=== PATIENT | male | born 1950 | race Caucasian/White ===

== ENCOUNTER 2016-12-16 15:09 | Emergency (ER) | payer OTHER ==
[2016-12-16 16:08] VITALS: BP 140/82; PULSE 94; TEMP 97.6; BMI 48.4
--- NOTE | 2016-12-16 16:40 | PDOC ---
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 Pt. reports falling 7 days ago. He was ambulating with crutches and attempting to sit down when his right knee "buckled" and he fell landing on his right knee with his knee flexed. Reports inability to bear weight on right leg following fall. He denies neck or back trauma during fall, but endorses right knee and right ankle pain. Denies penetrating trauma to knee or ankle. Reports swelling of right knee following injury. Endorses baseline numbness and tingling, and increased weakness of right leg compared to left. Pt. has been in bed immobile since fall because of knee pain. Lives alone with two home health aides to assist in care. Knee and ankle are aggrevated with pressure. He denies fevers/chills, SOB, confusion, GABRIEL, N/V, abdominal, or urinary complaints. Has attempted, OTC NSAIDS, heat, and ice therapy with little to no relief. Past History - Past Medical History Allergies/Adverse Reactions: Allergies Allergy/AdvReac Type Severity Reaction Status Date / Time No Known Allergies Allergy Verified 12/16/16 15:46 Home Medications: Ambulatory Orders Aspirin [ASA -] 81 mg PO DAILY 01/02/12 Alfuzosin HCl [Uroxatral] 10 mg PO DAILY 07/07/13 Ascorbic Acid [Vitamin C -] 500 mg PO BID 07/07/13 Carvedilol 3.125 mg PO BID 07/07/13 Cyclobenzaprine HCl [Amrix] 30 mg PO DAILY 07/07/13 Furosemide [Lasix -] 40 mg PO BID 07/07/13 Ibuprofen [Motrin -] 600 mg PO TID 07/07/13 Liraglutide [Victoza -] 0.6 mg SQ DAILY@0700 07/07/13 Niacin*ER* [Niaspan (Non-Formulary) -] 1,000 mg PO DAILY 07/07/13 Paroxetine HCl [Paxil -] 40 mg PO DAILY 07/07/13 Pramipexole Di-HCl [Mirapex] 1.5 mg PO BID 07/07/13 Rosuvastatin Calcium [Crestor] 10 mg PO DAILY 07/07/13 Zolpidem Tartrate [Ambien] 10 mg PO HS 07/07/13 Clonazepam [KlonoPIN] 0.5 mg PO DAILY 04/05/14 Cyclobenzaprine HCl [Amrix] 30 mg PO DAILY 04/05/14 Nitrofurantoin Monohyd/M-Cryst [Macrobid -] 100 mg PO BID 04/05/14 Oxycodone HCl/Acetaminophen [Percocet 5-325 mg Tablet -] 1 combo PO Q6H PRN #7 tablet 04/05/14 Pramipexole Di-HCl [Mirapex] 1.5 mg PO DAILY 04/05/14 Sennosides [Senna] 8.6 mg PO DAILY 04/05/14 Oxycodone HCl/Acetaminophen [Percocet 5-325 mg Tablet] 1 tab PO Q6H #20 tablet MDD 20-1300 12/16/16 Anemia: No Asthma: No Cancer: Yes (PROSTATE) Cardiac Disorders: Yes CVA: No COPD: No (HX SLEEP APNEA, ON CPAP) CHF: No Dementia: No Diabetes: Yes GI Disorders: No Disorders: No HTN: No Hypercholesterolemia: Yes Liver Disease: No Seizures: No Thyroid Disease: No - Surgical History Abdominal Surgery: No Appendectomy: No Cardiac Surgery: Yes (HX BLOCKAGE BUT NO SX) Cholecystectomy: No Lung Surgery: No Neurologic Surgery: Yes (MULTIPLE BACK AND NECK SX) Orthopedic Surgery: Yes (RIGHT TKR, RIGHT THR) - Psycho/Social/Smoking Cessation Hx Anxiety: No Suicidal Ideation: No Smoking Status: Yes Smoking History: Unknown if ever smoked Have you smoked in the past 12 months: No Number of Cigarettes Smoked Daily: 0 Information on smoking cessation initiated: No Hx Alcohol Use: No Drug/Substance Use Hx: No Substance Use Type: None Hx Substance Use Treatment: No Review of Systems - Review of Systems Comments:: 12/16/16 16:41 GENERAL/CONSTITUTIONAL: No fever or chills. No weakness. HEAD, EYES, EARS, NOSE AND THROAT: No change in vision. No ear pain or discharge. No sore throat. CARDIOVASCULAR: No chest pain or shortness of breath RESPIRATORY: No cough, wheezing, or hemoptysis. GASTROINTESTINAL: No nausea, vomiting, diarrhea or constipation. GENITOURINARY: No dysuria, frequency, or change in urination. MUSCULOSKELETAL: + Knee pain and swelling. No neck or back pain. SKIN: No rash NEUROLOGIC: + Quadraperesis. No headache, vertigo, loss of consciousness, or change in strength/sensation. ENDOCRINE: No increased thirst. No abnormal weight change HEMATOLOGIC/LYMPHATIC: No anemia, easy bleeding, or history of blood clots. ALLERGIC/IMMUNOLOGIC: No hives or skin allergy. *Physical Exam - Vital Signs Last Vital Signs Temp Pulse Resp BP Pulse Ox 97.6 F 94 H 18 140/82 98 12/16/16 15:10 12/16/16 15:10 12/16/16 15:10 12/16/16 15:10 12/16/16 16:09 - Physical Exam Comments: 12/16/16 16:57 GENERAL: Awake, alert, and fully oriented, in no acute distress HEAD: No signs of trauma, normocephalic, atraumatic EYES: PERRLA, EOMI, sclera anicteric, conjunctiva clear ENT: Auricles normal inspection, hearing grossly normal, nares patent, oropharynx clear without exudates. Moist mucosa NECK: Normal ROM, supple, no lymphadenopathy, JVD, or masses LUNGS: No distress, speaks full sentences, clear to auscultation bilaterally HEART: Regular rate and rhythm, normal S1 and S2, no murmurs, rubs or gallops, peripheral pulses normal and equal bilaterally. ABDOMEN: Soft, nontender, normoactive bowel sounds. No guarding, no rebound. No masses EXTREMITIES: . No clubbing or cyanosis. KNEE: Knee exam limited d/t immobility and pain. Right knee with diffuse patellar echymosis. Right medial and lateral joint line/ tibial plateau tenderness to palpation. Diffuse swelling/effusion and abrasion of right knee. Absent warmth, erythema of right knee. ANKLE: Right ankle tender to palpation at malleolar zone and slight navicular bone tenderness to palpation. Absent warmth/erythema/swelling, abrasions/ ecchymosis, or bony deformity. No pain with passive dorsiflexion/plantarflexion of right foot. Decreased active ROM in right foot. NEUROLOGICAL: Cranial nerves II through XII grossly intact. Normal speech, SKIN: Warm, Dry, normal turgor, no rashes or lesions noted. Heart Score/ECG Review - Electrocardiogram EKG: Normal - ECG Intrepretation Rhythm: Regular Rhythm - [place]: Left [place] Deviation - P and AR Prominent R with upright T in V1 (true posterior TN): No Delta Wave(s) Present: No WPW: No - QRS Poor R Wave Progression: No Q Wave Present: No - ST and T Early Repolarization: No Non Specific ST-T Wave changes: No Flattened T Waves: No Prolonged Q-T Interval: No - ECG Impressions Normal ECG: Yes Non-specific ST Elevation: No Ischemic Changes: No Bradycardia: No Torsades francis Pointes: No WPW: No ED Treatment Course - RADIOLOGY Radiology Studies Ordered: Category Date Time Status ANKLE & FOOT-RIGHT* [RAD] Stat Radiology 12/16/16 16:02 Ordered KNEE 3 POS-RIGHT [RAD] Stat Radiology 12/16/16 16:02 Ordered Radiograph Interpretation: 12/16/16 17:48 [id number] EXAM#: TYPE/EXAM: RESULT: [id number] RAD/ ANKLE FOOT-RIGHT* [id number] RAD/KNEE 3 POS-RIGHT Status post fall. X-ray of the right foot and ankle, 5 views Compared to prior x-rays of the right foot dated . There is significant osteopenia. The ankle mortise is intact. Mild bimalleolar soft tissue swelling is present. There is flexion deformity of the toes consistent with hemorrhage toes no gross acute fracture, dislocation or bone destruction are identified. Impression: There is significant osteoporosis limiting this exam. No gross acute fracture or dislocation are identified. The ankle mortise is intact. Mild bimalleolar soft tissue swelling. X-ray of the right knee, 3 views Patient is status post right knee replacement. Partially included metallic hardware transfixing the distal femoral shaft. There is an oblique cortical displacement/fracture in the distal femoral shaft that may represent a recent fracture. Correlate clinically. The metallic plate is approximately 5 mm lateral to the cortex of the distal femoral shaft. Moderate to large joint effusion. There is significant soft tissue swelling around the right knee Impression: Examination is technically limited. See discussion above. Oblique cortical interruption of the distal femoral shaft consistent with a fracture, possibly old. However, there is 5 mm lateral displacement of the metallic plate relative to the cortex of the distal femoral shaft. Further evaluation is needed to rule out an acute/recent fracture due to the presence of significant joint effusion and surrounding soft tissue swelling. Orthopedics consult is suggested. 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 Pt. reports falling 7 days ago while ambulating with crutches. No head, neck, or back trauma. Currently stable. Physical exam reveals medial and lateral right side tibial plateau tenderness. Mild TTP at right side lateral malleolous and right foot malleolar tenderness. Reports inability to bear weight on right leg following fall. DDx: Right knee/ankle sprain/strain, right knee/ ankle frx, right knee/ankle ligamentous/tendinous injury ED Course: RAD ANKLE AND FOOT RIGHT RAD KNEE 3 POST RIGHT [id number] EXAM#: TYPE/EXAM: RESULT: [id number] RAD/ ANKLE FOOT-RIGHT* [id number] RAD/KNEE 3 POS-RIGHT Status post fall. X-ray of the right foot and ankle, 5 views Compared to prior x-rays of the right foot dated . There is significant osteopenia. The ankle mortise is intact. Mild bimalleolar soft tissue swelling is present. There is flexion deformity of the toes consistent with hemorrhage toes no gross acute fracture, dislocation or bone destruction are identified. Impression: There is significant osteoporosis limiting this exam. No gross acute fracture or dislocation are identified. The ankle mortise is intact. Mild bimalleolar soft tissue swelling. X-ray of the right knee, 3 views Patient is status post right knee replacement. Partially included metallic hardware transfixing the distal femoral shaft. There is an oblique cortical displacement/fracture in the distal femoral shaft that may represent a recent fracture. Correlate clinically. The metallic plate is approximately 5 mm lateral to the cortex of the distal femoral shaft. Moderate to large joint effusion. There is significant soft tissue swelling around the right knee Impression: Examination is technically limited. See discussion above. Oblique cortical interruption of the distal femoral shaft consistent with a fracture, possibly old. However, there is 5 mm lateral displacement of the metallic plate relative to the cortex of the distal femoral shaft. Further evaluation is needed to rule out an acute/recent fracture due to the presence of significant joint effusion and surrounding soft tissue swelling. Orthopedics consult is suggested. Reported By: Hair Patel MD 1725 Enrike Benitez Technologist: Nati Jackson Transcribed Date/Time: 1725 Rn Flight: Hair Patel Knee Imobilizer placement EKG Unremarkable F/u outpatient with ortho. *DC/Admit/Observation/Transfer Diagnosis at time of Disposition: Knee fracture, right Fall Qualifiers: Encounter type: initial encounter Qualified Code(s): W19.XXXA - Unspecified fall, initial encounter - Discharge Dispostion Disposition: HOME Condition at time of disposition: Good Admit: No - Prescriptions Prescriptions: Oxycodone HCl/Acetaminophen [Percocet 5-325 mg Tablet] 1 tab PO Q6H #20 tablet MDD 20-1300 - Patient Instructions Printed Discharge Instructions: How to Use a Knee Immobilizer Additional Instructions: Continue to use morphine as needed for pain. Please take Percocet as prescribed for pain. Avoid right side weight bearing or walking with crutches. Please follow up with orthopedic physician for management of right knee fracture. Thank you for being patient Mr. Marshall. I ask that you try to be careful in the future when walking with crutches. Your story has been inspiring after 19 years of improvement after your injury. I wish you the best. Print Language: SETSWANA - Attestations Physician Attestion: 12/16/16 18:53 I, Dr. Enrike Benitez, attest that this document has been prepared under my direction and personally reviewed by me in its entirety. I further attest, that it accurately reflects all work, treatment, procedures and medical decision -making performed by me.
--- NOTE | 2016-12-16 18:51 | PDOC ---
Attending Attestation - Resident Resident Name: Enrike Benitez - ED Attending Attestation I have performed the following: I have examined & evaluated the patient, The case was reviewed & discussed with the resident, I agree w/resident's findings & plan, Exceptions are as noted - HPI HPI: 12/16/16 18:47 66 yo male twisted/fell hurt his right knee about five days ago. Still having pain, and it is not getting any better at all. C/O swelling and pain to that knee - Physicial Exam PE: 12/16/16 18:49 Limited ROM/Limited Exam. Limb NV intact. - Medical Decision Making 12/16/16 18:49 Follow up with your doctor at [facility] (ortho) take disc with you. No wt bearing. Wear immobilizer 12/16/16 18:51 Pt has knee fx on x-ray- stable
--- NOTE | 2016-12-19 08:17 | EKG ---
Test Reason : Blood Pressure : / mmHG Vent. Rate : 093 BPM Atrial Rate : 093 BPM P-R Int : 140 ms QRS Dur : 088 ms QT Int : 360 ms P-R-T Axes : 021 -42 028 degrees QTc Int : 447 ms NORMAL SINUS RHYTHM LEFT AXIS DEVIATION ABNORMAL ECG WHEN COMPARED WITH ECG OF 02-JAN-2012 17:46, PREMATURE VENTRICULAR COMPLEXES ARE NO LONGER PRESENT NONSPECIFIC T WAVE ABNORMALITY NOW EVIDENT IN ANTERIOR LEADS Confirmed by KASANDRA HARVEY, YONATAN ([id number]) on 12/19/2016 8:16:38 AM Referred By: Confirmed By:YONATAN SLAUGHTER MD
== END 2016-12-16 19:20 | disposition home or self-care (01) ==
LOC: JER 15:09
DX: S72.491A Other fracture of lower end of right femur, initial encounter for closed fracture (principal); W18.39XA Other fall on same level, initial encounter; Y93.89 Activity, other specified; Y92.9 Unspecified place or not applicable; Z96.641 Presence of right artificial hip joint; G82.50 Quadriplegia, unspecified; Z85.46 Personal history of malignant neoplasm of prostate; G47.30 Sleep apnea, unspecified; Z99.89 Dependence on other enabling machines and devices; E78.00 Pure hypercholesterolemia, unspecified; E11.9 Type 2 diabetes mellitus without complications
CPT/HCPCS: 73562-TC-RT; 73610-TC-RT; 73630-TC-RT; 93005; 93010; 99283-25

== ENCOUNTER 2018-08-30 12:08 | Inpatient (IN) | payer OTHER ==
--- NOTE | 2018-08-30 13:50 | PDOC ---
History of Present Illness - General Chief Complaint: Altered Mental Status Stated Complaint: LIGHTHEADED Time Seen by Provider: 08/30/18 13:49 History Source: Patient Exam Limitations: No Limitations - History of Present Illness Initial Comments: 08/30/18 14:20 68 year old male with PMH quadraparesis 2/2 cervical injury, wheelchair bound, prostate cancer, kidney cancer, COPD, HTN, hypothyroidism, diabetes, BPH, HLD sent to ED by Dr. Bernstein yesterday for "backing up of urine in kidneys". Pt stated he had annual blood work performed, was then called yesterday and told to go to the hospital for previously stated. He stated he was unable to come yesterday because he could not secure a van to transport him secondary to insurance issues. Pt reported generalized weakness. Pt denied chest pain, shortness of breath, abdominal pain, nausea, vomiting, diarrhea. Pt stated x2 weeks ago he had a one day episode of visual hallucinations. He stated he was told he did not have a urinary tract infection at that time. Allergies: NKDA Past History - Past Medical History Allergies/Adverse Reactions: Allergies Allergy/AdvReac Type Severity Reaction Status Date / Time No Known Allergies Allergy Verified 08/30/18 12:18 Home Medications: Ambulatory Orders Aspirin [ASA -] 81 mg PO DAILY 01/02/12 Alfuzosin HCl [Uroxatral] 10 mg PO DAILY 07/07/13 Carvedilol 3.125 mg PO BID 07/07/13 Niacin*ER* [Niaspan (Non-Formulary) -] 1,000 mg PO DAILY 07/07/13 Paroxetine HCl [Paxil -] 40 mg PO DAILY 07/07/13 Pramipexole Di-HCl [Mirapex] 1.5 mg PO TID 07/07/13 Sennosides [Senna] 8.6 mg PO DAILY 04/05/14 Albuterol Sulfate Inhaler - [Ventolin Hfa Inhaler -] 2 inh PO Q4H PRN 01/26/18 Ascorbic Acid [Vitamin C -] 500 mg PO DAILY 01/26/18 Cyclobenzaprine HCl [Amrix] 30 mg PO DAILY 01/26/18 Diclofenac Sodium [Voltaren] 2 gm TP TID PRN 01/26/18 Fluticasone/Salmeterol [Advair 250-50 Diskus] 1 each IH DAILY 01/26/18 Furosemide [Lasix -] 20 mg PO DAILY 01/26/18 Gabapentin [Neurontin -] 300 mg PO Q8H 01/26/18 Levothyroxine [Synthroid -] 50 mcg PO DAILY 01/26/18 Meclizine HCl 25 mg PO TID 01/26/18 Metformin HCl [Glucophage] 1,000 mg PO BID 01/26/18 Metoclopramide HCl 10 mg PO TID 01/26/18 Multivitamin/Iron/Folic Acid [Centrum Adults Tablet] 1 each PO DAILY 01/26/18 Naproxen [Naprosyn -] 500 mg PO BID 01/26/18 Ranolazine [Ranexa -] 1,000 mg PO BID 01/26/18 Sitagliptin Phosphate [Januvia -] 100 mg PO DAILY@0700 01/26/18 Tamsulosin HCl [Flomax] 0.4 mg PO DAILY 01/26/18 Tizanidine HCl 4 mg PO TID 01/26/18 Anemia: No Asthma: No Cancer: Yes (PROSTATE, kidney cancer) Cardiac Disorders: Yes CVA: No COPD: Yes (on inhalers) CHF: No Dementia: No Diabetes: Yes GI Disorders: No Disorders: No HTN: Yes (on meds) Hypercholesterolemia: Yes Liver Disease: No Seizures: No Thyroid Disease: Yes (on meds) - Surgical History Abdominal Surgery: No Appendectomy: No Cardiac Surgery: Yes (HX BLOCKAGE BUT NO SX) Cholecystectomy: No Lung Surgery: No Neurologic Surgery: Yes (implanted pain pump, implanted nerve stimulator) Orthopedic Surgery: Yes (RIGHT TKR, RIGHT THR; right elbow surgery ) - Immunization History Immunization Up to Date: Yes - Suicide/Smoking/Psychosocial Hx Smoking Status: Yes Smoking History: Former smoker Have you smoked in the past 12 months: No Number of Cigarettes Smoked Daily: 0 Information on smoking cessation initiated: No Hx Alcohol Use: No Drug/Substance Use Hx: No Substance Use Type: None Hx Substance Use Treatment: No Review of Systems - Review of Systems Able to Perform ROS?: Yes Comments:: 08/30/18 14:24 General: admitted to generalized weakness. denied fever, chills. HEENT: denied sore throat, rhinorrhea, ear pain. Heart: denied chest pain, palpitations, syncope, diaphoresis. Respiratory: denied shortness of breath, cough, sputum production, hemoptysis. Abdomen: denied abdominal pain, nausea, vomiting, diarrhea, constipation, blood in stool. : denied dysuria, increased urinary frequency, hematuria, urinary incontinence , flank pain. Back: denied back pain. Musculoskeletal: denied joint pain, muscle pain, joint swelling. Neurological: admitted to hallucinations. denied headache, dizziness, numbness, tingling, weakness. Skin: denied rash, laceration, abrasion. *Physical Exam - Vital Signs Last Vital Signs Temp Pulse Resp BP Pulse Ox 98.0 F 82 18 111/55 L 96 08/30/18 12:18 08/30/18 12:18 08/30/18 12:18 08/30/18 12:18 08/30/18 12:18 - Physical Exam Comments: 08/30/18 14:26 Constitutional: morbidly obese, sitting in wheelchair. HEENT: head is normocephalic, atraumatic. EOMI. PERRLA. dry mucous membranes. Neck: supple. Full ROM. Heart: regular rhythm. no murmurs, rubs or gallops. Lungs: clear to auscultation bilaterally. no crackles, rhonchi or wheezing. no stridor. Abdomen: soft, nontender. normal bowel sounds. no rebound, guarding, masses. Extremities: peripheral pulses intact. 4+ pitting edema bilaterally. Neurological: CN 2-12 grossly intact. moves all four extremities. Psych: awake, alert, oriented x3. follows commands. answers questions appropriately. ED Treatment Course - LABORATORY CBC & Chemistry Diagram: 08/31/18 07:00 08/31/18 07:00 Medical Decision Making - Medical Decision Making 08/30/18 14:27 68 year old male with above PMH presented to ED for evaluation of "urine backing up to my kidneys". Dr. Bernstein was called, he is currently on vacation. Initial Vital Signs Temp Pulse Resp BP Pulse Ox 98.0 F 82 18 111/55 L 96 08/30/18 12:18 08/30/18 12:18 08/30/18 12:18 08/30/18 12:18 08/30/18 12:18 Afebrile. No tachycardia. No tachypnea. Mild hypotension. No hypoxia on room air. Labs ordered: CBC, CMP, Mag, UA/UC, salicyclate, tylenol level Imaging ordered: CXR, kidney US Medications ordered: none 08/30/18 16:39 CBC WBC 5.2 K/mm3 (4.0-10.0) 08/30/18 14:43 RBC 2.58 M/mm3 (4.00-5.60) L 08/30/18 14:43 Hgb 8.6 GM/dL (11.7-16.9) L 08/30/18 14:43 Hct 24.8 % (35.4-49) L D 08/30/18 14:43 MCV 96.3 fl (80-96) H 08/30/18 14:43 MCH 33.6 pg (25.7-33.7) 08/30/18 14:43 MCHC 34.8 g/dl (32.0-35.9) 08/30/18 14:43 RDW 14.6 % (11.9-15.9) 08/30/18 14:43 Plt Count 124 K/MM3 (134-434) L 08/30/18 14:43 MPV 6.7 fl (7.5-11.1) L D 08/30/18 14:43 Absolute Neuts (auto) 3.4 K/mm3 (1.5-8.0) 08/30/18 14:43 Neutrophils % 65.8 % (42.8-82.8) 08/30/18 14:43 Lymphocytes % 19.4 % (8-40) 08/30/18 14:43 Monocytes % 8.6 % (3.8-10.2) 08/30/18 14:43 Eosinophils % 5.8 % (0-4.5) H 08/30/18 14:43 Basophils % 0.4 % (0-2.0) 08/30/18 14:43 Nucleated RBC % 0 % (0-0) 08/30/18 14:43 No leukocytosis. Mildly macrocytic anemia. Mild thrombocytopenia. CMP Sodium 135 mmol/L (136-145) L 08/30/18 14:43 Potassium 4.6 mmol/L (3.5-5.1) 08/30/18 14:43 Chloride 105 mmol/L (98-107) 08/30/18 14:43 Carbon Dioxide 21 mmol/L (21-32) 08/30/18 14:43 Anion Gap 10 MMOL/L (8-16) 08/30/18 14:43 BUN 25 mg/dL (7-18) H 08/30/18 14:43 Creatinine 2.5 mg/dL (0.55-1.3) H 08/30/18 14:43 Creat Clearance w eGFR 25.74 (>60) 08/30/18 14:43 Random Glucose 88 mg/dL (74-106) 08/30/18 14:43 Calcium 9.0 mg/dL (8.5-10.1) 08/30/18 14:43 Magnesium 1.7 mg/dL (1.8-2.4) L 08/30/18 14:43 Total Bilirubin 0.5 mg/dL (0.2-1) 08/30/18 14:43 AST 9 U/L (15-37) L 08/30/18 14:43 ALT 13 U/L (13-61) 08/30/18 14:43 Alkaline Phosphatase 44 U/L (45-117) L 08/30/18 14:43 B-Natriuretic Peptide 1013.6 pg/ml (5-125) H 08/30/18 14:43 Total Protein 6.2 g/dl (6.4-8.2) L 08/30/18 14:43 Albumin 3.5 g/dl (3.4-5.0) 08/30/18 14:43 Mild low magnesium. JUANITA -Baseline Cr 1.0 No transaminitis. Mildly elevated BNP. Medications ordered: normal saline 500 cc bolus, magnesium Pt to be observed for JUANITA. Pending UA. Urine drug screen negative. 08/30/18 17:45 Urine Test Results Urine Color Dk yellow 08/30/18 15:26 Urine Appearance Clear 08/30/18 15:26 Urine pH 5.0 (5.0-8.0) 08/30/18 15:26 Ur Specific [place] 1.017 (1.010-1.035) 08/30/18 15:26 Urine Protein Negative (NEGATIVE) 08/30/18 15:26 Urine Glucose (UA) Negative (NEGATIVE) 08/30/18 15:26 Urine Ketones Trace (NEGATIVE) H 08/30/18 15:26 Urine Blood Negative (NEGATIVE) 08/30/18 15:26 Urine Nitrite Negative (NEGATIVE) 08/30/18 15:26 Urine Bilirubin Negative (NEGATIVE) 08/30/18 15:26 Ur Leukocyte Esterase 2+ (NEGATIVE) H 08/30/18 15:26 WBC 8 Positive epithelial cells. Will give one time dose Ceftriaxone. Pt to be admitted for UTI with JUANITA. Hospitalists paged. Pending admission for obs. 08/30/18 17:[address] Warren about the patient, she requested bladder scan and straight cath. Above ordered. 08/30/18 18:23 CXR report: no acute chest pathology. Bladder US report: urinary bladder volume at time of exam 24 mL. no gross calculus or mass lesion. prostate gland not visualized. *DC/Admit/Observation/Transfer Diagnosis at time of Disposition: UTI (urinary tract infection), JUANITA (acute kidney injury) - Discharge Dispostion Condition at time of disposition: Stable Decision to Admit order: Yes - Referrals - Patient Instructions - Post Discharge Activity
[2018-08-30 15:01] LABS: BASO % 0.4 % (0-2.0); EOS % 5.8 % (0-4.5); HEMATOCRIT 24.8 % (35.4-49); HEMOGLOBIN 8.6 GM/dL (11.7-16.9); LYMPH % 19.4 % (8-40); MCH 33.6 pg (25.7-33.7); MCHC 34.8 g/dl (32.0-35.9); MEAN CELL VOLUME 96.3 fl (80-96); MEAN PLT VOLUME 6.7 fl (7.5-11.1); MONO % 8.6 % (3.8-10.2); NEUT % 65.8 % (42.8-82.8); PLATELET COUNT 124 K/MM3 (134-434); RBC 2.58 M/mm3 (4.00-5.60); RDW 14.6 % (11.9-15.9); WHITE BLOOD COUNT 5.2 K/mm3 (4.0-10.0)
[2018-08-30 15:30] LABS: INR 1.03 (0.83-1.09); PROTHROMBIN TIME (PATIENT) 12.2 SEC (9.7-13.0)
[2018-08-30 15:33] LABS: ACTIVATED PTT 33.6 SECONDS (25.2-36.5)
[2018-08-30 15:36] LABS: EPI CELLS 1.6 /HPF (0-5/HPF); URINE APPEARANCE CLEAR; URINE BACTERIA 2.7 /hpf (NEGATIVE); URINE BILIRUBIN NEGATIVE (NEGATIVE); URINE CASTS 12 /lpf (0-8); URINE COLOR DK YELLOW; URINE GLUCOSE (UA) NEGATIVE (NEGATIVE); URINE KETONE TRACE (NEGATIVE); URINE LEUK ESTERASE 2+ (NEGATIVE); URINE NITRITE NEGATIVE (NEGATIVE); URINE PROTEIN NEGATIVE (NEGATIVE); URINE RBC 2 /hpf (0-4); URINE UROBILINOGEN 0.2 mg/dL (0.2-1.0); URINE WBC 8 /hpf (0-5)
[2018-08-30 15:38] LABS: ALBUMIN 3.5 g/dl (3.4-5.0); ALK PHOS 44 U/L (45-117); ANION GAP 10 MMOL/L (8-16); BILIRUBIN,TOTAL 0.5 mg/dL (0.2-1); BLOOD UREA NITROGEN 25 mg/dL (7-18); CHLORIDE 105 mmol/L (98-107); CO2 21 mmol/L (21-32); CREATININE 2.5 mg/dL (0.55-1.3); GLUCOSE,RANDOM 88 mg/dL (74-106); MAGNESIUM 1.7 mg/dL (1.8-2.4); N-TERMINAL BNP 1013.6 pg/ml (5-125); POTASSIUM 4.6 mmol/L (3.5-5.1); SGOT/AST 9 U/L (15-37); SGPT/ALT 13 U/L (13-61); SODIUM 135 mmol/L (136-145); TOT PROT 6.2 g/dl (6.4-8.2)
--- NOTE | 2018-08-30 16:05 | PDOC ---
Documentation entered by Lynette Ballard SCRIBE, acting as scribe for Alvaro Pinto MD. Attending Attestation - Resident Resident Name: Penelope Woods - ED Attending Attestation I have performed the following: I have examined & evaluated the patient, The case was reviewed & discussed with the resident, I agree w/resident's findings & plan, Exceptions are as noted - HPI HPI: 08/30/18 15:57 The patient is a 68 year old male with a significant past medical history of depression, diabetes, prostate ca, kidney ca, BPH, COPD, quadriparesis, and obesity who presents to the emergency department from PCP office for evaluation of kidneys. The patient reports that he was reported to not have a UTI in his prior follow up. The patient endorses some generalized weakness and an episode of hallucination 2 weeks ago. He denies any fever, chills, nausea, vomiting, diarrhea, constipation or urinary symptoms. He denies any other symptoms or complaints. - Physicial Exam PE: 08/30/18 16:42 Reviewed Residents PE - Medical Decision Making 08/30/18 15:57 The patient is a 68 year old male with a significant past medical history of depression, diabetes, prostate ca, kidney ca, BPH, COPD, quadriparesis, and obesity who presents to the emergency department from PCP office for evaluation of kidneys. The patient will get labs drawn and an ultrsound of his kidneys for further evaluation. 08/30/18 16:42 Patient sent to the emergency department for abnormal blood results Laboratory analysis notable for acute kidney injury Ultrasound of his kidneys demonstrates no acute hydronephrosis We'll observe overnight and hospital for a KI hydration and further management. Alvaro Pinto MD: This documentation has been prepared by the scribe, Lynette Ballard SCRIBE, under my direction and personally reviewed by me in its entirety. I confirm that the documentation accurately reflects all work, treatment, procedures, and medical decision making performed by me.
[2018-08-30 16:36] LABS: COCAINE, UR NEGATIVE ng/ml (CUTOFF=300); METHADONE, UR NEGATIVE ng/ml (CUTOFF=300); OPIATES, URI NEGATIVE ng/ml (CUTOFF=300); PHENCYCLIDINE,URINE NEGATIVE ng/ml (CUTOFF=25); URINE AMPHETAMINES NEGATIVE ng/ml (CUTOFF=500); URINE BARBITURATES NEGATIVE ng/ml (CUTOFF=200); URINE BENZODIAZEPINES NEGATIVE ng/ml (CUTOFF=200)
[2018-08-30] MEDS ORDERED: SODIUM CHLORIDE 500 ML IV STA (16:39)
[2018-08-30] MEDS ORDERED: MAGNESIUM OXIDE 400 MG TABLET (FP) PO ONE (16:42)
[2018-08-30] MEDS ORDERED: MAGNESIUM OXIDE 400 MG TABLET (FP) ONE (16:52)
[2018-08-30] MEDS ORDERED: CEFTRIAXONE 1 GM in DEXTROSE 5%-WATER - 100 ML IVPB ONE (17:42)
--- NOTE | 2018-08-30 18:04 | HP ---
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 Bernstein due to elevated creat on routine labs. Patient complains of generalized weakness and loss of appetite for several weeks. Pt denies cp, orthopnea, palpitations, weight gain, sob, cough, melena, hematochezia, hematuria, dysuria. reports having a normal TTE 1 yr ago. ER course was notable for: (1) labs, cxr, renal US (2)mag pérez Recent Travel: denies PAST MEDICAL HISTORY: as above PAST SURGICAL HISTORY: as above Social History: Smoking:denies Alcohol:denies Drugs: denies Family History: noncontributory Allergies No Known Allergies Allergy (Verified 08/30/18 12:18) HOME MEDICATIONS: Home Medications Medication Instructions Recorded Aspirin [ASA -] 81 mg PO DAILY 01/02/12 Alfuzosin HCl [Uroxatral] 10 mg PO DAILY 07/07/13 Carvedilol 3.125 mg PO BID 07/07/13 Furosemide [Lasix -] 40 mg PO BID 07/07/13 Niacin*ER* [Niaspan 1,000 mg PO DAILY 07/07/13 (Non-Formulary) -] Paroxetine HCl [Paxil -] 40 mg PO DAILY 07/07/13 Pramipexole Di-HCl [Mirapex] 1.5 mg PO TID 07/07/13 Nitrofurantoin Monohyd/M-Cryst 100 mg PO BID 04/05/14 [Macrobid -] Sennosides [Senna] 8.6 mg PO DAILY 04/05/14 Albuterol Sulfate Inhaler - 2 inh PO Q4H PRN 01/26/18 [Ventolin Hfa Inhaler -] Ascorbic Acid [Vitamin C -] 500 mg PO DAILY 01/26/18 Cyclobenzaprine HCl [Amrix] 30 mg PO DAILY 01/26/18 Diclofenac Sodium [Voltaren] 2 gm TP TID PRN 01/26/18 Fluticasone/Salmeterol [Advair 1 each IH DAILY 01/26/18 250-50 Diskus] Furosemide [Lasix -] 20 mg PO DAILY 01/26/18 Gabapentin [Neurontin -] 300 mg PO Q8H 01/26/18 Ketoconazole 2% Cream [Nizoral 2% 1 applic TP DAILY 01/26/18 Cream -] Levothyroxine [Synthroid -] 50 mcg PO DAILY 01/26/18 Meclizine HCl 25 mg PO DAILY 01/26/18 Metformin HCl [Glucophage] 1,000 mg PO BID 01/26/18 Metoclopramide HCl 10 mg PO TID 01/26/18 Multivitamin/Iron/Folic Acid 1 each PO DAILY 01/26/18 [Centrum Adults Tablet] Naproxen [Naprosyn -] 500 mg PO BID 01/26/18 Ranolazine [Ranexa -] 1,000 mg PO BID 01/26/18 Sitagliptin Phosphate [Januvia -] 100 mg PO DAILY@0700 01/26/18 Tamsulosin HCl [Flomax] 0.4 mg PO DAILY 01/26/18 Tizanidine HCl 4 mg PO BID 01/26/18 REVIEW OF SYSTEMS CONSTITUTIONAL: Absent: fever, chills HEENT: Absent: rhinorrhea, nasal congestion, throat pain CARDIOVASCULAR: Absent: chest pain, syncope, palpitations, irregular heart rate, lightheadedness RESPIRATORY: Absent: cough, shortness of breath, orthopnea GASTROINTESTINAL: Absent: abdominal pain, abdominal distension, nausea, vomiting, diarrhea, constipation, melena, hematochezia GENITOURINARY: Absent: dysuria MUSCULOSKELETAL: Absent: back pain, neck pain SKIN: Absent: rash, itching, pallor HEMATOLOGIC/IMMUNOLOGIC: Absent: easy bleeding, easy bruising ENDOCRINE: Absent: unexplained weight gain, unexplained weight loss NEUROLOGIC: Absent: headache, focal weakness or paresthesias PSYCHIATRIC: Absent: anxiety, depression PHYSICAL EXAMINATION Vital Signs - 24 hr 08/30/18 12:18 Temperature 98.0 F Pulse Rate 82 Respiratory 18 Rate Blood Pressure 111/55 L O2 Sat by Pulse 96 Oximetry (%) GENERAL: Awake, alert, and fully oriented, in no acute distress. HEAD: Normal with no signs of trauma. EYES: extraocular movements intact, sclera anicteric, conjunctiva clear. EARS, NOSE, THROAT: Moist mucous membranes. NECK: supple, JVD hard to appreciate due to body habitus LUNGS: Breath sounds equal, clear to auscultation bilaterally. HEART: Regular rate and rhythm, normal S1 and S2 ABDOMEN: obese, rlq pain pump subQ, Soft, nontender, not distended, normoactive bowel sounds, no guarding, no rebound, no masses. MUSCULOSKELETAL: No CVA tenderness. UPPER EXTREMITIES: 2+ pulses, warm, well-perfused. No cyanosis. No clubbing. No peripheral edema. LOWER EXTREMITIES: 2+ pulses, warm, well-perfused. No calf tenderness. 3+ peripheral edema. NEUROLOGICAL: Cranial nerves II-XII grossly intact. Normal speech. PSYCHIATRIC: Cooperative. Good eye contact. Appropriate mood and affect. SKIN: Warm, dry Laboratory Results - last 24 hr 08/30/18 08/30/18 08/30/18 14:43 14:43 14:43 WBC 5.2 RBC 2.58 L Hgb 8.6 L Hct 24.8 L D MCV 96.3 H MCH 33.6 MCHC 34.8 RDW 14.6 Plt Count 124 L MPV 6.7 L D Absolute Neuts (auto) 3.4 Neutrophils % 65.8 Lymphocytes % 19.4 Monocytes % 8.6 Eosinophils % 5.8 H Basophils % 0.4 Nucleated RBC % 0 PT with INR 12.20 INR 1.03 PTT (Actin FS) 33.6 Sodium 135 L Potassium 4.6 Chloride 105 Carbon Dioxide 21 Anion Gap 10 BUN 25 H Creatinine 2.5 H Creat Clearance w eGFR 25.74 Random Glucose 88 Calcium 9.0 Magnesium 1.7 L Total Bilirubin 0.5 AST 9 L ALT 13 Alkaline Phosphatase 44 L B-Natriuretic Peptide 1013.6 H Total Protein 6.2 L Albumin 3.5 Urine Color Urine Appearance Urine pH Ur Specific [place] Urine Protein Urine Glucose (UA) Urine Ketones Urine Blood Urine Nitrite Urine Bilirubin Urine Urobilinogen Ur Leukocyte Esterase Urine WBC (Auto) Urine RBC (Auto) Urine Casts (Auto) U Pathogenic Cast Auto U Epithel Cells (Auto) Urine Bacteria (Auto) Salicylates < 1.7 L Opiates Screen Methadone Screen Acetaminophen < 2.0 L Barbiturate Screen Phencyclidine Screen Ur Amphetamines Screen MDMA (Ecstasy) Screen Benzodiazepines Screen Cocaine Screen U Marijuana (THC) Screen 08/30/18 08/30/18 15:26 15:26 WBC RBC Hgb Hct MCV MCH MCHC RDW Plt Count MPV Absolute Neuts (auto) Neutrophils % Lymphocytes % Monocytes % Eosinophils % Basophils % Nucleated RBC % PT with INR INR PTT (Actin FS) Sodium Potassium Chloride Carbon Dioxide Anion Gap BUN Creatinine Creat Clearance w eGFR Random Glucose Calcium Magnesium Total Bilirubin AST ALT Alkaline Phosphatase B-Natriuretic Peptide Total Protein Albumin Urine Color Dk yellow Urine Appearance Clear Urine pH 5.0 Ur Specific [place] 1.017 Urine Protein Negative Urine Glucose (UA) Negative Urine Ketones Trace H Urine Blood Negative Urine Nitrite Negative Urine Bilirubin Negative Urine Urobilinogen 0.2 Ur Leukocyte Esterase 2+ H Urine WBC (Auto) 8 Urine RBC (Auto) 2 Urine Casts (Auto) 12 U Pathogenic Cast Auto none U Epithel Cells (Auto) 1.6 Urine Bacteria (Auto) 2.7 Salicylates Opiates Screen Negative Methadone Screen Negative Acetaminophen Barbiturate Screen Negative Phencyclidine Screen Negative Ur Amphetamines Screen Negative MDMA (Ecstasy) Screen Negative Benzodiazepines Screen Negative Cocaine Screen Negative U Marijuana (THC) Screen Negative ASSESSMENT/PLAN: This is a 68 yo M with PMH of 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 Bernstein due to elevated creat on routine labs. JUANITA vs ckd, likely prerenal due to volume overload, suspect acute new CHF; r/o intrarenal pathology normocytic anemia likley due to ckd; r/o bleeding HTN HLD DM COPD Sleep Apnea, likely has pulm HTN hypothyroid BPH quadraparesis -clinical picture most consistent with CHF, possibly R sided due to pulm HTN; patient has multiple risk factors for CAD as well -appears to be on both lasix and coreg at home -ekg L axis, cxr may have some cephalization. -TTE, renal lytes and creat to calculate urine osm -lasix 80 iv -strict I and O, daily weights -TFTs, mag, phos, lipid panel, a1c -renal US and bladder us normal kidneys, no retention -renal consult. will consult cardio when tte done -retic count, stool occult blood PLEASE RECONCILE HOME MEDS IN THE MORNING YADIRA Problem List - Problem (1) CHF (congestive heart failure) Code(s): I50.9 - HEART FAILURE, UNSPECIFIED (2) Normocytic anemia Code(s): D64.9 - ANEMIA, UNSPECIFIED (3) JUANITA (acute kidney injury) Code(s): N17.9 - ACUTE KIDNEY FAILURE, UNSPECIFIED (4) COPD (chronic obstructive pulmonary disease) Code(s): J44.9 - CHRONIC OBSTRUCTIVE PULMONARY DISEASE, UNSPECIFIED (5) Diabetes mellitus treated with oral medication Code(s): E11.9 - TYPE 2 DIABETES MELLITUS WITHOUT COMPLICATIONS; Z79.84 - 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 (CURRENT) USE OF ORAL HYPOGLYCEMIC DRUGS (6) Hypothyroid Code(s): E03.9 - HYPOTHYROIDISM, UNSPECIFIED (7) Obesity, Class III, BMI 40-49.9 (morbid obesity) Code(s): E66.01 - MORBID (SEVERE) OBESITY DUE TO EXCESS CALORIES (8) Prostate cancer Code(s): C61 - MALIGNANT NEOPLASM OF PROSTATE (9) Quadriparesis Code(s): G82.50 - QUADRIPLEGIA, UNSPECIFIED (10) Sleep apnea with use of continuous positive airway pressure (CPAP) Code(s): G47.30 - SLEEP APNEA, UNSPECIFIED Visit type - Emergency Visit Emergency Visit: Yes ED Registration Date: 08/30/18 Care time: The patient presented to the Emergency Department on the above date and was hospitalized for further evaluation of their emergent condition. - New Patient This patient is new to me today: Yes Date on this admission: 08/30/18 - Critical Care Critical Care patient: No
[2018-08-30] MEDS ORDERED: CEFTRIAXONE 1 GM/50 ML BAG ONE (18:31)
[2018-08-30] MEDS ORDERED: FUROSEMIDE 40 MG/4 ML INJECTABLE VIAL IVPUSH ONE ×2 (19:45→20:00)
[2018-08-30] MEDS ORDERED: ALBUTEROL SO4 8 GM HFA INHALER IH PRN (19:46)
[2018-08-30] MEDS ORDERED: FUROSEMIDE 40 MG/4 ML INJECTABLE VIAL ONE (21:12)
[2018-08-30] MEDS ORDERED: RANOLAZINE E.R. 500 MG TABLET (FP) ONE (22:36)
[2018-08-30] MEDS: CARVEDILOL 3.125 MG TABLET (FP) PO SCH (22:44)
[2018-08-30] MEDS: GABAPENTIN 300 MG CAPSULE (FP) PO SCH (22:44)
[2018-08-30] MEDS: METOCLOPRAMIDE HCL 10 MG TABLET (FP) PO SCH (22:45)
[2018-08-30] MEDS: RANOLAZINE E.R. 1,000 MG TABLET (FP) PO SCH (22:45)
[2018-08-30] MEDS: INSULIN SLIDING SCALE (NOVOLOG) 1 VIAL SQ SCH (22:48)
[2018-08-30] MEDS: TIZANIDINE HCL 4 MG TABLET PO SCH (22:49)
[2018-08-30] MEDS: PRAMIPEXOLE DIHYDROCHLORIDE 1.5 MG TABLET PO SCH (22:51)
--- NOTE | 2018-08-30 23:47 | PN ---
Teaching Attending Note Name of Resident: Patricia Zhong ATTENDING PHYSICIAN STATEMENT I saw and evaluated the patient. I reviewed the resident's note and discussed the case with the resident. I agree with the resident's findings and plan as documented. 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 He states that he originally went to PMD for feeling tired and episode of being intermittently confused and weak. He states that other than these complaints he has had no more /GI cardiopulmonary complaints, no change in PO intake, been adherent to his medication. At baseline he has Andreas edema but can not tell me if it has worsened, also is obese and can not tell me if it has changed and is wheelchair bound so can not tell me if her had STILL or worsening ET. Denies any change in urine out put, no new change in his medication regimen. In the ED he was found to be anemic, have volume overload and BUN/ CR which is higher than the last once 1 year ago. At the time of my exam he is in no distress, only complains of pain due to sitting in the hard bed. OBJECTIVE: in no distress, afbrile, in no respiratory distress morbidly Obese M CVS:s1S2 CTAB ANT ASPECT andreas: has 4+ pitting edema up to the high thigh Vital Signs - 24 hr 08/30/18 08/30/18 08/30/18 12:18 14:20 21:04 Temperature 98.0 F 98.1 F Pulse Rate 82 Pulse Rate [ 86 Apical] Respiratory 18 20 Rate Blood Pressure 111/55 L Blood Pressure 112/62 [Right Arm] O2 Sat by Pulse 96 96 96 Oximetry (%) 08/30/18 23:44 Temperature Pulse Rate Pulse Rate [ Apical] Respiratory Rate Blood Pressure Blood Pressure [Right Arm] O2 Sat by Pulse 98 Oximetry (%) CBCD WBC 5.2 K/mm3 (4.0-10.0) 08/30/18 14:43 RBC 2.58 M/mm3 (4.00-5.60) L 08/30/18 14:43 Hgb 8.6 GM/dL (11.7-16.9) L 08/30/18 14:43 Hct 24.8 % (35.4-49) L D 08/30/18 14:43 MCV 96.3 fl (80-96) H 08/30/18 14:43 MCHC 34.8 g/dl (32.0-35.9) 08/30/18 14:43 RDW 14.6 % (11.9-15.9) 08/30/18 14:43 Plt Count 124 K/MM3 (134-434) L 08/30/18 14:43 MPV 6.7 fl (7.5-11.1) L D 08/30/18 14:43 CMP Sodium 135 mmol/L (136-145) L 08/30/18 14:43 Potassium 4.6 mmol/L (3.5-5.1) 08/30/18 14:43 Chloride 105 mmol/L (98-107) 08/30/18 14:43 Carbon Dioxide 21 mmol/L (21-32) 08/30/18 14:43 Anion Gap 10 MMOL/L (8-16) 08/30/18 14:43 BUN 25 mg/dL (7-18) H 08/30/18 14:43 Creatinine 2.5 mg/dL (0.55-1.3) H 08/30/18 14:43 Creat Clearance w eGFR 25.74 (>60) 08/30/18 14:43 Random Glucose 88 mg/dL (74-106) 08/30/18 14:43 Calcium 9.0 mg/dL (8.5-10.1) 08/30/18 14:43 Total Bilirubin 0.5 mg/dL (0.2-1) 08/30/18 14:43 AST 9 U/L (15-37) L 08/30/18 14:43 ALT 13 U/L (13-61) 08/30/18 14:43 Alkaline Phosphatase 44 U/L (45-117) L 08/30/18 14:43 Total Protein 6.2 g/dl (6.4-8.2) L 08/30/18 14:43 Albumin 3.5 g/dl (3.4-5.0) 08/30/18 14:43 ASSESSMENT AND PLAN: Morbidly obese LASHAUN, HTN. DM P/W with normocytic normochromic anemia, worsening renal failure and volume overload admitted for worsening renal failure, with no urinary obstructive findings on imaging. Worsening renal function: unclear of the rate of worsening of renal function, urine is not significantly abnormal at this time with no proteinuria at this time which makes intrinsic etiology less likely, post renal obstruction( has BPH and prostate CA R/O with imaging),prerenal causes such as cardio renal should be considered at this time. pending Urine lytes, Fe urea(is on diuretics) Will prevent nephrotoxins, nephro recs Volume overload: renal function is not that bad the would be the cause of the volume overload and the patient has been on diuretics and carvedilol from before which is most likely in the setting of HF. is not currently in respiratory distress, Will give high dose diuretics, BMP and K and mG monitored and repleted BID. I.O strict, states that can not use the urinal and condom cath dose not stay on the penis so will put folye in at this time daily weight Will C/W BB home dose unclear if the patient liver tests no sing of cirrhosis Anemia: normocytic, normochromic, With Nl RDW,will send retic count and iron studies. Bili is not high, so unlikely to be hemolytic, FC rest of the management per HS note.
[2018-08-31] MEDS ORDERED: FUROSEMIDE 40 MG/4 ML INJECTABLE VIAL ONE (05:57)
[2018-08-31] MEDS ORDERED: FUROSEMIDE 40 MG/4 ML INJECTABLE VIAL IVPB SCH (06:00)
[2018-08-31] MEDS ORDERED: FUROSEMIDE 100 MG/10 ML INJECTABLE VIAL IVPB SCH (06:00)
[2018-08-31] MEDS: PRAMIPEXOLE DIHYDROCHLORIDE 1.5 MG TABLET PO SCH ×3 (06:03→23:19)
[2018-08-31] MEDS: LEVOTHYROXINE NA 50 MCG TABLET (FP) PO SCH (06:03)
[2018-08-31] MEDS: GABAPENTIN 300 MG CAPSULE (FP) PO SCH ×3 (06:03→22:46)
[2018-08-31] MEDS: METOCLOPRAMIDE HCL 10 MG TABLET (FP) PO SCH ×3 (06:03→22:46)
[2018-08-31] MEDS: INSULIN SLIDING SCALE (NOVOLOG) 1 VIAL SQ SCH ×4 (06:05→22:44)
[2018-08-31] MEDS ORDERED: INSULIN (NOVOLOG) ASPART 100 UNITS/ML 10ML VIAL ONE (06:50)
[2018-08-31 07:42] LABS: HEMATOCRIT 22.9 % (35.4-49); MCH 33.2 pg (25.7-33.7); MCHC 35.2 g/dl (32.0-35.9); MEAN CELL VOLUME 94.2 fl (80-96); MEAN PLT VOLUME 6.5 fl (7.5-11.1); PLATELET COUNT 125 K/MM3 (134-434); RBC 2.43 M/mm3 (4.00-5.60); RDW 14.2 % (11.9-15.9); WHITE BLOOD COUNT 4.4 K/mm3 (4.0-10.0)
[2018-08-31 08:11] LABS: ANION GAP 8 MMOL/L (8-16); BLOOD UREA NITROGEN 29 mg/dL (7-18); CALCIUM 8.8 mg/dL (8.5-10.1); CHLORIDE 108 mmol/L (98-107); CO2 23 mmol/L (21-32); CREATININE 2.8 mg/dL (0.55-1.3); GLUCOSE,RANDOM 137 mg/dL (74-106); MAGNESIUM 1.6 mg/dL (1.8-2.4); PHOSPHOROUS 3.4 mg/dL (2.5-4.9); POTASSIUM 4.2 mmol/L (3.5-5.1); SODIUM 139 mmol/L (136-145)
--- NOTE | 2018-08-31 08:56 | PN ---
Teaching Attending Note Name of Resident: Lila Woodward ATTENDING PHYSICIAN STATEMENT I saw and evaluated the patient. I reviewed the resident's note and discussed the case with the resident. I agree with the resident's findings and plan as documented. SUBJECTIVE: OBJECTIVE: Vital Signs Temperature 98.7 F 08/31/18 06:00 Pulse Rate 91 H 08/31/18 06:00 Respiratory Rate 20 08/31/18 06:00 Blood Pressure 112/59 L 08/31/18 06:00 O2 Sat by Pulse Oximetry (%) 98 08/30/18 23:44 LABS: CBC, BMP 08/31/18 07:00 08/31/18 07:00 Active Medications Albuterol Sulfate (Ventolin Hfa Inhaler -) 2 puff IH Q4H PRN PRN Reason: WHEEZING Aspirin (Asa -) 81 mg PO DAILY [facility] Carvedilol (Coreg -) 3.125 mg PO BID [facility] Last Admin: 08/30/18 22:44 Dose: 3.125 mg Enoxaparin Sodium (Lovenox -) 40 mg SQ DAILY [facility] Furosemide (Lasix Injection -) 100 mg IVPB BID@0600,1400 [facility] Gabapentin (Neurontin -) 300 mg PO TID [facility] Last Admin: 08/31/18 06:03 Dose: 300 mg Insulin Aspart (Novolog Vial Sliding Scale -) 1 vial SQ ACHS [facility]; Protocol Last Admin: 08/31/18 06:05 Dose: Not Given Ketoconazole (Nizoral 2% Cream -) 1 applic TP DAILY [facility] Levothyroxine Sodium (Synthroid -) 50 mcg PO AM [facility] Last Admin: 08/31/18 06:03 Dose: 50 mcg Meclizine HCl (Antivert -) 25 mg PO DAILY [facility] Metoclopramide HCl (Reglan -) 10 mg PO TID [facility] Last Admin: 08/31/18 06:03 Dose: 10 mg Pramipexole Dihydrochloride (Mirapex -) 1.5 mg PO TID [facility] Last Admin: 08/31/18 06:03 Dose: 1.5 mg Ranolazine (Ranexa -) 1,000 mg PO BID [facility] Last Admin: 08/30/18 22:45 Dose: 1,000 mg Tamsulosin HCl (Flomax -) 0.4 mg PO DAILY@0830 [facility] Tizanidine HCl (Tizanidine Hcl) 4 mg PO BID [facility] Last Admin: 08/30/18 22:49 Dose: 4 mg ASSESSMENT AND PLAN:68 yo M with PMH of 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 Bernstein due to elevated creat on routine labs. Patient complains of generalized weakness and loss of appetite for several weeks Problem List - Problems (1) JUANITA (acute kidney injury) Assessment/Plan: No obvious cause will hold Diuretics, NSAID F/u FeUrea, IP/Op chart , PVR, in am PVR was -ve consider renal ultrasoiund F/U BMP daily. Code(s): N17.9 - ACUTE KIDNEY FAILURE, UNSPECIFIED (2) COPD (chronic obstructive pulmonary disease) Assessment/Plan: Stable no acute symptoms cont all home meds Code(s): J44.9 - CHRONIC OBSTRUCTIVE PULMONARY DISEASE, UNSPECIFIED (3) Depression Assessment/Plan: Resume home meds Code(s): F32.9 - MAJOR DEPRESSIVE DISORDER, SINGLE EPISODE, UNSPECIFIED (4) Hypothyroid Assessment/Plan: Cont Levothyroxine F/U TSH Code(s): E03.9 - HYPOTHYROIDISM, UNSPECIFIED (5) Sleep apnea with use of continuous positive airway pressure (CPAP) Assessment/Plan: Cont CPAP Code(s): G47.30 - SLEEP APNEA, UNSPECIFIED (6) Obesity, Class III, BMI 40-49.9 (morbid obesity) Assessment/Plan: nutrition consult as out patient Code(s): E66.01 - MORBID (SEVERE) OBESITY DUE TO EXCESS CALORIES (7) Chronic back pain Assessment/Plan: No nsaid due to JUANITA optimize pain meds Code(s): M54.9 - DORSALGIA, UNSPECIFIED; G89.29 - OTHER CHRONIC PAIN (8) T2DM (type 2 diabetes mellitus) Assessment/Plan: Diabetic diet, accuchecks and correction dose insulin. Code(s): E11.9 - TYPE 2 DIABETES MELLITUS WITHOUT COMPLICATIONS
[2018-08-31] MEDS: TAMSULOSIN HCL 0.4 MG CAP PO SCH (09:02)
[2018-08-31 10:14] LABS: RETICULOCYTES 1.93 % (0.5-1.5)
[2018-08-31] MEDS ORDERED: RANOLAZINE E.R. 500 MG TABLET (FP) ONE ×2 (11:20→22:26)
[2018-08-31] MEDS ORDERED: PT OWN MED DRAWER 7, Y5N ONE ×2 (11:21→14:48)
[2018-08-31] MEDS: CARVEDILOL 3.125 MG TABLET (FP) PO SCH ×2 (11:26→22:46)
[2018-08-31] MEDS: MECLIZINE HCL 25 MG TABLET (FP) PO SCH (11:27)
[2018-08-31] MEDS: ENOXAPARIN NA (PORCINE) 40 MG/0.4 ML DISP.SYRIN SQ SCH (11:27)
[2018-08-31] MEDS: TIZANIDINE HCL 4 MG TABLET PO SCH ×2 (11:27→23:18)
[2018-08-31] MEDS: ASPIRIN 81 MG CHEWABLE TABLETS PO SCH (11:27)
[2018-08-31] MEDS: RANOLAZINE E.R. 1,000 MG TABLET (FP) PO SCH ×2 (11:31→22:50)
--- NOTE | 2018-08-31 11:57 | EKG ---
Test Reason : Blood Pressure : / mmHG Vent. Rate : 093 BPM Atrial Rate : 093 BPM P-R Int : 156 ms QRS Dur : 098 ms QT Int : 362 ms P-R-T Axes : 023 -71 041 degrees QTc Int : 450 ms NORMAL SINUS RHYTHM LEFT AXIS DEVIATION PULMONARY DISEASE PATTERN INFERIOR INFARCT , AGE UNDETERMINED ABNORMAL ECG WHEN COMPARED WITH ECG OF 16-DEC-2016 15:48, NO SIGNIFICANT CHANGE WAS FOUND Confirmed by KASANDRA HARVEY, YONATAN ([id number]) on 08/31/2018 11:57:03 AM Referred By: Confirmed By:YONATAN SLAUGHTER MD
--- NOTE | 2018-08-31 13:00 | ECHO ---
Name: GUSTAVO CAMARILLO Exam:Adult Echocardiogram Study Date: 08/31/2018 07:56 AM Age: 68 yrs Reason For Study: CHF Height: 72 in Weight: 350 lb BSA: 2.7 m2 Doppler Measurements & Calculations MV E max kiera: 106.0 cm/sec Ao V2 max: 134.4 cm/sec MV A max kiera: 90.2 cm/sec Ao max P.2 mmHg MV E/A: 1.2 MV dec time: 0.21 sec LV V1 max P.0 mmHg LV V1 max: 99.9 cm/sec Procedure A two-dimensional transthoracic echocardiogram with color flow and Doppler was performed. The study w as technically difficult with many images being suboptimal in quality. The study was non-diagnostic in q uality. No definitive statements could be made about this echo due to extremely poor acoustic windows. Left Ventricle The left ventricle is not well visualized. The left ventricle is grossly normal size. Due to the poor quality of the echocardiogram, an assessment of left ventricular ejection fraction cannot be made. Probably g rossly normal EF. Left Ventricular Filling pattern is normal for age. Regional wall motion abnormalities can not be excluded due to limited visualization. Right Ventricle The right ventricle is not well visualized. Atria The left atrium is not well visualized. Right atrium not well visualized. Mitral Valve The mitral valve is not well visualized. Tricuspid Valve The tricuspid valve is not well visualized. Aortic Valve The aortic valve is not well visualized. Pulmonic Valve The pulmonic valve is not well visualized. Great Vessels The aortic root is not well visualized. Interpretation Summary The study was technically difficult with many images being suboptimal in quality. The left ventricle is not well visualized. Due to the poor quality of the echocardiogram, an assessment of left ventricular ejection fraction ca nnot be made. Regional wall motion abnormalities cannot be excluded due to limited visualization. The study was non-diagnostic in quality. No definitive statements could be made about this echo due t o extremely poor acoustic windows. Left Ventricular Filling pattern is normal for age. The left ventricle is grossly normal size. Probably grossly normal EF The mitral valve is not well visualized. The tricuspid valve is not well visualized. The aortic valve is not well visualized. The pulmonic valve is not well visualized. The aortic root is not well visualized. MD Lewis Dna 08/31/2018 01:00 PM
--- NOTE | 2018-08-31 14:14 | CONSULT ---
Consult - text type - Consultation Consultation Note: Renal consult for JUANITA This is a 68 year old gentleman with LE weakness/paresis (wheel chair dependent) , obesity, prostate Ca, COPD, Sleep Apnea, Hypertension, hypothyrodism and hyperlipidemia who presented with generalized weakness and found to have JUANITA. Prior Cr was 1 on 01/2018. Pt reports that he has been making urine, denies any flank pain, dysuria or urinary retention. Does report sporadic NSAID use. No recent antibiotic use. No recent IV contrast exposure. No N/V/D. No GABRIEL, confusion, lethargy, abd pain. Oral intake has been normal as per patient. PMhx: as above Allergies: NKDA Family Hx: NC Social Hx: No T/A/D ROS: as per HPI, all other pertinent ros negative Home Medications Medication Instructions Recorded Aspirin [ASA -] 81 mg PO DAILY 01/02/12 Alfuzosin HCl [Uroxatral] 10 mg PO DAILY 07/07/13 Carvedilol 3.125 mg PO BID 07/07/13 Furosemide [Lasix -] 40 mg PO BID 07/07/13 Niacin*ER* [Niaspan 1,000 mg PO DAILY 07/07/13 (Non-Formulary) -] Paroxetine HCl [Paxil -] 40 mg PO DAILY 07/07/13 Pramipexole Di-HCl [Mirapex] 1.5 mg PO TID 07/07/13 Nitrofurantoin Monohyd/M-Cryst 100 mg PO BID 04/05/14 [Macrobid -] Sennosides [Senna] 8.6 mg PO DAILY 04/05/14 Albuterol Sulfate Inhaler - 2 inh PO Q4H PRN 01/26/18 [Ventolin Hfa Inhaler -] Ascorbic Acid [Vitamin C -] 500 mg PO DAILY 01/26/18 Cyclobenzaprine HCl [Amrix] 30 mg PO DAILY 01/26/18 Diclofenac Sodium [Voltaren] 2 gm TP TID PRN 01/26/18 Fluticasone/Salmeterol [Advair 1 each IH DAILY 01/26/18 250-50 Diskus] Furosemide [Lasix -] 20 mg PO DAILY 01/26/18 Gabapentin [Neurontin -] 300 mg PO Q8H 01/26/18 Ketoconazole 2% Cream [Nizoral 2% 1 applic TP DAILY 01/26/18 Cream -] Levothyroxine [Synthroid -] 50 mcg PO DAILY 01/26/18 Meclizine HCl 25 mg PO DAILY 01/26/18 Metformin HCl [Glucophage] 1,000 mg PO BID 01/26/18 Metoclopramide HCl 10 mg PO TID 01/26/18 Multivitamin/Iron/Folic Acid 1 each PO DAILY 01/26/18 [Centrum Adults Tablet] Naproxen [Naprosyn -] 500 mg PO BID 01/26/18 Ranolazine [Ranexa -] 1,000 mg PO BID 01/26/18 Sitagliptin Phosphate [Januvia -] 100 mg PO DAILY@0700 01/26/18 Tamsulosin HCl [Flomax] 0.4 mg PO DAILY 01/26/18 Tizanidine HCl 4 mg PO BID 01/26/18 Intake & Output 08/28/18 08/29/18 08/30/18 08/31/18 23:59 23:59 23:59 23:59 Intake Total 750 360 Output Total 200 325 Balance 550 35 Weight 137.711 kg 147.418 kg Intake & Output 08/28/18 08/29/18 08/30/18 08/31/18 23:59 23:59 23:59 23:59 Intake Total 750 360 Output Total 200 325 Balance 550 35 Weight 137.711 kg 147.418 kg NAD awake and alert neck supple, no JVD RRR, no M/R CTA, decreased BS but no rales Obese, NT/ND no bladder distension no LE clubbing or cyanosis. 1+ edema in LE. CBC, BMP 08/31/18 07:00 08/31/18 07:00 Laboratory Tests 08/31/18 07:00 Calcium 8.8 Phosphorus 3.4 Magnesium 1.6 L Current Medications Albuterol Sulfate (Ventolin Hfa Inhaler -) 2 puff IH Q4H PRN PRN Reason: WHEEZING Aspirin (Asa -) 81 mg PO DAILY [facility] Last Admin: 08/31/18 11:27 Dose: 81 mg Carvedilol (Coreg -) 3.125 mg PO BID [facility] Last Admin: 08/31/18 11:26 Dose: 3.125 mg Enoxaparin Sodium (Lovenox -) 40 mg SQ DAILY [facility] Last Admin: 08/31/18 11:27 Dose: 40 mg Furosemide (Lasix Injection -) 100 mg IVPB BID@0600,1400 [facility] Gabapentin (Neurontin -) 300 mg PO TID [facility] Last Admin: 08/31/18 06:03 Dose: 300 mg Insulin Aspart (Novolog Vial Sliding Scale -) 1 vial SQ ACHS [facility]; Protocol Last Admin: 08/31/18 11:53 Dose: Not Given Ketoconazole (Nizoral 2% Cream -) 1 applic TP DAILY [facility] Levothyroxine Sodium (Synthroid -) 50 mcg PO AM [facility] Last Admin: 08/31/18 06:03 Dose: 50 mcg Meclizine HCl (Antivert -) 25 mg PO DAILY [facility] Last Admin: 08/31/18 11:27 Dose: 25 mg Metoclopramide HCl (Reglan -) 10 mg PO TID [facility] Last Admin: 08/31/18 06:03 Dose: 10 mg Pramipexole Dihydrochloride (Mirapex -) 1.5 mg PO TID [facility] Last Admin: 08/31/18 06:03 Dose: 1.5 mg Ranolazine (Ranexa -) 1,000 mg PO BID [facility] Last Admin: 08/31/18 11:31 Dose: 1,000 mg Tamsulosin HCl (Flomax -) 0.4 mg PO DAILY@0830 [facility] Last Admin: 08/31/18 09:02 Dose: 0.4 mg Tizanidine HCl (Tizanidine Hcl) 4 mg PO BID [facility] Last Admin: 08/31/18 11:27 Dose: 4 mg 68 year old gentleman with LE weakness/paresis (wheel chair dependent), obesity , prostate Ca, COPD, Sleep Apnea, Hypertension, hypothyrodism and hyperlipidemia who presented with generalized weakness and found to have JUANITA. #JUANITA likely due to normotensive ATN vs AIN (no obstruction noted on imaging studies) #Anemia #Generalized weakness #Hypertension unclear if pt is in overt volume overload as pt does not have pulmonary congestion on CXR and is comfortably breathing Check BNP levels Cardiology consult, TTE pending Cr arden from 2.5 to 2.8 s/p Lasix yesterday, if it continues to uptrend would discontinue diuretics. LE edema may just be dependent edema as pt is not ambulatory. FeNa was ~5 but given pt was on diuretics may not be a accurate study Check FeUrea today No significant proteinuira seen so less likely any acute GN check iron studies withhold any JUAN JOSE/ARB, NSAIDs avid IV contrast Dose ll meds for CrCl < 20 Thank you Will follow Isma Hirsch DO
[2018-08-31] MEDS: KETOCONAZOLE 2% CREAM - 60GM TUBE TP SCH (14:58)
[2018-08-31] MEDS: FUROSEMIDE 100 MG/10 ML INJECTABLE VIAL IVPB SCH (14:58)
--- NOTE | 2018-08-31 15:45 | PN ---
Teaching Attending Note Name of Resident: Lila Woodward ATTENDING PHYSICIAN STATEMENT I saw and evaluated the patient. I reviewed the resident's note and discussed the case with the resident. I agree with the resident's findings and plan as documented. SUBJECTIVE: Feels weak not in acute distress OBJECTIVE: Vital Signs Temperature 97.6 F 08/31/18 14:42 Pulse Rate 67 08/31/18 14:42 Respiratory Rate 22 H 08/31/18 14:42 Blood Pressure 110/59 L 08/31/18 09:27 O2 Sat by Pulse Oximetry (%) 98 08/30/18 23:44 Elderly man morbidly obese not in distress HEENT: mm moist, + anemia, PERRLA EOMI NECK: No JVD No bruit CHEST: minimal basal crepts CVS: S1S2 R ABD: No distention, non tender Bs + EXT: Rt Elbow deformity, B/L LE swelling RADIOLOGIC TECHNOLOGIST: AX3 non focal ASSESSMENT AND PLAN:68 year old man deconditioned wheel chair bound hardly any ambulation since Oct 2017 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 Pbase line Cr 1 on 01/2018. Pt reports that he has been making urine, denies any flank pain, dysuria or urinary retention. Patient is on Naproxene 50 mg BID for pain, Problem List - Problems (1) JUANITA (acute kidney injury) Assessment/Plan: No obvious cause will hold Diuretics, NSAID F/u FeUrea, IP/Op chart , PVR, in am PVR was -ve consider renal ultrasoiund F/U BMP daily. Code(s): N17.9 - ACUTE KIDNEY FAILURE, UNSPECIFIED (2) COPD (chronic obstructive pulmonary disease) Assessment/Plan: Stable no acute symptoms cont all home meds Code(s): J44.9 - CHRONIC OBSTRUCTIVE PULMONARY DISEASE, UNSPECIFIED (3) Depression Assessment/Plan: Resume home meds Code(s): F32.9 - MAJOR DEPRESSIVE DISORDER, SINGLE EPISODE, UNSPECIFIED (4) Hypothyroid Assessment/Plan: Cont Levothyroxine F/U TSH Code(s): E03.9 - HYPOTHYROIDISM, UNSPECIFIED (5) Obesity, Class III, BMI 40-49.9 (morbid obesity) Assessment/Plan: nutrition consult as out patient Code(s): E66.01 - MORBID (SEVERE) OBESITY DUE TO EXCESS CALORIES (6) Sleep apnea with use of continuous positive airway pressure (CPAP) Assessment/Plan: Cont CPAP Code(s): G47.30 - SLEEP APNEA, UNSPECIFIED (7) Prostate cancer Assessment/Plan: F/U PSA Code(s): C61 - MALIGNANT NEOPLASM OF PROSTATE (8) Neuropathy Assessment/Plan: Resume home meds Code(s): G62.9 - POLYNEUROPATHY, UNSPECIFIED
--- NOTE | 2018-08-31 18:03 | PN ---
Physical Exam: SUBJECTIVE: Patient seen and examined, feelin tired today. OBJECTIVE: Vital Signs Period Temp Pulse Resp BP Sys/Mejia Pulse Ox Last 24 Hr 97.6 F-98.9 F 67-102 20-22 110-135/59-77 96-98 GENERAL: The patient is awake, alert, and fully oriented, in no acute distress. HEAD: Normal with no signs of trauma. EYES: Extraocular movements intact, sclera anicteric. ENT: Oropharynx clear without exudates, moist mucous membranes. NECK: Trachea midline, full range of motion, supple. LUNGS: Breath sounds equal, diminished auscultation bilaterally, no wheezes, no crackles, no accessory muscle use. HEART: Regular rate and rhythm, S1, S2 without murmur, rub or gallop. ABDOMEN: Obese, soft, nontender, nondistended, normoactive bowel sounds, no guarding. EXTREMITIES: 2+ pulses, warm, right elbow swollen. NEUROLOGICAL: Normal speech, gait not observed. PSYCH: Normal mood, normal affect. SKIN: Warm, dry, normal turgor, no rashes or lesions noted. Laboratory Results - last 24 hr 08/30/18 08/31/18 08/31/18 22:47 06:02 07:00 WBC 4.4 RBC 2.43 L Hgb 8.0 L Hct 22.9 L MCV 94.2 MCH 33.2 MCHC 35.2 RDW 14.2 Plt Count 125 L MPV 6.5 L Retic Count 1.93 H Sodium Potassium Chloride Carbon Dioxide Anion Gap BUN Creatinine Creat Clearance w eGFR POC Glucometer 134 138 Random Glucose Hemoglobin A1c % Calcium Phosphorus Magnesium TSH Free T4 Ur Random Creatinine U Random Total Protein Ur Random Sodium Ur Random Potassium Ur Random Chloride 08/31/18 08/31/18 08/31/18 07:00 07:00 07:00 WBC RBC Hgb Hct MCV MCH MCHC RDW Plt Count MPV Retic Count Sodium 139 Potassium 4.2 Chloride 108 H Carbon Dioxide 23 Anion Gap 8 BUN 29 H Creatinine 2.8 H Creat Clearance w eGFR 22.58 POC Glucometer Random Glucose 137 H Hemoglobin A1c % < 4.2 L Calcium 8.8 Phosphorus 3.4 Magnesium 1.6 L TSH 2.11 Free T4 1.27 H Ur Random Creatinine U Random Total Protein Ur Random Sodium Ur Random Potassium Ur Random Chloride 04/08/31/18 08/31/18 07:00 10:45 10:45 WBC RBC Hgb Hct MCV MCH MCHC RDW Plt Count MPV Retic Count Cancelled Sodium Potassium Chloride Carbon Dioxide Anion Gap BUN Creatinine Creat Clearance w eGFR POC Glucometer Random Glucose Hemoglobin A1c % Calcium Phosphorus Magnesium TSH Free T4 Ur Random Creatinine 34 U Random Total Protein Ur Random Sodium 98 Ur Random Potassium 11.9 L Ur Random Chloride 115 08/31/18 08/31/18 08/31/18 11:53 12:54 17:16 WBC RBC Hgb Hct MCV MCH MCHC RDW Plt Count MPV Retic Count Sodium Potassium Chloride Carbon Dioxide Anion Gap BUN Creatinine Creat Clearance w eGFR POC Glucometer 131 142 Random Glucose Hemoglobin A1c % Calcium Phosphorus Magnesium TSH Free T4 Ur Random Creatinine U Random Total Protein 11.1 Ur Random Sodium Ur Random Potassium Ur Random Chloride Active Medications Generic Name Dose Route Start Last Admin Trade Name Freq PRN Reason Stop Dose Admin Albuterol Sulfate 2 puff 08/30/18 19:46 Ventolin Hfa Inhaler - IH Q4H PRN WHEEZING Aspirin 81 mg 08/31/18 10:00 08/31/18 11:27 Asa - PO 81 mg DAILY [facility] Administration Carvedilol 3.125 mg 08/30/18 22:00 08/31/18 11:26 Coreg - PO 3.125 mg BID [facility]E Administration Enoxaparin Sodium 40 mg 08/31/18 10:00 08/31/18 11:27 Lovenox - SQ 40 mg DAILY [facility] Administration Furosemide 100 mg 08/31/18 14:00 08/31/18 14:58 Lasix Injection - IVPB 100 mg BID@0600,1400 [facility] Administration Gabapentin 300 mg 08/30/18 22:00 08/31/18 14:57 Neurontin - PO 300 mg TID [facility] Administration Insulin Aspart 1 vial 08/30/18 22:00 08/31/18 17:19 Novolog Vial Sliding Scale - SQ Not Given ACHS [facility] Protocol Ketoconazole 1 applic 08/31/18 10:00 08/31/18 14:58 Nizoral 2% Cream - TP 1 applic DAILY [facility] Administration Levothyroxine Sodium 50 mcg 08/31/18 07:00 08/31/18 06:03 Synthroid - PO 50 mcg AM [facility] Administration Meclizine HCl 25 mg 08/31/18 10:00 08/31/18 11:27 Antivert - PO 25 mg DAILY [facility] Administration Metoclopramide HCl 10 mg 08/30/18 22:00 08/31/18 14:57 Reglan - PO 10 mg TID [facility] Administration Pramipexole Dihydrochloride 1.5 mg 08/30/18 22:00 08/31/18 14:59 Mirapex - PO 1.5 mg TID [facility] Administration Ranolazine 1,000 mg 08/30/18 22:00 08/31/18 11:31 Ranexa - PO 1,000 mg BID [facility] Administration Tamsulosin HCl 0.4 mg 08/31/18 08:30 08/31/18 09:02 Flomax - PO 0.4 mg DAILY@0830 [facility] Administration Tizanidine HCl 4 mg 08/30/18 22:00 08/31/18 11:27 Tizanidine Hcl PO 4 mg BID [facility] Administration ASSESSMENT/PLAN: 68 year with a significant PMH of renal Ca, CKD, HTN, HLD, COPD, LASHAUN, on BIPAP, hypothyroidism, BPH that presented from his PCP office for worsened kidney function, fatigue, admitted for JUANITA on CKD and fluid overload. JUANITA on CKD, -unknown cause for now -hold diuretics, NSAID F/u FeUrea, -renal US -f/u BMP daily -cardio consulted Anemia -likely due to CKD -will monitor HTN -cont home meds HLD -cont home statin DM ISS ACHS BGM ACHS no metformin COPD cont home meds no oxygen needed Sleep Apnea BIPAP at night hypothyroid cont levothyroxine BPH cont Flomax F/E/N: no/no changes/renal diet Dispo; med surg Problem List - Problems (1) JUANITA (acute kidney injury) Code(s): N17.9 - ACUTE KIDNEY FAILURE, UNSPECIFIED (2) CHF (congestive heart failure) Code(s): I50.9 - HEART FAILURE, UNSPECIFIED (3) Normocytic anemia Code(s): D64.9 - ANEMIA, UNSPECIFIED (4) T2DM (type 2 diabetes mellitus) Code(s): E11.9 - TYPE 2 DIABETES MELLITUS WITHOUT COMPLICATIONS (5) UTI (urinary tract infection) Code(s): N39.0 - URINARY TRACT INFECTION, SITE NOT SPECIFIED (6) COPD (chronic obstructive pulmonary disease) Code(s): J44.9 - CHRONIC OBSTRUCTIVE PULMONARY DISEASE, UNSPECIFIED (7) Depression Code(s): F32.9 - MAJOR DEPRESSIVE DISORDER, SINGLE EPISODE, UNSPECIFIED (8) Diabetes mellitus treated with oral medication Code(s): E11.9 - TYPE 2 DIABETES MELLITUS WITHOUT COMPLICATIONS; Z79.84 - ER RN (CURRENT) USE OF ORAL HYPOGLYCEMIC DRUGS (9) Hypothyroid Code(s): E03.9 - HYPOTHYROIDISM, UNSPECIFIED (10) Kidney malignancy Code(s): C64.9 - MALIGNANT NEOPLASM OF UNSP KIDNEY, EXCEPT RENAL PELVIS (11) Neuropathy Code(s): G62.9 - POLYNEUROPATHY, UNSPECIFIED (12) Obesity, Class III, BMI 40-49.9 (morbid obesity) Code(s): E66.01 - MORBID (SEVERE) OBESITY DUE TO EXCESS CALORIES (13) Pedal edema Code(s): R60.0 - LOCALIZED EDEMA (14) Prostate cancer Code(s): C61 - MALIGNANT NEOPLASM OF PROSTATE (15) Quadriparesis Code(s): G82.50 - QUADRIPLEGIA, UNSPECIFIED (16) Sleep apnea with use of continuous positive airway pressure (CPAP) Code(s): G47.30 - SLEEP APNEA, UNSPECIFIED (17) Chronic back pain Code(s): M54.9 - DORSALGIA, UNSPECIFIED; G89.29 - OTHER CHRONIC PAIN Visit type - Emergency Visit Emergency Visit: Yes ED Registration Date: 08/30/18 Care time: The patient presented to the Emergency Department on the above date and was hospitalized for further evaluation of their emergent condition. - New Patient This patient is new to me today: No - Critical Care Critical Care patient: No - Discharge Referral Referred to [facility] Med P.C.: No
[2018-08-31 18:28] LABS: N-TERMINAL BNP 996.1 pg/ml (5-125)
[2018-08-31] MEDS: BUDESONIDE/FORMETEROL FUMARATE 80/4.5 mcg INHALER IH SCH (23:19)
[2018-09-01] MEDS: METOCLOPRAMIDE HCL 10 MG TABLET (FP) PO SCH ×3 (06:44→21:01)
[2018-09-01] MEDS: GABAPENTIN 300 MG CAPSULE (FP) PO SCH ×3 (06:44→21:01)
[2018-09-01] MEDS: LEVOTHYROXINE NA 50 MCG TABLET (FP) PO SCH (06:44)
[2018-09-01] MEDS: FUROSEMIDE 100 MG/10 ML INJECTABLE VIAL IVPB SCH ×2 (06:45→15:10)
[2018-09-01] MEDS: INSULIN SLIDING SCALE (NOVOLOG) 1 VIAL SQ SCH ×4 (06:45→21:01)
[2018-09-01] MEDS: PRAMIPEXOLE DIHYDROCHLORIDE 1.5 MG TABLET PO SCH ×3 (06:47→21:01)
[2018-09-01 07:41] LABS: ALBUMIN 3.5 g/dl (3.4-5.0); ALK PHOS 45 U/L (45-117); ANION GAP 6 MMOL/L (8-16); BILIRUBIN,TOTAL 0.3 mg/dL (0.2-1); BLOOD UREA NITROGEN 31 mg/dL (7-18); CALCIUM 8.9 mg/dL (8.5-10.1); CHLORIDE 106 mmol/L (98-107); CO2 27 mmol/L (21-32); CREATININE 2.5 mg/dL (0.55-1.3); GLUCOSE,RANDOM 119 mg/dL (74-106); MAGNESIUM 1.8 mg/dL (1.8-2.4); PHOSPHOROUS 3.5 mg/dL (2.5-4.9); SGOT/AST 8 U/L (15-37); SGPT/ALT 15 U/L (13-61); SODIUM 140 mmol/L (136-145)
[2018-09-01 07:42] LABS: EOS % 8.7 % (0-4.5); HEMATOCRIT 25.1 % (35.4-49); HEMOGLOBIN 8.9 GM/dL (11.7-16.9); LYMPH % 29.6 % (8-40); MCH 33.2 pg (25.7-33.7); MCHC 35.3 g/dl (32.0-35.9); MEAN PLT VOLUME 6.9 fl (7.5-11.1); MONO % 11.2 % (3.8-10.2); NEUT % 49.5 % (42.8-82.8); PLATELET COUNT 134 K/MM3 (134-434); RBC 2.67 M/mm3 (4.00-5.60); RDW 14.5 % (11.9-15.9); WHITE BLOOD COUNT 4.9 K/mm3 (4.0-10.0)
[2018-09-01] MEDS ORDERED: PT OWN MED DRAWER 7, Y5N ONE ×3 (09:27→20:52)
[2018-09-01] MEDS ORDERED: RANOLAZINE E.R. 500 MG TABLET (FP) ONE ×2 (09:27→20:51)
[2018-09-01] MEDS: MECLIZINE HCL 25 MG TABLET (FP) PO SCH (09:29)
[2018-09-01] MEDS: CARVEDILOL 3.125 MG TABLET (FP) PO SCH ×2 (09:29→21:01)
[2018-09-01] MEDS: PARoxetine HCL 20 MG TABLET (FP) PO SCH (09:29)
[2018-09-01] MEDS: ASPIRIN 81 MG CHEWABLE TABLETS PO SCH (09:29)
[2018-09-01] MEDS: TAMSULOSIN HCL 0.4 MG CAP PO SCH (09:29)
[2018-09-01] MEDS: RANOLAZINE E.R. 1,000 MG TABLET (FP) PO SCH ×2 (09:30→21:01)
[2018-09-01] MEDS: ENOXAPARIN NA (PORCINE) 40 MG/0.4 ML DISP.SYRIN SQ SCH (09:30)
[2018-09-01] MEDS: TIZANIDINE HCL 4 MG TABLET PO SCH ×2 (09:31→21:02)
[2018-09-01] MEDS: BUDESONIDE/FORMETEROL FUMARATE 80/4.5 mcg INHALER IH SCH ×2 (09:32→21:01)
[2018-09-01] MEDS: KETOCONAZOLE 2% CREAM - 60GM TUBE TP SCH (09:40)
--- NOTE | 2018-09-01 10:01 | PN ---
Progress Note, Physician - Current Medication List Current Medications: Active Medications Albuterol Sulfate (Ventolin Hfa Inhaler -) 2 puff IH Q4H PRN PRN Reason: WHEEZING Aspirin (Asa -) 81 mg PO DAILY [facility] Last Admin: 09/01/18 09:29 Dose: 81 mg Budesonide/Formoterol Fumarate (Symbicort 80/4.5mcg -) 2 puff IH BID [facility] Last Admin: 09/01/18 09:32 Dose: 2 puff Carvedilol (Coreg -) 3.125 mg PO BID [facility] Last Admin: 09/01/18 09:29 Dose: 3.125 mg Enoxaparin Sodium (Lovenox -) 40 mg SQ DAILY [facility] Last Admin: 09/01/18 09:30 Dose: 40 mg Furosemide (Lasix Injection -) 100 mg IVPB BID@0600,1400 [facility] Last Admin: 09/01/18 06:45 Dose: 100 mg Gabapentin (Neurontin -) 300 mg PO TID [facility] Last Admin: 09/01/18 06:44 Dose: 300 mg Insulin Aspart (Novolog Vial Sliding Scale -) 1 vial SQ [facility]; Protocol Last Admin: 09/01/18 06:45 Dose: Not Given Ketoconazole (Nizoral 2% Cream -) 1 applic TP DAILY [facility] Last Admin: 09/01/18 09:40 Dose: Not Given Levothyroxine Sodium (Synthroid -) 50 mcg PO AM [facility] Last Admin: 09/01/18 06:44 Dose: 50 mcg Meclizine HCl (Antivert -) 25 mg PO DAILY [facility] Last Admin: 09/01/18 09:29 Dose: 25 mg Metoclopramide HCl (Reglan -) 10 mg PO TID [facility] Last Admin: 09/01/18 06:44 Dose: 10 mg Paroxetine HCl (Paxil -) 40 mg PO DAILY [facility] Last Admin: 09/01/18 09:29 Dose: 40 mg Pramipexole Dihydrochloride (Mirapex -) 1.5 mg PO TID [facility] Last Admin: 09/01/18 06:47 Dose: 1.5 mg Ranolazine (Ranexa -) 1,000 mg PO BID [facility] Last Admin: 09/01/18 09:30 Dose: 1,000 mg Tamsulosin HCl (Flomax -) 0.4 mg PO DAILY@0830 [facility] Last Admin: 09/01/18 09:29 Dose: 0.4 mg Tizanidine HCl (Tizanidine Hcl) 4 mg PO BID [facility] Last Admin: 09/01/18 09:31 Dose: 4 mg - Objective Vital Signs: Vital Signs Temperature 97.5 F L 09/01/18 06:10 Pulse Rate 80 09/01/18 06:10 Respiratory Rate 20 09/01/18 06:10 Blood Pressure 130/72 09/01/18 06:10 O2 Sat by Pulse Oximetry (%) 96 08/31/18 21:00 Elderly man morbidly obese not in distress HEENT: mm moist, + anemia, PERRLA EOMI NECK: No JVD No bruit CHEST: minimal basal crepts CVS: S1S2 R ABD: No distention, non tender Bs + EXT: Rt Elbow deformity, B/L LE swelling MEASURER: AX3 non focal Labs: CBC, BMP 09/01/18 06:25 09/01/18 06:25 INR, PTT INR 1.03 (0.83-1.09) 08/30/18 14:43 Problem List - Problems (1) JUANITA (acute kidney injury) Assessment/Plan: No obvious cause will hold Diuretics, NSAID F/u Fe Urea, IP/Op chart , nurse recorded urinary retention Foleys inserted voided 1600 CC cont Foleys F/U U culture. Code(s): N17.9 - ACUTE KIDNEY FAILURE, UNSPECIFIED (2) COPD (chronic obstructive pulmonary disease) Assessment/Plan: Stable no acute symptoms cont all home meds Code(s): J44.9 - CHRONIC OBSTRUCTIVE PULMONARY DISEASE, UNSPECIFIED (3) Depression Assessment/Plan: Resume home meds Code(s): F32.9 - MAJOR DEPRESSIVE DISORDER, SINGLE EPISODE, UNSPECIFIED (4) Hypothyroid Assessment/Plan: Cont Levothyroxine F/U TSH Code(s): E03.9 - HYPOTHYROIDISM, UNSPECIFIED (5) Sleep apnea with use of continuous positive airway pressure (CPAP) Assessment/Plan: Cont CPAP Code(s): G47.30 - SLEEP APNEA, UNSPECIFIED (6) Obesity, Class III, BMI 40-49.9 (morbid obesity) Assessment/Plan: nutrition consult as out patient Code(s): E66.01 - MORBID (SEVERE) OBESITY DUE TO EXCESS CALORIES (7) Chronic back pain Assessment/Plan: No nsaid due to JUANITA optimize pain meds Code(s): M54.9 - DORSALGIA, UNSPECIFIED; G89.29 - OTHER CHRONIC PAIN (8) T2DM (type 2 diabetes mellitus) Assessment/Plan: Diabetic diet, accuchecks and correction dose insulin. Code(s): E11.9 - TYPE 2 DIABETES MELLITUS WITHOUT COMPLICATIONS (9) CHF (congestive heart failure) Assessment/Plan: ECHO shows diastolic HF cont Lasix IP/Op chart evaluted by cardiology consult. Code(s): I50.9 - HEART FAILURE, UNSPECIFIED
--- NOTE | 2018-09-01 12:05 | CON.CARD ---
Cardiology Consult (text) - Consultation Consultation Note: cc: generalized weakness hpi: 68 m hx htn, copd, prostate ca, hypothyroid, here with generalized weakness. No cp sob palps dizzy loc pnd orthopnea. Chronic le edema. Found to have fredy. Sees dr perez for cardio. pmh: per hpi psh: knee surgery social: no tob fam: no premature cad, scd ros: per hpi; all others normal meds: Home Medications Medication Instructions Recorded Aspirin [ASA -] 81 mg PO DAILY 01/02/12 Alfuzosin HCl [Uroxatral] 10 mg PO DAILY 07/07/13 Carvedilol 3.125 mg PO BID 07/07/13 Niacin*ER* [Niaspan 1,000 mg PO DAILY 07/07/13 (Non-Formulary) -] Paroxetine HCl [Paxil -] 40 mg PO DAILY 07/07/13 Pramipexole Di-HCl [Mirapex] 1.5 mg PO TID 07/07/13 Sennosides [Senna] 8.6 mg PO DAILY 04/05/14 Albuterol Sulfate Inhaler - 2 inh PO Q4H PRN 01/26/18 [Ventolin Hfa Inhaler -] Ascorbic Acid [Vitamin C -] 500 mg PO DAILY 01/26/18 Cyclobenzaprine HCl [Amrix] 30 mg PO DAILY 01/26/18 Diclofenac Sodium [Voltaren] 2 gm TP TID PRN 01/26/18 Fluticasone/Salmeterol [Advair 1 each IH DAILY 01/26/18 250-50 Diskus] Furosemide [Lasix -] 20 mg PO DAILY 01/26/18 Gabapentin [Neurontin -] 300 mg PO Q8H 01/26/18 Levothyroxine [Synthroid -] 50 mcg PO DAILY 01/26/18 Meclizine HCl 25 mg PO TID 01/26/18 Metformin HCl [Glucophage] 1,000 mg PO BID 01/26/18 Metoclopramide HCl 10 mg PO TID 01/26/18 Multivitamin/Iron/Folic Acid 1 each PO DAILY 01/26/18 [Centrum Adults Tablet] Naproxen [Naprosyn -] 500 mg PO BID 01/26/18 Ranolazine [Ranexa -] 1,000 mg PO BID 01/26/18 Sitagliptin Phosphate [Januvia -] 100 mg PO DAILY@0700 01/26/18 Tamsulosin HCl [Flomax] 0.4 mg PO DAILY 01/26/18 Tizanidine HCl 4 mg PO TID 01/26/18 Vital Signs Period Temp Pulse Resp BP Sys/Mejia Pulse Ox Last 24 Hr 97.5 F-98.1 F 67-84 20-22 92-130/59-72 96 nad no jvd rrr s1s2 no mrg cta bl nl eff aao3 1-2+ le edema bl, no c/c abd nd nt pos bs no jaundice diaphoresis pos dp pt no carotid bruits Laboratory Last Values WBC 4.9 K/mm3 (4.0-10.0) 09/01/18 06:25 RBC 2.67 M/mm3 (4.00-5.60) L 09/01/18 06:25 Hgb 8.9 GM/dL (11.7-16.9) L 09/01/18 06:25 Hct 25.1 % (35.4-49) L 09/01/18 06:25 MCV 94.0 fl (80-96) 09/01/18 06:25 MCH 33.2 pg (25.7-33.7) 09/01/18 06:25 MCHC 35.3 g/dl (32.0-35.9) 09/01/18 06:25 RDW 14.5 % (11.9-15.9) 09/01/18 06:25 Plt Count 134 K/MM3 (134-434) 09/01/18 06:25 MPV 6.9 fl (7.5-11.1) L 09/01/18 06:25 Absolute Neuts (auto) 2.4 K/mm3 (1.5-8.0) 09/01/18 06:25 Neutrophils % 49.5 % (42.8-82.8) D 09/01/18 06:25 Lymphocytes % 29.6 % (8-40) D 09/01/18 06:25 Monocytes % 11.2 % (3.8-10.2) H 09/01/18 06:25 Eosinophils % 8.7 % (0-4.5) H 09/01/18 06:25 Basophils % 1.0 % (0-2.0) 09/01/18 06:25 Nucleated RBC % 0 % (0-0) 09/01/18 06:25 Retic Count 1.93 % (0.5-1.5) H 08/31/18 07:00 PT with INR 12.20 SEC (9.7-13.0) 08/30/18 14:43 INR 1.03 (0.83-1.09) 08/30/18 14:43 PTT (Actin FS) 33.6 SECONDS (25.2-36.5) 08/30/18 14:43 Sodium 140 mmol/L (136-145) 09/01/18 06:25 Potassium 4.0 mmol/L (3.5-5.1) 09/01/18 06:25 Chloride 106 mmol/L (98-107) 09/01/18 06:25 Carbon Dioxide 27 mmol/L (21-32) 09/01/18 06:25 Anion Gap 6 MMOL/L (8-16) L 09/01/18 06:25 BUN 31 mg/dL (7-18) H 09/01/18 06:25 Creatinine 2.5 mg/dL (0.55-1.3) H 09/01/18 06:25 Creat Clearance w eGFR 25.74 (>60) 09/01/18 06:25 POC Glucometer 151 UNITS (80-120) 09/01/18 11:57 Random Glucose 119 mg/dL (74-106) H 09/01/18 06:25 Hemoglobin A1c % < 4.2 % (4.2-6.3) L 08/31/18 07:00 Calcium 8.9 mg/dL (8.5-10.1) 09/01/18 06:25 Phosphorus 3.5 mg/dL (2.5-4.9) 09/01/18 06:25 Magnesium 1.8 mg/dL (1.8-2.4) 09/01/18 06:25 Ferritin 203.7 ng/ml (8-388) 09/01/18 06:25 Total Bilirubin 0.3 mg/dL (0.2-1) 09/01/18 06:25 AST 8 U/L (15-37) L 09/01/18 06:25 ALT 15 U/L (13-61) 09/01/18 06:25 Alkaline Phosphatase 45 U/L (45-117) 09/01/18 06:25 B-Natriuretic Peptide 996.1 pg/ml (5-125) H 08/31/18 07:00 Total Protein 6.0 g/dl (6.4-8.2) L 09/01/18 06:25 Albumin 3.5 g/dl (3.4-5.0) 09/01/18 06:25 TSH 2.11 uIU/ml (0.358-3.74) 08/31/18 07:00 Free T4 1.27 ng/dl (0.76-1.16) H 08/31/18 07:00 Urine Color Dk yellow 08/30/18 15:26 Urine Appearance Clear 08/30/18 15:26 Urine pH 5.0 (5.0-8.0) 08/30/18 15:26 Ur Specific [place] 1.017 (1.010-1.035) 08/30/18 15:26 Urine Protein Negative (NEGATIVE) 08/30/18 15:26 Urine Glucose (UA) Negative (NEGATIVE) 08/30/18 15:26 Urine Ketones Trace (NEGATIVE) H 08/30/18 15:26 Urine Blood Negative (NEGATIVE) 08/30/18 15:26 Urine Nitrite Negative (NEGATIVE) 08/30/18 15:26 Urine Bilirubin Negative (NEGATIVE) 08/30/18 15:26 Urine Urobilinogen 0.2 mg/dL (0.2-1.0) 08/30/18 15:26 Ur Leukocyte Esterase 2+ (NEGATIVE) H 08/30/18 15:26 Urine WBC (Auto) 8 /hpf (0-5) 08/30/18 15:26 Urine RBC (Auto) 2 /hpf (0-4) 08/30/18 15:26 Urine Casts (Auto) 12 /lpf (0-8) 08/30/18 15:26 U Pathogenic Cast Auto none /lpf (NEGATIVE) 08/30/18 15:26 U Epithel Cells (Auto) 1.6 /HPF (0-5/HPF) 08/30/18 15:26 Urine Bacteria (Auto) 2.7 /hpf (NEGATIVE) 08/30/18 15:26 Ur Random Creatinine 34 mg/dL 08/31/18 10:45 U Random Total Protein 11.1 mg/dl (0-11.9) 08/31/18 12:54 Ur Random Sodium 98 MMOL/L (40-220) 08/31/18 10:45 Ur Random Potassium 11.9 MMOL/L (25-125) L 08/31/18 10:45 Ur Random Chloride 115 MMOL/L (110-250) 08/31/18 10:45 Salicylates < 1.7 mg/dL (2.8-20) L 08/30/18 14:43 Opiates Screen Negative ng/ml (TTPYIV=499) 08/30/18 15:26 Methadone Screen Negative ng/ml (OFVFGR=889) 08/30/18 15:26 Acetaminophen < 2.0 ug/mL (10-30) L 08/30/18 14:43 Barbiturate Screen Negative ng/ml (IVDWJR=113) 08/30/18 15:26 Phencyclidine Screen Negative ng/ml (CUTOFF=25) 08/30/18 15:26 Ur Amphetamines Screen Negative ng/ml (MHWVCG=076) 08/30/18 15:26 MDMA (Ecstasy) Screen Negative ng/ml (VLDDEC=385) 08/30/18 15:26 Benzodiazepines Screen Negative ng/ml (ESMVGD=142) 08/30/18 15:26 Cocaine Screen Negative ng/ml (WIOSWA=040) 08/30/18 15:26 U Marijuana (THC) Screen Negative ng/ml (CUTOFF=50) 08/30/18 15:26 cxr: clear lungs ecg: sr, nl intervals, no ischemic changes echo 08/2018: nondiagnostic study per report. On my review LVEF is normal and RV appears grossly normal. a/p: 68 m hx htn, copd, prostate ca, hypothyroid, here with generalized weakness. chronic diastolic chf, le edema: -LE edema may be due to venous insuff and not chf. Can continue iv lasix and if legs and cr improve then perhaps he has chf with cardiorenal syndrome. If cr rising would hold off on diuretic. -ECHO TDS but on my review LVEF is normal. htn: -cont bb fredy: -plan as above -renal following
--- NOTE | 2018-09-01 14:45 | PN ---
Progress Note (short form) - Note Progress Note: Renal follow up for JUANITA Pt seen and examined at the bedside no acute complaints denies any sob, cp, abd pain, N/V/D soriano in place Vital Signs Temperature 98.1 F 09/01/18 10:00 Pulse Rate 84 09/01/18 10:00 Respiratory Rate 20 09/01/18 10:00 Blood Pressure 113/68 09/01/18 10:00 O2 Sat by Pulse Oximetry (%) 96 08/31/18 21:00 Intake & Output 08/29/18 08/30/18 08/31/18 09/01/18 23:59 23:59 23:59 23:59 Intake Total 750 1255 290 Output Total 200 325 Balance 550 930 290 Weight 137.711 kg 147.418 kg 143.789 kg NAD RRR, no M/R CTA, decreased BS but no rales Obese, NT/ND no bladder distension no LE clubbing or cyanosis. 1+ edema in LE. CBC, BMP 09/01/18 06:25 09/01/18 06:25 Current Medications Albuterol Sulfate (Ventolin Hfa Inhaler -) 2 puff IH Q4H PRN PRN Reason: WHEEZING Aspirin (Asa -) 81 mg PO DAILY [facility] Last Admin: 09/01/18 09:29 Dose: 81 mg Budesonide/Formoterol Fumarate (Symbicort 80/4.5mcg -) 2 puff IH BID [facility] Last Admin: 09/01/18 09:32 Dose: 2 puff Carvedilol (Coreg -) 3.125 mg PO BID [facility] Last Admin: 09/01/18 09:29 Dose: 3.125 mg Enoxaparin Sodium (Lovenox -) 40 mg SQ DAILY [facility] Last Admin: 09/01/18 09:30 Dose: 40 mg Furosemide (Lasix Injection -) 100 mg IVPB BID@0600,1400 [facility] Last Admin: 09/01/18 06:45 Dose: 100 mg Gabapentin (Neurontin -) 300 mg PO TID [facility] Last Admin: 09/01/18 06:44 Dose: 300 mg Insulin Aspart (Novolog Vial Sliding Scale -) 1 vial SQ ACHS [facility]; Protocol Last Admin: 09/01/18 12:09 Dose: 2 units Ketoconazole (Nizoral 2% Cream -) 1 applic TP DAILY [facility] Last Admin: 09/01/18 09:40 Dose: Not Given Levothyroxine Sodium (Synthroid -) 50 mcg PO AM [facility] Last Admin: 09/01/18 06:44 Dose: 50 mcg Meclizine HCl (Antivert -) 25 mg PO DAILY [facility] Last Admin: 09/01/18 09:29 Dose: 25 mg Metoclopramide HCl (Reglan -) 10 mg PO TID [facility] Last Admin: 09/01/18 06:44 Dose: 10 mg Paroxetine HCl (Paxil -) 40 mg PO DAILY [facility] Last Admin: 09/01/18 09:29 Dose: 40 mg Pramipexole Dihydrochloride (Mirapex -) 1.5 mg PO TID [facility] Last Admin: 09/01/18 06:47 Dose: 1.5 mg Ranolazine (Ranexa -) 1,000 mg PO BID [facility] Last Admin: 09/01/18 09:30 Dose: 1,000 mg Tamsulosin HCl (Flomax -) 0.4 mg PO DAILY@0830 [facility] Last Admin: 09/01/18 09:29 Dose: 0.4 mg Tizanidine HCl (Tizanidine Hcl) 4 mg PO BID [facility] Last Admin: 09/01/18 09:31 Dose: 4 mg 68 year old gentleman with LE weakness/paresis (wheel chair dependent), obesity , prostate Ca, COPD, Sleep Apnea, Hypertension, hypothyrodism and hyperlipidemia who presented with generalized weakness and found to have JUANITA. #JUANITA likely due to normotensive ATN vs AIN (no obstruction noted on imaging studies) #Anemia #Generalized weakness #Hypertension Renal function stable/slight improvement over the past 24 hours continue IV Lasix BID for now and trend renal function if Cr uptrends would discontinue diuretics. LE edema may just be dependent edema as pt is not ambulatory. FeNa was ~5 but given pt was on diuretics may not be a accurate study Check FeUrea today No significant proteinuira seen so less likely any acute GN check iron studies withhold any JUAN JOSE/ARB, NSAIDs avid IV contrast Dose ll meds for CrCl < 20 Isma Hirsch DO
[2018-09-01] MEDS ORDERED: INSULIN (NOVOLOG) ASPART 100 UNITS/ML 10ML VIAL ONE (20:52)
[2018-09-02 04:11] LABS: SERUM IRON SATURATION 28 % (15-55); TOTAL IRON BINDING CAPACITY 223 ug/dL (250-450); UIBC 161 ug/dL (111-343)
[2018-09-02] MEDS ORDERED: PT OWN MED DRAWER 7, Y5N ONE ×4 (05:59→21:32)
[2018-09-02] MEDS: INSULIN SLIDING SCALE (NOVOLOG) 1 VIAL SQ SCH ×4 (06:05→22:37)
[2018-09-02] MEDS: LEVOTHYROXINE NA 50 MCG TABLET (FP) PO SCH (06:05)
[2018-09-02] MEDS: METOCLOPRAMIDE HCL 10 MG TABLET (FP) PO SCH ×3 (06:05→22:32)
[2018-09-02] MEDS: GABAPENTIN 300 MG CAPSULE (FP) PO SCH ×3 (06:05→22:32)
[2018-09-02] MEDS: FUROSEMIDE 100 MG/10 ML INJECTABLE VIAL IVPB SCH ×2 (06:05→14:09)
[2018-09-02] MEDS: PRAMIPEXOLE DIHYDROCHLORIDE 1.5 MG TABLET PO SCH ×3 (06:05→22:33)
[2018-09-02 07:32] LABS: BASO % 0.8 % (0-2.0); EOS % 7.7 % (0-4.5); HEMATOCRIT 26.1 % (35.4-49); HEMOGLOBIN 9.1 GM/dL (11.7-16.9); LYMPH % 22.5 % (8-40); MCHC 34.9 g/dl (32.0-35.9); MEAN CELL VOLUME 94.6 fl (80-96); MEAN PLT VOLUME 6.5 fl (7.5-11.1); MONO % 10.2 % (3.8-10.2); NEUT % 58.8 % (42.8-82.8); PLATELET COUNT 152 K/MM3 (134-434); RBC 2.76 M/mm3 (4.00-5.60); RDW 14.7 % (11.9-15.9); WHITE BLOOD COUNT 5.4 K/mm3 (4.0-10.0)
[2018-09-02 08:09] LABS: ANION GAP 7 MMOL/L (8-16); BLOOD UREA NITROGEN 30 mg/dL (7-18); CALCIUM 8.6 mg/dL (8.5-10.1); CHLORIDE 105 mmol/L (98-107); CO2 27 mmol/L (21-32); CREATININE 2.2 mg/dL (0.55-1.3); GLUCOSE,RANDOM 127 mg/dL (74-106); POTASSIUM 3.9 mmol/L (3.5-5.1); SODIUM 139 mmol/L (136-145)
[2018-09-02] MEDS ORDERED: RANOLAZINE E.R. 500 MG TABLET (FP) ONE ×2 (09:16→21:31)
[2018-09-02] MEDS: TAMSULOSIN HCL 0.4 MG CAP PO SCH (09:18)
[2018-09-02] MEDS: RANOLAZINE E.R. 1,000 MG TABLET (FP) PO SCH ×2 (09:19→22:32)
[2018-09-02] MEDS: PARoxetine HCL 20 MG TABLET (FP) PO SCH (09:19)
[2018-09-02] MEDS: TIZANIDINE HCL 4 MG TABLET PO SCH ×2 (09:19→22:32)
[2018-09-02] MEDS: ENOXAPARIN NA (PORCINE) 40 MG/0.4 ML DISP.SYRIN SQ SCH (09:19)
[2018-09-02] MEDS: MECLIZINE HCL 25 MG TABLET (FP) PO SCH (09:19)
[2018-09-02] MEDS: ASPIRIN 81 MG CHEWABLE TABLETS PO SCH (09:19)
[2018-09-02] MEDS: KETOCONAZOLE 2% CREAM - 60GM TUBE TP SCH (09:19)
[2018-09-02] MEDS: CARVEDILOL 3.125 MG TABLET (FP) PO SCH ×2 (09:19→22:32)
[2018-09-02] MEDS: BUDESONIDE/FORMETEROL FUMARATE 80/4.5 mcg INHALER IH SCH ×2 (09:20→22:39)
--- NOTE | 2018-09-02 11:02 | PN ---
Progress Note, Physician Chief Complaint: Feels less SOB - Current Medication List Current Medications: Active Medications Albuterol Sulfate (Ventolin Hfa Inhaler -) 2 puff IH Q4H PRN PRN Reason: WHEEZING Aspirin (Asa -) 81 mg PO DAILY [facility] Last Admin: 09/02/18 09:19 Dose: 81 mg Budesonide/Formoterol Fumarate (Symbicort 80/4.5mcg -) 2 puff IH BID [facility] Last Admin: 09/02/18 09:20 Dose: 2 puff Carvedilol (Coreg -) 3.125 mg PO BID [facility] Last Admin: 09/02/18 09:19 Dose: 3.125 mg Enoxaparin Sodium (Lovenox -) 40 mg SQ DAILY [facility] Last Admin: 09/02/18 09:19 Dose: 40 mg Furosemide (Lasix Injection -) 100 mg IVPB BID@0600,1400 [facility] Last Admin: 09/02/18 06:05 Dose: 100 mg Gabapentin (Neurontin -) 300 mg PO TID [facility] Last Admin: 09/02/18 06:05 Dose: 300 mg Insulin Aspart (Novolog Vial Sliding Scale -) 1 vial SQ [facility]; Protocol Last Admin: 09/02/18 06:05 Dose: Not Given Ketoconazole (Nizoral 2% Cream -) 1 applic TP DAILY [facility] Last Admin: 09/02/18 09:19 Dose: Not Given Levothyroxine Sodium (Synthroid -) 50 mcg PO AM [facility] Last Admin: 09/02/18 06:05 Dose: 50 mcg Meclizine HCl (Antivert -) 25 mg PO DAILY [facility] Last Admin: 09/02/18 09:19 Dose: 25 mg Metoclopramide HCl (Reglan -) 10 mg PO TID [facility] Last Admin: 09/02/18 06:05 Dose: 10 mg Paroxetine HCl (Paxil -) 40 mg PO DAILY [facility] Last Admin: 09/02/18 09:19 Dose: 40 mg Pramipexole Dihydrochloride (Mirapex -) 1.5 mg PO TID [facility] Last Admin: 09/02/18 06:05 Dose: 1.5 mg Ranolazine (Ranexa -) 1,000 mg PO BID [facility] Last Admin: 09/02/18 09:19 Dose: 1,000 mg Tamsulosin HCl (Flomax -) 0.4 mg PO DAILY@0830 [facility] Last Admin: 09/02/18 09:18 Dose: 0.4 mg Tizanidine HCl (Tizanidine Hcl) 4 mg PO BID [facility] Last Admin: 09/02/18 09:19 Dose: 4 mg - Objective Vital Signs: Vital Signs Temperature 98.8 F 09/02/18 06:00 Pulse Rate 88 09/02/18 06:00 Respiratory Rate 20 09/02/18 06:00 Blood Pressure 121/67 09/02/18 06:00 O2 Sat by Pulse Oximetry (%) 97 09/02/18 01:04 Elderly man morbidly obese not in distress HEENT: mm moist, + anemia, PERRLA EOMI NECK: No JVD No bruit CHEST: minimal basal crepts CVS: S1S2 R ABD: No distention, non tender Bs + EXT: Rt Elbow deformity, B/L LE swelling [employer] PROCESSING: AX3 non focal Labs: CBC, BMP 09/02/18 06:35 09/02/18 06:35 INR, PTT INR 1.03 (0.83-1.09) 08/30/18 14:43 Problem List - Problems (1) JUANITA (acute kidney injury) Assessment/Plan: Most likely obstructive uropathy improving after Foleys insertion F/U BMP and recommendations. Code(s): N17.9 - ACUTE KIDNEY FAILURE, UNSPECIFIED (2) COPD (chronic obstructive pulmonary disease) Assessment/Plan: Stable no acute symptoms cont all home meds Code(s): J44.9 - CHRONIC OBSTRUCTIVE PULMONARY DISEASE, UNSPECIFIED (3) Depression Assessment/Plan: Resume home meds Code(s): F32.9 - MAJOR DEPRESSIVE DISORDER, SINGLE EPISODE, UNSPECIFIED (4) Hypothyroid Assessment/Plan: Cont Levothyroxine F/U TSH Code(s): E03.9 - HYPOTHYROIDISM, UNSPECIFIED (5) Sleep apnea with use of continuous positive airway pressure (CPAP) Assessment/Plan: Cont CPAP Code(s): G47.30 - SLEEP APNEA, UNSPECIFIED (6) Obesity, Class III, BMI 40-49.9 (morbid obesity) Assessment/Plan: nutrition consult as out patient Code(s): E66.01 - MORBID (SEVERE) OBESITY DUE TO EXCESS CALORIES (7) Chronic back pain Assessment/Plan: No nsaid due to JUANITA optimize pain meds Code(s): M54.9 - DORSALGIA, UNSPECIFIED; G89.29 - OTHER CHRONIC PAIN (8) T2DM (type 2 diabetes mellitus) Assessment/Plan: Diabetic diet, accuchecks and correction dose insulin. Code(s): E11.9 - TYPE 2 DIABETES MELLITUS WITHOUT COMPLICATIONS (9) CHF (congestive heart failure) Assessment/Plan: ECHO shows diastolic HF cont Lasix IP/Op chart evaluted by cardiology consult. Code(s): I50.9 - HEART FAILURE, UNSPECIFIED
--- NOTE | 2018-09-02 14:06 | PN ---
Progress Note (short form) - Note Progress Note: s: no cp sob palps dizzy o: Vital Signs Period Temp Pulse Resp BP Sys/Mejia Pulse Ox Last 24 Hr 98.0 F-98.8 F 76-96 20-22 100-153/58-80 96-97 nad no jvd rrr s1s2 no mrg cta bl nl eff aao3 1-2+ le edema bl, no c/c abd nd nt pos bs no jaundice diaphoresis Current Medications Generic Name Dose Route Start Last Admin Trade Name Freq PRN Reason Stop Dose Admin Albuterol Sulfate 2 puff 08/30/18 19:46 Ventolin Hfa Inhaler - IH Q4H PRN WHEEZING Aspirin 81 mg 08/31/18 10:00 09/02/18 09:19 Asa - PO 81 mg DAILY [facility] Administration Budesonide/Formoterol Fumarate 2 puff 08/31/18 22:00 09/02/18 09:20 Symbicort 80/4.5mcg - IH 2 puff BID [facility] Administration Carvedilol 3.125 mg 08/30/18 22:00 09/02/18 09:19 Coreg - PO 3.125 mg BID [facility] Administration Enoxaparin Sodium 40 mg 08/31/18 10:00 09/02/18 09:19 Lovenox - SQ 40 mg DAILY [facility] Administration Furosemide 100 mg 08/31/18 14:00 09/02/18 06:05 Lasix Injection - IVPB 100 mg BID@0600,1400 [facility] Administration Gabapentin 300 mg 08/30/18 22:00 09/02/18 06:05 Neurontin - PO 300 mg TID [facility] Administration Insulin Aspart 1 vial 08/30/18 22:00 09/02/18 11:49 Novolog Vial Sliding Scale - SQ Not Given ACHS [facility] Protocol Ketoconazole 1 applic 08/31/18 10:00 09/02/18 09:19 Nizoral 2% Cream - TP Not Given DAILY [facility] Levothyroxine Sodium 50 mcg 08/31/18 07:00 09/02/18 06:05 Synthroid - PO 50 mcg AM [facility] Administration Meclizine HCl 25 mg 08/31/18 10:00 09/02/18 09:19 Antivert - PO 25 mg DAILY [facility] Administration Metoclopramide HCl 10 mg 08/30/18 22:00 09/02/18 06:05 Reglan - PO 10 mg TID [facility] Administration Paroxetine HCl 40 mg 09/01/18 10:00 09/02/18 09:19 Paxil - PO 40 mg DAILY [facility] Administration Pramipexole Dihydrochloride 1.5 mg 08/30/18 22:00 09/02/18 06:05 Mirapex - PO 1.5 mg TID [facility] Administration Ranolazine 1,000 mg 08/30/18 22:00 09/02/18 09:19 Ranexa - PO 1,000 mg BID [facility] Administration Tamsulosin HCl 0.4 mg 08/31/18 08:30 09/02/18 09:18 Flomax - PO 0.4 mg DAILY@0830 [facility] Administration Tizanidine HCl 4 mg 08/30/18 22:00 09/02/18 09:19 Tizanidine Hcl PO 4 mg BID [facility] Administration CBC, BMP 09/02/18 06:35 09/02/18 06:35 cxr: clear lungs ecg: sr, nl intervals, no ischemic changes echo 08/2018: nondiagnostic study per report. On my review LVEF is normal and RV appears grossly normal. a/p: 68 m hx htn, copd, prostate ca, hypothyroid, here with generalized weakness. chronic diastolic chf, le edema: -wt down, cr improving, le edema improved. seems he has chf with cardiorenal syndrome. cont iv lasix for now. daily wt, chem7. -ECHO TDS but on my review LVEF is normal. htn: -cont bb fredy: -plan as above -renal following
--- NOTE | 2018-09-02 14:47 | PN ---
Progress Note (short form) - Note Progress Note: Renal follow up for JUANITA Pt seen and examined at the bedside no complaints feels better no sob, cp, abd pain making urine Vital Signs Temperature 98.4 F 09/02/18 14:41 Pulse Rate 75 09/02/18 14:41 Respiratory Rate 20 09/02/18 14:41 Blood Pressure 100/63 09/02/18 14:41 O2 Sat by Pulse Oximetry (%) 97 09/02/18 01:04 Intake & Output 08/30/18 08/31/18 09/01/18 09/02/18 23:59 23:59 23:59 23:59 Intake Total 750 1255 1050 150 Output Total 394 522 5693 500 Balance 550 930 -3700 -350 Weight 137.711 kg 147.418 kg 143.789 kg 143.789 kg NAD RRR, no M/R CTA, decreased BS but no rales Obese, NT/ND no bladder distension no LE clubbing or cyanosis. 1+ edema in LE. CBC, BMP 09/02/18 06:35 09/02/18 06:35 Current Medications Albuterol Sulfate (Ventolin Hfa Inhaler -) 2 puff IH Q4H PRN PRN Reason: WHEEZING Aspirin (Asa -) 81 mg PO DAILY [facility] Last Admin: 09/02/18 09:19 Dose: 81 mg Budesonide/Formoterol Fumarate (Symbicort 80/4.5mcg -) 2 puff IH BID [facility] Last Admin: 09/02/18 09:20 Dose: 2 puff Carvedilol (Coreg -) 3.125 mg PO BID [facility] Last Admin: 09/02/18 09:19 Dose: 3.125 mg Enoxaparin Sodium (Lovenox -) 40 mg SQ DAILY [facility] Last Admin: 09/02/18 09:19 Dose: 40 mg Furosemide (Lasix Injection -) 100 mg IVPB BID@0600,1400 [facility] Last Admin: 09/02/18 14:09 Dose: 100 mg Gabapentin (Neurontin -) 300 mg PO TID [facility] Last Admin: 09/02/18 14:09 Dose: 300 mg Insulin Aspart (Novolog Vial Sliding Scale -) 1 vial SQ ACHS [facility]; Protocol Last Admin: 09/02/18 11:49 Dose: Not Given Ketoconazole (Nizoral 2% Cream -) 1 applic TP DAILY [facility] Last Admin: 09/02/18 09:19 Dose: Not Given Levothyroxine Sodium (Synthroid -) 50 mcg PO AM [facility] Last Admin: 09/02/18 06:05 Dose: 50 mcg Meclizine HCl (Antivert -) 25 mg PO DAILY [facility] Last Admin: 09/02/18 09:19 Dose: 25 mg Metoclopramide HCl (Reglan -) 10 mg PO TID [facility] Last Admin: 09/02/18 14:09 Dose: 10 mg Paroxetine HCl (Paxil -) 40 mg PO DAILY [facility] Last Admin: 09/02/18 09:19 Dose: 40 mg Pramipexole Dihydrochloride (Mirapex -) 1.5 mg PO TID [facility] Last Admin: 09/02/18 14:09 Dose: 1.5 mg Ranolazine (Ranexa -) 1,000 mg PO BID [facility] Last Admin: 09/02/18 09:19 Dose: 1,000 mg Tamsulosin HCl (Flomax -) 0.4 mg PO DAILY@0830 [facility] Last Admin: 09/02/18 09:18 Dose: 0.4 mg Tizanidine HCl (Tizanidine Hcl) 4 mg PO BID [facility] Last Admin: 09/02/18 09:19 Dose: 4 mg 68 year old gentleman with LE weakness/paresis (wheel chair dependent), obesity , prostate Ca, COPD, Sleep Apnea, Hypertension, hypothyrodism and hyperlipidemia who presented with generalized weakness and found to have JUANITA. #JUANITA #Anemia #Generalized weakness #Hypertension Renal function improved with IV Lasix continue IV Lasix BID for now and trend renal function No significant proteinuira seen so less likely any acute GN withhold any JUAN JOSE/ARB, NSAIDs avid IV contrast Dose ll meds for CrCl < 30 cardiology following Trend renal function and electrolytes yury Hirsch DO
[2018-09-02] MEDS ORDERED: DOCUSATE SODIUM 100 MG CAPSULE (FP) PO PRN (17:17)
[2018-09-02] MEDS: SENNOSIDES 8.6MG TABLET (FP) PO SCH (22:32)
[2018-09-03] MEDS: METOCLOPRAMIDE HCL 10 MG TABLET (FP) PO SCH ×3 (05:55→21:47)
[2018-09-03] MEDS: GABAPENTIN 300 MG CAPSULE (FP) PO SCH ×3 (05:55→21:47)
[2018-09-03] MEDS: FUROSEMIDE 100 MG/10 ML INJECTABLE VIAL IVPB SCH ×2 (05:55→16:00)
[2018-09-03] MEDS: INSULIN SLIDING SCALE (NOVOLOG) 1 VIAL SQ SCH ×4 (06:09→21:44)
[2018-09-03] MEDS: LEVOTHYROXINE NA 50 MCG TABLET (FP) PO SCH (06:10)
[2018-09-03] MEDS: PRAMIPEXOLE DIHYDROCHLORIDE 1.5 MG TABLET PO SCH ×3 (06:10→21:47)
--- NOTE | 2018-09-03 06:45 | CON.GU ---
Consult Consult Specialty:: Reason for Consultation:: URINARY RETENTION - History of Present Illness Chief Complaint: juanita History of Present Illness: 68 year old male with a creatinine of 2.5 up from his baseline of 1.0 he has quadroparesis he voids on his own bladder sonogram reveals less than one ounce of urine - Alcohol/Substance Use Hx Alcohol Use: No - Smoking History Smoking history: Former smoker Have you smoked in the past 12 months: No Aproximately how many cigarettes per day: 0 If you are a former smoker, when did you quit?: 20 years ago Home Medications - Allergies Allergies/Adverse Reactions: Allergies Allergy/AdvReac Type Severity Reaction Status Date / Time No Known Allergies Allergy Verified 08/30/18 12:18 - Home Medications Home Medications: Ambulatory Orders Aspirin [ASA -] 81 mg PO DAILY 01/02/12 Alfuzosin HCl [Uroxatral] 10 mg PO DAILY 07/07/13 Carvedilol 3.125 mg PO BID 07/07/13 Niacin*ER* [Niaspan (Non-Formulary) -] 1,000 mg PO DAILY 07/07/13 Paroxetine HCl [Paxil -] 40 mg PO DAILY 07/07/13 Pramipexole Di-HCl [Mirapex] 1.5 mg PO TID 07/07/13 Sennosides [Senna] 8.6 mg PO DAILY 04/05/14 Albuterol Sulfate Inhaler - [Ventolin Hfa Inhaler -] 2 inh PO Q4H PRN 01/26/18 Ascorbic Acid [Vitamin C -] 500 mg PO DAILY 01/26/18 Cyclobenzaprine HCl [Amrix] 30 mg PO DAILY 01/26/18 Diclofenac Sodium [Voltaren] 2 gm TP TID PRN 01/26/18 Fluticasone/Salmeterol [Advair 250-50 Diskus] 1 each IH DAILY 01/26/18 Furosemide [Lasix -] 20 mg PO DAILY 01/26/18 Gabapentin [Neurontin -] 300 mg PO Q8H 01/26/18 Levothyroxine [Synthroid -] 50 mcg PO DAILY 01/26/18 Meclizine HCl 25 mg PO TID 01/26/18 Metformin HCl [Glucophage] 1,000 mg PO BID 01/26/18 Metoclopramide HCl 10 mg PO TID 01/26/18 Multivitamin/Iron/Folic Acid [Centrum Adults Tablet] 1 each PO DAILY 01/26/18 Naproxen [Naprosyn -] 500 mg PO BID 01/26/18 Ranolazine [Ranexa -] 1,000 mg PO BID 01/26/18 Sitagliptin Phosphate [Januvia -] 100 mg PO DAILY@0700 01/26/18 Tamsulosin HCl [Flomax] 0.4 mg PO DAILY 01/26/18 Tizanidine HCl 4 mg PO TID 01/26/18 Physical Exam- Vital Signs: Vital Signs Temperature 98.2 F 09/03/18 06:05 Pulse Rate 84 09/03/18 06:05 Respiratory Rate 18 09/03/18 06:05 Blood Pressure 131/64 09/03/18 06:05 O2 Sat by Pulse Oximetry (%) 97 09/03/18 00:24 Labs: CBC, BMP 09/02/18 06:35 09/02/18 06:35 Imaging - Results Ultrasound: Report Reviewed Problem List - Problems (1) JUANITA (acute kidney injury) Assessment/Plan: despite multiple comorbidities which would be consistent with a neurogenic bladder, he is emptying well. JUANITA not consistent with bladder outlet obstruction. discontinue soriano once creatinine nadirs Code(s): N17.9 - ACUTE KIDNEY FAILURE, UNSPECIFIED
[2018-09-03 07:03] LABS: BASO % 1.2 % (0-2.0); EOS % 6.9 % (0-4.5); HEMOGLOBIN 9.1 GM/dL (11.7-16.9); LYMPH % 25.6 % (8-40); MCH 33.4 pg (25.7-33.7); MCHC 35.1 g/dl (32.0-35.9); MEAN CELL VOLUME 95.2 fl (80-96); MEAN PLT VOLUME 6.4 fl (7.5-11.1); MONO % 10.6 % (3.8-10.2); NEUT % 55.7 % (42.8-82.8); PLATELET COUNT 153 K/MM3 (134-434); RBC 2.73 M/mm3 (4.00-5.60); RDW 14.6 % (11.9-15.9); WHITE BLOOD COUNT 5.2 K/mm3 (4.0-10.0)
[2018-09-03 07:31] LABS: ANION GAP 8 MMOL/L (8-16); BLOOD UREA NITROGEN 28 mg/dL (7-18); CALCIUM 8.6 mg/dL (8.5-10.1); CHLORIDE 103 mmol/L (98-107); CO2 28 mmol/L (21-32); CREATININE 1.9 mg/dL (0.55-1.3); GLUCOSE,RANDOM 135 mg/dL (74-106); MAGNESIUM 1.7 mg/dL (1.8-2.4); PHOSPHOROUS 3.6 mg/dL (2.5-4.9); POTASSIUM 3.6 mmol/L (3.5-5.1); SODIUM 138 mmol/L (136-145)
--- NOTE | 2018-09-03 08:16 | PN ---
Progress Note, Physician Chief Complaint: patient is doing well he has no complaints besides constipation - Current Medication List Current Medications: Active Medications Albuterol Sulfate (Ventolin Hfa Inhaler -) 2 puff IH Q4H PRN PRN Reason: WHEEZING Aspirin (Asa -) 81 mg PO DAILY [facility] Last Admin: 09/02/18 09:19 Dose: 81 mg Budesonide/Formoterol Fumarate (Symbicort 80/4.5mcg -) 2 puff IH BID [facility] Last Admin: 09/02/18 22:39 Dose: 2 puff Carvedilol (Coreg -) 3.125 mg PO BID [facility] Last Admin: 09/02/18 22:32 Dose: 3.125 mg Docusate Sodium (Colace -) 100 mg PO BID PRN PRN Reason: CONSTIPATION Enoxaparin Sodium (Lovenox -) 40 mg SQ DAILY [facility] Last Admin: 09/02/18 09:19 Dose: 40 mg Furosemide (Lasix Injection -) 100 mg IVPB BID@0600,1400 [facility] Last Admin: 09/03/18 05:55 Dose: 100 mg Gabapentin (Neurontin -) 300 mg PO TID [facility] Last Admin: 09/03/18 05:55 Dose: 300 mg Insulin Aspart (Novolog Vial Sliding Scale -) 1 vial SQ ACHS [facility]; Protocol Last Admin: 09/03/18 06:09 Dose: Not Given Ketoconazole (Nizoral 2% Cream -) 1 applic TP DAILY [facility] Last Admin: 09/02/18 09:19 Dose: Not Given Levothyroxine Sodium (Synthroid -) 50 mcg PO AM [facility] Last Admin: 09/03/18 06:10 Dose: 50 mcg Meclizine HCl (Antivert -) 25 mg PO DAILY [facility] Last Admin: 09/02/18 09:19 Dose: 25 mg Metoclopramide HCl (Reglan -) 10 mg PO TID [facility] Last Admin: 09/03/18 05:55 Dose: 10 mg Paroxetine HCl (Paxil -) 40 mg PO DAILY [facility] Last Admin: 09/02/18 09:19 Dose: 40 mg Pramipexole Dihydrochloride (Mirapex -) 1.5 mg PO TID [facility] Last Admin: 09/03/18 06:10 Dose: 1.5 mg Ranolazine (Ranexa -) 1,000 mg PO BID [facility] Last Admin: 09/02/18 22:32 Dose: 1,000 mg Senna (Senna -) 2 tab PO HS [facility] Last Admin: 09/02/18 22:32 Dose: 2 tab Tamsulosin HCl (Flomax -) 0.4 mg PO DAILY@0830 [facility] Last Admin: 09/02/18 09:18 Dose: 0.4 mg Tizanidine HCl (Tizanidine Hcl) 4 mg PO BID [facility] Last Admin: 09/02/18 22:32 Dose: 4 mg - Objective Vital Signs: Vital Signs Temperature 98.2 F 09/03/18 06:05 Pulse Rate 84 09/03/18 06:05 Respiratory Rate 18 09/03/18 06:05 Blood Pressure 131/64 09/03/18 06:05 O2 Sat by Pulse Oximetry (%) 97 09/03/18 00:24 Constitutional: Yes: Well Nourished, No Distress, Calm, Obese Eyes: Yes: Conjunctiva Clear, EOM Intact HENT: Yes: WNL, Atraumatic, Normocephalic Neck: Yes: WNL, Supple, Trachea Midline Cardiovascular: Yes: WNL, Regular Rate and Rhythm Respiratory: Yes: WNL, Regular, CTA Bilaterally Gastrointestinal: Yes: WNL, Normal Bowel Sounds, Soft Musculoskeletal: Yes: WNL Extremities: Yes: WNL Edema: Yes Integumentary: Yes: WNL Neurological: Yes: WNL, Alert, Oriented ...Motor Strength: WNL Psychiatric: Yes: WNL, Alert, Oriented Labs: CBC, BMP 09/03/18 06:00 09/03/18 06:00 INR, PTT INR 1.03 (0.83-1.09) 08/30/18 14:43 Problem List - Problems (1) JUANITA (acute kidney injury) Code(s): N17.9 - ACUTE KIDNEY FAILURE, UNSPECIFIED (2) CHF (congestive heart failure) Code(s): I50.9 - HEART FAILURE, UNSPECIFIED (3) T2DM (type 2 diabetes mellitus) Code(s): E11.9 - TYPE 2 DIABETES MELLITUS WITHOUT COMPLICATIONS (4) COPD (chronic obstructive pulmonary disease) Code(s): J44.9 - CHRONIC OBSTRUCTIVE PULMONARY DISEASE, UNSPECIFIED (5) Depression Code(s): F32.9 - MAJOR DEPRESSIVE DISORDER, SINGLE EPISODE, UNSPECIFIED (6) Hypothyroid Code(s): E03.9 - HYPOTHYROIDISM, UNSPECIFIED (7) Obesity, Class III, BMI 40-49.9 (morbid obesity) Code(s): E66.01 - MORBID (SEVERE) OBESITY DUE TO EXCESS CALORIES Assessment/Plan (1) JUANITA (acute kidney injury) Most likely obstructive uropathy improving after Foleys insertion F/U BMP and recommendations. f/u renal (2) COPD (chronic obstructive pulmonary disease) Stable no acute symptoms cont all home meds (3) Depression Resume home meds (4) Hypothyroid Cont Levothyroxine (5) Sleep apnea with use of continuous positive airway pressure (CPAP) Cont CPAP (6) Obesity, Class III, BMI 40-49.9 (morbid obesity) nutrition consult as out patient low-caloric intake Diabetic diet (7) Chronic back pain No nsaid due to JUANITA optimize pain meds (8) T2DM (type 2 diabetes mellitus) Diabetic diet, ISS (9) CHF (congestive heart failure) ECHO shows diastolic HF cont furosedmie IP f/u with cardiology recommendation.
[2018-09-03] MEDS ORDERED: RANOLAZINE E.R. 500 MG TABLET (FP) ONE ×2 (09:51→21:06)
[2018-09-03] MEDS: RANOLAZINE E.R. 1,000 MG TABLET (FP) PO SCH ×2 (10:36→21:46)
[2018-09-03] MEDS: ENOXAPARIN NA (PORCINE) 40 MG/0.4 ML DISP.SYRIN SQ SCH (10:37)
[2018-09-03] MEDS: CARVEDILOL 3.125 MG TABLET (FP) PO SCH ×2 (10:37→21:48)
[2018-09-03] MEDS: ASPIRIN 81 MG CHEWABLE TABLETS PO SCH (10:37)
[2018-09-03] MEDS: MECLIZINE HCL 25 MG TABLET (FP) PO SCH (10:37)
[2018-09-03] MEDS: PARoxetine HCL 20 MG TABLET (FP) PO SCH (10:37)
[2018-09-03] MEDS: TAMSULOSIN HCL 0.4 MG CAP PO SCH (10:37)
[2018-09-03] MEDS: KETOCONAZOLE 2% CREAM - 60GM TUBE TP SCH (10:40)
[2018-09-03] MEDS: BUDESONIDE/FORMETEROL FUMARATE 80/4.5 mcg INHALER IH SCH ×2 (10:40→21:48)
[2018-09-03] MEDS: TIZANIDINE HCL 4 MG TABLET PO SCH ×2 (10:42→21:48)
--- NOTE | 2018-09-03 11:05 | PN ---
Progress Note (short form) - Note Progress Note: Renal follow up for JUANITA Pt seen and examined at the bedside no complaints, no overnight events feels better no sob, cp, abd pain making urine Vital Signs Temperature 98.0 F 09/03/18 08:46 Pulse Rate 83 09/03/18 08:46 Respiratory Rate 16 09/03/18 08:46 Blood Pressure 109/69 09/03/18 08:46 O2 Sat by Pulse Oximetry (%) 97 09/03/18 00:24 Intake & Output 08/31/18 09/01/18 09/02/18 09/03/18 23:59 23:59 23:59 23:59 Intake Total 1255 1050 1190 290 Output Total 325 4750 3250 300 Balance 930 -3700 -0 -10 Weight 147.418 kg 143.789 kg 143.789 kg 143.879 kg NAD RRR, no M/R CTA, decreased BS but no rales Obese, NT/ND no bladder distension no LE clubbing or cyanosis. 1+ edema in LE. CBC, BMP 09/03/18 06:00 09/03/18 06:00 Current Medications Albuterol Sulfate (Ventolin Hfa Inhaler -) 2 puff IH Q4H PRN PRN Reason: WHEEZING Aspirin (Asa -) 81 mg PO DAILY [facility] Last Admin: 09/03/18 10:37 Dose: 81 mg Budesonide/Formoterol Fumarate (Symbicort 80/4.5mcg -) 2 puff IH BID [facility] Last Admin: 09/03/18 10:40 Dose: 2 puff Carvedilol (Coreg -) 3.125 mg PO BID [facility] Last Admin: 09/03/18 10:37 Dose: 3.125 mg Docusate Sodium (Colace -) 100 mg PO BID PRN PRN Reason: CONSTIPATION Enoxaparin Sodium (Lovenox -) 40 mg SQ DAILY [facility] Last Admin: 09/03/18 10:37 Dose: 40 mg Furosemide (Lasix Injection -) 100 mg IVPB BID@0600,1400 [facility] Last Admin: 09/03/18 05:55 Dose: 100 mg Gabapentin (Neurontin -) 300 mg PO TID [facility] Last Admin: 09/03/18 05:55 Dose: 300 mg Insulin Aspart (Novolog Vial Sliding Scale -) 1 vial SQ ACHS [facility]; Protocol Last Admin: 09/03/18 06:09 Dose: Not Given Ketoconazole (Nizoral 2% Cream -) 1 applic TP DAILY [facility] Last Admin: 09/03/18 10:40 Dose: Not Given Levothyroxine Sodium (Synthroid -) 50 mcg PO AM [facility] Last Admin: 09/03/18 06:10 Dose: 50 mcg Meclizine HCl (Antivert -) 25 mg PO DAILY [facility] Last Admin: 09/03/18 10:37 Dose: 25 mg Metoclopramide HCl (Reglan -) 10 mg PO TID [facility] Last Admin: 09/03/18 05:55 Dose: 10 mg Paroxetine HCl (Paxil -) 40 mg PO DAILY [facility] Last Admin: 09/03/18 10:37 Dose: 40 mg Pramipexole Dihydrochloride (Mirapex -) 1.5 mg PO TID [facility] Last Admin: 09/03/18 06:10 Dose: 1.5 mg Ranolazine (Ranexa -) 1,000 mg PO BID [facility] Last Admin: 09/03/18 10:36 Dose: 1,000 mg Senna (Senna -) 2 tab PO HS [facility] Last Admin: 09/02/18 22:32 Dose: 2 tab Tamsulosin HCl (Flomax -) 0.4 mg PO DAILY@0830 [facility] Last Admin: 09/03/18 10:37 Dose: 0.4 mg Tizanidine HCl (Tizanidine Hcl) 4 mg PO BID [facility] Last Admin: 09/03/18 10:42 Dose: 4 mg 68 year old gentleman with LE weakness/paresis (wheel chair dependent), obesity , prostate Ca, COPD, Sleep Apnea, Hypertension, hypothyrodism and hyperlipidemia who presented with generalized weakness and found to have JUANITA. #JUANITA #Anemia #Generalized weakness #Hypertension Renal function improved with IV Lasix, continue BID Lasix Urology consult noted, will maintain soriano until renal function stabilizes No significant proteinuira seen withhold any JUAN JOSE/ARB, NSAIDs avid IV contrast Dose ll meds for CrCl < 30 cardiology following Trend renal function and electrolytes daily Isma Hirsch DO
--- NOTE | 2018-09-03 14:09 | PN ---
Progress Note (short form) - Note Progress Note: s: no cp sob palps dizzy o: nad no jvd rrr s1s2 no mrg cta bl nl eff aao3 1-2+ le edema bl, no c/c abd nd nt pos bs no jaundice diaphoresis Current Medications Albuterol Sulfate (Ventolin Hfa Inhaler -) 2 puff IH Q4H PRN PRN Reason: WHEEZING Aspirin (Asa -) 81 mg PO DAILY [facility] Last Admin: 09/03/18 10:37 Dose: 81 mg Budesonide/Formoterol Fumarate (Symbicort 80/4.5mcg -) 2 puff IH BID [facility] Last Admin: 09/03/18 10:40 Dose: 2 puff Carvedilol (Coreg -) 3.125 mg PO BID [facility] Last Admin: 09/03/18 10:37 Dose: 3.125 mg Docusate Sodium (Colace -) 100 mg PO BID PRN PRN Reason: CONSTIPATION Enoxaparin Sodium (Lovenox -) 40 mg SQ DAILY [facility] Last Admin: 09/03/18 10:37 Dose: 40 mg Furosemide (Lasix Injection -) 100 mg IVPB BID@0600,1400 [facility] Last Admin: 09/03/18 05:55 Dose: 100 mg Gabapentin (Neurontin -) 300 mg PO TID [facility] Last Admin: 09/03/18 05:55 Dose: 300 mg Insulin Aspart (Novolog Vial Sliding Scale -) 1 vial SQ ACHS [facility]; Protocol Last Admin: 09/03/18 12:24 Dose: 2 units Ketoconazole (Nizoral 2% Cream -) 1 applic TP DAILY [facility] Last Admin: 09/03/18 10:40 Dose: Not Given Levothyroxine Sodium (Synthroid -) 50 mcg PO AM [facility] Last Admin: 09/03/18 06:10 Dose: 50 mcg Meclizine HCl (Antivert -) 25 mg PO DAILY [facility] Last Admin: 09/03/18 10:37 Dose: 25 mg Metoclopramide HCl (Reglan -) 10 mg PO TID [facility] Last Admin: 09/03/18 05:55 Dose: 10 mg Paroxetine HCl (Paxil -) 40 mg PO DAILY [facility] Last Admin: 09/03/18 10:37 Dose: 40 mg Pramipexole Dihydrochloride (Mirapex -) 1.5 mg PO TID [facility] Last Admin: 09/03/18 06:10 Dose: 1.5 mg Ranolazine (Ranexa -) 1,000 mg PO BID [facility] Last Admin: 09/03/18 10:36 Dose: 1,000 mg Senna (Senna -) 2 tab PO HS [facility] Last Admin: 09/02/18 22:32 Dose: 2 tab Tamsulosin HCl (Flomax -) 0.4 mg PO DAILY@0830 [facility] Last Admin: 09/03/18 10:37 Dose: 0.4 mg Tizanidine HCl (Tizanidine Hcl) 4 mg PO BID [facility] Last Admin: 09/03/18 10:42 Dose: 4 mg cxr: clear lungs ecg: sr, nl intervals, no ischemic changes echo 08/2018: nondiagnostic study per report. On my review LVEF is normal and RV appears grossly normal. a/p: 68 m hx htn, copd, prostate ca, hypothyroid, here with generalized weakness. chronic diastolic chf, le edema: -wt down, cr improving, le edema improved. seems he has chf with cardiorenal syndrome. cont iv lasix 100 mg BID. daily wt, chem7. -ECHO TDS but on per Dr. Castro review LVEF is normal. htn: -cont bb fredy: -plan as above -renal following
[2018-09-03] MEDS: SENNOSIDES 8.6MG TABLET (FP) PO SCH (21:47)
[2018-09-04] MEDS: GABAPENTIN 300 MG CAPSULE (FP) PO SCH ×3 (06:24→22:21)
[2018-09-04] MEDS: LEVOTHYROXINE NA 50 MCG TABLET (FP) PO SCH (06:24)
[2018-09-04] MEDS: METOCLOPRAMIDE HCL 10 MG TABLET (FP) PO SCH ×3 (06:24→22:24)
[2018-09-04] MEDS: INSULIN SLIDING SCALE (NOVOLOG) 1 VIAL SQ SCH ×4 (06:25→22:24)
[2018-09-04] MEDS: FUROSEMIDE 100 MG/10 ML INJECTABLE VIAL IVPB SCH ×2 (06:25→15:13)
[2018-09-04] MEDS: PRAMIPEXOLE DIHYDROCHLORIDE 1.5 MG TABLET PO SCH ×3 (06:25→22:22)
[2018-09-04 07:21] LABS: BASO % 0.7 % (0-2.0); HEMATOCRIT 25.6 % (35.4-49); LYMPH % 22.1 % (8-40); MCH 33.6 pg (25.7-33.7); MCHC 35.1 g/dl (32.0-35.9); MEAN CELL VOLUME 95.6 fl (80-96); MEAN PLT VOLUME 6.5 fl (7.5-11.1); MONO % 10.3 % (3.8-10.2); NEUT % 61.9 % (42.8-82.8); PLATELET COUNT 157 K/MM3 (134-434); RBC 2.67 M/mm3 (4.00-5.60); RDW 14.3 % (11.9-15.9); WHITE BLOOD COUNT 5.7 K/mm3 (4.0-10.0)
--- NOTE | 2018-09-04 07:34 | PN ---
Progress Note, Physician Chief Complaint: patient is doing well he has no complaints besides constipation - Current Medication List Current Medications: Active Medications Albuterol Sulfate (Ventolin Hfa Inhaler -) 2 puff IH Q4H PRN PRN Reason: WHEEZING Aspirin (Asa -) 81 mg PO DAILY [facility] Last Admin: 09/03/18 10:37 Dose: 81 mg Budesonide/Formoterol Fumarate (Symbicort 80/4.5mcg -) 2 puff IH BID [facility] Last Admin: 09/03/18 21:48 Dose: 2 puff Carvedilol (Coreg -) 3.125 mg PO BID [facility] Last Admin: 09/03/18 21:48 Dose: 3.125 mg Docusate Sodium (Colace -) 100 mg PO BID PRN PRN Reason: CONSTIPATION Enoxaparin Sodium (Lovenox -) 40 mg SQ DAILY [facility] Last Admin: 09/03/18 10:37 Dose: 40 mg Furosemide (Lasix Injection -) 100 mg IVPB BID@0600,1400 [facility] Last Admin: 09/04/18 06:25 Dose: 100 mg Gabapentin (Neurontin -) 300 mg PO TID [facility] Last Admin: 09/04/18 06:24 Dose: 300 mg Insulin Aspart (Novolog Vial Sliding Scale -) 1 vial SQ ACHS [facility]; Protocol Last Admin: 09/04/18 06:25 Dose: 2 units Ketoconazole (Nizoral 2% Cream -) 1 applic TP DAILY [facility] Last Admin: 09/03/18 10:40 Dose: Not Given Levothyroxine Sodium (Synthroid -) 50 mcg PO AM [facility] Last Admin: 09/04/18 06:24 Dose: 50 mcg Meclizine HCl (Antivert -) 25 mg PO DAILY [facility] Last Admin: 09/03/18 10:37 Dose: 25 mg Metoclopramide HCl (Reglan -) 10 mg PO TID [facility] Last Admin: 09/04/18 06:24 Dose: 10 mg Paroxetine HCl (Paxil -) 40 mg PO DAILY [facility] Last Admin: 09/03/18 10:37 Dose: 40 mg Pramipexole Dihydrochloride (Mirapex -) 1.5 mg PO TID [facility] Last Admin: 09/04/18 06:25 Dose: 1.5 mg Ranolazine (Ranexa -) 1,000 mg PO BID [facility] Last Admin: 09/03/18 21:46 Dose: 1,000 mg Senna (Senna -) 2 tab PO HS [facility] Last Admin: 09/03/18 21:47 Dose: 2 tab Tamsulosin HCl (Flomax -) 0.4 mg PO DAILY@0830 [facility] Last Admin: 09/03/18 10:37 Dose: 0.4 mg Tizanidine HCl (Tizanidine Hcl) 4 mg PO BID [facility] Last Admin: 09/03/18 21:48 Dose: 4 mg - Objective Vital Signs: Vital Signs Temperature 98.1 F 09/04/18 06:08 Pulse Rate 71 09/04/18 06:08 Respiratory Rate 18 09/04/18 06:08 Blood Pressure 125/69 09/04/18 06:08 O2 Sat by Pulse Oximetry (%) 95 09/03/18 21:00 Constitutional: Yes: Well Nourished, No Distress, Calm, Obese Eyes: Yes: WNL, Conjunctiva Clear, EOM Intact HENT: Yes: WNL, Atraumatic, Normocephalic Neck: Yes: WNL, Supple, Trachea Midline Cardiovascular: Yes: WNL, Regular Rate and Rhythm Respiratory: Yes: WNL, Regular, CTA Bilaterally Gastrointestinal: Yes: WNL, Normal Bowel Sounds, Soft ...Rectal Exam: Yes: Deferred Musculoskeletal: Yes: WNL Extremities: Yes: WNL Edema: Yes Edema: LLE: 3+, RLE: 3+ Integumentary: Yes: WNL Neurological: Yes: WNL, Alert, Oriented ...Motor Strength: WNL Psychiatric: Yes: WNL, Alert, Oriented Labs: CBC, BMP 09/04/18 06:00 INR, PTT INR 1.03 (0.83-1.09) 08/30/18 14:43 Problem List - Problems (1) JUANITA (acute kidney injury) Code(s): N17.9 - ACUTE KIDNEY FAILURE, UNSPECIFIED (2) CHF (congestive heart failure) Code(s): I50.9 - HEART FAILURE, UNSPECIFIED (3) T2DM (type 2 diabetes mellitus) Code(s): E11.9 - TYPE 2 DIABETES MELLITUS WITHOUT COMPLICATIONS (4) COPD (chronic obstructive pulmonary disease) Code(s): J44.9 - CHRONIC OBSTRUCTIVE PULMONARY DISEASE, UNSPECIFIED (5) Depression Code(s): F32.9 - MAJOR DEPRESSIVE DISORDER, SINGLE EPISODE, UNSPECIFIED (6) Hypothyroid Code(s): E03.9 - HYPOTHYROIDISM, UNSPECIFIED (7) Obesity, Class III, BMI 40-49.9 (morbid obesity) Code(s): E66.01 - MORBID (SEVERE) OBESITY DUE TO EXCESS CALORIES Assessment/Plan (1) JUANITA (acute kidney injury) Most likely obstructive uropathy improving after Foleys insertion F/U BMP and recommendations. f/u renal resolving (2) COPD (chronic obstructive pulmonary disease) Stable no acute symptoms cont all home meds (3) Depression Resume home meds (4) Hypothyroid Cont Levothyroxine (5) Sleep apnea with use of continuous positive airway pressure (CPAP) Cont CPAP (6) Obesity, Class III, BMI 40-49.9 (morbid obesity) nutrition consult as out patient low-caloric intake Diabetic diet (7) Chronic back pain No nsaid due to JUANITA optimize pain meds (8) T2DM (type 2 diabetes mellitus) Diabetic diet, ISS (9) CHF (congestive heart failure) ECHO shows diastolic HF cont furosedmie IP f/u with cardiology recommendation.
[2018-09-04 07:49] LABS: ALBUMIN 3.5 g/dl (3.4-5.0); ALK PHOS 49 U/L (45-117); ANION GAP 8 MMOL/L (8-16); BILIRUBIN,TOTAL 0.3 mg/dL (0.2-1); BLOOD UREA NITROGEN 30 mg/dL (7-18); CALCIUM 8.6 mg/dL (8.5-10.1); CHLORIDE 103 mmol/L (98-107); CO2 30 mmol/L (21-32); CREATININE 2.1 mg/dL (0.55-1.3); GLUCOSE,RANDOM 151 mg/dL (74-106); MAGNESIUM 1.7 mg/dL (1.8-2.4); PHOSPHOROUS 4.1 mg/dL (2.5-4.9); POTASSIUM 3.6 mmol/L (3.5-5.1); SGOT/AST 11 U/L (15-37); SGPT/ALT 16 U/L (13-61); SODIUM 141 mmol/L (136-145); TOT PROT 6.1 g/dl (6.4-8.2)
[2018-09-04] MEDS ORDERED: RANOLAZINE E.R. 500 MG TABLET (FP) ONE ×2 (08:57→21:13)
[2018-09-04] MEDS: ASPIRIN 81 MG CHEWABLE TABLETS PO SCH (09:05)
[2018-09-04] MEDS: RANOLAZINE E.R. 1,000 MG TABLET (FP) PO SCH ×2 (09:10→22:23)
[2018-09-04] MEDS: TAMSULOSIN HCL 0.4 MG CAP PO SCH (09:11)
[2018-09-04] MEDS: TIZANIDINE HCL 4 MG TABLET PO SCH ×2 (09:11→22:23)
[2018-09-04] MEDS: PARoxetine HCL 20 MG TABLET (FP) PO SCH (09:11)
[2018-09-04] MEDS: ENOXAPARIN NA (PORCINE) 40 MG/0.4 ML DISP.SYRIN SQ SCH (09:11)
[2018-09-04] MEDS: CARVEDILOL 3.125 MG TABLET (FP) PO SCH ×2 (09:11→22:21)
[2018-09-04] MEDS: MECLIZINE HCL 25 MG TABLET (FP) PO SCH (09:11)
[2018-09-04] MEDS: KETOCONAZOLE 2% CREAM - 60GM TUBE TP SCH (09:13)
[2018-09-04] MEDS: BUDESONIDE/FORMETEROL FUMARATE 80/4.5 mcg INHALER IH SCH ×2 (09:14→22:20)
--- NOTE | 2018-09-04 11:20 | PN ---
Progress Note (short form) - Note Progress Note: Renal follow up for JUANITA Pt seen and examined at the bedside feels well, no acute complaints no sob, cp, abd pain making urine via soriano Vital Signs Temperature 98.1 F 09/04/18 06:08 Pulse Rate 71 09/04/18 06:08 Respiratory Rate 18 09/04/18 06:08 Blood Pressure 125/69 09/04/18 06:08 O2 Sat by Pulse Oximetry (%) 95 09/04/18 08:10 Intake & Output 09/01/18 09/02/18 09/03/18 09/04/18 23:59 23:59 23:59 23:59 Intake Total 1050 1190 2280 470 Output Total 4750 3250 2780 400 Balance -3700 -2060 -500 70 Weight 143.789 kg 143.789 kg 143.879 kg 143.426 kg NAD RRR, no M/R CTA, decreased BS but no rales Obese, NT/ND no bladder distension no LE clubbing or cyanosis. 1+ edema in LE. CBC, BMP 09/04/18 06:00 09/04/18 06:00 Current Medications Albuterol Sulfate (Ventolin Hfa Inhaler -) 2 puff IH Q4H PRN PRN Reason: WHEEZING Aspirin (Asa -) 81 mg PO DAILY [facility] Last Admin: 09/04/18 09:05 Dose: 81 mg Budesonide/Formoterol Fumarate (Symbicort 80/4.5mcg -) 2 puff IH BID [facility] Last Admin: 09/04/18 09:14 Dose: 2 puff Carvedilol (Coreg -) 3.125 mg PO BID [facility] Last Admin: 09/04/18 09:11 Dose: 3.125 mg Docusate Sodium (Colace -) 100 mg PO BID PRN PRN Reason: CONSTIPATION Enoxaparin Sodium (Lovenox -) 40 mg SQ DAILY [facility] Last Admin: 09/04/18 09:11 Dose: 40 mg Furosemide (Lasix Injection -) 100 mg IVPB BID@0600,1400 [facility] Last Admin: 09/04/18 06:25 Dose: 100 mg Gabapentin (Neurontin -) 300 mg PO TID [facility] Last Admin: 09/04/18 06:24 Dose: 300 mg Insulin Aspart (Novolog Vial Sliding Scale -) 1 vial SQ ACHS [facility]; Protocol Last Admin: 09/04/18 06:25 Dose: 2 units Ketoconazole (Nizoral 2% Cream -) 1 applic TP DAILY [facility] Last Admin: 09/04/18 09:13 Dose: Not Given Levothyroxine Sodium (Synthroid -) 50 mcg PO AM [facility] Last Admin: 09/04/18 06:24 Dose: 50 mcg Meclizine HCl (Antivert -) 25 mg PO DAILY [facility] Last Admin: 09/04/18 09:11 Dose: 25 mg Metoclopramide HCl (Reglan -) 10 mg PO TID [facility] Last Admin: 09/04/18 06:24 Dose: 10 mg Paroxetine HCl (Paxil -) 40 mg PO DAILY [facility] Last Admin: 09/04/18 09:11 Dose: 40 mg Pramipexole Dihydrochloride (Mirapex -) 1.5 mg PO TID [facility] Last Admin: 09/04/18 06:25 Dose: 1.5 mg Ranolazine (Ranexa -) 1,000 mg PO BID [facility] Last Admin: 09/04/18 09:10 Dose: 1,000 mg Senna (Senna -) 2 tab PO HS [facility] Last Admin: 09/03/18 21:47 Dose: 2 tab Tamsulosin HCl (Flomax -) 0.4 mg PO DAILY@0830 [facility] Last Admin: 09/04/18 09:11 Dose: 0.4 mg Tizanidine HCl (Tizanidine Hcl) 4 mg PO BID [facility] Last Admin: 09/04/18 09:11 Dose: 4 mg 68 year old gentleman with LE weakness/paresis (wheel chair dependent), obesity , prostate Ca, COPD, Sleep Apnea, Hypertension, hypothyrodism and hyperlipidemia who presented with generalized weakness and found to have JUANITA. #JUANITA from cardio-renal syndrome +/- NSAID induced renal dysfunction #Anemia #Generalized weakness #Hypertension Renal function stable over the last 24 hours volume status appears improved continue Lasix at present dose for now, if BUN/Cr up trending will discontinue or titrate down Urology consult noted, will maintain soriano until renal function stabilizes No significant proteinuira seen withhold any JUAN JOSE/ARB, NSAIDs avid IV contrast Dose ll meds for CrCl < 30 cardiology following Trend renal function and electrolytes daily Isma Hirsch DO
--- NOTE | 2018-09-04 11:44 | PN ---
Progress Note (short form) - Note Progress Note: s: no cp sob palps dizzy. sob improving o: Vital Signs Period Temp Pulse Resp BP Sys/Mejia Pulse Ox Last 24 Hr 97.9 F-98.5 F 68-84 16-18 93-133/59-76 93-95 nad no jvd rrr s1s2 no mrg cta bl nl eff aao3 1-2+ le edema bl, no c/c abd nd nt pos bs no jaundice diaphoresis Current Medications Albuterol Sulfate (Ventolin Hfa Inhaler -) 2 puff IH Q4H PRN PRN Reason: WHEEZING Aspirin (Asa -) 81 mg PO DAILY [facility] Last Admin: 09/03/18 10:37 Dose: 81 mg Budesonide/Formoterol Fumarate (Symbicort 80/4.5mcg -) 2 puff IH BID [facility] Last Admin: 09/03/18 10:40 Dose: 2 puff Carvedilol (Coreg -) 3.125 mg PO BID [facility] Last Admin: 09/03/18 10:37 Dose: 3.125 mg Docusate Sodium (Colace -) 100 mg PO BID PRN PRN Reason: CONSTIPATION Enoxaparin Sodium (Lovenox -) 40 mg SQ DAILY [facility] Last Admin: 09/03/18 10:37 Dose: 40 mg Furosemide (Lasix Injection -) 100 mg IVPB BID@0600,1400 [facility] Last Admin: 09/03/18 05:55 Dose: 100 mg Gabapentin (Neurontin -) 300 mg PO TID [facility] Last Admin: 09/03/18 05:55 Dose: 300 mg Insulin Aspart (Novolog Vial Sliding Scale -) 1 vial SQ ACHS [facility]; Protocol Last Admin: 09/03/18 12:24 Dose: 2 units Ketoconazole (Nizoral 2% Cream -) 1 applic TP DAILY [facility] Last Admin: 09/03/18 10:40 Dose: Not Given Levothyroxine Sodium (Synthroid -) 50 mcg PO AM [facility] Last Admin: 09/03/18 06:10 Dose: 50 mcg Meclizine HCl (Antivert -) 25 mg PO DAILY [facility] Last Admin: 09/03/18 10:37 Dose: 25 mg Metoclopramide HCl (Reglan -) 10 mg PO TID [facility] Last Admin: 09/03/18 05:55 Dose: 10 mg Paroxetine HCl (Paxil -) 40 mg PO DAILY [facility] Last Admin: 09/03/18 10:37 Dose: 40 mg Pramipexole Dihydrochloride (Mirapex -) 1.5 mg PO TID [facility] Last Admin: 09/03/18 06:10 Dose: 1.5 mg Ranolazine (Ranexa -) 1,000 mg PO BID [facility] Last Admin: 09/03/18 10:36 Dose: 1,000 mg Senna (Senna -) 2 tab PO HS [facility] Last Admin: 09/02/18 22:32 Dose: 2 tab Tamsulosin HCl (Flomax -) 0.4 mg PO DAILY@0830 [facility] Last Admin: 09/03/18 10:37 Dose: 0.4 mg Tizanidine HCl (Tizanidine Hcl) 4 mg PO BID [facility] Last Admin: 09/03/18 10:42 Dose: 4 mg cxr: clear lungs ecg: sr, nl intervals, no ischemic changes echo 08/2018: nondiagnostic study per report. On my review LVEF is normal and RV appears grossly normal. a/p: 68 m hx htn, copd, prostate ca, hypothyroid, here with generalized weakness. chronic diastolic chf, le edema: -wt down, cr improving, le edema improved. seems he has chf with cardiorenal syndrome. cont iv lasix 100 mg BID. daily wt, chem7. -ECHO TDS but on per Dr. Castro review LVEF is normal. htn: -cont bb fredy: -plan as above -renal following
[2018-09-04] MEDS: SENNOSIDES 8.6MG TABLET (FP) PO SCH (22:21)
[2018-09-05] MEDS: FUROSEMIDE 100 MG/10 ML INJECTABLE VIAL IVPB SCH (05:51)
[2018-09-05] MEDS: INSULIN SLIDING SCALE (NOVOLOG) 1 VIAL SQ SCH ×4 (06:06→21:56)
[2018-09-05] MEDS: METOCLOPRAMIDE HCL 10 MG TABLET (FP) PO SCH ×3 (06:07→21:55)
[2018-09-05] MEDS: GABAPENTIN 300 MG CAPSULE (FP) PO SCH ×3 (06:07→21:55)
[2018-09-05] MEDS: LEVOTHYROXINE NA 50 MCG TABLET (FP) PO SCH (06:07)
[2018-09-05] MEDS: PRAMIPEXOLE DIHYDROCHLORIDE 1.5 MG TABLET PO SCH ×3 (06:07→21:56)
[2018-09-05 07:04] LABS: BASO % 0.8 % (0-2.0); EOS % 5.6 % (0-4.5); HEMOGLOBIN 9.5 GM/dL (11.7-16.9); LYMPH % 20.9 % (8-40); MCH 33.4 pg (25.7-33.7); MCHC 35.3 g/dl (32.0-35.9); MEAN CELL VOLUME 94.8 fl (80-96); MEAN PLT VOLUME 6.3 fl (7.5-11.1); MONO % 9.3 % (3.8-10.2); NEUT % 63.4 % (42.8-82.8); PLATELET COUNT 159 K/MM3 (134-434); RBC 2.85 M/mm3 (4.00-5.60); RDW 14.6 % (11.9-15.9)
[2018-09-05 07:33] LABS: ALBUMIN 3.6 g/dl (3.4-5.0); ALK PHOS 48 U/L (45-117); ANION GAP 7 MMOL/L (8-16); BILIRUBIN,TOTAL 0.4 mg/dL (0.2-1); BLOOD UREA NITROGEN 33 mg/dL (7-18); CALCIUM 8.3 mg/dL (8.5-10.1); CHLORIDE 103 mmol/L (98-107); CO2 32 mmol/L (21-32); CREATININE 1.9 mg/dL (0.55-1.3); GLUCOSE,RANDOM 132 mg/dL (74-106); MAGNESIUM 1.4 mg/dL (1.8-2.4); PHOSPHOROUS 3.8 mg/dL (2.5-4.9); POTASSIUM 3.4 mmol/L (3.5-5.1); SGOT/AST 10 U/L (15-37); SGPT/ALT 15 U/L (13-61); SODIUM 142 mmol/L (136-145); TOT PROT 6.4 g/dl (6.4-8.2)
[2018-09-05] MEDS ORDERED: POTASSIUM CHLORIDE TABS 20 MEQ TABLET.ER (FP) PO ONE (08:06)
--- NOTE | 2018-09-05 08:06 | PN ---
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 Pbase line Cr 1 on 01/2018. Pt reports that he has been making urine, denies any flank pain, dysuria or urinary retention. Patient is on Naproxene 50 mg BID for pain, patient was in urinary obstruction, renal function are improving POst Foleys insertion - Current Medication List Current Medications: Active Medications Albuterol Sulfate (Ventolin Hfa Inhaler -) 2 puff IH Q4H PRN PRN Reason: WHEEZING Aspirin (Asa -) 81 mg PO DAILY [facility] Last Admin: 09/04/18 09:05 Dose: 81 mg Budesonide/Formoterol Fumarate (Symbicort 80/4.5mcg -) 2 puff IH BID [facility] Last Admin: 09/04/18 22:20 Dose: 2 puff Carvedilol (Coreg -) 3.125 mg PO BID [facility] Last Admin: 09/04/18 22:21 Dose: 3.125 mg Docusate Sodium (Colace -) 100 mg PO BID PRN PRN Reason: CONSTIPATION Enoxaparin Sodium (Lovenox -) 40 mg SQ DAILY [facility] Last Admin: 09/04/18 09:11 Dose: 40 mg Furosemide (Lasix Injection -) 100 mg IVPB BID@0600,1400 [facility] Last Admin: 09/05/18 05:51 Dose: 100 mg Gabapentin (Neurontin -) 300 mg PO TID [facility] Last Admin: 09/05/18 06:07 Dose: 300 mg Insulin Aspart (Novolog Vial Sliding Scale -) 1 vial SQ ACHS [facility]; Protocol Last Admin: 09/05/18 06:06 Dose: Not Given Ketoconazole (Nizoral 2% Cream -) 1 applic TP DAILY [facility] Last Admin: 09/04/18 09:13 Dose: Not Given Levothyroxine Sodium (Synthroid -) 50 mcg PO AM [facility] Last Admin: 09/05/18 06:07 Dose: 50 mcg Meclizine HCl (Antivert -) 25 mg PO DAILY [facility] Last Admin: 09/04/18 09:11 Dose: 25 mg Metoclopramide HCl (Reglan -) 10 mg PO TID [facility] Last Admin: 09/05/18 06:07 Dose: 10 mg Paroxetine HCl (Paxil -) 40 mg PO DAILY [facility] Last Admin: 09/04/18 09:11 Dose: 40 mg Pramipexole Dihydrochloride (Mirapex -) 1.5 mg PO TID [facility] Last Admin: 09/05/18 06:07 Dose: 1.5 mg Ranolazine (Ranexa -) 1,000 mg PO BID [facility] Last Admin: 09/04/18 22:23 Dose: 1,000 mg Senna (Senna -) 2 tab PO HS [facility] Last Admin: 09/04/18 22:21 Dose: 2 tab Tamsulosin HCl (Flomax -) 0.4 mg PO DAILY@0830 [facility] Last Admin: 09/04/18 09:11 Dose: 0.4 mg Tizanidine HCl (Tizanidine Hcl) 4 mg PO BID [facility] Last Admin: 09/04/18 22:23 Dose: 4 mg - Objective Vital Signs: Vital Signs Temperature 97.5 F L 09/05/18 06:00 Pulse Rate 95 H 09/05/18 06:00 Respiratory Rate 18 09/05/18 06:00 Blood Pressure 142/92 09/05/18 06:00 O2 Sat by Pulse Oximetry (%) 97 09/04/18 21:00 Elderly man morbidly obese not in distress HEENT: mm moist, + anemia, PERRLA EOMI NECK: No JVD No bruit CHEST: minimal basal crepts CVS: S1S2 R ABD: No distention, non tender Bs + EXT: Rt Elbow deformity, B/L LE swelling DISEASE INTERVENTION SPECIALIST: AX3 non focal Labs: CBC, BMP 09/05/18 06:20 09/05/18 06:20 INR, PTT INR 1.03 (0.83-1.09) 08/30/18 14:43 Problem List - Problems (1) JUANITA (acute kidney injury) Assessment/Plan: Most likely obstructive uropathy improving after Foleys insertion renal functions are improving F/U BMP today Creat 1.9. Discussed with Dr Torrey arreguin DC Foleys catheter and try voiding trial F/U bladder ultrasound and BMP in am. Code(s): N17.9 - ACUTE KIDNEY FAILURE, UNSPECIFIED (2) COPD (chronic obstructive pulmonary disease) Assessment/Plan: Stable no acute symptoms cont all home meds Code(s): J44.9 - CHRONIC OBSTRUCTIVE PULMONARY DISEASE, UNSPECIFIED (3) Depression Assessment/Plan: Resume home meds Code(s): F32.9 - MAJOR DEPRESSIVE DISORDER, SINGLE EPISODE, UNSPECIFIED (4) Hypothyroid Assessment/Plan: Cont Levothyroxine F/U TSH Code(s): E03.9 - HYPOTHYROIDISM, UNSPECIFIED (5) Sleep apnea with use of continuous positive airway pressure (CPAP) Assessment/Plan: Cont CPAP Code(s): G47.30 - SLEEP APNEA, UNSPECIFIED (6) Obesity, Class III, BMI 40-49.9 (morbid obesity) Assessment/Plan: nutrition consult as out patient Code(s): E66.01 - MORBID (SEVERE) OBESITY DUE TO EXCESS CALORIES (7) Chronic back pain Assessment/Plan: No nsaid due to JUANITA optimize pain meds Code(s): M54.9 - DORSALGIA, UNSPECIFIED; G89.29 - OTHER CHRONIC PAIN (8) T2DM (type 2 diabetes mellitus) Assessment/Plan: Diabetic diet, accuchecks and correction dose insulin. Code(s): E11.9 - TYPE 2 DIABETES MELLITUS WITHOUT COMPLICATIONS (9) CHF (congestive heart failure) Assessment/Plan: ECHO shows diastolic HF cont Lasix IP/Op chart evaluted by cardiology consult. Code(s): I50.9 - HEART FAILURE, UNSPECIFIED (10) Hypokalemia Assessment/Plan: Mild add KCl 20 m Eq Code(s): E87.6 - HYPOKALEMIA (11) Constipation Assessment/Plan: add Home dose of [place] 4 tab BID, Docusate 100 mg BId and miralax. Code(s): K59.00 - CONSTIPATION, UNSPECIFIED
[2018-09-05] MEDS ORDERED: RANOLAZINE E.R. 500 MG TABLET (FP) ONE ×2 (09:31→21:13)
[2018-09-05] MEDS ORDERED: PT OWN MED DRAWER 7, Y5N ONE (09:32)
[2018-09-05] MEDS: MECLIZINE HCL 25 MG TABLET (FP) PO SCH (09:45)
[2018-09-05] MEDS: ENOXAPARIN NA (PORCINE) 40 MG/0.4 ML DISP.SYRIN SQ SCH (09:45)
[2018-09-05] MEDS: TAMSULOSIN HCL 0.4 MG CAP PO SCH (09:45)
[2018-09-05] MEDS: PARoxetine HCL 20 MG TABLET (FP) PO SCH (09:45)
[2018-09-05] MEDS: KETOCONAZOLE 2% CREAM - 60GM TUBE TP SCH (09:45)
[2018-09-05] MEDS: ASPIRIN 81 MG CHEWABLE TABLETS PO SCH (09:45)
[2018-09-05] MEDS: CARVEDILOL 3.125 MG TABLET (FP) PO SCH ×2 (09:45→21:55)
[2018-09-05] MEDS: RANOLAZINE E.R. 1,000 MG TABLET (FP) PO SCH ×2 (09:46→21:56)
[2018-09-05] MEDS: TIZANIDINE HCL 4 MG TABLET PO SCH ×2 (09:46→21:57)
[2018-09-05] MEDS: BUDESONIDE/FORMETEROL FUMARATE 80/4.5 mcg INHALER IH SCH ×2 (09:48→21:54)
--- NOTE | 2018-09-05 12:36 | PN ---
Progress Note (short form) - Note Progress Note: Renal follow up for JUANITA Pt seen and examined at the bedside feels well, no acute complaints no sob, cp, abd pain making urine via soriano Vital Signs Temperature 98.2 F 09/05/18 09:00 Pulse Rate 75 09/05/18 09:00 Respiratory Rate 14 09/05/18 09:00 Blood Pressure 121/65 09/05/18 09:00 O2 Sat by Pulse Oximetry (%) 97 09/04/18 21:00 Intake & Output 09/02/18 09/03/18 09/04/18 09/05/18 23:59 23:59 23:59 23:59 Intake Total 1190 2280 2090 530 Output Total 3250 2780 2400 750 Balance -2059 -500 -310 -220 Weight 143.789 kg 143.879 kg 143.426 kg 142.791 kg NAD RRR, no M/R CTA, decreased BS but no rales Obese, NT/ND no bladder distension no LE clubbing or cyanosis. 1+ edema in LE. CBC, BMP 09/05/18 06:20 09/05/18 06:20 Current Medications Albuterol Sulfate (Ventolin Hfa Inhaler -) 2 puff IH Q4H PRN PRN Reason: WHEEZING Aspirin (Asa -) 81 mg PO DAILY [facility] Last Admin: 09/05/18 09:45 Dose: 81 mg Budesonide/Formoterol Fumarate (Symbicort 80/4.5mcg -) 2 puff IH BID [facility] Last Admin: 09/05/18 09:48 Dose: 2 puff Carvedilol (Coreg -) 3.125 mg PO BID [facility] Last Admin: 09/05/18 09:45 Dose: 3.125 mg Docusate Sodium (Colace -) 100 mg PO BID PRN PRN Reason: CONSTIPATION Enoxaparin Sodium (Lovenox -) 40 mg SQ DAILY [facility] Last Admin: 09/05/18 09:45 Dose: 40 mg Furosemide (Lasix -) 80 mg PO BID@0600,1400 [facility] Gabapentin (Neurontin -) 300 mg PO TID [facility] Last Admin: 09/05/18 06:07 Dose: 300 mg Insulin Aspart (Novolog Vial Sliding Scale -) 1 vial SQ [facility]; Protocol Last Admin: 09/05/18 06:06 Dose: Not Given Ketoconazole (Nizoral 2% Cream -) 1 applic TP DAILY [facility] Last Admin: 09/05/18 09:45 Dose: Not Given Levothyroxine Sodium (Synthroid -) 50 mcg PO AM [facility] Last Admin: 09/05/18 06:07 Dose: 50 mcg Meclizine HCl (Antivert -) 25 mg PO DAILY [facility] Last Admin: 09/05/18 09:45 Dose: 25 mg Metoclopramide HCl (Reglan -) 10 mg PO TID [facility] Last Admin: 09/05/18 06:07 Dose: 10 mg Paroxetine HCl (Paxil -) 40 mg PO DAILY [facility] Last Admin: 09/05/18 09:45 Dose: 40 mg Pramipexole Dihydrochloride (Mirapex -) 1.5 mg PO TID [facility] Last Admin: 09/05/18 06:07 Dose: 1.5 mg Ranolazine (Ranexa -) 1,000 mg PO BID [facility] Last Admin: 09/05/18 09:46 Dose: 1,000 mg Senna (Senna -) 2 tab PO HS [facility] Last Admin: 09/04/18 22:21 Dose: 2 tab Tamsulosin HCl (Flomax -) 0.4 mg PO DAILY@0830 [facility] Last Admin: 09/05/18 09:45 Dose: 0.4 mg Tizanidine HCl (Tizanidine Hcl) 4 mg PO BID [facility] Last Admin: 09/05/18 09:46 Dose: 4 mg 68 year old gentleman with LE weakness/paresis (wheel chair dependent), obesity , prostate Ca, COPD, Sleep Apnea, Hypertension, hypothyrodism and hyperlipidemia who presented with generalized weakness and found to have JUANITA. #JUANITA from cardio-renal syndrome +/- NSAID induced renal dysfunction #Anemia #Generalized weakness #Hypertension #Hypokalemia Renal function stable over the last 24 hours volume status appears improved, will change Lasix to PO, 80mg BID Urology consult noted, will remove Soriano today and give trial of void No significant proteinuira seen withhold any JUAN JOSE/ARB, NSAIDs avid IV contrast Dose ll meds for CrCl < 30 cardiology following Trend renal function and electrolytes daily supplament Nadine Hirsch DO
[2018-09-05] MEDS: FUROSEMIDE 40 MG TABLET (FP) PO SCH (15:08)
--- NOTE | 2018-09-05 15:17 | PN ---
Progress Note (short form) - Note Progress Note: s: no cp sob palps dizzy o: Vital Signs Period Temp Pulse Resp BP Sys/Mejia Pulse Ox Last 24 Hr 97.5 F-98.2 F 70-97 14-21 114-148/64-92 95-97 nad no jvd rrr s1s2 no mrg cta bl nl eff aao3 1-2+ le edema bl, no c/c abd nd nt pos bs no jaundice diaphoresis Current Medications Albuterol Sulfate (Ventolin Hfa Inhaler -) 2 puff IH Q4H PRN PRN Reason: WHEEZING Aspirin (Asa -) 81 mg PO DAILY [facility] Last Admin: 09/05/18 09:45 Dose: 81 mg Budesonide/Formoterol Fumarate (Symbicort 80/4.5mcg -) 2 puff IH BID [facility] Last Admin: 09/05/18 09:48 Dose: 2 puff Carvedilol (Coreg -) 3.125 mg PO BID [facility] Last Admin: 09/05/18 09:45 Dose: 3.125 mg Docusate Sodium (Colace -) 100 mg PO BID [facility] Enoxaparin Sodium (Lovenox -) 40 mg SQ DAILY [facility] Last Admin: 09/05/18 09:45 Dose: 40 mg Furosemide (Lasix -) 80 mg PO BID@0600,1400 [facility] Gabapentin (Neurontin -) 300 mg PO TID [facility] Last Admin: 09/05/18 06:07 Dose: 300 mg Insulin Aspart (Novolog Vial Sliding Scale -) 1 vial SQ ACHS [facility]; Protocol Last Admin: 09/05/18 13:24 Dose: Not Given Ketoconazole (Nizoral 2% Cream -) 1 applic TP DAILY [facility] Last Admin: 09/05/18 09:45 Dose: Not Given Levothyroxine Sodium (Synthroid -) 50 mcg PO AM [facility] Last Admin: 09/05/18 06:07 Dose: 50 mcg Meclizine HCl (Antivert -) 25 mg PO DAILY [facility] Last Admin: 09/05/18 09:45 Dose: 25 mg Metoclopramide HCl (Reglan -) 10 mg PO TID [facility] Last Admin: 09/05/18 06:07 Dose: 10 mg Paroxetine HCl (Paxil -) 40 mg PO DAILY [facility] Last Admin: 09/05/18 09:45 Dose: 40 mg Polyethylene Glycol (Miralax (For Bowel Prep) -) 255 gm PO ONCE ONE Stop: 09/05/18 14:25 Pramipexole Dihydrochloride (Mirapex -) 1.5 mg PO TID [facility] Last Admin: 09/05/18 06:07 Dose: 1.5 mg Ranolazine (Ranexa -) 1,000 mg PO BID [facility] Last Admin: 09/05/18 09:46 Dose: 1,000 mg Senna (Senna -) 4 tab PO BID [facility] Tamsulosin HCl (Flomax -) 0.4 mg PO DAILY@0830 [facility] Last Admin: 09/05/18 09:45 Dose: 0.4 mg Tizanidine HCl (Tizanidine Hcl) 4 mg PO BID [facility] Last Admin: 09/05/18 09:46 Dose: 4 mg cxr: clear lungs ecg: sr, nl intervals, no ischemic changes echo 08/2018: nondiagnostic study per report. On my review LVEF is normal and RV appears grossly normal. a/p: 68 m hx htn, copd, prostate ca, hypothyroid, here with generalized weakness. chronic diastolic chf, le edema: -wt down, cr improving, le edema improved. likely chf with cardiorenal syndrome -ECHO TDS but on per Dr. Castro review LVEF is normal - transitioned to lasix 80 mg PO BID today, continue htn: -cont bb fredy: -plan as above -renal following
[2018-09-05] MEDS ORDERED: POLYETHYLENE GLYCOL 3350 255 GM BTL PO ONE (16:00)
[2018-09-05] MEDS: POLYETHYLENE GLYCOL 3350 119 GM BTL PO SCH (18:44)
[2018-09-05] MEDS: DOCUSATE SODIUM 100 MG CAPSULE (FP) PO SCH (21:55)
[2018-09-05] MEDS: SENNOSIDES 8.6MG TABLET (FP) PO SCH (21:55)
[2018-09-06] MEDS: METOCLOPRAMIDE HCL 10 MG TABLET (FP) PO SCH ×3 (05:57→23:32)
[2018-09-06] MEDS: FUROSEMIDE 40 MG TABLET (FP) PO SCH ×2 (05:57→13:45)
[2018-09-06] MEDS: PRAMIPEXOLE DIHYDROCHLORIDE 1.5 MG TABLET PO SCH ×3 (05:57→23:33)
[2018-09-06] MEDS: LEVOTHYROXINE NA 50 MCG TABLET (FP) PO SCH (05:59)
[2018-09-06] MEDS: INSULIN SLIDING SCALE (NOVOLOG) 1 VIAL SQ SCH ×4 (06:02→23:34)
[2018-09-06] MEDS: GABAPENTIN 300 MG CAPSULE (FP) PO SCH ×3 (06:26→23:32)
[2018-09-06 07:41] LABS: BASO % 0.6 % (0-2.0); EOS % 4.4 % (0-4.5); HEMATOCRIT 25.6 % (35.4-49); HEMOGLOBIN 9.1 GM/dL (11.7-16.9); LYMPH % 16.8 % (8-40); MCH 33.6 pg (25.7-33.7); MCHC 35.5 g/dl (32.0-35.9); MEAN CELL VOLUME 94.6 fl (80-96); MEAN PLT VOLUME 6.3 fl (7.5-11.1); MONO % 8.9 % (3.8-10.2); NEUT % 69.3 % (42.8-82.8); PLATELET COUNT 156 K/MM3 (134-434); RDW 14.5 % (11.9-15.9); WHITE BLOOD COUNT 6.8 K/mm3 (4.0-10.0)
[2018-09-06 07:57] LABS: ANION GAP 8 MMOL/L (8-16); BLOOD UREA NITROGEN 37 mg/dL (7-18); CALCIUM 8.8 mg/dL (8.5-10.1); CHLORIDE 101 mmol/L (98-107); CO2 31 mmol/L (21-32); CREATININE 2.1 mg/dL (0.55-1.3); GLUCOSE,RANDOM 133 mg/dL (74-106); MAGNESIUM 1.4 mg/dL (1.8-2.4); POTASSIUM 3.4 mmol/L (3.5-5.1); SODIUM 140 mmol/L (136-145)
--- NOTE | 2018-09-06 07:59 | PN ---
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 Pbase line Cr 1 on 01/2018. Pt reports that he has been making urine, denies any flank pain, dysuria or urinary retention. Patient was on Naproxene 50 mg BID for pain, renal functions and volume status improved after IV Lasix and Foleys insertion, yesterday DC foleys and Lasix is switched to IV - Current Medication List Current Medications: Active Medications Albuterol Sulfate (Ventolin Hfa Inhaler -) 2 puff IH Q4H PRN PRN Reason: WHEEZING Aspirin (Asa -) 81 mg PO DAILY [facility] Last Admin: 09/05/18 09:45 Dose: 81 mg Budesonide/Formoterol Fumarate (Symbicort 80/4.5mcg -) 2 puff IH BID [facility] Last Admin: 09/05/18 21:54 Dose: 2 puff Carvedilol (Coreg -) 3.125 mg PO BID [facility] Last Admin: 09/05/18 21:55 Dose: 3.125 mg Docusate Sodium (Colace -) 100 mg PO BID [facility] Last Admin: 09/05/18 21:55 Dose: 100 mg Enoxaparin Sodium (Lovenox -) 40 mg SQ DAILY [facility] Last Admin: 09/05/18 09:45 Dose: 40 mg Furosemide (Lasix -) 80 mg PO BID@0600,1400 [facility] Last Admin: 09/06/18 05:57 Dose: 80 mg Gabapentin (Neurontin -) 300 mg PO TID [facility] Last Admin: 09/06/18 06:26 Dose: 300 mg Insulin Aspart (Novolog Vial Sliding Scale -) 1 vial SQ ACHS [facility]; Protocol Last Admin: 09/06/18 06:02 Dose: Not Given Ketoconazole (Nizoral 2% Cream -) 1 applic TP DAILY [facility] Last Admin: 09/05/18 09:45 Dose: Not Given Levothyroxine Sodium (Synthroid -) 50 mcg PO AM [facility] Last Admin: 09/06/18 05:59 Dose: 50 mcg Meclizine HCl (Antivert -) 25 mg PO DAILY [facility] Last Admin: 09/05/18 09:45 Dose: 25 mg Metoclopramide HCl (Reglan -) 10 mg PO TID [facility] Last Admin: 09/06/18 05:57 Dose: 10 mg Paroxetine HCl (Paxil -) 40 mg PO DAILY [facility] Last Admin: 09/05/18 09:45 Dose: 40 mg Polyethylene Glycol (Miralax (For Daily Use) -) 17 gm PO DAILY [facility] Last Admin: 09/05/18 18:44 Dose: 17 gm Pramipexole Dihydrochloride (Mirapex -) 1.5 mg PO TID [facility] Last Admin: 09/06/18 05:57 Dose: 1.5 mg Ranolazine (Ranexa -) 1,000 mg PO BID [facility] Last Admin: 09/05/18 21:56 Dose: 1,000 mg Senna (Senna -) 4 tab PO BID [facility] Last Admin: 09/05/18 21:55 Dose: 4 tab Tamsulosin HCl (Flomax -) 0.4 mg PO DAILY@0830 [facility] Last Admin: 09/05/18 09:45 Dose: 0.4 mg Tizanidine HCl (Tizanidine Hcl) 4 mg PO BID [facility] Last Admin: 09/05/18 21:57 Dose: 4 mg - Objective Vital Signs: Vital Signs Temperature 98.2 F 09/06/18 06:00 Pulse Rate 70 09/06/18 06:00 Respiratory Rate 18 09/06/18 06:00 Blood Pressure 130/70 09/06/18 06:00 O2 Sat by Pulse Oximetry (%) 95 09/05/18 21:00 Elderly man morbidly obese not in distress HEENT: mm moist, + anemia, PERRLA EOMI NECK: No JVD No bruit CHEST: minimal basal crepts CVS: S1S2 R ABD: Obese, no distention, non tender Bs + EXT: Rt Elbow deformity, B/L LE swelling CLINICAL REVIEWER: AX3 non focal Labs: CBC, BMP 09/06/18 07:00 INR, PTT INR 1.03 (0.83-1.09) 08/30/18 14:43 Problem List - Problems (1) JUANITA (acute kidney injury) Assessment/Plan: Most likely obstructive uropathy improving after Foleys insertion renal functions are improving F/U BMP today Creat 1.9. Discussed with Dr Torrey EPPS Foleys catheter , able to pass urine bladder scan shows 55 CC PRV.Creat 2.1 Code(s): N17.9 - ACUTE KIDNEY FAILURE, UNSPECIFIED (2) COPD (chronic obstructive pulmonary disease) Assessment/Plan: Stable no acute symptoms cont all home meds Code(s): J44.9 - CHRONIC OBSTRUCTIVE PULMONARY DISEASE, UNSPECIFIED (3) Depression Assessment/Plan: Resume home meds Code(s): F32.9 - MAJOR DEPRESSIVE DISORDER, SINGLE EPISODE, UNSPECIFIED (4) Hypothyroid Assessment/Plan: Cont Levothyroxine F/U TSH Code(s): E03.9 - HYPOTHYROIDISM, UNSPECIFIED (5) Sleep apnea with use of continuous positive airway pressure (CPAP) Assessment/Plan: Cont CPAP Code(s): G47.30 - SLEEP APNEA, UNSPECIFIED (6) Obesity, Class III, BMI 40-49.9 (morbid obesity) Assessment/Plan: nutrition consult as out patient Code(s): E66.01 - MORBID (SEVERE) OBESITY DUE TO EXCESS CALORIES (7) Chronic back pain Assessment/Plan: No nsaid due to JUANITA optimize pain meds Code(s): M54.9 - DORSALGIA, UNSPECIFIED; G89.29 - OTHER CHRONIC PAIN (8) T2DM (type 2 diabetes mellitus) Assessment/Plan: Diabetic diet, accuchecks and correction dose insulin. Code(s): E11.9 - TYPE 2 DIABETES MELLITUS WITHOUT COMPLICATIONS (9) CHF (congestive heart failure) Assessment/Plan: ECHO shows diastolic HF cont Lasix IP/Op chart evaluted by cardiology consult. Code(s): I50.9 - HEART FAILURE, UNSPECIFIED (10) Hypokalemia Assessment/Plan: Mild K 3,4 add KCl 20 m Eq F/U BMP Code(s): E87.6 - HYPOKALEMIA (11) Constipation Assessment/Plan: Had a small BM after adding Home dose of [place] 4 tab BID, Docusate 100 mg BId and miralax. Code(s): K59.00 - CONSTIPATION, UNSPECIFIED (12) Hypomagnesemia Assessment/Plan: Mag 1.4 2 gm Mag Sulfate IVSS F/U BMP Code(s): E83.42 - HYPOMAGNESEMIA
[2018-09-06] MEDS ORDERED: RANOLAZINE E.R. 500 MG TABLET (FP) ONE ×2 (09:18→23:22)
[2018-09-06] MEDS ORDERED: PT OWN MED DRAWER 7, Y5N ONE ×2 (09:19→23:22)
[2018-09-06] MEDS ORDERED: MAGNESIUM SULF 50% (8.12 MEQ/2 ML-1 GM VIAL) IVPB ONE (09:30)
[2018-09-06] MEDS: CARVEDILOL 3.125 MG TABLET (FP) PO SCH ×2 (09:30→23:32)
[2018-09-06] MEDS: DOCUSATE SODIUM 100 MG CAPSULE (FP) PO SCH ×2 (09:30→23:30)
[2018-09-06] MEDS: TAMSULOSIN HCL 0.4 MG CAP PO SCH (09:30)
[2018-09-06] MEDS: MECLIZINE HCL 25 MG TABLET (FP) PO SCH (09:30)
[2018-09-06] MEDS: ASPIRIN 81 MG CHEWABLE TABLETS PO SCH (09:31)
[2018-09-06] MEDS: SENNOSIDES 8.6MG TABLET (FP) PO SCH ×2 (09:31→23:30)
[2018-09-06] MEDS: PARoxetine HCL 20 MG TABLET (FP) PO SCH (09:31)
[2018-09-06] MEDS: ENOXAPARIN NA (PORCINE) 40 MG/0.4 ML DISP.SYRIN SQ SCH (09:32)
[2018-09-06] MEDS: POLYETHYLENE GLYCOL 3350 119 GM BTL PO SCH (09:32)
[2018-09-06] MEDS: KETOCONAZOLE 2% CREAM - 60GM TUBE TP SCH (09:33)
[2018-09-06] MEDS: RANOLAZINE E.R. 1,000 MG TABLET (FP) PO SCH ×2 (09:33→23:31)
[2018-09-06] MEDS: BUDESONIDE/FORMETEROL FUMARATE 80/4.5 mcg INHALER IH SCH ×2 (09:34→23:35)
[2018-09-06] MEDS: TIZANIDINE HCL 4 MG TABLET PO SCH ×2 (09:34→23:34)
[2018-09-06] MEDS ORDERED: POTASSIUM CHLORIDE TABS 20 MEQ TABLET.ER (FP) PO ONE (10:00)
[2018-09-06] MEDS ORDERED: INSULIN (NOVOLOG) ASPART 100 UNITS/ML 10ML VIAL ONE (11:46)
--- NOTE | 2018-09-06 13:14 | PN ---
Progress Note (short form) - Note Progress Note: Renal follow up for JUANITA Pt seen and examined at the bedside feels well, no acute complaints no sob, cp, abd pain soriano removed yesterday, making urine Vital Signs Temperature 98.1 F 09/06/18 09:45 Pulse Rate 80 09/06/18 09:45 Respiratory Rate 18 09/06/18 06:00 Blood Pressure 112/64 09/06/18 09:45 O2 Sat by Pulse Oximetry (%) 95 09/05/18 21:00 Intake & Output 09/03/18 09/04/18 09/05/18 09/06/18 23:59 23:59 23:59 23:59 Intake Total 2280 2090 2535 480 Output Total 2780 2400 2050 400 Balance -500 -310 485 80 Weight 143.879 kg 143.426 kg 142.791 kg 143.517 kg NAD RRR, no M/R CTA, decreased BS but no rales Obese, NT/ND no bladder distension no LE clubbing or cyanosis. 1+ edema in LE. CBC, BMP 09/06/18 07:00 09/06/18 07:00 Current Medications Albuterol Sulfate (Ventolin Hfa Inhaler -) 2 puff IH Q4H PRN PRN Reason: WHEEZING Aspirin (Asa -) 81 mg PO DAILY [facility] Last Admin: 09/06/18 09:31 Dose: 81 mg Budesonide/Formoterol Fumarate (Symbicort 80/4.5mcg -) 2 puff IH BID [facility] Last Admin: 09/06/18 09:34 Dose: 2 puff Carvedilol (Coreg -) 3.125 mg PO BID [facility] Last Admin: 09/06/18 09:30 Dose: 3.125 mg Docusate Sodium (Colace -) 100 mg PO BID [facility] Last Admin: 09/06/18 09:30 Dose: 100 mg Enoxaparin Sodium (Lovenox -) 40 mg SQ DAILY [facility] Last Admin: 09/06/18 09:32 Dose: 40 mg Furosemide (Lasix -) 80 mg PO BID@0600,1400 [facility] Last Admin: 09/06/18 05:57 Dose: 80 mg Gabapentin (Neurontin -) 300 mg PO TID [facility] Last Admin: 09/06/18 06:26 Dose: 300 mg Insulin Aspart (Novolog Vial Sliding Scale -) 1 vial SQ ACHS [facility]; Protocol Last Admin: 09/06/18 11:48 Dose: 2 units Ketoconazole (Nizoral 2% Cream -) 1 applic TP DAILY [facility] Last Admin: 09/06/18 09:33 Dose: 1 applic Levothyroxine Sodium (Synthroid -) 50 mcg PO AM [facility] Last Admin: 09/06/18 05:59 Dose: 50 mcg Meclizine HCl (Antivert -) 25 mg PO DAILY [facility] Last Admin: 09/06/18 09:30 Dose: 25 mg Metoclopramide HCl (Reglan -) 10 mg PO TID [facility] Last Admin: 09/06/18 05:57 Dose: 10 mg Paroxetine HCl (Paxil -) 40 mg PO DAILY [facility] Last Admin: 09/06/18 09:31 Dose: 40 mg Polyethylene Glycol (Miralax (For Daily Use) -) 17 gm PO DAILY [facility] Last Admin: 09/06/18 09:32 Dose: 17 gm Pramipexole Dihydrochloride (Mirapex -) 1.5 mg PO TID [facility] Last Admin: 09/06/18 05:57 Dose: 1.5 mg Ranolazine (Ranexa -) 1,000 mg PO BID [facility] Last Admin: 09/06/18 09:33 Dose: 1,000 mg Senna (Senna -) 4 tab PO BID [facility] Last Admin: 09/06/18 09:31 Dose: 4 tab Tamsulosin HCl (Flomax -) 0.4 mg PO DAILY@0830 [facility] Last Admin: 09/06/18 09:30 Dose: 0.4 mg Tizanidine HCl (Tizanidine Hcl) 4 mg PO BID [facility] Last Admin: 09/06/18 09:34 Dose: 4 mg 68 year old gentleman with LE weakness/paresis (wheel chair dependent), obesity , prostate Ca, COPD, Sleep Apnea, Hypertension, hypothyrodism and hyperlipidemia who presented with generalized weakness and found to have JUANITA. #JUANITA from cardio-renal syndrome +/- NSAID induced renal dysfunction #Anemia #Generalized weakness #Hypertension #Hypokalemia Renal function stable continue Lasix to PO, 80mg BID voiding w/o catheter No significant proteinuira seen withhold any JUAN JOSE/ARB, NSAIDs avid IV contrast Dose ll meds for CrCl < 30 cardiology following Trend renal function and electrolytes daily supplament K Isma Hirsch DO
[2018-09-06 14:35] VITALS: BMI 42.8
--- NOTE | 2018-09-06 15:16 | PN ---
Progress Note (short form) - Note Progress Note: s: no cp sob palps dizzy o: Vital Signs Period Temp Pulse Resp BP Sys/Mejia Pulse Ox Last 24 Hr 97.4 F-98.4 F 65-80 18-20 108-130/64-76 95 nad no jvd rrr s1s2 no mrg cta bl nl eff aao3 trace le edema bl, no c/c abd nd nt pos bs no jaundice diaphoresis Current Medications Generic Name Dose Route Start Last Admin Trade Name Freq PRN Reason Stop Dose Admin Albuterol Sulfate 2 puff 08/30/18 19:46 Ventolin Hfa Inhaler - IH Q4H PRN WHEEZING Aspirin 81 mg 08/31/18 10:00 09/06/18 09:31 Asa - PO 81 mg DAILY VIVIANE Administration Budesonide/Formoterol Fumarate 2 puff 08/31/18 22:00 09/06/18 09:34 Symbicort 80/4.5mcg - IH 2 puff BID VIVIANE Administration Carvedilol 3.125 mg 08/30/18 22:00 09/06/18 09:30 Coreg - PO 3.125 mg BID VIVIANE Administration Docusate Sodium 100 mg 09/05/18 22:00 09/06/18 09:30 Colace - PO 100 mg BID VIVIANE Administration Enoxaparin Sodium 40 mg 08/31/18 10:00 09/06/18 09:32 Lovenox - SQ 40 mg DAILY VIVIANE Administration Furosemide 80 mg 09/05/18 14:00 09/06/18 13:45 Lasix - PO 80 mg BID@0600,1400 VIVIANE Administration Gabapentin 300 mg 08/30/18 22:00 09/06/18 13:45 Neurontin - PO 300 mg TID VIVIANE Administration Insulin Aspart 1 vial 08/30/18 22:00 09/06/18 11:48 Novolog Vial Sliding Scale - SQ 2 units ACHS VIVIANE Administration Protocol Ketoconazole 1 applic 08/31/18 10:00 09/06/18 09:33 Nizoral 2% Cream - TP 1 applic DAILY VIVIANE Administration Levothyroxine Sodium 50 mcg 08/31/18 07:00 09/06/18 05:59 Synthroid - PO 50 mcg AM VIVIANE Administration Meclizine HCl 25 mg 08/31/18 10:00 09/06/18 09:30 Antivert - PO 25 mg DAILY VIVIANE Administration Metoclopramide HCl 10 mg 08/30/18 22:00 09/06/18 13:45 Reglan - PO 10 mg TID VIVIANE Administration Paroxetine HCl 40 mg 09/01/18 10:00 09/06/18 09:31 Paxil - PO 40 mg DAILY VIVIANE Administration Polyethylene Glycol 17 gm 09/05/18 18:15 09/06/18 09:32 Miralax (For Daily Use) - PO 17 gm DAILY VIVIANE Administration Pramipexole Dihydrochloride 1.5 mg 08/30/18 22:00 09/06/18 13:47 Mirapex - PO 1.5 mg TID VIVIANE Administration Ranolazine 1,000 mg 08/30/18 22:00 09/06/18 09:33 Ranexa - PO 1,000 mg BID VIVIANE Administration Senna 4 tab 09/05/18 22:00 09/06/18 09:31 Senna - PO 4 tab BID VIVIANE Administration Tamsulosin HCl 0.4 mg 08/31/18 08:30 09/06/18 09:30 Flomax - PO 0.4 mg DAILY@0830 VIVIANE Administration Tizanidine HCl 4 mg 08/30/18 22:00 09/06/18 09:34 Tizanidine Hcl PO 4 mg BID VIVIANE Administration CBC, BMP 09/06/18 07:00 09/06/18 07:00 cxr: clear lungs ecg: sr, nl intervals, no ischemic changes echo 08/2018: nondiagnostic study per report. On my review LVEF is normal and RV appears grossly normal. a/p: 68 m hx htn, copd, prostate ca, hypothyroid, here with generalized weakness. chronic diastolic chf, le edema: -ECHO TDS but on my review LVEF is normal. -after iv lasix wt down, cr improved, le edema improved. likely chf with cardiorenal syndrome -transitioned to lasix 80 mg PO BID 09/05, continue htn: -cont bb fredy: -plan as above -renal following
[2018-09-06 17:12] LABS: URINE APPEARANCE CLEAR; URINE BILIRUBIN NEGATIVE (NEGATIVE); URINE COLOR YELLOW; URINE GLUCOSE (UA) NEGATIVE (NEGATIVE)
[2018-09-06 17:13] LABS: EPI CELLS 1.4 /HPF (0-5/HPF); URINE BACTERIA 2.2 /hpf (NEGATIVE); URINE CASTS 1 /lpf (0-8); URINE KETONE NEGATIVE (NEGATIVE); URINE LEUK ESTERASE 2+ (NEGATIVE); URINE NITRITE NEGATIVE (NEGATIVE); URINE PROTEIN NEGATIVE (NEGATIVE); URINE RBC 2 /hpf (0-4); URINE UROBILINOGEN 0.2 mg/dL (0.2-1.0); URINE WBC 22 /hpf (0-5)
[2018-09-07] MEDS ORDERED: PT OWN MED DRAWER 7, Y5N ONE ×2 (05:37→06:57)
[2018-09-07] MEDS: GABAPENTIN 300 MG CAPSULE (FP) PO SCH ×2 (06:49→14:19)
[2018-09-07] MEDS: PRAMIPEXOLE DIHYDROCHLORIDE 1.5 MG TABLET PO SCH ×2 (06:50→14:21)
[2018-09-07] MEDS: METOCLOPRAMIDE HCL 10 MG TABLET (FP) PO SCH ×2 (06:50→14:19)
[2018-09-07] MEDS: FUROSEMIDE 40 MG TABLET (FP) PO SCH ×2 (06:50→14:19)
[2018-09-07] MEDS: INSULIN SLIDING SCALE (NOVOLOG) 1 VIAL SQ SCH ×3 (07:50→17:36)
[2018-09-07 07:51] LABS: ANION GAP 7 MMOL/L (8-16); BLOOD UREA NITROGEN 35 mg/dL (7-18); CALCIUM 8.9 mg/dL (8.5-10.1); CHLORIDE 102 mmol/L (98-107); CO2 31 mmol/L (21-32); CREATININE 1.9 mg/dL (0.55-1.3); GLUCOSE,RANDOM 146 mg/dL (74-106); MAGNESIUM 2.1 mg/dL (1.8-2.4); POTASSIUM 3.6 mmol/L (3.5-5.1); SODIUM 140 mmol/L (136-145)
[2018-09-07 07:52] LABS: BASO % 0.9 % (0-2.0); EOS % 4.1 % (0-4.5); HEMATOCRIT 25.1 % (35.4-49); HEMOGLOBIN 8.8 GM/dL (11.7-16.9); LYMPH % 20.9 % (8-40); MCH 33.3 pg (25.7-33.7); MCHC 34.9 g/dl (32.0-35.9); MEAN CELL VOLUME 95.3 fl (80-96); MEAN PLT VOLUME 6.5 fl (7.5-11.1); MONO % 10.1 % (3.8-10.2); PLATELET COUNT 152 K/MM3 (134-434); RBC 2.64 M/mm3 (4.00-5.60); RDW 14.8 % (11.9-15.9); WHITE BLOOD COUNT 6.2 K/mm3 (4.0-10.0)
[2018-09-07] MEDS: TAMSULOSIN HCL 0.4 MG CAP PO SCH (08:10)
[2018-09-07] MEDS: LEVOTHYROXINE NA 50 MCG TABLET (FP) PO SCH (08:10)
[2018-09-07] MEDS ORDERED: RANOLAZINE E.R. 500 MG TABLET (FP) ONE (09:43)
[2018-09-07] MEDS: RANOLAZINE E.R. 1,000 MG TABLET (FP) PO SCH (11:09)
[2018-09-07] MEDS: PARoxetine HCL 20 MG TABLET (FP) PO SCH (11:10)
[2018-09-07] MEDS: SENNOSIDES 8.6MG TABLET (FP) PO SCH (11:10)
[2018-09-07] MEDS: DOCUSATE SODIUM 100 MG CAPSULE (FP) PO SCH (11:11)
[2018-09-07] MEDS: POLYETHYLENE GLYCOL 3350 119 GM BTL PO SCH (11:11)
[2018-09-07] MEDS: ENOXAPARIN NA (PORCINE) 40 MG/0.4 ML DISP.SYRIN SQ SCH (11:11)
[2018-09-07] MEDS: ASPIRIN 81 MG CHEWABLE TABLETS PO SCH (11:11)
[2018-09-07] MEDS: MECLIZINE HCL 25 MG TABLET (FP) PO SCH (11:11)
[2018-09-07] MEDS: CARVEDILOL 3.125 MG TABLET (FP) PO SCH (11:11)
[2018-09-07] MEDS: TIZANIDINE HCL 4 MG TABLET PO SCH (11:12)
[2018-09-07] MEDS: BUDESONIDE/FORMETEROL FUMARATE 80/4.5 mcg INHALER IH SCH (11:13)
[2018-09-07] MEDS: KETOCONAZOLE 2% CREAM - 60GM TUBE TP SCH (11:17)
[2018-09-07 13:28] VITALS: BP 102/62; PULSE 70; TEMP 98.2
--- NOTE | 2018-09-07 14:40 | DS ---
Physical Exam: SUBJECTIVE: Patient seen and examined, no complaints, no urinary or abdominal symptoms. Weakness improved, eager to go home. OBJECTIVE: Vital Signs Period Temp Pulse Resp BP Sys/Mejia Pulse Ox Last 24 Hr 97.7 F-98.2 F 66-96 16-18 102-136/62-76 Intake & Output 09/04/18 09/05/18 09/06/18 09/07/18 23:59 23:59 23:59 23:59 Intake Total 2090 2535 1280 Output Total 2400 0 930 Balance -310 485 350 Weight 316 lb 3.2 oz 314 lb 12.8 oz 316 lb 6.4 oz 314 lb 6 oz PHYSICAL EXAM GENERAL:alert awake in no acute distress neck:soft, supple, no JVD visualized Chest: Decreased breath sounds, but no rales or wheezing Abdomen;Soft, obese, no suprapubic or CVA tenderness Extremities: 1+ pedal pitting edema LABS Laboratory Results - last 24 hr 09/06/18 09/06/18 09/06/18 13:35 18:01 21:11 WBC RBC Hgb Hct MCV MCH MCHC RDW Plt Count MPV Absolute Neuts (auto) Neutrophils % Lymphocytes % Monocytes % Eosinophils % Basophils % Nucleated RBC % Sodium Potassium Chloride Carbon Dioxide Anion Gap BUN Creatinine Creat Clearance w eGFR POC Glucometer 183 138 Random Glucose Calcium Magnesium Urine Color Yellow Urine Appearance Clear Urine pH 5.0 Ur Specific [place] 1.012 Urine Protein Negative Urine Glucose (UA) Negative Urine Ketones Negative Urine Blood Negative Urine Nitrite Negative Urine Bilirubin Negative Urine Urobilinogen 0.2 Ur Leukocyte Esterase 2+ H Urine WBC (Auto) 22 Urine RBC (Auto) 2 Urine Casts (Auto) 1 U Epithel Cells (Auto) 1.4 Urine Bacteria (Auto) 2.2 09/07/18 09/07/18 09/07/18 06:30 06:30 06:48 WBC 6.2 RBC 2.64 L Hgb 8.8 L Hct 25.1 L MCV 95.3 MCH 33.3 MCHC 34.9 RDW 14.8 Plt Count 152 MPV 6.5 L Absolute Neuts (auto) 4.0 Neutrophils % 64.0 Lymphocytes % 20.9 D Monocytes % 10.1 Eosinophils % 4.1 Basophils % 0.9 Nucleated RBC % 0 Sodium 140 Potassium 3.6 Chloride 102 Carbon Dioxide 31 Anion Gap 7 L BUN 35 H Creatinine 1.9 H Creat Clearance w eGFR 35.32 POC Glucometer 139 Random Glucose 146 H Calcium 8.9 Magnesium 2.1 Urine Color Urine Appearance Urine pH Ur Specific [place] Urine Protein Urine Glucose (UA) Urine Ketones Urine Blood Urine Nitrite Urine Bilirubin Urine Urobilinogen Ur Leukocyte Esterase Urine WBC (Auto) Urine RBC (Auto) Urine Casts (Auto) U Epithel Cells (Auto) Urine Bacteria (Auto) 09/07/18 11:34 WBC RBC Hgb Hct MCV MCH MCHC RDW Plt Count MPV Absolute Neuts (auto) Neutrophils % Lymphocytes % Monocytes % Eosinophils % Basophils % Nucleated RBC % Sodium Potassium Chloride Carbon Dioxide Anion Gap BUN Creatinine Creat Clearance w eGFR POC Glucometer 165 Random Glucose Calcium Magnesium Urine Color Urine Appearance Urine pH Ur Specific [place] Urine Protein Urine Glucose (UA) Urine Ketones Urine Blood Urine Nitrite Urine Bilirubin Urine Urobilinogen Ur Leukocyte Esterase Urine WBC (Auto) Urine RBC (Auto) Urine Casts (Auto) U Epithel Cells (Auto) Urine Bacteria (Auto) Microbiology 08/30/18 14:43 Blood - Peripheral Venous Blood Culture - Final NO GROWTH AFTER 5 DAYS INCUBATION 08/30/18 14:43 Blood - Peripheral Venous Blood Culture - Final NO GROWTH AFTER 5 DAYS INCUBATION 08/30/18 15:26 Urine - Urine Clean Catch Urine Culture - Final Enterococcus Faecalis Renal US: Clinical information given: complaint of "urine backing up" Visualization is somewhat limited due to body habitus. There is no hydronephrosis. The kidneys appear unremarkable in position, cortical thickness, echogenicity and size. The right kidney measures approximately 13.3 cm length, the left kidney 11 cm. No obvious mass lesion or calculus is identified. Several nonobstructing left renal calculi noted on a CT study of 03/20/2016 cannot be appreciated on the current exam which may be due to relatively limited ultrasound sensitivity and/ or interval passage. Correlate clinically. There is no obvious perirenal fluid collection. Impression: No hydronephrosis is seen. There is no definite sonographic abnormality. Please see above. Bladder US: Clinical information given: acute kidney injury; evaluate for urinary retention The urinary bladder volume at the time of examination is approximately 24 mL. The patient was unable to void at this time probably due to the small volume. No gross calculus or mass lesion is seen within the limitations of sonography and given limited bladder distention. The prostate gland is not well visualized. Impression: As noted above. 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 He was seen by cardiology and nephrology. His 2D echo was a technically difficult study but not major findings. Per cardiology, he was felt to have normal EF and cocnerns for acute diastolic HF exacerbation. He received IV lasix with improvement in renal function and volume status. He had renal and bladder ultrasound that were negative for acute concerns. He initially had soriano placement for concerns of retention. He was seen by urology and no concerning post voidal urine was noted. His soriano was removed with no new concerns. He was found with Enterococcus faecalis UTI and is placed on amoxicillin. His lasix was transition to 80 m PO BID with continued improvement and will be discharged home with aide and services with close outpatient follow up with PCP/cardiology/ nephrology and renal function monitoring. Condition: Stable - Instructions Diet, Activity, Other Instructions: You were admitted with abnormal kidney function. You were see by cardiology, nephrology and urology. You received Lasix (water pill) with improvement. You were also noted with Urine infection and will be discharged on antibiotics. MEDICATIONS: Stop the following: Voltaren gel Naproxen Metformin. lasix (20 mg dose. It has been increased as below) Start: Lasix 80 mg twice daily with close monitoring with your doctor Amoxicillin 250 mg twice daily for 5 days Continue other medications as before INSTRUCTIONS: Weigh yourself daily and notify doctor if weight gain > 3lbs in 2 days Advise blood sugar checks before meals and at bedtime and notify doctor if <75 or persistently >140 or any reading >350 noted. Your kidney numbers with need close monitoring with your doctor. Please note that currently you are on lasix (water pill) at 80 mg twice daily, which will need to be closely titrated based on your weight and kidney function. It is very important that you maintained high fiber diet and laxatives as needed to avoid constipation as it can cause retention of urine and worsening kidney problems. FOLLOW UP: Blood work BMP (Basic Metabolic Panel) in [address] Bernstein. With cement contractor Dr. Schneider in 1 week With Master Carpenter Dr. Castro in 1-[address] Turner in 3-4 weeks If you notice any weight gain, trouble breathing, decreased urination, fevers, chills or any new concerns, please call 911 or come to the ED. Referrals: Alvaro Castro MD [Staff Physician] - Yehuda Galeana MD [Staff Physician] - Isma Hirsch MD [Staff Physician] - Beto Bernstein MD [Primary Care Provider] - Disposition: [facility]NS/HOME HEALTH CARE - Home Medications Comprehensive Discharge Medication List: Ambulatory Orders Aspirin [ASA -] 81 mg PO DAILY 01/02/12 Alfuzosin HCl [Uroxatral] 10 mg PO DAILY 07/07/13 Carvedilol 3.125 mg PO BID 07/07/13 Niacin*ER* [Niaspan (Non-Formulary) -] 1,000 mg PO DAILY 07/07/13 Paroxetine HCl [Paxil -] 40 mg PO DAILY 07/07/13 Pramipexole Di-HCl [Mirapex] 1.5 mg PO TID 07/07/13 Sennosides [Senna] 8.6 mg PO DAILY 04/05/14 Albuterol Sulfate Inhaler - [Ventolin HFA Inhaler -] 2 inh PO Q4H PRN 01/26/18 Ascorbic Acid [Vitamin C -] 500 mg PO DAILY 01/26/18 Cyclobenzaprine HCl [Amrix] 30 mg PO DAILY 01/26/18 Fluticasone/Salmeterol [Advair 250-50 Diskus] 1 each IH DAILY 01/26/18 Gabapentin [Neurontin -] 300 mg PO Q8H 01/26/18 Levothyroxine [Synthroid -] 50 mcg PO DAILY 01/26/18 Meclizine HCl 25 mg PO TID 01/26/18 Metoclopramide HCl 10 mg PO TID 01/26/18 Multivitamin/Iron/Folic Acid [Centrum Adults Tablet] 1 each PO DAILY 01/26/18 Ranolazine [Ranexa -] 1,000 mg PO BID 01/26/18 Sitagliptin Phosphate [Januvia -] 100 mg PO DAILY@0700 01/26/18 Tamsulosin HCl [Flomax -] 0.4 mg PO DAILY 01/26/18 Tizanidine HCl 4 mg PO TID 01/26/18 Amoxicillin - [Amoxicillin 250mg Capsule -] 250 mg PO BID #10 capsule 09/07/18 Docusate Sodium [Colace -] 100 mg PO BID #60 capsule 09/07/18 Furosemide [Lasix] 80 mg PO BID #30 tablet 09/07/18 Polyethylene Glycol 3350 [Miralax (For Daily Use) -] 17 gm PO DAILY #1 bottle This patient is new to me today: Yes Date on this admission: 09/07/18 Emergency Visit: No Critical Care patient: No - Discharge Referral Referred to [facility] No
--- NOTE | 2018-09-07 15:55 | PN ---
Progress Note (short form) - Note Progress Note: Renal follow up for JUANITA Pt seen and examined at the bedside no acute complaints no sob, cp, abd pain, N/V/D making urine Vital Signs Temperature 98.2 F 09/07/18 13:27 Pulse Rate 70 09/07/18 13:27 Respiratory Rate 16 09/07/18 13:27 Blood Pressure 102/62 09/07/18 13:27 O2 Sat by Pulse Oximetry (%) 95 09/06/18 09:00 Intake & Output 09/04/18 09/05/18 09/06/18 09/07/18 23:59 23:59 23:59 23:59 Intake Total 2090 2535 1280 Output Total 2400 2050 930 Balance -310 485 350 Weight 143.426 kg 142.791 kg 143.517 kg 142.598 kg NAD RRR, no M/R CTA, decreased BS but no rales Obese, NT/ND no bladder distension no LE clubbing or cyanosis. 1+ edema in LE. CBC, BMP 09/07/18 06:30 09/07/18 06:30 Current Medications Albuterol Sulfate (Ventolin Hfa Inhaler -) 2 puff IH Q4H PRN PRN Reason: WHEEZING Aspirin (Asa -) 81 mg PO DAILY [facility] Last Admin: 09/07/18 11:11 Dose: 81 mg Budesonide/Formoterol Fumarate (Symbicort 80/4.5mcg -) 2 puff IH BID [facility] Last Admin: 09/07/18 11:13 Dose: 2 puff Carvedilol (Coreg -) 3.125 mg PO BID [facility] Last Admin: 09/07/18 11:11 Dose: 3.125 mg Docusate Sodium (Colace -) 100 mg PO BID [facility] Last Admin: 09/07/18 11:11 Dose: 100 mg Enoxaparin Sodium (Lovenox -) 40 mg SQ DAILY [facility] Last Admin: 09/07/18 11:11 Dose: 40 mg Furosemide (Lasix -) 80 mg PO BID@0600,1400 [facility] Last Admin: 09/07/18 14:19 Dose: 80 mg Gabapentin (Neurontin -) 300 mg PO TID [facility] Last Admin: 09/07/18 14:19 Dose: 300 mg Insulin Aspart (Novolog Vial Sliding Scale -) 1 vial SQ ACHS [facility]; Protocol Last Admin: 09/07/18 11:58 Dose: 2 units Ketoconazole (Nizoral 2% Cream -) 1 applic TP DAILY [facility] Last Admin: 09/07/18 11:17 Dose: 1 applic Levothyroxine Sodium (Synthroid -) 50 mcg PO AM [facility] Last Admin: 09/07/18 08:10 Dose: 50 mcg Meclizine HCl (Antivert -) 25 mg PO DAILY [facility] Last Admin: 09/07/18 11:11 Dose: 25 mg Metoclopramide HCl (Reglan -) 10 mg PO TID [facility] Last Admin: 09/07/18 14:19 Dose: 10 mg Paroxetine HCl (Paxil -) 40 mg PO DAILY [facility] Last Admin: 09/07/18 11:10 Dose: 40 mg Polyethylene Glycol (Miralax (For Daily Use) -) 17 gm PO DAILY [facility] Last Admin: 09/07/18 11:11 Dose: 17 gm Pramipexole Dihydrochloride (Mirapex -) 1.5 mg PO TID [facility] Last Admin: 09/07/18 14:21 Dose: 1.5 mg Ranolazine (Ranexa -) 1,000 mg PO BID [facility] Last Admin: 09/07/18 11:09 Dose: 1,000 mg Senna (Senna -) 4 tab PO BID [facility] Last Admin: 09/07/18 11:10 Dose: 4 tab Tamsulosin HCl (Flomax -) 0.4 mg PO DAILY@0830 [facility] Last Admin: 09/07/18 08:10 Dose: 0.4 mg Tizanidine HCl (Tizanidine Hcl) 4 mg PO BID [facility] Last Admin: 09/07/18 11:12 Dose: 4 mg 68 year old gentleman with LE weakness/paresis (wheel chair dependent), obesity , prostate Ca, COPD, Sleep Apnea, Hypertension, hypothyrodism and hyperlipidemia who presented with generalized weakness and found to have JUANITA. #JUANITA from cardio-renal syndrome +/- NSAID induced renal dysfunction #Anemia #Generalized weakness #Hypertension #Hypokalemia Renal function remains stable continue Lasix 80mg PO BID voiding w/o catheter, continue flomax No significant proteinuira seen withhold any JUAN JOSE/ARB, NSAIDs for now as renal function not yet at baseline avid IV contrast Dose ll meds for CrCl < 30 cardiology following follow up in office 7-10 days for monitoring of renal function stable for discharge Isma Hirsch DO
== END 2018-09-07 16:38 | disposition home health service (06) | DRG 682 ==
LOC: JER 12:08 → JERBED 17:43 → OBSVTOIN 19:41 → J5S 21:48
PROVIDERS: ADMIT Internal Medicine; ATTEND Hospitalist
DX: N17.9 Acute kidney failure, unspecified (principal); G82.50 Quadriplegia, unspecified; Z68.41 Body mass index [BMI] 40.0-44.9, adult; I50.32 Chronic diastolic (congestive) heart failure; N39.0 Urinary tract infection, site not specified; J44.9 Chronic obstructive pulmonary disease, unspecified; E66.01 Morbid (severe) obesity due to excess calories; F32.9 Major depressive disorder, single episode, unspecified; E87.6 Hypokalemia; E83.42 Hypomagnesemia; E03.9 Hypothyroidism, unspecified; D64.9 Anemia, unspecified; R53.1 Weakness; K59.00 Constipation, unspecified; N40.0 Benign prostatic hyperplasia without lower urinary tract symptoms; B95.2 Enterococcus as the cause of diseases classified elsewhere; E78.5 Hyperlipidemia, unspecified; I11.0 Hypertensive heart disease with heart failure
CPT/HCPCS: 36415; 71046-TC-FY; 76775-TC; 76856-TC; 80048; 80053; 80307; 81003; 82436; 82565; 82728; 82962; 83036; 83540; 83550; 83735; 83880; 84100; 84133; 84156; 84300; 84439; 84443; 84540; 85025; 85027; 85044; 85610; 85730; 87040; 87086; 87186; 87205; 93005; 93010; 93306-TC; 94660; 99284-25; G0378; J7030

== ENCOUNTER 2018-12-15 16:44 | Inpatient (IN) | payer OTHER ==
--- NOTE | 2018-12-15 16:54 | PDOC ---
History of Present Illness - General Stated Complaint: VOMITING & DIARRHEA Time Seen by Provider: 12/15/18 16:53 Past History - Past Medical History Allergies/Adverse Reactions: Allergies Allergy/AdvReac Type Severity Reaction Status Date / Time No Known Allergies Allergy Verified 12/15/18 16:55 Home Medications: Ambulatory Orders Fluticasone Propionate [24 Hour Allergy Relief] 15.8 ml NS DAILY 12/15/18 Pantoprazole Sodium [Protonix] 40 mg PO DAILY 12/15/18 Albuterol Sulfate [Ventolin -] 2 mg IN QID 12/16/18 Alfuzosin HCl [Uroxatral] 10 mg PO DAILY 12/16/18 Ammonium Lactate Cream [Lac-Hydrin 12% *Cream*] 1 applic TP DAILY 12/16/18 Ascorbic Acid [Vitamin C] 500 mg PO DAILY 12/16/18 Aspirin [Aspirin EC] 81 mg PO DAILY 12/16/18 Carvedilol [Coreg -] 3.125 mg PO BID 12/16/18 Cod Liver Oil/Zinc Oxide [Desitin Diaper Rash 40% Paste] 28 gm TP DAILY Cyclobenzaprine HCl [Amrix] 30 mg PO DAILY 12/16/18 Diclofenac Sodium [Voltaren] 100 gm TP TID 12/16/18 Fluticasone/Salmeterol [Advair 250-50 Diskus] 1 each IH BID 12/16/18 Furosemide [Lasix] 80 mg PO BID 12/16/18 Gabapentin [Neurontin] 300 mg PO BID 12/16/18 Ketoconazole 2% Shampoo [Nizoral 2% Shampoo -] 1 applic TP DAILY 12/16/18 Levothyroxine [Synthroid -] 50 mcg PO DAILY 12/16/18 Loperamide HCl [Imodium -] 2 mg PO QID PRN 12/16/18 Meclizine HCl 25 mg PO DAILY 12/16/18 Metformin HCl [Glucophage] 1,000 mg PO BID 12/16/18 Metoclopramide HCl [Reglan -] 10 mg PO TID 12/16/18 Multivitamin [One-Daily Multi-Vitamin] 1 each PO DAILY 12/16/18 Naproxen [Naprosyn -] 500 mg PO BID 12/16/18 Niacin*ER* [Niaspan (Non-Formulary)*ER* -] 1,000 mg PO DAILY 12/16/18 Paroxetine HCl [Paxil] 40 mg PO DAILY 12/16/18 Potassium Chloride [K-Tab ER] 8 meq PO BID 12/16/18 Pramipexole Dihydrochloride [Mirapex -] 1.5 mg PO TID 12/16/18 Ranolazine [Ranexa] 1,000 mg PO BID 12/16/18 Ranolazine [Ranexa] 1,000 mg PO DAILY 12/16/18 Rosuvastatin Calcium [Crestor] 5 mg PO DAILY 12/16/18 Sennosides [Senokot] 8.6 mg PO DAILY 12/16/18 Silver Sulfadiazine 1% Top Cr [Silvadene -] 1 applic TP DAILY 12/16/18 Sitagliptin Phosphate [Januvia] 100 mg PO DAILY 12/16/18 Tamsulosin HCl [Flomax] 0.4 mg PO DAILY 12/16/18 Anemia: No Asthma: No Cancer: Yes (PROSTATE, kidney cancer) Cardiac Disorders: Yes CVA: No COPD: Yes (on inhalers) CHF: No Dementia: No Diabetes: Yes GI Disorders: No Disorders: No HTN: Yes (on meds) Hypercholesterolemia: Yes Liver Disease: No Seizures: No Thyroid Disease: Yes (on meds) - Surgical History Abdominal Surgery: No Appendectomy: No Cardiac Surgery: Yes (HX BLOCKAGE BUT NO SX) Cholecystectomy: No Lung Surgery: No Neurologic Surgery: Yes (implanted pain pump, implanted nerve stimulator) Orthopedic Surgery: Yes (RIGHT TKR, RIGHT THR; right elbow surgery ) - Immunization History Immunization Up to Date: Yes - Suicide/Smoking/Psychosocial Hx Smoking Status: Yes Smoking History: Former smoker Have you smoked in the past 12 months: No Number of Cigarettes Smoked Daily: 0 If you are a former smoker, when did you quit?: 20 years ago Hx Alcohol Use: No Drug/Substance Use Hx: No Substance Use Type: None Hx Substance Use Treatment: No ED Treatment Course - LABORATORY CBC & Chemistry Diagram: 12/16/18 06:44 12/16/18 06:44 Medical Decision Making - Medical Decision Making HPI: 68yo M with PMH 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 He has been unable to tolerate po intake and today vomited his medications. Vomited three times today. Patient denies any abdominal pain. He endorses room-spinning vertigo which worsens if he moves his head. Patient's aide is at the bedside and agrees with patient is otherwise at his neurologic baseline. His doctor is prescribed levaquin for a "stomach infection" three days ago. Because his dizziness worsened today, he called his doctor today who recommended that patient come to the ED. Last bowel movement was three days ago and was watery diarrhea without blood. Patient believes he has not had regular bowel movements because he hasn't been eating. No fevers, chills, urinary symptoms, chest pain, or shortness of breath. PCP: Dr. Beto Bernstein ROS: Constitutional: no fever, no chills HEENT: no throat pain, no dysphagia Cardiovascular: no chest pain, no palpitations Respiratory: no cough, no shortness of breath Gastrointestinal: +nausea, +vomiting Genitourinary: no dysuria, no hematuria Musculoskeletal: no myalgia, no arthralgia Skin: no rash, no itching Neurologic: no headache, +dizziness PE: General: Awake, alert, and fully oriented, in no acute distress Head: No signs of trauma Eyes: EOMI, sclera anicteric ENT: Dry mucus membranes Neck: Normal ROM, supple Lungs: Lungs clear, Normal breath sounds Cardio: Regular rhythm, S1 and S2 present Abdomen: Soft, nontender. No guarding, no rebound, no masses Extremities: Normal range of motion, Distal pulses present SKIN: Warm, Dry, normal turgor Neurologic: Cranial nerves II through XII intact. Normal speech. Quadriparesis. Deferred gait exam. No nystagmus noted. ED Courses/MDM: DDX including but not limited to infection, anemia, ACS, Zofran fluids 12/15/18 16:54 EKG: rate 69, QTc 430, NSR, twi in V2-V3 not present in previous EKG CBC WBC 5.5 K/mm3 (4.0-10.0) 12/15/18 18:00 RBC 3.39 M/mm3 (4.00-5.60) L 12/15/18 18:00 Hgb 11.1 GM/dL (11.7-16.9) L 12/15/18 18:00 Hct 31.6 % (35.4-49) L D 12/15/18 18:00 MCV 93.2 fl (80-96) 12/15/18 18:00 MCH 32.7 pg (25.7-33.7) 12/15/18 18:00 MCHC 35.1 g/dl (32.0-35.9) 12/15/18 18:00 RDW 12.7 % (11.9-15.9) D 12/15/18 18:00 Plt Count 111 K/MM3 (134-434) L D 12/15/18 18:00 MPV 7.2 fl (7.5-11.1) L D 12/15/18 18:00 Absolute Neuts (auto) 3.6 K/mm3 (1.5-8.0) 12/15/18 18:00 Neutrophils % 64.9 % (42.8-82.8) 12/15/18 18:00 Lymphocytes % 22.9 % (8-40) 12/15/18 18:00 Monocytes % 7.5 % (3.8-10.2) 12/15/18 18:00 Eosinophils % 4.0 % (0-4.5) 12/15/18 18:00 Basophils % 0.7 % (0-2.0) 12/15/18 18:00 Nucleated RBC % 0 % (0-0) 12/15/18 18:00 No leukocytosis Reglan and another 500cc normal saline ordered Pending chemistries Pending head CT 12/15/18 18:57 K elevated Insulin, dextrose, albuterol ordered will repeat K Plan for admission 12/15/18 19:37 CT Head negative for acute pathology: "No intracranial hemorrhage is seen. There is no extra-axial fluid collection. The calvarium appears intact. Focal right parietal scalp hematoma versus nonspecific soft tissue thickening is seen at the high convexity level. No discrete infarct is identified with the limitations of CT. There is no gross mass lesion on noncontrast imaging. Involutional changes are noted with mild ventricular dilatation. Impression: No CT evidence of acute intracranial pathology. Right parietal scalp hematoma versus nonspecific scalp soft tissue thickening. Correlate clinically. " 12/15/18 20:53 Discussed case with inpatient team who accepted patient for admission under Dr. Westfall 12/15/18 21:11 CXR, as read by radiology: "A single AP view of the chest reveals no change since 08/30/2018. Again noted is a prominent mediastinum with clear lungs, sharp angles and intact bones and soft tissues. An acute process is not seen. " *DC/Admit/Observation/Transfer Diagnosis at time of Disposition: Abnormal electrocardiogram [ECG] [EKG], Vertigo, Hyperkalemia - Discharge Dispostion Condition at time of disposition: Guarded Decision to Admit order: Yes - Referrals - Patient Instructions - Post Discharge Activity
[2018-12-15] MEDS ORDERED: ONDANSETRON 4 MG/2 ML VIAL IVPUSH ONE (17:46)
[2018-12-15] MEDS ORDERED: SODIUM CHLORIDE 500 ML IV STA ×2 (17:46→18:52)
[2018-12-15] MEDS ORDERED: ONDANSETRON 4 MG/2 ML VIAL ONE (18:16)
[2018-12-15 18:35] LABS: BASO % 0.7 % (0-2.0); HEMATOCRIT 31.6 % (35.4-49); HEMOGLOBIN 11.1 GM/dL (11.7-16.9); LYMPH % 22.9 % (8-40); MCH 32.7 pg (25.7-33.7); MCHC 35.1 g/dl (32.0-35.9); MEAN CELL VOLUME 93.2 fl (80-96); MEAN PLT VOLUME 7.2 fl (7.5-11.1); MONO % 7.5 % (3.8-10.2); NEUT % 64.9 % (42.8-82.8); PLATELET COUNT 111 K/MM3 (134-434); RBC 3.39 M/mm3 (4.00-5.60); RDW 12.7 % (11.9-15.9); WHITE BLOOD COUNT 5.5 K/mm3 (4.0-10.0)
[2018-12-15 18:52] LABS: INR 1.03 (0.83-1.09); PROTHROMBIN TIME (PATIENT) 12.1 SEC (9.7-13.0)
[2018-12-15] MEDS ORDERED: METOCLOPRAMIDE HCL INJECTION 10 MG/2 ML VIAL IVPUSH ONE (18:52)
[2018-12-15 18:59] LABS: ALBUMIN 3.8 g/dl (3.4-5.0); ALK PHOS 49 U/L (45-117); ANION GAP 8 MMOL/L (8-16); BILIRUBIN,TOTAL 0.4 mg/dL (0.2-1); BLOOD UREA NITROGEN 18.3 mg/dL (7-18); CALCIUM 9.1 mg/dL (8.5-10.1); CHLORIDE 110 mmol/L (98-107); CO2 23 mmol/L (21-32); CREATININE 1.5 mg/dL (0.55-1.3); GLUCOSE,RANDOM 94 mg/dL (74-106); LIPASE 52 U/L (73-393); N-TERMINAL BNP 224.1 pg/ml (5-125); POTASSIUM 5.5 mmol/L (3.5-5.1); SGOT/AST 6 U/L (15-37); SGPT/ALT 13 U/L (13-61); SODIUM 141 mmol/L (136-145); TOT PROT 6.2 g/dl (6.4-8.2)
[2018-12-15] MEDS ORDERED: METOCLOPRAMIDE HCL INJECTION 10 MG/2 ML VIAL ONE (19:14)
[2018-12-15] MEDS ORDERED: INSULIN REGULAR HUMAN 100 UNITS/ML *VIAL IVPUSH ONE (19:23)
[2018-12-15] MEDS ORDERED: DEXTROSE 50%-WATER - 25 GM/50 ML VIAL IVPUSH ONE (19:23)
--- NOTE | 2018-12-15 19:36 | PDOC ---
Documentation entered by Arsen Cope SCRIBE, acting as scribe for Lina Sawyer DO. Lina Sawyer DO: This documentation has been prepared by the Anatoliy oneal Xhesika, SCRIBE, under my direction and personally reviewed by me in its entirety. I confirm that the documentation accurately reflects all work, treatment, procedures, and medical decision making performed by me. Attending Attestation - Resident Resident Name: Barbara DoanLanny - ED Attending Attestation I have performed the following: I have examined & evaluated the patient, The case was reviewed & discussed with the resident, I agree w/resident's findings & plan, Exceptions are as noted - HPI HPI: 12/15/18 19:03 The patient is a 63 year old male with a significant PMH of depression, diabetes, prostate ca, kidney ca, BPH, COPD, HTN, HLD, quadriparesis 2/2 cervical injury, and obesity who presents to the emergency department with 3 weeks of nausea, vomiting, watery diarrhea, and worsening dizziness. Patient describes his dizziness as room spinning, which worsens with any type of head movement. As per patient, he called his PCP, Dr. Bernstein, 3 days ago and was prescribed levaquin and when he called again today, he was advised to come to the ED. Patient notes he endorsed 3 episodes of vomiting today and endorses decreased PO intake. As per aide at bedside the patient is at his neurologic baseline. The patient denies chest pain, shortness of breath, headache. Denies fever, chills, cough, and constipation. Denies dysuria, frequency, urgency and hematuria. Allergies: NKDA PCP: Beto Jain - Physicial Exam PE: 12/15/18 19:03 GENERAL: Awake, alert, and fully oriented, in no acute distress HEAD: No signs of trauma EYES: PERRLA, EOMI, sclera anicteric, conjunctiva clear ENT: Auricles normal inspection, hearing grossly normal, nares patent, oropharynx clear without exudates. Moist mucosa NECK: Normal ROM, supple, no lymphadenopathy, JVD, or masses LUNGS: Breath sounds equal, clear to auscultation bilaterally. No wheezes, and no crackles HEART: Regular rate and rhythm, normal S1 and S2, no murmurs, rubs or gallops ABDOMEN: (+) mild suprapubic tenderness. Soft, nontender, normoactive bowel sounds. No guarding, no rebound. No masses EXTREMITIES: Normal range of motion, no edema. No clubbing or cyanosis. No cords, erythema, or tenderness NEUROLOGICAL: (+)Quadriparesis. Cranial nerves II through XII grossly intact. Speaking clear sentences. SKIN: Warm, Dry, normal turgor, no rashes or lesions noted. - Medical Decision Making 12/15/18 19:27 I, Dr. Lina Sawyer, DO, attest that this document has been prepared under my direction and personally reviewed by me in its entirety. I further attest, that it accurately reflects all work, treatment, procedures and medical decision -making performed by me. 12/15/18 19:29 a/p: 68yo male with hx of quadrapalegia with n/v/d today and vertigo hx -out of meclizine and did not get his meds refilled -pt with n/v/d -pt denies abd pain, but c/o dysuria when he starts his flow of urine -pt denies cp/sob/cough -pt denies blood in urine or stool -pt denies fc -no demarco -only with dizziness with movement of his head - which is similar to his peripheral vertigo symptoms -will send labs, head ct-no new neuro findings -will give reglan and meclizine and ivf hydration -will monitor and reassess 12/15/18 19:36 trop neg new ekg changes with t wave inversions unable to tolerate po will continue to monitor elevated potassium- will treat 12/15/18 20:16 cxr clear 12/15/18 20:16 ua neg 12/15/18 21:14 no acute findings on head ct resident discussed the case with norberto who accepts pt to service Heart Score/ECG Review - ECG Intrepretation Comment:: 12/15/18 19:34 sinus at 68, l axis, low voltage, t wave inversions v2-3, q waves inferior leads which are age indeterminate - t wave inversions are new
[2018-12-15] MEDS ORDERED: ALBUTEROL SO4 0.083% IH SOL 2.5 MG/3 ML VIAL.NEB. NEB ONE ×2 (19:37→19:57)
[2018-12-15 19:42] LABS: PLATELET ESTIMATE SLT DECREASE
[2018-12-15 19:49] LABS: URINE APPEARANCE CLEAR; URINE BILIRUBIN NEGATIVE (NEGATIVE); URINE COLOR YELLOW; URINE GLUCOSE (UA) NEGATIVE (NEGATIVE); URINE KETONE TRACE (NEGATIVE); URINE LEUK ESTERASE NEGATIVE (NEGATIVE); URINE NITRITE NEGATIVE (NEGATIVE); URINE PROTEIN NEGATIVE (NEGATIVE); URINE UROBILINOGEN 0.2 mg/dL (0.2-1.0)
[2018-12-15] MEDS ORDERED: INSULIN REGULAR HUMAN 100 UNITS/ML *VIAL ONE (19:58)
[2018-12-15] MEDS ORDERED: DEXTROSE 50%-WATER 25 GM/50 ML DISP.SYRIN ONE (19:58)
[2018-12-15 21:47] LABS: BLOOD UREA NITROGEN 17.6 mg/dL (7-18); CALCIUM 8.8 mg/dL (8.5-10.1); CREATININE 1.5 mg/dL (0.55-1.3); POTASSIUM 5.1 mmol/L (3.5-5.1)
[2018-12-15] MEDS ORDERED: ACETAMINOPHEN 325 MG TABLET (FP) PO PRN (22:39)
[2018-12-15] MEDS ORDERED: MAG HYDROX/AL HYDROX/SIMETH 30 ML UNIT-DOSE CUP PO ONE (22:45)
[2018-12-15] MEDS ORDERED: PANTOPRAZOLE SODIUM 40 MG VIAL ONE (23:03)
[2018-12-15] MEDS ORDERED: MAG HYDROX/AL HYDROX/SIMETH 30 ML UNIT-DOSE CUP ONE (23:03)
[2018-12-15] MEDS: PANTOPRAZOLE SODIUM 40 MG VIAL IVPUSH SCH (23:12)
--- NOTE | 2018-12-15 23:42 | HP ---
CHIEF COMPLAINT: Vertigo and diarrhea PCP: HISTORY OF PRESENT ILLNESS: 68 y/o M, PMH of vertigo, DM type 2, depression, prostate ca, kidney ca, BPH, COPD, HTN, HLD, quadriparesis-cervical spine injury and morbid obesity presents to the ED c/o of dizziness, nausea, NBNB vomit 1 hr after meals and watery diarrhea of 3 week duration, started when pt was moved to bed at his facility. Pt reports that he felt "room spinning," around him and occurs every time w/ head movement. He also noted diarrhea that started around the same time. He saw his PCP-Dr Bernstein, who prescribed him Abx- Levaquin for the diarrhea. His symptoms did not improve with the abx. Currently pt has vomited 3x in the ED and has a elevated Potassium level 5.5 however, states that symptoms have improved. He verifies he takes potassium pills. Denies headaches, changes in vision, sob, chest pain, numbness or tingling. ROS is negative. ER course was notable for: (1) CT head negative (2) Mylanta, Reglan, Zofran given (3) Recent Travel: n/a PAST MEDICAL HISTORY: vertigo, DM type 2, depression, prostate ca, kidney ca, BPH, COPD, HTN, HLD, quadriparesis-cervical spine injury and morbid obesity PAST SURGICAL HISTORY: Implanted pain pump, implanted nerve stimulator RIGHT TKR, RIGHT THR; right elbow surgery Social History: Smoking: former smoker, 20 yrs Alcohol: n/a Drugs: n/a Family History: Noncontributory Allergies No Known Allergies Allergy (Verified 12/15/18 16:55) HOME MEDICATIONS: Home Medications Medication Instructions Recorded Aspirin [ASA -] 81 mg PO DAILY 01/02/12 Alfuzosin HCl [Uroxatral] 10 mg PO DAILY 07/07/13 Carvedilol 3.125 mg PO BID 07/07/13 Niacin*ER* [Niaspan 1,000 mg PO DAILY 07/07/13 (Non-Formulary) -] Paroxetine HCl [Paxil -] 40 mg PO DAILY 07/07/13 Pramipexole Di-HCl [Mirapex] 1.5 mg PO TID 07/07/13 Sennosides [Senna] 8.6 mg PO DAILY 04/05/14 Albuterol Sulfate Inhaler - 2 inh PO Q4H PRN 01/26/18 [Ventolin HFA Inhaler -] Ascorbic Acid [Vitamin C -] 500 mg PO DAILY 01/26/18 Cyclobenzaprine HCl [Amrix] 30 mg PO DAILY 01/26/18 Fluticasone/Salmeterol [Advair 1 each IH DAILY 01/26/18 250-50 Diskus] Gabapentin [Neurontin -] 300 mg PO Q8H 01/26/18 Levothyroxine [Synthroid -] 50 mcg PO DAILY 01/26/18 Meclizine HCl 25 mg PO TID 01/26/18 Metoclopramide HCl 10 mg PO TID 01/26/18 Multivitamin/Iron/Folic Acid 1 each PO DAILY 01/26/18 [Centrum Adults Tablet] Ranolazine [Ranexa -] 1,000 mg PO BID 01/26/18 Sitagliptin Phosphate [Januvia -] 100 mg PO DAILY@0700 01/26/18 Tamsulosin HCl [Flomax -] 0.4 mg PO DAILY 01/26/18 Tizanidine HCl 4 mg PO TID 01/26/18 Amoxicillin - [Amoxicillin 250mg 250 mg PO BID #10 capsule 09/07/18 Capsule -] Docusate Sodium [Colace -] 100 mg PO BID #60 capsule 09/07/18 Furosemide [Lasix] 80 mg PO BID #30 tablet 09/07/18 Polyethylene Glycol 3350 [Miralax 17 gm PO DAILY #1 bottle 09/07/18 (For Daily Use) -] REVIEW OF SYSTEMS CONSTITUTIONAL: Absent: fever, chills, diaphoresis, generalized weakness, weight change CARDIOVASCULAR: Absent: chest pain, syncope, palpitations RESPIRATORY: Absent: cough, shortness of breath, dyspnea with exertion, orthopnea, wheezing, stridor, hemoptysis GASTROINTESTINAL: Admits: abdominal pain, nausea, vomiting, diarrhea Absent constipation, melena, hematochezia SKIN: Absent: rash, itching, pallor ENDOCRINE: Absent: unexplained weight gain, unexplained weight loss, heat intolerance, cold intolerance PHYSICAL EXAMINATION Vital Signs - 24 hr Last Vital Signs Temp Pulse Resp BP Pulse Ox 97.9 F 96 H 12 116/69 95 12/15/18 22:54 12/15/18 22:54 12/15/18 22:54 12/15/18 22:54 12/15/18 22:54 GENERAL: Awake, alert, and fully oriented, in no acute distress. HEAD: Normal with no signs of trauma. EYES: Pupils equal, round and reactive to light, extraocular movements intact, sclera anicteric, conjunctiva clear. No lid lag. EARS, NOSE, THROAT: Ears normal, nares patent, oropharynx clear without exudates. Moist mucous membranes. NECK: Normal range of motion, supple without lymphadenopathy, JVD, or masses. LUNGS: Breath sounds equal, clear to auscultation bilaterally. No wheezes, and no crackles. No accessory muscle use. HEART: Regular rate and rhythm, normal S1 and S2 without murmur, rub or gallop. ABDOMEN: Soft, nontender, not distended, normoactive bowel sounds, no guarding, no rebound, no masses. No hepatomegaly or splenomegaly. MUSCULOSKELETAL: Normal range of motion at all joints. No bony deformities or tenderness. No CVA tenderness. UPPER EXTREMITIES: 2+ pulses, warm, well-perfused. No cyanosis. No clubbing. No peripheral edema. LOWER EXTREMITIES: 2+ pulses, warm, well-perfused. No calf tenderness. No peripheral edema. NEUROLOGICAL: Cranial nerves II-XII intact. Normal speech. Normal gait. PSYCHIATRIC: Cooperative. Good eye contact. Appropriate mood and affect. SKIN: Warm, dry, normal turgor, no rashes or lesions noted, normal capillary refill. Laboratory Results - last 24 hr 12/15/18 12/15/18 12/15/18 17:54 18:00 18:00 WBC 5.5 RBC 3.39 L Hgb 11.1 L Hct 31.6 L D MCV 93.2 MCH 32.7 MCHC 35.1 RDW 12.7 D Plt Count 111 L D MPV 7.2 L D Absolute Neuts (auto) 3.6 Neutrophils % 64.9 Lymphocytes % 22.9 Monocytes % 7.5 Eosinophils % 4.0 Basophils % 0.7 Nucleated RBC % 0 Platelet Estimate Slt decrease Platelet Comment No clumping noted PT with INR INR PTT (Actin FS) 35.9 Sodium 141 Potassium 5.5 H Chloride 110 H Carbon Dioxide 23 Anion Gap 8 BUN 18.3 H Creatinine 1.5 H Est GFR (CKD-EPI)AfAm 54.27 Est GFR (CKD-EPI)NonAf 46.83 POC Glucometer Random Glucose 94 Calcium 9.1 Total Bilirubin 0.4 AST 6 L ALT 13 Alkaline Phosphatase 49 Troponin I < 0.02 B-Natriuretic Peptide 224.1 H Total Protein 6.2 L Albumin 3.8 Lipase 52 L Urine Color Urine Appearance Urine pH Ur Specific [place] Urine Protein Urine Glucose (UA) Urine Ketones Urine Blood Urine Nitrite Urine Bilirubin Urine Urobilinogen Ur Leukocyte Esterase 12/15/18 12/15/18 12/15/18 18:00 19:24 19:30 WBC RBC Hgb Hct MCV MCH MCHC RDW Plt Count MPV Absolute Neuts (auto) Neutrophils % Lymphocytes % Monocytes % Eosinophils % Basophils % Nucleated RBC % Platelet Estimate Platelet Comment PT with INR 12.10 INR 1.03 PTT (Actin FS) Sodium 142 Potassium 5.1 Chloride 112 H Carbon Dioxide 23 Anion Gap 7 L BUN 17.6 Creatinine 1.5 H Est GFR (CKD-EPI)AfAm 54.27 Est GFR (CKD-EPI)NonAf 46.83 POC Glucometer Random Glucose 157 H Calcium 8.8 Total Bilirubin AST ALT Alkaline Phosphatase Troponin I B-Natriuretic Peptide Total Protein Albumin Lipase Urine Color Yellow Urine Appearance Clear Urine pH 5.0 Ur Specific [place] 1.020 Urine Protein Negative Urine Glucose (UA) Negative Urine Ketones Trace H Urine Blood Negative Urine Nitrite Negative Urine Bilirubin Negative Urine Urobilinogen 0.2 Ur Leukocyte Esterase Negative ASSESSMENT/PLAN: 68 y/o M, PMH of vertigo, presents to the ED c/o of nausea, vomiting, dizziness and diarrhea of 3 week duration worsened after being moved in bed #BPPV Consider referring to Vestibular Rehab Monitor pt Symptomatic management #Diarrhea Hold Abx Protonix and Malaox ordered Stool Cx ordered- r/o infxn Consider testing for C. Diff r/p Labs #DM type 2 Insulin sliding scale ordered BGM monitoring continue Insulin Regular 10 U as given in ED #DVT ppx Heparin 5000 U FEN Full Liquid Diet Dispo: symptomatic management, f/u stool results Visit type - Emergency Visit Emergency Visit: Yes ED Registration Date: 12/15/18 Care time: The patient presented to the Emergency Department on the above date and was hospitalized for further evaluation of their emergent condition. - New Patient This patient is new to me today: Yes Date on this admission: 12/18/18 - Critical Care Critical Care patient: No ATTENDING PHYSICIAN STATEMENT I saw and evaluated the patient. I reviewed the resident's note and discussed the case with the resident. I agree with the resident's findings and plan as documented. SUBJECTIVE: OBJECTIVE: ASSESSMENT AND PLAN:
--- NOTE | 2018-12-16 01:53 | PN ---
Teaching Attending Note Name of Resident: Valerio Blackman ATTENDING PHYSICIAN STATEMENT I saw and evaluated the patient. I reviewed the resident's note and discussed the case with the resident. I agree with the resident's findings and plan as documented. He is a 68 Y/O M W quadriparesia, P/W vertigo for 4 weeks and followed 3 weeks of N/V and diarrhea. He states that vertigo happens when he is turned on his side to be cleaned. lasts for 1 minute and he had had similar episodes of in the past, has no more new neurologic deficit. N/V/D episodic, worsening for which he came to the ED today as he could not tolerate Po fluids. He states that he has beent aking his medication,(lasix and potassium pills). States that he is feeling better at this time and has tolerated Po clear liquid PhEX: Vital Signs - 24 hr 12/15/18 12/15/18 12/15/18 16:55 17:50 22:54 Temperature 99.8 F H 98.6 F 97.9 F Pulse Rate 71 Pulse Rate [ 69 96 H Right Radial] Respiratory 18 19 12 Rate Blood Pressure 123/73 Blood Pressure 95/79 116/69 [Right Arm] O2 Sat by Pulse 97 98 95 Oximetry (%) in no distress CVSs:1S2 CTAB Abd:BS+ nt/nd EXT: his strenght 3/5 in 4 limbs A&P: Vertigo: Compatible with BPPV, will not perform Elpy at this time with concern for previous neuropathy, will send him for vertibular rehab N/V: will give PPI at this time , if need to give anti emetics monitor QT diarrhea: will send stool infectious studies, will hold off antibiotics hyperkalemi:will monitor K and if still high will give Kayexalate, rest of the management per HS notes
[2018-12-16] MEDS ORDERED: ACETAMINOPHEN 325 MG TABLET (FP) ONE (02:04)
[2018-12-16] MEDS: HEPARIN NA (PORCINE) 5,000 UNITS/ML 1ML VIAL SQ SCH ×3 (02:35→17:06)
[2018-12-16] MEDS ORDERED: HEPARIN NA (PORCINE) 5,000 UNITS/ML 1ML VIAL ONE (02:36)
[2018-12-16] MEDS ORDERED: TRIMETHOBENZAMIDE HCL 300 MG CAPSULE PO ONE (04:37)
[2018-12-16 05:49] VITALS: BMI 40.1
[2018-12-16] MEDS: INSULIN SLIDING SCALE (NOVOLOG) 1 VIAL SQ SCH ×4 (06:08→23:22)
--- NOTE | 2018-12-16 07:07 | PN ---
Physical Exam: SUBJECTIVE: Patient seen and examined at bed side , bed bounded , feeling better complain of N/V/d for the last 3 weeks treated with primary Dr Bernstein with vargas with no improvement develop worsening vertigo yesterday did not improve with Meclizine dneies nay fever , chills, chest pain. OBJECTIVE: Vital Signs Period Temp Pulse Resp BP Sys/Mejia Pulse Ox Last 24 Hr 97.9 F-99.8 F 69-98 12-19 95-145/69-84 95-99 GENERAL: The patient is awake, alert, and fully oriented, in no acute distress. HEAD: Normal with no signs of trauma. EYES: PERRL, extraocular movements intact, sclera anicteric, conjunctiva clear. ENT: dry MM , NECK: Trachea midline, full range of motion, supple. LUNGS: Breath sounds equal, clear to auscultation bilaterally, no wheezes, no crackles, no accessory muscle use. HEART: Regular rate and rhythm, S1, S2 without murmur, rub or gallop. ABDOMEN:Obese ,Soft, nontender, nondistended, normoactive bowel sounds, EXTREMITIES: 2+ pulses, warm, well-perfused, + 2 LE edema. NEUROLOGICAL: Cranial nerves II through XII grossly intact. Normal speech, bed bounded, sensation intact all over , LE paralyzed, can move his toes only . Upper ext 4/5 strength proximal and 3/5 strength distal , left arm deformity, with surgical scar , YUVAL, EOMI , uvula mid line. no facial drift PSYCH: Normal mood, normal affect. SKIN: Warm, dry, normal turgor, Laboratory Results - last 24 hr 12/15/18 12/15/18 12/15/18 17:54 18:00 18:00 WBC 5.5 RBC 3.39 L Hgb 11.1 L Hct 31.6 L D MCV 93.2 MCH 32.7 MCHC 35.1 RDW 12.7 D Plt Count 111 L D MPV 7.2 L D Absolute Neuts (auto) 3.6 Neutrophils % 64.9 Lymphocytes % 22.9 Monocytes % 7.5 Eosinophils % 4.0 Basophils % 0.7 Nucleated RBC % 0 Platelet Estimate Slt decrease Platelet Comment No clumping noted PT with INR INR PTT (Actin FS) 35.9 Sodium 141 Potassium 5.5 H Chloride 110 H Carbon Dioxide 23 Anion Gap 8 BUN 18.3 H Creatinine 1.5 H Est GFR (CKD-EPI)AfAm 54.27 Est GFR (CKD-EPI)NonAf 46.83 POC Glucometer Random Glucose 94 Calcium 9.1 Total Bilirubin 0.4 AST 6 L ALT 13 Alkaline Phosphatase 49 Troponin I < 0.02 B-Natriuretic Peptide 224.1 H Total Protein 6.2 L Albumin 3.8 Lipase 52 L Urine Color Urine Appearance Urine pH Ur Specific [place] Urine Protein Urine Glucose (UA) Urine Ketones Urine Blood Urine Nitrite Urine Bilirubin Urine Urobilinogen Ur Leukocyte Esterase 12/15/18 12/15/18 12/15/18 18:00 19:24 19:30 WBC RBC Hgb Hct MCV MCH MCHC RDW Plt Count MPV Absolute Neuts (auto) Neutrophils % Lymphocytes % Monocytes % Eosinophils % Basophils % Nucleated RBC % Platelet Estimate Platelet Comment PT with INR 12.10 INR 1.03 PTT (Actin FS) Sodium 142 Potassium 5.1 Chloride 112 H Carbon Dioxide 23 Anion Gap 7 L BUN 17.6 Creatinine 1.5 H Est GFR (CKD-EPI)AfAm 54.27 Est GFR (CKD-EPI)NonAf 46.83 POC Glucometer Random Glucose 157 H Calcium 8.8 Total Bilirubin AST ALT Alkaline Phosphatase Troponin I B-Natriuretic Peptide Total Protein Albumin Lipase Urine Color Yellow Urine Appearance Clear Urine pH 5.0 Ur Specific [place] 1.020 Urine Protein Negative Urine Glucose (UA) Negative Urine Ketones Trace H Urine Blood Negative Urine Nitrite Negative Urine Bilirubin Negative Urine Urobilinogen 0.2 Ur Leukocyte Esterase Negative 12/15/18 12/16/18 23:14 06:03 WBC RBC Hgb Hct MCV MCH MCHC RDW Plt Count MPV Absolute Neuts (auto) Neutrophils % Lymphocytes % Monocytes % Eosinophils % Basophils % Nucleated RBC % Platelet Estimate Platelet Comment PT with INR INR PTT (Actin FS) Sodium Potassium Chloride Carbon Dioxide Anion Gap BUN Creatinine Est GFR (CKD-EPI)AfAm Est GFR (CKD-EPI)NonAf POC Glucometer 102 98 Random Glucose Calcium Total Bilirubin AST ALT Alkaline Phosphatase Troponin I B-Natriuretic Peptide Total Protein Albumin Lipase Urine Color Urine Appearance Urine pH Ur Specific [place] Urine Protein Urine Glucose (UA) Urine Ketones Urine Blood Urine Nitrite Urine Bilirubin Urine Urobilinogen Ur Leukocyte Esterase Active Medications Generic Name Dose Route Start Last Admin Trade Name Freq PRN Reason Stop Dose Admin Acetaminophen 650 mg 12/15/18 22:39 12/16/18 02:45 Tylenol - PO 650 mg Q4H PRN Administration PAIN Heparin Sodium (Porcine) 5,000 unit 12/16/18 02:00 12/16/18 02:35 Heparin - SQ 5,000 unit Q8H-IV VIVIANE Administration Insulin Aspart 0 vial 12/16/18 07:00 12/16/18 06:08 Novolog Vial Sliding Scale - SQ Not Given ACHS [facility] Protocol Pantoprazole Sodium 40 mg 12/15/18 23:00 12/15/18 23:12 Protonix Iv IVPUSH 40 mg DAILY VIVIANE Administration ASSESSMENT/PLAN: 68 y/o M, PMH of vertigo, presents to the ED c/o of nausea, vomiting, dizziness and diarrhea of 3 week duration worsened after being moved in bed -Positional Vertigo, suspect BPPV in the setting of recent GI symptoms/ hypovolumia -Nausea/vomiting/diarrhea x 4 weeks, r/o parasitic/inflammatory disorder -Hypovolumia -Hyperkalemia -CKD stage II-III -NIDDM -Depression -Prostate Ca/Kidney Ca -BPH -COPD -HTN -HLD -C-spine injury with quadriparesis -Morbid obesity Plan Improved. IVF. Hold lasix/K supple. Start standing Meclizine. PT eval for vestibular PT. Stool ova and parasities, stool WBC, stool C difficile. GI input if recurrent symptoms Continue other home meds #DM type 2 Insulin sliding scale ordered BGM monitoring continue Insulin Regular 10 U as given in ED #DVT ppx * Heparin 5000 U #FEN * Full Liquid Diet Dispo: symptomatic management, f/u stool results Visit type - Emergency Visit Emergency Visit: Yes ED Registration Date: 12/15/18 Care time: The patient presented to the Emergency Department on the above date and was hospitalized for further evaluation of their emergent condition. - New Patient This patient is new to me today: Yes Date on this admission: 12/15/18 - Critical Care Critical Care patient: No ATTENDING PHYSICIAN STATEMENT I saw and evaluated the patient. I reviewed the resident's note and discussed the case with the resident. I agree with the resident's findings and plan as documented. SUBJECTIVE: OBJECTIVE: ASSESSMENT AND PLAN:
[2018-12-16] MEDS ORDERED: SODIUM CHLORIDE 0.45% 1,000 ML IV SCH (07:45)
[2018-12-16 08:21] LABS: BASO % 0.9 % (0-2.0); EOS % 3.1 % (0-4.5); HEMATOCRIT 29.2 % (35.4-49); HEMOGLOBIN 10.2 GM/dL (11.7-16.9); MCH 32.7 pg (25.7-33.7); MCHC 34.8 g/dl (32.0-35.9); MEAN CELL VOLUME 93.8 fl (80-96); MEAN PLT VOLUME 7.3 fl (7.5-11.1); MONO % 9.2 % (3.8-10.2); NEUT % 66.8 % (42.8-82.8); PLATELET COUNT 103 K/MM3 (134-434); RBC 3.12 M/mm3 (4.00-5.60); RDW 12.6 % (11.9-15.9); WHITE BLOOD COUNT 5.4 K/mm3 (4.0-10.0)
[2018-12-16 08:47] LABS: ALBUMIN 3.5 g/dl (3.4-5.0); BILIRUBIN,TOTAL 0.4 mg/dL (0.2-1); BLOOD UREA NITROGEN 16.5 mg/dL (7-18); CALCIUM 8.9 mg/dL (8.5-10.1); CREATININE 1.4 mg/dL (0.55-1.3); POTASSIUM 5.1 mmol/L (3.5-5.1); TOT PROT 5.7 g/dl (6.4-8.2)
[2018-12-16] MEDS: PANTOPRAZOLE SODIUM 40 MG VIAL IVPUSH SCH (09:56)
[2018-12-16] MEDS: MECLIZINE HCL 25 MG TABLET (FP) PO PRN ×2 (10:44→23:14)
[2018-12-16] MEDS: METOCLOPRAMIDE HCL 10 MG TABLET (FP) PO SCH ×2 (12:58→17:06)
[2018-12-16] MEDS ORDERED: PATIENT'S OWN MEDICATION (NON-FORMULARY) (Diclofenac Sodium [Voltaren] 100 GM) TP SCH (14:00)
[2018-12-16] MEDS ORDERED: PT OWN MED DRAWER 7, Y5N ONE ×3 (14:02→22:24)
[2018-12-16] MEDS: PRAMIPEXOLE DIHYDROCHLORIDE 1.5 MG TABLET PO SCH ×2 (14:15→23:15)
[2018-12-16] MEDS: ALBUTEROL SO4 2 MG TABLET NR SCH ×3 (14:16→23:15)
--- NOTE | 2018-12-16 14:17 | EKG ---
Test Reason : Blood Pressure : / mmHG Vent. Rate : 069 BPM Atrial Rate : 069 BPM P-R Int : 146 ms QRS Dur : 096 ms QT Int : 402 ms P-R-T Axes : 046 -88 062 degrees QTc Int : 430 ms NORMAL SINUS RHYTHM LEFT AXIS DEVIATION NONSPECIFIC T WAVE ABNORMALITY ABNORMAL ECG WHEN COMPARED WITH ECG OF 30-AUG-2018 18:25, T WAVE INVERSION NOW EVIDENT IN ANTERIOR LEADS Confirmed by YUE HARVEY, CRISTINE ([id number]) on 12/16/2018 2:16:44 PM Referred By: Confirmed By:CRISTINE TURNER MD
--- NOTE | 2018-12-16 14:38 | PN ---
Teaching Attending Note Name of Resident: Jorge Pelayo ATTENDING PHYSICIAN STATEMENT I saw and evaluated the patient. I reviewed the resident's note and discussed the case with the resident. I agree with the resident's findings and plan as documented with exceptions below. SUBJECTIVE: Patient seen and examined. reports nausea, no further vomiting or diarrhea. Still with some dizziness or head movements. OBJECTIVE: Vital Signs Period Temp Pulse Resp BP Sys/Mejia Pulse Ox Last 24 Hr 97.9 F-99.8 F 69-98 - 95-145/60-84 95-99 Intake & Output 12/13/18 12/14/18 12/15/18 12/16/18 23:59 23:59 23:59 23:59 Output Total 150 0 Balance -150 0 Weight 340 lb 296 lb General: lying in bed in no acute distress Neck: soft, supple, Chest: limited by body habitus, no rales or wheezing Abdomen:soft, obese, NT Extremities: upper extremity edema Neuro: EOMI, no nystagmus, PERRL, quadriparesis Home Medications Medication Instructions Recorded Fluticasone Propionate [24 Hour 15.8 ml NS DAILY 12/15/18 Allergy Relief] Pantoprazole Sodium [Protonix] 40 mg PO DAILY 12/15/18 Albuterol Sulfate [Ventolin -] 2 mg IN QID 12/16/18 Alfuzosin HCl [Uroxatral] 10 mg PO DAILY 12/16/18 Ammonium Lactate Cream [Lac-Hydrin 1 applic TP DAILY 12/16/18 12% *Cream*] Ascorbic Acid [Vitamin C] 500 mg PO DAILY 12/16/18 Aspirin [Aspirin EC] 81 mg PO DAILY 12/16/18 Carvedilol [Coreg -] 3.125 mg PO BID 12/16/18 Cod Liver Oil/Zinc Oxide [Desitin 28 gm TP DAILY 12/16/18 Diaper Rash 40% Paste] Cyclobenzaprine HCl [Amrix] 30 mg PO DAILY 12/16/18 Diclofenac Sodium [Voltaren] 100 gm TP TID 12/16/18 Fluticasone/Salmeterol [Advair 1 each IH BID 12/16/18 250-50 Diskus] Furosemide [Lasix] 80 mg PO BID 12/16/18 Gabapentin [Neurontin] 300 mg PO BID 12/16/18 Ketoconazole 2% Shampoo [Nizoral 1 applic TP DAILY 12/16/18 2% Shampoo -] Levothyroxine [Synthroid -] 50 mcg PO DAILY 12/16/18 Loperamide HCl [Imodium -] 2 mg PO QID PRN 12/16/18 Meclizine HCl 25 mg PO DAILY 12/16/18 Metformin HCl [Glucophage] 1,000 mg PO BID 12/16/18 Metoclopramide HCl [Reglan -] 10 mg PO TID 12/16/18 Multivitamin [One-Daily 1 each PO DAILY 12/16/18 Multi-Vitamin] Naproxen [Naprosyn -] 500 mg PO BID 12/16/18 Niacin*ER* [Niaspan 1,000 mg PO DAILY 12/16/18 (Non-Formulary)*ER* -] Paroxetine HCl [Paxil] 40 mg PO DAILY 12/16/18 Potassium Chloride [K-Tab ER] 8 meq PO BID 12/16/18 Pramipexole Dihydrochloride 1.5 mg PO TID 12/16/18 [Mirapex -] Ranolazine [Ranexa] 1,000 mg PO BID 12/16/18 Ranolazine [Ranexa] 1,000 mg PO DAILY 12/16/18 Rosuvastatin Calcium [Crestor] 5 mg PO DAILY 12/16/18 Sennosides [Senokot] 8.6 mg PO DAILY 12/16/18 Silver Sulfadiazine 1% Top Cr 1 applic TP DAILY 12/16/18 [Silvadene -] Sitagliptin Phosphate [Januvia] 100 mg PO DAILY 12/16/18 Tamsulosin HCl [Flomax] 0.4 mg PO DAILY 12/16/18 Active Medications Acetaminophen (Tylenol -) 650 mg PO Q4H PRN PRN Reason: PAIN Last Admin: 12/16/18 02:45 Dose: 650 mg Albuterol Sulfate (Ventolin -) 2 mg NR QID VIVIANE Last Admin: 12/16/18 14:16 Dose: 2 mg Aspirin (Ecotrin -) 81 mg PO DAILY [facility] Budesonide/Formoterol Fumarate (Symbicort 80/4.5mcg -) 2 puff IH BID [facility] Fluticasone Propionate (Flonase -) 1 spray NS DAILY [facility] Gabapentin (Neurontin -) 300 mg PO BID [facility] Heparin Sodium (Porcine) (Heparin -) 5,000 unit SQ Q8H-IV VIVIANE Last Admin: 12/16/18 09:56 Dose: 5,000 unit Sodium Chloride (1/2 Normal Saline) 1,000 mls @ 75 mls/hr IV ASDIR [facility] Last Admin: 12/16/18 08:25 Dose: 75 mls/hr Insulin Aspart (Novolog Vial Sliding Scale -) 0 vial SQ ACHS [facility]; Protocol Last Admin: 12/16/18 12:22 Dose: Not Given Ketoconazole (Nizoral 2% Shampoo -) 1 applic TP DAILY [facility] Levothyroxine Sodium (Synthroid -) 50 mcg PO 0700 [facility] Meclizine HCl (Antivert -) 25 mg PO TID PRN PRN Reason: VERTIGO Last Admin: 12/16/18 10:44 Dose: 25 mg Metoclopramide HCl (Reglan -) 10 mg PO TIDAC [facility] Last Admin: 12/16/18 12:58 Dose: 10 mg Non-Formulary Medication (Cyclobenzaprine Hcl [Amrix]) 30 mg PO DAILY [facility] Non-Formulary Medication (Diclofenac Sodium [Voltaren]) 100 gm TP TID [facility] Pantoprazole Sodium (Protonix Iv) 40 mg IVPUSH DAILY [facility] Last Admin: 12/16/18 09:56 Dose: 40 mg Paroxetine HCl (Paxil -) 40 mg PO DAILY [facility] Pramipexole Dihydrochloride (Mirapex -) 1.5 mg PO TID [facility] Last Admin: 12/16/18 14:15 Dose: 1.5 mg Ranolazine (Ranexa -) 1,000 mg PO BID [facility] Rosuvastatin Calcium (Crestor -) 5 mg PO HS [facility] Silver Sulfadiazine (Silvadene -) 1 applic TP DAILY [facility] Tamsulosin HCl (Flomax -) 0.4 mg PO 0830 [facility] Laboratory Results - last 24 hr 12/15/18 12/15/18 12/15/18 17:54 18:00 18:00 WBC 5.5 RBC 3.39 L Hgb 11.1 L Hct 31.6 L D MCV 93.2 MCH 32.7 MCHC 35.1 RDW 12.7 D Plt Count 111 L D MPV 7.2 L D Absolute Neuts (auto) 3.6 Neutrophils % 64.9 Lymphocytes % 22.9 Monocytes % 7.5 Eosinophils % 4.0 Basophils % 0.7 Nucleated RBC % 0 Platelet Estimate Slt decrease Platelet Comment No clumping noted PT with INR INR PTT (Actin FS) 35.9 Sodium 141 Potassium 5.5 H Chloride 110 H Carbon Dioxide 23 Anion Gap 8 BUN 18.3 H Creatinine 1.5 H Est GFR (CKD-EPI)AfAm 54.27 Est GFR (CKD-EPI)NonAf 46.83 POC Glucometer Random Glucose 94 Calcium 9.1 Total Bilirubin 0.4 AST 6 L ALT 13 Alkaline Phosphatase 49 Troponin I < 0.02 B-Natriuretic Peptide 224.1 H Total Protein 6.2 L Albumin 3.8 Lipase 52 L Urine Color Urine Appearance Urine pH Ur Specific [place] Urine Protein Urine Glucose (UA) Urine Ketones Urine Blood Urine Nitrite Urine Bilirubin Urine Urobilinogen Ur Leukocyte Esterase 12/15/18 12/15/18 12/15/18 18:00 19:24 19:30 WBC RBC Hgb Hct MCV MCH MCHC RDW Plt Count MPV Absolute Neuts (auto) Neutrophils % Lymphocytes % Monocytes % Eosinophils % Basophils % Nucleated RBC % Platelet Estimate Platelet Comment PT with INR 12.10 INR 1.03 PTT (Actin FS) Sodium 142 Potassium 5.1 Chloride 112 H Carbon Dioxide 23 Anion Gap 7 L BUN 17.6 Creatinine 1.5 H Est GFR (CKD-EPI)AfAm 54.27 Est GFR (CKD-EPI)NonAf 46.83 POC Glucometer Random Glucose 157 H Calcium 8.8 Total Bilirubin AST ALT Alkaline Phosphatase Troponin I B-Natriuretic Peptide Total Protein Albumin Lipase Urine Color Yellow Urine Appearance Clear Urine pH 5.0 Ur Specific [place] 1.020 Urine Protein Negative Urine Glucose (UA) Negative Urine Ketones Trace H Urine Blood Negative Urine Nitrite Negative Urine Bilirubin Negative Urine Urobilinogen 0.2 Ur Leukocyte Esterase Negative 12/15/18 12/16/18 12/16/18 23:14 06:03 06:44 WBC 5.4 RBC 3.12 L Hgb 10.2 L Hct 29.2 L MCV 93.8 MCH 32.7 MCHC 34.8 RDW 12.6 Plt Count 103 L MPV 7.3 L Absolute Neuts (auto) 3.6 Neutrophils % 66.8 Lymphocytes % 20.0 Monocytes % 9.2 Eosinophils % 3.1 Basophils % 0.9 Nucleated RBC % 0 Platelet Estimate Platelet Comment PT with INR INR PTT (Actin FS) Sodium Potassium Chloride Carbon Dioxide Anion Gap BUN Creatinine Est GFR (CKD-EPI)AfAm Est GFR (CKD-EPI)NonAf POC Glucometer 102 98 Random Glucose Calcium Total Bilirubin AST ALT Alkaline Phosphatase Troponin I B-Natriuretic Peptide Total Protein Albumin Lipase Urine Color Urine Appearance Urine pH Ur Specific [place] Urine Protein Urine Glucose (UA) Urine Ketones Urine Blood Urine Nitrite Urine Bilirubin Urine Urobilinogen Ur Leukocyte Esterase 12/16/18 12/16/18 06:44 12:22 WBC RBC Hgb Hct MCV MCH MCHC RDW Plt Count MPV Absolute Neuts (auto) Neutrophils % Lymphocytes % Monocytes % Eosinophils % Basophils % Nucleated RBC % Platelet Estimate Platelet Comment PT with INR INR PTT (Actin FS) Sodium 142 Potassium 5.1 Chloride 111 H Carbon Dioxide 22 Anion Gap 9 BUN 16.5 Creatinine 1.4 H Est GFR (CKD-EPI)AfAm 58.99 Est GFR (CKD-EPI)NonAf 50.90 POC Glucometer 131 Random Glucose 99 Calcium 8.9 Total Bilirubin 0.4 AST 8 L ALT 12 L Alkaline Phosphatase 46 Troponin I B-Natriuretic Peptide Total Protein 5.7 L Albumin 3.5 Lipase Urine Color Urine Appearance Urine pH Ur Specific [place] Urine Protein Urine Glucose (UA) Urine Ketones Urine Blood Urine Nitrite Urine Bilirubin Urine Urobilinogen Ur Leukocyte Esterase CT brain results reviewed ASSESSMENT AND PLAN: 68 yom with PMHx vertigo, DM type 2, depression, prostate ca, kidney ca, BPH, COPD, HTN, HLD, quadriparesis-cervical spine injury and morbid obesity admitted with positional vertigo, hyperkalemia and 4 weeks of nausea, non bloody vomitus and diarrhea. -Positional Vertigo, suspect BPPV in the setting of recent GI symptoms/ hypovolumia -Nausea/vomiting/diarrhea x 4 weeks, r/o parasitic/inflammatory disorder -Hypovolumia -Hyperkalemia -CKD stage II-III -NIDDM -Depression -Prostate Ca/Kidney Ca -BPH -COPD -HTN -HLD -C-spine injury with quadriparesis -Morbid obesity Plan: Improved. IVF. Hold lasix/K supple. Start standing Meclizine. PT eval for vestibular PT. Stool ova and parasities, stool WBC, stool C difficile. GI input if recurrent symptoms Continue other home meds Dispo in 1-2 days pending clinical improvement. discussed with patient and nursing.
[2018-12-16] MEDS ORDERED: RANOLAZINE E.R. 500 MG TABLET (FP) PO SCH (22:00)
[2018-12-16] MEDS ORDERED: RANOLAZINE E.R. 500 MG TABLET (FP) ONE (22:23)
[2018-12-16] MEDS: GABAPENTIN 300 MG CAPSULE (FP) PO SCH (23:14)
[2018-12-16] MEDS: ROSUVASTATIN CA 5 MG TABLET (FP) PO SCH (23:14)
[2018-12-16] MEDS: BUDESONIDE/FORMETEROL FUMARATE 80/4.5 mcg INHALER IH SCH (23:15)
[2018-12-16] MEDS: RANOLAZINE E.R. 1,000 MG TABLET (FP) PO SCH (23:15)
[2018-12-17] MEDS: HEPARIN NA (PORCINE) 5,000 UNITS/ML 1ML VIAL SQ SCH ×3 (02:23→17:51)
[2018-12-17] MEDS: PRAMIPEXOLE DIHYDROCHLORIDE 1.5 MG TABLET PO SCH ×3 (05:55→22:15)
[2018-12-17] MEDS: INSULIN SLIDING SCALE (NOVOLOG) 1 VIAL SQ SCH ×4 (05:59→22:12)
[2018-12-17] MEDS: METOCLOPRAMIDE HCL 10 MG TABLET (FP) PO SCH ×3 (06:00→17:51)
[2018-12-17] MEDS: LEVOTHYROXINE NA 50 MCG TABLET (FP) PO SCH (06:00)
[2018-12-17] MEDS ORDERED: PT OWN MED DRAWER 7, Y5N ONE ×3 (06:32→11:29)
[2018-12-17 08:19] LABS: BASO % 0.9 % (0-2.0); EOS % 3.9 % (0-4.5); HEMATOCRIT 28.5 % (35.4-49); HEMOGLOBIN 10.1 GM/dL (11.7-16.9); LYMPH % 22.2 % (8-40); MCH 32.6 pg (25.7-33.7); MCHC 35.3 g/dl (32.0-35.9); MEAN CELL VOLUME 92.3 fl (80-96); MEAN PLT VOLUME 7.3 fl (7.5-11.1); MONO % 7.7 % (3.8-10.2); NEUT % 65.3 % (42.8-82.8); PLATELET COUNT 95 K/MM3 (134-434); RBC 3.09 M/mm3 (4.00-5.60); RDW 12.4 % (11.9-15.9); WHITE BLOOD COUNT 4.2 K/mm3 (4.0-10.0)
[2018-12-17 08:42] LABS: BLOOD UREA NITROGEN 11.1 mg/dL (7-18); CALCIUM 8.5 mg/dL (8.5-10.1); CREATININE 1.1 mg/dL (0.55-1.3); MAGNESIUM 1.8 mg/dL (1.8-2.4); PHOSPHOROUS 3.6 mg/dL (2.5-4.9); POTASSIUM 4.3 mmol/L (3.5-5.1)
[2018-12-17] MEDS ORDERED: CYCLOBENZAPRINE HCL 30 MG PO SCH (10:00)
[2018-12-17] MEDS ORDERED: PANTOPRAZOLE 40 MG TABLET (FP) PO SCH (10:00)
[2018-12-17] MEDS ORDERED: MECLIZINE HCL 25 MG TABLET (FP) PO SCH (10:00)
[2018-12-17] MEDS ORDERED: RANOLAZINE E.R. 500 MG TABLET (FP) ONE ×2 (10:06→22:04)
[2018-12-17] MEDS: PARoxetine HCL 20 MG TABLET PO SCH (11:19)
[2018-12-17] MEDS: GABAPENTIN 300 MG CAPSULE (FP) PO SCH ×2 (11:19→22:10)
[2018-12-17] MEDS: BUDESONIDE/FORMETEROL FUMARATE 80/4.5 mcg INHALER IH SCH ×2 (11:19→22:17)
[2018-12-17] MEDS: TAMSULOSIN HCL 0.4 MG CAP PO SCH (11:20)
[2018-12-17] MEDS: ASPIRIN COATED 81 MG TABLET.EC PO SCH (11:20)
[2018-12-17] MEDS: FLUTICASONE PROP 0.05% 16 GM NASAL SPRAY NS SCH (11:20)
[2018-12-17] MEDS: KETOCONAZOLE 2 % SHAMPOO 120 ML BOTTLE TP SCH (11:21)
[2018-12-17] MEDS: RANOLAZINE E.R. 1,000 MG TABLET (FP) PO SCH ×2 (11:22→22:15)
[2018-12-17] MEDS: ALBUTEROL SO4 2 MG TABLET NR SCH ×4 (11:23→22:16)
[2018-12-17] MEDS: PANTOPRAZOLE SODIUM 40 MG VIAL IVPUSH SCH (11:23)
[2018-12-17] MEDS: MECLIZINE HCL 25 MG TABLET (FP) PO PRN ×2 (11:30→22:11)
--- NOTE | 2018-12-17 11:43 | DS ---
Physical Exam: SUBJECTIVE: Patient seen and examined, no dizziness or nausea currently. NO abdominal pain. No diarrhea inhouse. OBJECTIVE: Vital Signs Period Temp Pulse Resp BP Sys/Mejia Pulse Ox Last 24 Hr 97.6 F-98.9 F 67-113 18-18 100-145/56-72 99 Intake & Output 12/14/18 12/15/18 12/16/18 12/17/18 23:59 23:59 23:59 23:59 Intake Total 1500 1325 Output Total 150 0 Balance -150 1500 1325 Weight 340 lb 296 lb PHYSICAL EXAM General: lying in bed in no acute distress Neck: soft, supple, Chest: limited by body habitus, no rales or wheezing Abdomen:soft, obese, NT Extremities: upper extremity edema Neuro: EOMI, no nystagmus, PERRL, quadriparesis LABS Laboratory Results - last 24 hr 12/16/18 12/16/18 12/16/18 12:22 17:09 23:21 WBC RBC Hgb Hct MCV MCH MCHC RDW Plt Count MPV Absolute Neuts (auto) Neutrophils % Lymphocytes % Monocytes % Eosinophils % Basophils % Nucleated RBC % Sodium Potassium Chloride Carbon Dioxide Anion Gap BUN Creatinine Est GFR (CKD-EPI)AfAm Est GFR (CKD-EPI)NonAf POC Glucometer 131 123 123 Random Glucose Calcium Phosphorus Magnesium 12/17/18 12/17/18 12/17/18 05:53 06:00 06:30 WBC 4.2 RBC 3.09 L Hgb 10.1 L Hct 28.5 L MCV 92.3 MCH 32.6 MCHC 35.3 RDW 12.4 Plt Count 95 L MPV 7.3 L Absolute Neuts (auto) 2.7 Neutrophils % 65.3 Lymphocytes % 22.2 Monocytes % 7.7 Eosinophils % 3.9 Basophils % 0.9 Nucleated RBC % 0 Sodium 141 Potassium 4.3 Chloride 110 H Carbon Dioxide 25 Anion Gap 6 L BUN 11.1 Creatinine 1.1 Est GFR (CKD-EPI)AfAm 78.97 Est GFR (CKD-EPI)NonAf 68.13 POC Glucometer 142 Random Glucose 141 H Calcium 8.5 Phosphorus 3.6 Magnesium 1.8 HOSPITAL COURSE: Date of Admission:12/15/18 Date of Discharge: 12/17/18 Minutes to complete discharge: 40 Discharge Summary Reason For Visit: ABNORMAL ELECTROCARDIOGRAM,HYPERKALEMIA Current Active Problems Abnormal electrocardiogram [ECG] [EKG] (Acute) Hyperkalemia (Acute) Vertigo (Acute) Hospital Course: 68 yom with PMHx vertigo, DM type 2, depression, prostate ca, kidney ca, BPH, COPD, HTN, HLD, quadriparesis-cervical spine injury and morbid obesity admitted with positional vertigo, hyperkalemia and 4 weeks of reported nausea, non bloody vomitus and diarrhea. His lasix and potassium supplementation were held. He was placed on gentle hydration and meclizine with improvement in symptoms. He had no diarrhea noted inhouse or bowel movement inhouse and was tolerating diet well. His JUANITA resolved with hydration and holding lasix. His lasix and potassium supplementation will be held on discharge and he is advised close outpatient follow up and avoiding NSAIDs He will be discharged home with aide in stable condition. Condition: Stable - Instructions Diet, Activity, Other Instructions: You were admitted with reported diarrhea, nausea and dizziness. Your lasix and potassium were stopped and you received fluids with improvement. No diarrhea has been noted in the hospital. You were placed on meclizine. MEDICATIONS: STOP: Lasix Potassium Naprosyn Can take meclizine 25 mg every 8 hours as needed for vertigo/dizziness symptoms. Continue other medications as before INSTRUCTIONS: You will need close monitoring of your weight and kidney function and close follow up with your doctor to discuss resumption of lasix Weigh yourself daily and notify your doctor if weight gain > 3lbs in 2 days. FOLLOW UP: Daily weight Blood work for kidneys and potassium BMP (basic metabolic panel) in [address] Bernstein Follow up with Dr. Bernstein in 1 week Please discuss with Dr. Bernstein for outpatient gastroenterology referral. If you notice any new fevers, ongoing severe diarrhea, bloody or dark stools, belly pain, severe dizziness or that which is not improved with meclizine, trouble breathing or any new concerns, please call 911 or come to ED rightaway. Referrals: Beto Bernstein MD [Primary Care Provider] - Disposition: VNS/HOME HEALTH CARE - Home Medications Comprehensive Discharge Medication List: Ambulatory Orders Fluticasone Propionate [24 Hour Allergy Relief] 15.8 ml NS DAILY 12/15/18 Pantoprazole Sodium [Protonix] 40 mg PO DAILY 12/15/18 Albuterol Sulfate [Ventolin -] 2 mg IN QID 12/16/18 Alfuzosin HCl [Uroxatral] 10 mg PO DAILY 12/16/18 Ammonium Lactate Cream [Lac-Hydrin 12% Cream -] 1 applic TP DAILY 12/16/18 Ascorbic Acid [Vitamin C] 500 mg PO DAILY 12/16/18 Aspirin [Aspirin EC] 81 mg PO DAILY 12/16/18 Carvedilol [Coreg -] 3.125 mg PO BID 12/16/18 Cod Liver Oil/Zinc Oxide [Desitin Diaper Rash 40% Paste] 28 gm TP DAILY Cyclobenzaprine HCl [Amrix] 30 mg PO DAILY 12/16/18 Diclofenac Sodium [Voltaren] 100 gm TP TID 12/16/18 Fluticasone/Salmeterol [Advair 250-50 Diskus] 1 each IH BID 12/16/18 Gabapentin [Neurontin] 300 mg PO BID 12/16/18 Ketoconazole 2% Shampoo [Nizoral 2% Shampoo -] 1 applic TP DAILY 12/16/18 Levothyroxine [Synthroid -] 50 mcg PO DAILY 12/16/18 Loperamide HCl [Imodium -] 2 mg PO QID PRN 12/16/18 Meclizine HCl 25 mg PO DAILY 12/16/18 Metformin HCl [Glucophage] 1,000 mg PO BID 12/16/18 Metoclopramide HCl [Reglan -] 10 mg PO TID 12/16/18 Multivitamin [One-Daily Multi-Vitamin] 1 each PO DAILY 12/16/18 Niacin*ER* [Niaspan (Non-Formulary) -] 1,000 mg PO DAILY 12/16/18 Paroxetine HCl [Paxil] 40 mg PO DAILY 12/16/18 Pramipexole Dihydrochloride [Mirapex -] 1.5 mg PO TID 12/16/18 Ranolazine [Ranexa] 1,000 mg PO BID 12/16/18 Rosuvastatin Calcium [Crestor] 5 mg PO DAILY 12/16/18 Sennosides [Senokot] 8.6 mg PO DAILY 12/16/18 Silver Sulfadiazine 1% Top Cr [Silvadene -] 1 applic TP DAILY 12/16/18 Sitagliptin Phosphate [Januvia] 100 mg PO DAILY 12/16/18 Tamsulosin HCl [Flomax -] 0.4 mg PO DAILY 12/16/18 This patient is new to me today: No Emergency Visit: Yes ED Registration Date: 12/15/18 Care time: The patient presented to the Emergency Department on the above date and was hospitalized for further evaluation of their emergent condition. Critical Care patient: No - Discharge Referral Referred to [facility] Med P.C.: No
[2018-12-17] MEDS: SILVER SULFADIAZINE 1% TOP CREAM 400 GM JAR TP SCH (12:05)
[2018-12-17] MEDS: CARVEDILOL 3.125 MG TABLET (FP) PO SCH ×2 (13:55→22:11)
[2018-12-17] MEDS: ROSUVASTATIN CA 5 MG TABLET (FP) PO SCH (22:10)
[2018-12-18] MEDS: HEPARIN NA (PORCINE) 5,000 UNITS/ML 1ML VIAL SQ SCH ×3 (02:29→17:23)
[2018-12-18] MEDS: INSULIN SLIDING SCALE (NOVOLOG) 1 VIAL SQ SCH ×4 (06:24→21:41)
[2018-12-18] MEDS: PRAMIPEXOLE DIHYDROCHLORIDE 1.5 MG TABLET PO SCH ×3 (06:24→21:41)
[2018-12-18] MEDS: LEVOTHYROXINE NA 50 MCG TABLET (FP) PO SCH (06:24)
[2018-12-18] MEDS: METOCLOPRAMIDE HCL 10 MG TABLET (FP) PO SCH ×3 (06:24→17:26)
[2018-12-18] MEDS ORDERED: ALBUTEROL SO4 8 GM HFA INHALER IH PRN (08:03)
[2018-12-18] MEDS: TAMSULOSIN HCL 0.4 MG CAP PO SCH (08:45)
[2018-12-18] MEDS ORDERED: RANOLAZINE E.R. 500 MG TABLET (FP) ONE ×2 (11:11→21:12)
[2018-12-18] MEDS ORDERED: PT OWN MED DRAWER 7, Y5N ONE ×4 (11:11→17:14)
[2018-12-18] MEDS: PARoxetine HCL 20 MG TABLET PO SCH (11:20)
[2018-12-18] MEDS: CARVEDILOL 3.125 MG TABLET (FP) PO SCH ×2 (11:22→21:41)
[2018-12-18] MEDS: ASPIRIN COATED 81 MG TABLET.EC PO SCH (11:24)
[2018-12-18] MEDS: RANOLAZINE E.R. 1,000 MG TABLET (FP) PO SCH ×2 (11:26→21:42)
[2018-12-18] MEDS: SILVER SULFADIAZINE 1% TOP CREAM 400 GM JAR TP SCH (11:35)
[2018-12-18] MEDS: PANTOPRAZOLE SODIUM 40 MG VIAL IVPUSH SCH (11:41)
[2018-12-18] MEDS: GABAPENTIN 300 MG CAPSULE (FP) PO SCH ×2 (11:41→21:41)
--- NOTE | 2018-12-18 11:43 | PN ---
Physical Exam: SUBJECTIVE: Patient seen and examined, no dizziness, no diarrhea or bm noted inhouse. OBJECTIVE: Vital Signs Period Temp Pulse Resp BP Sys/Mejia Pulse Ox Last 24 Hr 98.2 F-99.2 F 85-118 18-20 110-142/58-80 99 General: lying in bed in no acute distress Neck: soft, supple, Chest: limited by body habitus, no rales or wheezing Abdomen:soft, obese, NT Extremities: upper extremity edema Neuro: EOMI, no nystagmus, PERRL, quadriparesis Laboratory Results - last 24 hr 12/17/18 12/17/18 12/17/18 12:09 17:56 22:09 POC Glucometer 182 159 118 12/18/18 06:23 POC Glucometer 90 Active Medications Generic Name Dose Route Start Last Admin Trade Name Freq PRN Reason Stop Dose Admin Acetaminophen 650 mg 12/15/18 22:39 12/16/18 02:45 Tylenol - PO 650 mg Q4H PRN Administration PAIN Albuterol Sulfate 2 puff 12/18/18 08:03 Ventolin Hfa Inhaler - IH Q6H PRN SHORTNESS OF BREATH Aspirin 81 mg 12/17/18 10:00 12/18/18 11:24 Ecotrin - PO 81 mg DAILY VIVIANE Administration Budesonide/Formoterol Fumarate 2 puff 12/16/18 22:00 12/17/18 22:17 Symbicort 80/4.5mcg - IH 2 puff BID VIVIANE Administration Carvedilol 3.125 mg 12/17/18 12:15 12/18/18 11:22 Coreg - PO 3.125 mg BID VIVIANE Administration Fluticasone Propionate 1 spray 12/17/18 10:00 12/17/18 11:20 Flonase - NS 1 spr DAILY VIVIANE Administration Gabapentin 300 mg 12/16/18 22:00 12/17/18 22:10 Neurontin - PO 300 mg BID VIVIANE Administration Heparin Sodium (Porcine) 5,000 unit 12/16/18 02:00 12/18/18 11:17 Heparin - SQ 5,000 unit Q8H-IV VIVIANE Administration Insulin Aspart 0 vial 12/16/18 07:00 12/18/18 06:24 Novolog Vial Sliding Scale - SQ Not Given [facility] Protocol Ketoconazole 1 applic 12/17/18 10:00 12/17/18 11:21 Nizoral 2% Shampoo - TP Not Given DAILY [facility] Levothyroxine Sodium 50 mcg 12/17/18 07:00 12/18/18 06:24 Synthroid - PO 50 mcg 0700 VIVIANE Administration Meclizine HCl 25 mg 12/16/18 10:06 12/17/18 22:11 Antivert - PO 25 mg TID PRN Administration VERTIGO Metoclopramide HCl 10 mg 12/16/18 11:45 12/18/18 11:21 Reglan - PO 10 mg TIDAC VIVIANE Administration Pantoprazole Sodium 40 mg 12/15/18 23:00 12/17/18 11:23 Protonix Iv IVPUSH 40 mg DAILY VIVIANE Administration Paroxetine HCl 40 mg 12/17/18 10:00 12/18/18 11:20 Paxil - PO 40 mg DAILY VIVIANE Administration Pramipexole Dihydrochloride 1.5 mg 12/16/18 14:00 12/18/18 06:24 Mirapex - PO 1.5 mg TID VIVIANE Administration Ranolazine 1,000 mg 12/16/18 22:00 12/18/18 11:26 Ranexa - PO 1,000 mg BID VIVIANE Administration Rosuvastatin Calcium 5 mg 12/16/18 22:00 12/17/18 22:10 Crestor - PO 5 mg HS VIVIANE Administration Silver Sulfadiazine 1 applic 12/17/18 10:00 12/17/18 12:05 Silvadene - TP Not Given DAILY [facility] Tamsulosin HCl 0.4 mg 12/17/18 08:30 12/18/18 08:45 Flomax - PO 0.4 mg 0830 VIVIANE Administration ASSESSMENT/PLAN: 68 yom with PMHx vertigo, DM type 2, depression, prostate ca, kidney ca, BPH, COPD, HTN, HLD, quadriparesis-cervical spine injury and morbid obesity admitted with positional vertigo, hyperkalemia and 4 weeks of nausea, non bloody vomitus and diarrhea. -Positional Vertigo, suspect BPPV in the setting of recent GI symptoms/ hypovolumia -Nausea/vomiting/diarrhea x 4 weeks, r/o parasitic/inflammatory disorder -Hypovolumia -Hyperkalemia -CKD stage II-III -NIDDM -Depression -Prostate Ca/Kidney Ca -BPH -COPD -HTN -HLD -C-spine injury with quadriparesis -Morbid obesity Plan: Improved. Off IVF. repeat Labs in AM, resume lasix on dc accordingly. Continue standing Meclizine. PT eval for vestibular PT. No diarrhea noted inhouse. Not suggestive of C difficile. Stool WBc/Ova&P/cultures if any events inhouse. Continue other home meds Dispo medically appropriate for dc, unable to set up manager nursing home till 8/5 per CM. D/c when arrangements made. Discussed with nursing. Visit type - Emergency Visit Emergency Visit: Yes ED Registration Date: 12/15/18 Care time: The patient presented to the Emergency Department on the above date and was hospitalized for further evaluation of their emergent condition. - New Patient This patient is new to me today: No - Critical Care Critical Care patient: No - Discharge Referral Referred to [facility] Med P.C.: No
[2018-12-18] MEDS: BUDESONIDE/FORMETEROL FUMARATE 80/4.5 mcg INHALER IH SCH ×2 (11:44→21:42)
[2018-12-18] MEDS: FLUTICASONE PROP 0.05% 16 GM NASAL SPRAY NS SCH (11:53)
[2018-12-18] MEDS: KETOCONAZOLE 2 % SHAMPOO 120 ML BOTTLE TP SCH (11:56)
[2018-12-18] MEDS: MECLIZINE HCL 25 MG TABLET (FP) PO PRN (21:40)
[2018-12-18] MEDS: ROSUVASTATIN CA 5 MG TABLET (FP) PO SCH (21:41)
[2018-12-19] MEDS: HEPARIN NA (PORCINE) 5,000 UNITS/ML 1ML VIAL SQ SCH ×2 (02:53→10:08)
[2018-12-19] MEDS: PRAMIPEXOLE DIHYDROCHLORIDE 1.5 MG TABLET PO SCH ×2 (06:38→13:11)
[2018-12-19] MEDS: LEVOTHYROXINE NA 50 MCG TABLET (FP) PO SCH (06:39)
[2018-12-19] MEDS: INSULIN SLIDING SCALE (NOVOLOG) 1 VIAL SQ SCH ×2 (06:39→11:50)
[2018-12-19] MEDS: METOCLOPRAMIDE HCL 10 MG TABLET (FP) PO SCH ×2 (06:39→10:13)
[2018-12-19] MEDS ORDERED: INSULIN (NOVOLOG) ASPART 100 UNITS/ML 10ML VIAL ONE (06:56)
[2018-12-19 07:24] LABS: BLOOD UREA NITROGEN 18.8 mg/dL (7-18); CALCIUM 8.3 mg/dL (8.5-10.1); POTASSIUM 4.1 mmol/L (3.5-5.1)
--- NOTE | 2018-12-19 08:09 | DS ---
Physical Exam: SUBJECTIVE: Patient seen and examined OBJECTIVE: Vital Signs Period Temp Pulse Resp BP Sys/Mejia Pulse Ox Last 24 Hr 97.7 F-99.2 F 58-86 20-20 116-125/62-69 98-99 PHYSICAL EXAM General: lying in bed in no acute distress Neck: soft, supple, Chest: limited by body habitus, no rales or wheezing Abdomen:soft, obese, NT Extremities: upper extremity edema Neuro: EOMI, no nystagmus, PERRL, quadriparesis LABS Laboratory Results - last 24 hr 12/18/18 12/18/18 12/18/18 12:24 17:06 21:39 Sodium Potassium Chloride Carbon Dioxide Anion Gap BUN Creatinine Est GFR (CKD-EPI)AfAm Est GFR (CKD-EPI)NonAf POC Glucometer 129 101 115 Random Glucose Calcium 12/19/18 12/19/18 06:05 06:37 Sodium 142 Potassium 4.1 Chloride 110 H Carbon Dioxide 27 Anion Gap 5 L BUN 18.8 H Creatinine 1.0 Est GFR (CKD-EPI)AfAm 88.61 Est GFR (CKD-EPI)NonAf 76.45 POC Glucometer 91 Random Glucose 99 Calcium 8.3 L HOSPITAL COURSE: Date of Admission:12/15/18 Date of Discharge: 12/19/18 Minutes to complete discharge: 40 Discharge Summary Reason For Visit: ABNORMAL ELECTROCARDIOGRAM,HYPERKALEMIA Current Active Problems Abnormal electrocardiogram [ECG] [EKG] (Acute) Hyperkalemia (Acute) Vertigo (Acute) Hospital Course: 68 yom with PMHx vertigo, DM type 2, depression, prostate ca, kidney ca, BPH, COPD, HTN, HLD, quadriparesis-cervical spine injury and morbid obesity admitted with positional vertigo, hyperkalemia and 4 weeks of reported nausea, non bloody vomitus and diarrhea. His lasix and potassium supplementation were held. He was placed on gentle hydration and meclizine with improvement in symptoms. He had no diarrhea or bowel movement inhouse and was tolerating diet well. His JUANITA resolved with hydration and holding lasix. His lasix and potassium supplementation will be held on discharge and he is advised close outpatient follow up and avoiding NSAIDs He will be discharged home with aide in stable condition. Condition: Stable - Instructions Diet, Activity, Other Instructions: You were admitted with reported diarrhea, nausea and dizziness. Your lasix and potassium were stopped and you received fluids with improvement. No diarrhea has been noted in the hospital. You were placed on meclizine. MEDICATIONS: STOP: Lasix Potassium Naprosyn Can take meclizine 25 mg every 8 hours as needed for vertigo/dizziness symptoms. Continue other medications as before INSTRUCTIONS: You will need close monitoring of your weight and kidney function and close follow up with your doctor to discuss resumption of lasix Weigh yourself daily and notify your doctor if weight gain > 3lbs in 2 days. FOLLOW UP: Daily weight Blood work for kidneys and potassium BMP (basic metabolic panel) in [address] Bernstein Follow up with Dr. Bernstein in 1 week Please discuss with Dr. Bernstein for outpatient gastroenterology referral. If you notice any new fevers, ongoing severe diarrhea, bloody or dark stools, belly pain, severe dizziness or that which is not improved with meclizine, trouble breathing or any new concerns, please call 911 or come to ED rightaway. Referrals: Beto Bernstein MD [Primary Care Provider] - Disposition: VNS/HOME HEALTH CARE - Home Medications Comprehensive Discharge Medication List: Ambulatory Orders Fluticasone Propionate [24 Hour Allergy Relief] 15.8 ml NS DAILY 12/15/18 Pantoprazole Sodium [Protonix] 40 mg PO DAILY 12/15/18 Albuterol Sulfate [Ventolin -] 2 mg IN QID 12/16/18 Alfuzosin HCl [Uroxatral] 10 mg PO DAILY 12/16/18 Ammonium Lactate Cream [Lac-Hydrin 12% Cream -] 1 applic TP DAILY 12/16/18 Ascorbic Acid [Vitamin C] 500 mg PO DAILY 12/16/18 Aspirin [Aspirin EC] 81 mg PO DAILY 12/16/18 Carvedilol [Coreg -] 3.125 mg PO BID 12/16/18 Cod Liver Oil/Zinc Oxide [Desitin Diaper Rash 40% Paste] 28 gm TP DAILY Cyclobenzaprine HCl [Amrix] 30 mg PO DAILY 12/16/18 Diclofenac Sodium [Voltaren] 100 gm TP TID 12/16/18 Fluticasone/Salmeterol [Advair 250-50 Diskus] 1 each IH BID 12/16/18 Gabapentin [Neurontin] 300 mg PO BID 12/16/18 Ketoconazole 2% Shampoo [Nizoral 2% Shampoo -] 1 applic TP DAILY 12/16/18 Levothyroxine [Synthroid -] 50 mcg PO DAILY 12/16/18 Loperamide HCl [Imodium -] 2 mg PO QID PRN 12/16/18 Meclizine HCl 25 mg PO DAILY 12/16/18 Metformin HCl [Glucophage] 1,000 mg PO BID 12/16/18 Metoclopramide HCl [Reglan -] 10 mg PO TID 12/16/18 Multivitamin [One-Daily Multi-Vitamin] 1 each PO DAILY 12/16/18 Niacin*ER* [Niaspan (Non-Formulary) -] 1,000 mg PO DAILY 12/16/18 Paroxetine HCl [Paxil] 40 mg PO DAILY 12/16/18 Pramipexole Dihydrochloride [Mirapex -] 1.5 mg PO TID 12/16/18 Ranolazine [Ranexa] 1,000 mg PO BID 12/16/18 Rosuvastatin Calcium [Crestor] 5 mg PO DAILY 12/16/18 Sennosides [Senokot] 8.6 mg PO DAILY 12/16/18 Silver Sulfadiazine 1% Top Cr [Silvadene -] 1 applic TP DAILY 12/16/18 Sitagliptin Phosphate [Januvia] 100 mg PO DAILY 12/16/18 Tamsulosin HCl [Flomax -] 0.4 mg PO DAILY 12/16/18 This patient is new to me today: No Emergency Visit: Yes ED Registration Date: 12/15/18 Care time: The patient presented to the Emergency Department on the above date and was hospitalized for further evaluation of their emergent condition. Critical Care patient: No - Discharge Referral Referred to [facility] No
[2018-12-19 09:45] VITALS: BP 138/73; PULSE 91; TEMP 98.1
[2018-12-19] MEDS ORDERED: RANOLAZINE E.R. 500 MG TABLET (FP) ONE (10:05)
[2018-12-19] MEDS: GABAPENTIN 300 MG CAPSULE (FP) PO SCH (10:07)
[2018-12-19] MEDS: TAMSULOSIN HCL 0.4 MG CAP PO SCH (10:08)
[2018-12-19] MEDS: CARVEDILOL 3.125 MG TABLET (FP) PO SCH (10:08)
[2018-12-19] MEDS: PARoxetine HCL 20 MG TABLET PO SCH (10:08)
[2018-12-19] MEDS: ASPIRIN COATED 81 MG TABLET.EC PO SCH (10:09)
[2018-12-19] MEDS: BUDESONIDE/FORMETEROL FUMARATE 80/4.5 mcg INHALER IH SCH (10:10)
[2018-12-19] MEDS: FLUTICASONE PROP 0.05% 16 GM NASAL SPRAY NS SCH (10:12)
[2018-12-19] MEDS: PANTOPRAZOLE SODIUM 40 MG VIAL IVPUSH SCH (10:12)
[2018-12-19] MEDS: RANOLAZINE E.R. 1,000 MG TABLET (FP) PO SCH (10:12)
[2018-12-19] MEDS: SILVER SULFADIAZINE 1% TOP CREAM 400 GM JAR TP SCH (10:13)
[2018-12-19] MEDS: KETOCONAZOLE 2 % SHAMPOO 120 ML BOTTLE TP SCH (10:14)
[2018-12-19] MEDS ORDERED: PT OWN MED DRAWER 7, Y5N ONE (13:06)
== END 2018-12-19 14:44 | disposition home health service (06) | DRG 640 ==
LOC: JER 16:44 → JERBED 21:12 → J5S 12-16 03:52
PROVIDERS: ADMIT Internal Medicine; ATTEND Hospitalist
DX: E87.5 Hyperkalemia (principal); G82.50 Quadriplegia, unspecified; Z68.41 Body mass index [BMI] 40.0-44.9, adult; C64.9 Malignant neoplasm of unspecified kidney, except renal pelvis; H81.10 Benign paroxysmal vertigo, unspecified ear; R19.7 Diarrhea, unspecified; R11.2 Nausea with vomiting, unspecified; R94.31 Abnormal electrocardiogram [ECG] [EKG]; F32.9 Major depressive disorder, single episode, unspecified; N40.0 Benign prostatic hyperplasia without lower urinary tract symptoms; J44.9 Chronic obstructive pulmonary disease, unspecified; E78.5 Hyperlipidemia, unspecified; E66.01 Morbid (severe) obesity due to excess calories; Z87.891 Personal history of nicotine dependence; E86.1 Hypovolemia; E11.22 Type 2 diabetes mellitus with diabetic chronic kidney disease; I12.9 Hypertensive chronic kidney disease with stage 1 through stage 4 chronic kidney disease, or unspecified chronic kidney disease; N18.3 Chronic kidney disease, stage 3 (moderate); C61 Malignant neoplasm of prostate; Z79.84 Long term (current) use of oral hypoglycemic drugs
CPT/HCPCS: 36415; 70450-TC; 71045-TC-FY; 80048; 80053; 81003; 82962; 83690; 83735; 83880; 84100; 84484; 85025; 85610; 85730; 87086; 93005; 93010; 97161-GP; 99284-25; J1644

== ENCOUNTER 2018-12-30 11:12 | Inpatient (IN) | payer OTHER ==
--- NOTE | 2018-12-30 11:41 | PDOC ---
History of Present Illness - General Chief Complaint: Vomiting/Diarrhea Stated Complaint: NAUSEA/VOMITING Time Seen by Provider: 12/30/18 11:36 - History of Present Illness Initial Comments: 12/30/18 11:42 68 y/o M, PMH of vertigo, DM type 2, depression, prostate ca, kidney ca, BPH, COPD, HTN, HLD, quadriparesis-cervical spine injury and morbid obesity presents to the ED c/o of nausea, vomiting, diarrhea. The patient reports that he began feeling dizzy, nauseous last night and had one watery nb stool. Since 1am he had > 10x of nbnb emesis. He denies any fever or recent abc use. He denies any current n/v/dizziness or abdominal pain. He denies chest pain, shortness of breath, lightheadedness or any other ocmplaints. ROS GENERAL/CONSTITUTIONAL: No fever or chills. No weakness. HEAD, EYES, EARS, NOSE AND THROAT: No change in vision. No ear pain or discharge. No sore throat. CARDIOVASCULAR: No chest pain or shortness of breath RESPIRATORY: No cough, wheezing, or hemoptysis. GASTROINTESTINAL: See HPI GENITOURINARY: No dysuria, frequency, or change in urination. MUSCULOSKELETAL: No joint or muscle swelling or pain. No neck or back pain. SKIN: No rash NEUROLOGIC: No headache, loss of consciousness, or change in strength/sensation. PE GENERAL: Awake, alert, and fully oriented, in no acute distress HEAD: No signs of trauma, normocephalic, atraumatic EYES: EOMI, sclera anicteric, conjunctiva clear ENT: oropharynx clear without exudates. Moist mucosa NECK: Normal ROM, supple LUNGS: No distress, speaks full sentences, clear to auscultation anteriorly HEART: Regular rate and rhythm, normal S1 and S2, no murmurs, rubs or gallops, peripheral pulses normal and equal bilaterally. ABDOMEN: Soft, nontender, normoactive bowel sounds. No guarding, no rebound. No masses EXTREMITIES : Normal inspection, Normal range of motion, no edema. No clubbing or cyanosis. NEUROLOGICAL: Cranial nerves II through XII grossly intact. Normal speech, no focal sensorimotor deficits SKIN: Warm, Dry, normal turgor, no rashes or lesions noted MDM 68 y/o M, PMH of vertigo, DM type 2, depression, prostate ca, kidney ca, BPH, COPD, HTN, HLD, quadriparesis-cervical spine injury and morbid obesity presents to the ED c/o of nausea, vomiting, diarrhea. DDX including but not limited to: colitis vs gastroenteritis consider vertigo r/o infectious r/o cdiff r/o acs W/U: - cbc, cmp, trop, ekg TX: - ivf ED Course: labs with leukocytosis and juanita CTAP: overdistended gall bladder, 8mm nonobstructing L mid renal stone, thickening of distal sigmoid colon, thickened urinary gallbladder wall ua with + nitrites and uti Patient began feeling nauseous and had one episode of emesis zofran dosed Patient will need admission for further workup and evaluation for juanita, uti Case discussed with Dr. Warren. Chely Richardson, PGY2 Emergency Medicine Past History - Past Medical History Allergies/Adverse Reactions: Allergies Allergy/AdvReac Type Severity Reaction Status Date / Time No Known Allergies Allergy Verified 12/30/18 11:15 Home Medications: Ambulatory Orders Fluticasone Propionate [24 Hour Allergy Relief] 15.8 ml NS DAILY 12/15/18 Pantoprazole Sodium [Protonix] 40 mg PO DAILY 12/15/18 Albuterol Sulfate [Ventolin -] 2 mg IN QID 12/16/18 Alfuzosin HCl [Uroxatral] 10 mg PO DAILY 12/16/18 Ammonium Lactate Cream [Lac-Hydrin 12% Cream -] 1 applic TP DAILY 12/16/18 Ascorbic Acid [Vitamin C] 500 mg PO DAILY 12/16/18 Aspirin [Aspirin EC] 81 mg PO DAILY 12/16/18 Carvedilol [Coreg -] 3.125 mg PO BID 12/16/18 Cod Liver Oil/Zinc Oxide [Desitin Diaper Rash 40% Paste] 28 gm TP DAILY Cyclobenzaprine HCl [Amrix] 30 mg PO DAILY 12/16/18 Diclofenac Sodium [Voltaren] 100 gm TP TID 12/16/18 Fluticasone/Salmeterol [Advair 250-50 Diskus] 1 each IH BID 12/16/18 Gabapentin [Neurontin] 300 mg PO BID 12/16/18 Ketoconazole 2% Shampoo [Nizoral 2% Shampoo -] 1 applic TP DAILY 12/16/18 Levothyroxine [Synthroid -] 50 mcg PO DAILY 12/16/18 Loperamide HCl [Imodium -] 2 mg PO QID PRN 12/16/18 Meclizine HCl 25 mg PO DAILY 12/16/18 Metformin HCl [Glucophage] 1,000 mg PO BID 12/16/18 Metoclopramide HCl [Reglan -] 10 mg PO TID 12/16/18 Multivitamin [One-Daily Multi-Vitamin] 1 each PO DAILY 12/16/18 Niacin*ER* [Niaspan (Non-Formulary) -] 1,000 mg PO DAILY 12/16/18 Paroxetine HCl [Paxil] 40 mg PO DAILY 12/16/18 Pramipexole Dihydrochloride [Mirapex -] 1.5 mg PO TID 12/16/18 Ranolazine [Ranexa] 1,000 mg PO BID 12/16/18 Rosuvastatin Calcium [Crestor] 5 mg PO DAILY 12/16/18 Sennosides [Senokot] 8.6 mg PO DAILY 12/16/18 Silver Sulfadiazine 1% Top Cr [Silvadene -] 1 applic TP DAILY 12/16/18 Sitagliptin Phosphate [Januvia] 100 mg PO DAILY 12/16/18 Tamsulosin HCl [Flomax -] 0.4 mg PO DAILY 12/16/18 Furosemide [Lasix] 40 mg PO DAILY #30 tablet 12/19/18 Anemia: No Asthma: No Cancer: Yes (PROSTATE, kidney cancer) Cardiac Disorders: Yes CVA: No COPD: Yes (on inhalers) CHF: No Dementia: No Diabetes: Yes GI Disorders: No Disorders: No HTN: Yes (on meds) Hypercholesterolemia: Yes Liver Disease: No Seizures: No Thyroid Disease: Yes (on meds) - Surgical History Abdominal Surgery: No Appendectomy: No Cardiac Surgery: Yes (HX BLOCKAGE BUT NO SX) Cholecystectomy: No Lung Surgery: No Neurologic Surgery: Yes (implanted pain pump, implanted nerve stimulator) Orthopedic Surgery: Yes (RIGHT TKR, RIGHT THR; right elbow surgery ) - Immunization History Immunization Up to Date: Yes - Suicide/Smoking/Psychosocial Hx Smoking Status: Yes Smoking History: Never smoked Have you smoked in the past 12 months: No Number of Cigarettes Smoked Daily: 0 If you are a former smoker, when did you quit?: 20 years ago Hx Alcohol Use: No Drug/Substance Use Hx: No Substance Use Type: None Hx Substance Use Treatment: No *Physical Exam - Vital Signs Last Vital Signs Temp Pulse Resp BP Pulse Ox 98.2 F 108 H 18 115/60 97 12/30/18 11:15 12/30/18 11:15 12/30/18 11:15 12/30/18 11:15 12/30/18 11:15 ED Treatment Course - LABORATORY CBC & Chemistry Diagram: 12/30/18 11:56 12/30/18 11:56 *DC/Admit/Observation/Transfer Diagnosis at time of Disposition: JUANITA (acute kidney injury), Vertigo, Nausea & vomiting, Diarrhea - Discharge Dispostion Condition at time of disposition: Stable Decision to Admit order: Yes - Referrals Referrals: Beto Bernstein MD [Primary Care Provider] - - Patient Instructions - Post Discharge Activity
[2018-12-30] MEDS ORDERED: SODIUM CHLORIDE 1,000 ML IV SCH ×3 (11:45→17:30)
[2018-12-30 12:06] LABS: BASO % 0.4 % (0-2.0); HEMATOCRIT 32.4 % (35.4-49); HEMOGLOBIN 11.2 GM/dL (11.7-16.9); LYMPH % 4.9 % (8-40); MCH 32.4 pg (25.7-33.7); MCHC 34.6 g/dl (32.0-35.9); MEAN CELL VOLUME 93.5 fl (80-96); MEAN PLT VOLUME 7.4 fl (7.5-11.1); MONO % 2.5 % (3.8-10.2); NEUT % 92.2 % (42.8-82.8); PLATELET COUNT 137 K/MM3 (134-434); RBC 3.46 M/mm3 (4.00-5.60); RDW 12.8 % (11.9-15.9); WHITE BLOOD COUNT 16.7 K/mm3 (4.0-10.0)
--- NOTE | 2018-12-30 12:21 | PDOC ---
Attending Attestation - Resident Resident Name: Chely Richardson - ED Attending Attestation I have performed the following: I have examined & evaluated the patient, The case was reviewed & discussed with the resident, I agree w/resident's findings & plan, Exceptions are as noted - HPI HPI: 12/30/18 13:27 Mr Marshall is a 68 yo M presenting to the ER with a complaint of dizziness, vomiting and one episode of diarrhea He has a h/o vertigo, DM type 2, depression, prostate ca, kidney ca, BPH, COPD, HTN, HLD, quadriparesis s/p cervical spine injury and morbid obesity He noted these symptoms this morning, vomited 4 times He denies headache He denies abdominal pain Pt states upon assessment that he feels better, all symptoms have resolved - Physicial Exam PE: 12/30/18 13:28 GENERAL: The patient is in no acute distress, morbid obesity. ENT: Ears normal, nares patent, oropharynx clear without exudates. Moist mucous membranes. NECK: Normal range of motion, supple LUNGS: Breath sounds equal, clear to auscultation bilaterally. HEART: Sinus tachycardia, Regular rhythm, normal S1 and S2 ABDOMEN: Soft, nontender EXTREMITIES: Normal range of motion, no edema. NEUROLOGICAL: Cranial nerves II through XII grossly intact. Normal speech. SKIN: No rash noted 12/30/18 13:29 - Medical Decision Making 12/30/18 13:30 68 yo M presenting with dizziness and vomiting x 4 No abd pain No headache No fevers or chills EKG: ST rate of 106 bpm, RAD, no st elevation or deviation Appears different 12/30/18 13:34 12/30/18 13:35 12/30/18 13:38 Laboratory Tests 12/17/18 12/19/18 12/30/18 06:30 06:05 11:56 WBC 4.2 16.7 H Hgb 10.1 L 11.2 L Hct 28.5 L 32.4 L Plt Count 95 L 137 D Neutrophils % 92.2 H D Sodium 142 Potassium 4.1 Chloride 110 H Carbon Dioxide 27 Anion Gap BUN 18.8 H Creatinine 1.0 Random Glucose 99 Troponin I 12/30/18 11:56 WBC Hgb Hct Plt Count Neutrophils % Sodium 138 Potassium 4.3 Chloride 100 Carbon Dioxide 21 Anion Gap 18 H BUN 34.9 H Creatinine 3.6 H Random Glucose 168 H Troponin I < 0.02 Pt with JUANITA : Creatinine from 1 --> 3.6 Pt with WBC from 4.2 --> 16.7 Unclear source Will do: CXR CT head and abd Pt getting IV Fluids 12/30/18 15:44 Laboratory Tests 12/30/18 14:00 Urine Blood Negative Urine Nitrite Positive H Urine Bilirubin 1+ H Ur Leukocyte Esterase 1+ H Urine WBC (Auto) 1 Urine RBC (Auto) 2 Urine Casts (Auto) 17 12/30/18 15:45 CT: Trace pericardial effusion vs pericardial thickening Gallbladder is overdistended without stones or wall thickening 8mm non obstructing stone in the left mid kidney TI and appendix nml No diverticulitis Thickening of the distal sigmoid colon wall down to the rectosigmoid junction Diffuse thickening of the bladder wall - cystitis vs. nondistention 12/30/18 15:46
[2018-12-30 12:43] LABS: ALBUMIN 3.8 g/dl (3.4-5.0); ALK PHOS 49 U/L (45-117); ANION GAP 18 MMOL/L (8-16); BILIRUBIN,TOTAL 0.4 mg/dL (0.2-1); BLOOD UREA NITROGEN 34.9 mg/dL (7-18); CALCIUM 8.9 mg/dL (8.5-10.1); CHLORIDE 100 mmol/L (98-107); CO2 21 mmol/L (21-32); CREATININE 3.6 mg/dL (0.55-1.3); GLUCOSE,RANDOM 168 mg/dL (74-106); MAGNESIUM 1.6 mg/dL (1.8-2.4); POTASSIUM 4.3 mmol/L (3.5-5.1); SGOT/AST 12 U/L (15-37); SGPT/ALT 17 U/L (13-61); SODIUM 138 mmol/L (136-145); TOT PROT 6.4 g/dl (6.4-8.2)
[2018-12-30 15:34] LABS: EPI CELLS 11.2 /HPF (0-5/HPF); HYALINE CASTS 17 /lpf (0-8); URINE APPEARANCE TURBID; URINE BILIRUBIN 1+ (NEGATIVE); URINE COLOR DK YELLOW; URINE GLUCOSE (UA) NEGATIVE (NEGATIVE); URINE KETONE TRACE (NEGATIVE); URINE LEUK ESTERASE 1+ (NEGATIVE); URINE NITRITE POSITIVE (NEGATIVE); URINE PROTEIN TRACE (NEGATIVE); URINE RBC 2 /hpf (0-4); URINE WBC 1 /hpf (0-5)
[2018-12-30] MEDS ORDERED: ONDANSETRON 4 MG/2 ML VIAL IVPUSH ONE (15:59)
[2018-12-30] MEDS ORDERED: ONDANSETRON 4 MG/2 ML VIAL ONE (15:59)
[2018-12-30 16:09] LABS: ANISOCYTOSIS 1+; MACROCYTOSIS 0; PLATELET ESTIMATE DECREASED
[2018-12-30] MEDS ORDERED: CEFTRIAXONE 1 GM/50 ML BAG ONE (16:10)
[2018-12-30] MEDS ORDERED: ACETAMINOPHEN 1000 MG/100 ML VIAL (NON FORMULARY) IVPB ONE (16:27)
[2018-12-30] MEDS ORDERED: ACETAMINOPHEN INJECTION 100 ML IVPB ONE (16:33)
--- NOTE | 2018-12-30 17:37 | HP ---
CHIEF COMPLAINT: nausea, vomiting, diarrhea, poor oral intake PCP: Dr. Bernstein HISTORY OF PRESENT ILLNESS: 68 yom with PMHx vertigo, NIDDM, depression, prostate ca, kidney ca, BPH, COPD, HTN, HLD, quadriparesis-cervical spine injury and morbid obesity, recently admitted with dehydration/JUANITA/Hyperkalemia/vertigo, comes back with ongoing nausea, occasional watery non bloody vomitus (about twice since discharge) and occasional watery stools about 2-3 times since discharge. Taking liquids, but poor solid food intake due to nausea. No fevers, chills, abdominal pain, dark or bloody stools, recent antibiotics, urinary symptoms. Has been taking reduced dose of lasix 40 mg since recent discharge and not taking any potassium supplementation. ER course was notable for: (1) CT brain/CT A/p with ?Sigmoid thickening and bladder thickening (2) Ceftriaxone (3) NS 1 L IVF bolus Recent Travel: Denies PAST MEDICAL HISTORY: PMHx vertigo, NIDDM, depression, prostate ca, kidney ca, BPH, COPD, HTN, HLD, quadriparesis-cervical spine injury and morbid obesity, recently admitted with dehydration/JUANITA/Hyperkalemia/vertigo PAST SURGICAL HISTORY: Implanted pain pump, implanted nerve stimulator RIGHT TKR, RIGHT THR; right elbow surgery Social History: Smoking: Exsmoker, quit 20 years ago, prior 1-2 PPD for > 20 years Alcohol: Denies Drugs: Denies 24 hour aide, dependent for his 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 Family History: Allergies No Known Allergies Allergy (Verified 12/30/18 11:15) HOME MEDICATIONS: Home Medications Medication Instructions Recorded Fluticasone Propionate [24 Hour 15.8 ml NS DAILY 12/15/18 Allergy Relief] Pantoprazole Sodium [Protonix] 40 mg PO DAILY 12/15/18 Albuterol Sulfate [Ventolin -] 2 mg IN QID 12/16/18 Alfuzosin HCl [Uroxatral] 10 mg PO DAILY 12/16/18 Ammonium Lactate Cream [Lac-Hydrin 1 applic TP DAILY 12/16/18 12% Cream -] Ascorbic Acid [Vitamin C] 500 mg PO DAILY 12/16/18 Aspirin [Aspirin EC] 81 mg PO DAILY 12/16/18 Carvedilol [Coreg -] 3.125 mg PO BID 12/16/18 Cod Liver Oil/Zinc Oxide [Desitin 28 gm TP DAILY 12/16/18 Diaper Rash 40% Paste] Cyclobenzaprine HCl [Amrix] 30 mg PO DAILY 12/16/18 Diclofenac Sodium [Voltaren] 100 gm TP TID 12/16/18 Fluticasone/Salmeterol [Advair 1 each IH BID 12/16/18 250-50 Diskus] Gabapentin [Neurontin] 300 mg PO BID 12/16/18 Ketoconazole 2% Shampoo [Nizoral 1 applic TP DAILY 12/16/18 2% Shampoo -] Levothyroxine [Synthroid -] 50 mcg PO DAILY 12/16/18 Loperamide HCl [Imodium -] 2 mg PO QID PRN 12/16/18 Meclizine HCl 25 mg PO DAILY 12/16/18 Metformin HCl [Glucophage] 1,000 mg PO BID 12/16/18 Metoclopramide HCl [Reglan -] 10 mg PO TID 12/16/18 Multivitamin [One-Daily 1 each PO DAILY 12/16/18 Multi-Vitamin] Niacin*ER* [Niaspan 1,000 mg PO DAILY 12/16/18 (Non-Formulary) -] Paroxetine HCl [Paxil] 40 mg PO DAILY 12/16/18 Pramipexole Dihydrochloride 1.5 mg PO TID 12/16/18 [Mirapex -] Ranolazine [Ranexa] 1,000 mg PO BID 12/16/18 Rosuvastatin Calcium [Crestor] 5 mg PO DAILY 12/16/18 Sennosides [Senokot] 8.6 mg PO DAILY 12/16/18 Silver Sulfadiazine 1% Top Cr 1 applic TP DAILY 12/16/18 [Silvadene -] Sitagliptin Phosphate [Januvia] 100 mg PO DAILY 12/16/18 Tamsulosin HCl [Flomax -] 0.4 mg PO DAILY 12/16/18 Furosemide [Lasix] 40 mg PO DAILY #30 tablet 12/19/18 Active Medications Acetaminophen (Tylenol -) 650 mg PO Q6H PRN PRN Reason: HEADACHE Ascorbic Acid (Vitamin C -) 500 mg PO DAILY [facility] Aspirin (Ecotrin -) 81 mg PO DAILY [facility] Budesonide/Formoterol Fumarate (Symbicort 80/4.5mcg -) 2 puff IH BID [facility] Carvedilol (Coreg -) 3.125 mg PO BID [facility] Gabapentin (Neurontin -) 300 mg PO BID [facility] Heparin Sodium (Porcine) (Heparin -) 5,000 unit SQ TID [facility] Sodium Chloride (Normal Saline -) 1,000 mls @ 0 mls/hr IV ASDIR [facility] Last Admin: 12/30/18 12:38 Dose: 1,000 mls/hr Sodium Chloride (Normal Saline -) 1,000 mls @ 125 mls/hr IV ASDIR [facility] Last Admin: 12/30/18 16:06 Dose: 125 mls/hr Sodium Chloride (Normal Saline -) 1,000 mls @ 100 mls/hr IV ASDIR [facility] Ceftriaxone Sodium 1 gm/ (Dextrose) 50 mls @ 100 mls/hr IVPB DAILY [facility]; Protocol Metronidazole (Flagyl 250mg Premixed Ivpb -) 250 mg in 50 mls @ 50 mls/hr IVPB Q8H-IV [facility] Insulin Aspart (Novolog Vial Sliding Scale -) 1 vial SQ ACHS [facility]; Protocol Ketoconazole (Nizoral 2% Shampoo -) 1 applic TP DAILY [facility] Levothyroxine Sodium (Synthroid -) 50 mcg PO DAILY@0700 [facility] Meclizine HCl (Antivert -) 25 mg PO DAILY [facility] Non-Formulary Medication (Alfuzosin Hcl [Uroxatral]) 10 mg PO DAILY [facility] Non-Formulary Medication (Ammonium Lactate Cream) 1 applic TP DAILY [facility] Non-Formulary Medication (Cyclobenzaprine Hcl [Amrix]) 30 mg PO DAILY [facility] Non-Formulary Medication (Fluticasone Propionate [24 Hour Allergy Relief]) 15.8 ml NS DAILY [facility] Pantoprazole Sodium (Protonix -) 40 mg PO DAILY [facility] Paroxetine HCl (Paxil -) 40 mg PO DAILY [facility] Pramipexole Dihydrochloride (Mirapex -) 1.5 mg PO TID [facility] Ranolazine (Ranexa -) 1,000 mg PO BID [facility] Rosuvastatin Calcium (Crestor -) 5 mg PO DAILY [facility] Silver Sulfadiazine (Silvadene -) 1 applic TP DAILY [facility] Tamsulosin HCl (Flomax -) 0.4 mg PO HS [facility] Zinc Oxide (Desitin Diaper Rash Oint -) 1 applic TP DAILY [facility] REVIEW OF SYSTEMS 12 point ROS done, per HPI PHYSICAL EXAMINATION Vital Signs - 24 hr 12/30/18 12/30/18 11:15 15:45 Temperature 98.2 F 97.8 F Pulse Rate 108 H Pulse Rate [ 75 Apical] Respiratory 18 18 Rate Blood Pressure 115/60 Blood Pressure 116/55 L [Left Arm] O2 Sat by Pulse 97 96 Oximetry (%) GENERAL: Awake, alert, and fully oriented, in no acute distress. HEAD: Normal with no signs of trauma. EYES: Pupils equal, round and reactive to light, extraocular movements intact, sclera anicteric, conjunctiva clear. No lid lag. EARS, NOSE, THROAT: Ears normal, nares patent, oropharynx clear without exudates. Moist mucous membranes. NECK: Normal range of motion, supple, no JVD LUNGS: Breath sounds equal, clear to auscultation bilaterally. No wheezes, and no crackles. No accessory muscle use. HEART: Regular rate and rhythm, normal S1 and S2 ABDOMEN: Soft, obese, mild tenderness LLQ, no voluntary or involuntary guarding or rigidity, pos bowel sounds, no suprapubic or CVA tenderness. MUSCULOSKELETAL: no CVA or spinal tenderness UPPER EXTREMITIES: 2+ pulses, warm, well-perfused. No cyanosis. No clubbing. No peripheral edema. LOWER EXTREMITIES: 2+ pulses, warm, well-perfused. No calf tenderness. No peripheral edema. NEUROLOGICAL: AAOx3, UE power 2-3/5, LE 0/5, facial symmetry, speech normal EOMI, tongue midline, unable to check gait PSYCHIATRIC: Cooperative. Good eye contact. Appropriate mood and affect. SKIN: Warm, dry, normal turgor, no rashes or lesions noted, normal capillary refill. Laboratory Results - last 24 hr 12/30/18 12/30/18 12/30/18 11:56 11:56 14:00 WBC 16.7 H RBC 3.46 L Hgb 11.2 L Hct 32.4 L MCV 93.5 MCH 32.4 MCHC 34.6 RDW 12.8 Plt Count 137 D MPV 7.4 L Absolute Neuts (auto) 15.4 H Neutrophils % 92.2 H D Neutrophils % (Manual) 94.9 H Band Neutrophils % 0.0 Lymphocytes % 4.9 L D Lymphocytes % (Manual) 5.1 L Monocytes % 2.5 L Monocytes % (Manual) 0 L Eosinophils % 0.0 D Eosinophils % (Manual) 0.0 Basophils % 0.4 Basophils % (Manual) 0.0 Myelocytes % (Man) 0 Promyelocytes % (Man) 0 Blast Cells % (Manual) 0 Nucleated RBC % 0 Metamyelocytes 0 Hypochromia 0 Platelet Estimate Decreased Polychromasia 0 Poikilocytosis 0 Anisocytosis 1+ Microcytosis 1+ Macrocytosis 0 Sodium 138 Potassium 4.3 Chloride 100 Carbon Dioxide 21 Anion Gap 18 H BUN 34.9 H Creatinine 3.6 H Est GFR (CKD-EPI)AfAm 18.83 Est GFR (CKD-EPI)NonAf 16.25 Random Glucose 168 H Calcium 8.9 Magnesium 1.6 L Total Bilirubin 0.4 AST 12 L ALT 17 Alkaline Phosphatase 49 Troponin I < 0.02 Total Protein 6.4 Albumin 3.8 Urine Color Dk yellow Urine Appearance Turbid Urine pH 5.0 Ur Specific [place] 1.024 Urine Protein Trace Urine Glucose (UA) Negative Urine Ketones Trace H Urine Blood Negative Urine Nitrite Positive H Urine Bilirubin 1+ H Urine Urobilinogen 1.0 Ur Leukocyte Esterase 1+ H Urine WBC (Auto) 1 Urine RBC (Auto) 2 Urine Casts (Auto) 17 U Epithel Cells (Auto) 11.2 CT A/P and CT head results reviewed EKG NSR, no acute changes ASSESSMENT/PLAN: 68 yom with PMHx vertigo, NIDDM, depression, prostate ca, kidney ca, BPH, COPD, HTN, HLD, quadriparesis-cervical spine injury and morbid obesity, recently admitted with dehydration/JUANITA/Hyperkalemia/vertigo, admitted with nausea/ vomiting/?diarrhea, poor oral intake, JUANITA. -Suspect acute sigmoid diverticulitis -Diarrhea, ?overflow from chronic constipation, less likely C difficile -JUANITA, suspect hypovolumia+/- ATN, r/o obstruction given h/o neurogenic bladder and thickened bladder wall on CT -?Acute complicated cystitis vs chronic bladder wall thickening from intermittent obstruction -Leucocytosis, from above+/-hemoconcentration -NIDDM -C spine injury with quadriparesis -H/o prostate cancer -BPH -BPPV -H/o kidney cancer -COPD -HTN -HLD -Chronic LE edema Plan: Ceftriaxone/Flagyl, blood cultures. Stool studies. Normal amount of stool in colon, ?overflow diarrhea. Hold off on laxatives for now GI consult. Supportive treatment with zofran. IVF, soriano, strict I/os, monitor renal function. Urine studies. Renal/bladder US. Renal consult. Urinalysis not convincing for UTI/cystitis. Abx as above, monitor Continue flomax/alfuzocin. Hold lasix. Hold metformin/sitagliptin. ISS, diabetic diet. Continue ASA/statin/ranexa/coreg/paxil/PPI/gabapentin/Pramipexole. DVTPPX heparin PT eval for ROM exercises. Dispo pending clinical improvement. Discussed with patient and care co-ordinated with ED Total admit time spent 65 min. Visit type - Emergency Visit Emergency Visit: Yes ED Registration Date: 12/30/18 Care time: The patient presented to the Emergency Department on the above date and was hospitalized for further evaluation of their emergent condition. - New Patient This patient is new to me today: Yes Date on this admission: 12/30/18 - Critical Care Critical Care patient: No
[2018-12-30] MEDS ORDERED: RANOLAZINE E.R. 500 MG TABLET (FP) ONE (21:33)
[2018-12-30] MEDS ORDERED: POLYETHYLENE GLYCOL 3350 119 GM BTL PO SCH (22:00)
[2018-12-30] MEDS: ACETAMINOPHEN 325 MG TABLET (FP) PO PRN (22:06)
[2018-12-30] MEDS: INSULIN SLIDING SCALE (NOVOLOG) 1 VIAL SQ SCH (22:07)
[2018-12-30] MEDS: BUDESONIDE/FORMETEROL FUMARATE 80/4.5 mcg INHALER IH SCH (22:12)
[2018-12-30] MEDS: PRAMIPEXOLE DIHYDROCHLORIDE 1.5 MG TABLET PO SCH (22:13)
[2018-12-30] MEDS: CARVEDILOL 3.125 MG TABLET (FP) PO SCH (22:14)
[2018-12-30] MEDS: HEPARIN NA (PORCINE) 5,000 UNITS/ML 1ML VIAL SQ SCH (22:14)
[2018-12-30] MEDS: GABAPENTIN 300 MG CAPSULE (FP) PO SCH (22:14)
[2018-12-30] MEDS: TAMSULOSIN HCL 0.4 MG CAP PO SCH (22:15)
[2018-12-30] MEDS: RANOLAZINE E.R. 1,000 MG TABLET (FP) PO SCH (22:15)
[2018-12-30 23:21] VITALS: BMI 38.0
[2018-12-31] MEDS: HEPARIN NA (PORCINE) 5,000 UNITS/ML 1ML VIAL SQ SCH ×3 (07:00→22:04)
[2018-12-31] MEDS: LEVOTHYROXINE NA 50 MCG TABLET (FP) PO SCH (07:01)
[2018-12-31] MEDS: INSULIN SLIDING SCALE (NOVOLOG) 1 VIAL SQ SCH ×4 (07:01→22:07)
[2018-12-31] MEDS: PRAMIPEXOLE DIHYDROCHLORIDE 1.5 MG TABLET PO SCH ×3 (07:01→22:06)
[2018-12-31] MEDS ORDERED: INSULIN (NOVOLOG) ASPART 100 UNITS/ML 10ML VIAL ONE (07:11)
--- NOTE | 2018-12-31 07:34 | CON.GI ---
Consult - History of Present Illness History of Present Illness: GI CONSULT DICTATED STOOL CULTURES / C.DIFF GENTLE HYDRATION CW ABX MRCP TO FURTHER EVALUATE THE BILIARY TREE IF SYMPTOMS PERSIST MAY BENEFIT FROM DIAGNOSTIC COLONOSCOPY -- HOLD OFF FOR NOW WHILE THE INFECTIOUS WORK UP IS IN PROGRESS FULL LIQUID DIET ADVANCE TO LOW RESIDUE LACTOSE FREE DIET - Alcohol/Substance Use Hx Alcohol Use: No - Smoking History Smoking history: Never smoked Have you smoked in the past 12 months: No Aproximately how many cigarettes per day: 0 If you are a former smoker, when did you quit?: 20 years ago Home Medications - Allergies Allergies/Adverse Reactions: Allergies Allergy/AdvReac Type Severity Reaction Status Date / Time No Known Allergies Allergy Verified 12/30/18 11:15 - Home Medications Home Medications: Ambulatory Orders Fluticasone Propionate [24 Hour Allergy Relief] 15.8 ml NS DAILY 12/15/18 Pantoprazole Sodium [Protonix] 40 mg PO DAILY 12/15/18 Albuterol Sulfate [Ventolin -] 2 mg IN QID 12/16/18 Alfuzosin HCl [Uroxatral] 10 mg PO DAILY 12/16/18 Ammonium Lactate Cream [Lac-Hydrin 12% Cream -] 1 applic TP DAILY 12/16/18 Ascorbic Acid [Vitamin C] 500 mg PO DAILY 12/16/18 Aspirin [Aspirin EC] 81 mg PO DAILY 12/16/18 Carvedilol [Coreg -] 3.125 mg PO BID 12/16/18 Cod Liver Oil/Zinc Oxide [Desitin Diaper Rash 40% Paste] 28 gm TP DAILY Cyclobenzaprine HCl [Amrix] 30 mg PO DAILY 12/16/18 Diclofenac Sodium [Voltaren] 100 gm TP TID 12/16/18 Fluticasone/Salmeterol [Advair 250-50 Diskus] 1 each IH BID 12/16/18 Gabapentin [Neurontin] 300 mg PO BID 12/16/18 Ketoconazole 2% Shampoo [Nizoral 2% Shampoo -] 1 applic TP DAILY 12/16/18 Levothyroxine [Synthroid -] 50 mcg PO DAILY 12/16/18 Loperamide HCl [Imodium -] 2 mg PO QID PRN 12/16/18 Meclizine HCl 25 mg PO DAILY 12/16/18 Metformin HCl [Glucophage] 1,000 mg PO BID 12/16/18 Metoclopramide HCl [Reglan -] 10 mg PO TID 12/16/18 Multivitamin [One-Daily Multi-Vitamin] 1 each PO DAILY 12/16/18 Niacin*ER* [Niaspan (Non-Formulary) -] 1,000 mg PO DAILY 12/16/18 Paroxetine HCl [Paxil] 40 mg PO DAILY 12/16/18 Pramipexole Dihydrochloride [Mirapex -] 1.5 mg PO TID 12/16/18 Ranolazine [Ranexa] 1,000 mg PO BID 12/16/18 Rosuvastatin Calcium [Crestor] 5 mg PO DAILY 12/16/18 Sennosides [Senokot] 8.6 mg PO DAILY 12/16/18 Silver Sulfadiazine 1% Top Cr [Silvadene -] 1 applic TP DAILY 12/16/18 Sitagliptin Phosphate [Januvia] 100 mg PO DAILY 12/16/18 Tamsulosin HCl [Flomax -] 0.4 mg PO DAILY 12/16/18 Furosemide [Lasix] 40 mg PO DAILY #30 tablet 12/19/18 Family Disease History - Family Disease History Family Disease History: Other: Son (two adult, healthy) Physical Exam-GI Vital Signs: Vital Signs Temperature 98.2 F 12/31/18 05:00 Pulse Rate 82 12/31/18 05:00 Respiratory Rate 18 12/31/18 05:00 Blood Pressure 117/59 L 12/31/18 05:00 O2 Sat by Pulse Oximetry (%) 97 12/30/18 23:00 Labs: CBC, BMP 12/30/18 11:56 12/30/18 11:56
[2018-12-31 08:17] LABS: BASO % 0.5 % (0-2.0); EOS % 1.3 % (0-4.5); HEMATOCRIT 26.5 % (35.4-49); HEMOGLOBIN 9.5 GM/dL (11.7-16.9); LYMPH % 16.9 % (8-40); MEAN CELL VOLUME 91.8 fl (80-96); MEAN PLT VOLUME 7.6 fl (7.5-11.1); MONO % 7.4 % (3.8-10.2); NEUT % 73.9 % (42.8-82.8); PLATELET COUNT 126 K/MM3 (134-434); RBC 2.89 M/mm3 (4.00-5.60); RDW 12.9 % (11.9-15.9)
[2018-12-31 08:57] LABS: ALBUMIN 3.4 g/dl (3.4-5.0); BILIRUBIN,TOTAL 0.3 mg/dL (0.2-1); BLOOD UREA NITROGEN 38.2 mg/dL (7-18); CREATININE 4.5 mg/dL (0.55-1.3); MAGNESIUM 1.6 mg/dL (1.8-2.4); PHOSPHOROUS 4.7 mg/dL (2.5-4.9); POTASSIUM 3.7 mmol/L (3.5-5.1); TOT PROT 5.5 g/dl (6.4-8.2)
[2018-12-31 09:35] LABS: WHITE BLOOD COUNT 9.8 K/mm3 (4.0-10.0)
[2018-12-31] MEDS ORDERED: PATIENT'S OWN MEDICATION (NON-FORMULARY) (Alfuzosin Hcl [Uroxatral] 10 MG) PO SCH (10:00)
[2018-12-31] MEDS ORDERED: CYCLOBENZAPRINE HCL 30 MG PO SCH (10:00)
[2018-12-31] MEDS ORDERED: DEXTROSE 5%-WATER - 50 ML IVPB ONE (10:14)
[2018-12-31] MEDS ORDERED: cefTRIAXone SODIUM 1 GM VIAL ONE (10:14)
[2018-12-31] MEDS ORDERED: RANOLAZINE E.R. 500 MG TABLET (FP) ONE ×2 (10:14→21:52)
[2018-12-31] MEDS: CEFTRIAXONE 1 GM in DEXTROSE 5%-WATER - 50 ML IVPB SCH (10:21)
[2018-12-31] MEDS: ROSUVASTATIN CA 5 MG TABLET (FP) PO SCH (10:24)
[2018-12-31] MEDS: MECLIZINE HCL 25 MG TABLET (FP) PO SCH (10:24)
[2018-12-31] MEDS: CARVEDILOL 3.125 MG TABLET (FP) PO SCH ×2 (10:24→22:06)
[2018-12-31] MEDS: ASCORBIC ACID 500 MG TABLET (FP) PO SCH (10:24)
[2018-12-31] MEDS: GABAPENTIN 300 MG CAPSULE (FP) PO SCH ×2 (10:24→22:05)
[2018-12-31] MEDS: PANTOPRAZOLE 40 MG TABLET (FP) PO SCH (10:24)
[2018-12-31] MEDS: ASPIRIN COATED 81 MG TABLET.EC PO SCH (10:24)
[2018-12-31] MEDS: RANOLAZINE E.R. 1,000 MG TABLET (FP) PO SCH ×2 (10:24→22:06)
[2018-12-31] MEDS: BUDESONIDE/FORMETEROL FUMARATE 80/4.5 mcg INHALER IH SCH ×2 (10:25→22:07)
[2018-12-31] MEDS: PARoxetine HCL 20 MG TABLET PO SCH (10:25)
--- NOTE | 2018-12-31 10:26 | CONSULT ---
Consult - text type - Consultation Consultation Note: Renal consult for JUANITA on CKD This is a 68 year old gentleman with history of 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 Pt seen and examined at the bedside. Reports N/V and diarreha intermittently for 3 months. Isidoro any abd pain. No post void residual noted by nurse today. on IVF. Denies any sob, cp, fever, chills. No N/V or diarrhea noted today. PMhx: as above Allergies: NKDA Family Hx: NC Social Hx: No T/A/D ROS: as per HPI, all other pertinent ros negative Home Medications Medication Instructions Recorded Fluticasone Propionate [24 Hour 15.8 ml NS DAILY 12/15/18 Allergy Relief] Pantoprazole Sodium [Protonix] 40 mg PO DAILY 12/15/18 Albuterol Sulfate [Ventolin -] 2 mg IN QID 12/16/18 Alfuzosin HCl [Uroxatral] 10 mg PO DAILY 12/16/18 Ammonium Lactate Cream [Lac-Hydrin 1 applic TP DAILY 12/16/18 12% Cream -] Ascorbic Acid [Vitamin C] 500 mg PO DAILY 12/16/18 Aspirin [Aspirin EC] 81 mg PO DAILY 12/16/18 Carvedilol [Coreg -] 3.125 mg PO BID 12/16/18 Cod Liver Oil/Zinc Oxide [Desitin 28 gm TP DAILY 12/16/18 Diaper Rash 40% Paste] Cyclobenzaprine HCl [Amrix] 30 mg PO DAILY 12/16/18 Diclofenac Sodium [Voltaren] 100 gm TP TID 12/16/18 Fluticasone/Salmeterol [Advair 1 each IH BID 12/16/18 250-50 Diskus] Gabapentin [Neurontin] 300 mg PO BID 12/16/18 Ketoconazole 2% Shampoo [Nizoral 1 applic TP DAILY 12/16/18 2% Shampoo -] Levothyroxine [Synthroid -] 50 mcg PO DAILY 12/16/18 Loperamide HCl [Imodium -] 2 mg PO QID PRN 12/16/18 Meclizine HCl 25 mg PO DAILY 12/16/18 Metformin HCl [Glucophage] 1,000 mg PO BID 12/16/18 Metoclopramide HCl [Reglan -] 10 mg PO TID 12/16/18 Multivitamin [One-Daily 1 each PO DAILY 12/16/18 Multi-Vitamin] Niacin*ER* [Niaspan 1,000 mg PO DAILY 12/16/18 (Non-Formulary) -] Paroxetine HCl [Paxil] 40 mg PO DAILY 12/16/18 Pramipexole Dihydrochloride 1.5 mg PO TID 12/16/18 [Mirapex -] Ranolazine [Ranexa] 1,000 mg PO BID 12/16/18 Rosuvastatin Calcium [Crestor] 5 mg PO DAILY 12/16/18 Sennosides [Senokot] 8.6 mg PO DAILY 12/16/18 Silver Sulfadiazine 1% Top Cr 1 applic TP DAILY 12/16/18 [Silvadene -] Sitagliptin Phosphate [Januvia] 100 mg PO DAILY 12/16/18 Tamsulosin HCl [Flomax -] 0.4 mg PO DAILY 12/16/18 Furosemide [Lasix] 40 mg PO DAILY #30 tablet 12/19/18 Vital Signs Temperature 98.3 F 12/31/18 09:00 Pulse Rate 87 12/31/18 09:00 Respiratory Rate 18 12/31/18 09:00 Blood Pressure 104/66 12/31/18 09:00 O2 Sat by Pulse Oximetry (%) 97 12/30/18 23:00 Intake & Output 12/28/18 12/29/18 12/30/18 12/31/18 23:59 23:59 23:59 23:59 Intake Total 1000 Output Total 10 Balance -10 1000 Weight 136.078 kg NAD awake and alert neck supple, no JVD RRR, no M/R CTA, no rales or wheeze soft NT/ND no LE edema, clubbing or cyanosis CBC, BMP 12/31/18 07:20 12/31/18 07:20 Laboratory Tests 09/01/18 09/02/18 09/03/18 06:25 06:35 06:00 Calcium 8.9 8.6 8.6 Phosphorus 3.5 3.6 Magnesium 1.8 1.7 L Albumin 3.5 09/05/18 12/31/18 06:20 07:20 Calcium 8.3 L 8.0 L Phosphorus 3.8 4.7 Magnesium 1.4 L 1.6 L Albumin 3.6 Current Medications Acetaminophen (Tylenol -) 650 mg PO Q6H PRN PRN Reason: HEADACHE Last Admin: 12/30/18 22:06 Dose: 650 mg Ascorbic Acid (Vitamin C -) 500 mg PO DAILY [facility] Aspirin (Ecotrin -) 81 mg PO DAILY [facility] Budesonide/Formoterol Fumarate (Symbicort 80/4.5mcg -) 2 puff IH BID [facility] Last Admin: 12/30/18 22:12 Dose: 2 puff Carvedilol (Coreg -) 3.125 mg PO BID [facility] Last Admin: 12/30/18 22:14 Dose: 3.125 mg Fluticasone Propionate (Flonase -) 2 spray NS DAILY [facility] Gabapentin (Neurontin -) 300 mg PO BID [facility] Last Admin: 12/30/18 22:14 Dose: 300 mg Heparin Sodium (Porcine) (Heparin -) 5,000 unit SQ TID [facility] Last Admin: 12/31/18 07:00 Dose: 5,000 unit Sodium Chloride (Normal Saline -) 1,000 mls @ 0 mls/hr IV ASDIR [facility] Last Admin: 12/30/18 12:38 Dose: 1,000 mls/hr Sodium Chloride (Normal Saline -) 1,000 mls @ 100 mls/hr IV ASDIR [facility] Last Admin: 12/30/18 22:07 Dose: 100 mls/hr Ceftriaxone Sodium 1 gm/ (Dextrose) 50 mls @ 100 mls/hr IVPB DAILY [facility]; Protocol Metronidazole (Flagyl 250mg Premixed Ivpb -) 250 mg in 50 mls @ 50 mls/hr IVPB Q8H-IV [facility] Last Admin: 12/31/18 02:55 Dose: 50 mls/hr Insulin Aspart (Novolog Vial Sliding Scale -) 1 vial SQ ACHS [facility]; Protocol Last Admin: 12/31/18 07:01 Dose: Not Given Ketoconazole (Nizoral 2% Shampoo -) 1 applic TP DAILY [facility] Lactic Acid (Lac-Hydrin 12) 1 applic TP DAILY [facility] Levothyroxine Sodium (Synthroid -) 50 mcg PO DAILY@0700 [facility] Last Admin: 12/31/18 07:01 Dose: 50 mcg Meclizine HCl (Antivert -) 25 mg PO DAILY [facility] Non-Formulary Medication (Cyclobenzaprine Hcl [Amrix]) 30 mg PO DAILY [facility] Pantoprazole Sodium (Protonix -) 40 mg PO DAILY [facility] Paroxetine HCl (Paxil -) 40 mg PO DAILY [facility] Pramipexole Dihydrochloride (Mirapex -) 1.5 mg PO TID [facility] Last Admin: 12/31/18 07:01 Dose: 1.5 mg Ranolazine (Ranexa -) 1,000 mg PO BID [facility] Last Admin: 12/30/18 22:15 Dose: 1,000 mg Rosuvastatin Calcium (Crestor -) 5 mg PO DAILY [facility] Silver Sulfadiazine (Silvadene -) 1 applic TP DAILY [facility] Tamsulosin HCl (Flomax -) 0.4 mg PO HS [facility] Last Admin: 12/30/18 22:15 Dose: 0.4 mg Zinc Oxide (Desitin Diaper Rash Oint -) 1 applic TP DAILY [facility] 68 year old gentleman with history of 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 1. Acute kidney injury from volume depletion vs. ATN vs. AIN 2. Nausea/Vomiting/Diarrhea 3. Anemia 4. Non-obstructing kidney stone 5. Diastolic HF 6. Hypomagnesemia Check urine studies for FeNa, FeUrea, UPCR, Urine Eosinphils CT of Abd showed no signs of acute obstruction no further renal imaging needed at this time hold Lasix and give aggressive IVF hydration with NS at 125cc per hour [place] placement for strict I and O no emergent indication for [employer] Dose all meds for CrCl < 15 Continue empiric antibiotics as per primary team Supplement Mg with IV mg sulfate 2g Trend H/H, check iron studies Thank you Isma Hirsch DO
[2018-12-31] MEDS: SODIUM CHLORIDE 1,000 ML IV SCH (12:22)
[2018-12-31] MEDS: FLUTICASONE PROP 0.05% 16 GM NASAL SPRAY NS SCH (12:23)
[2018-12-31] MEDS: AMMONIUM LACTATE 12% LOTION 225 GM BOTTLE TP SCH (12:28)
[2018-12-31] MEDS: SILVER SULFADIAZINE 1% TOP CREAM 400 GM JAR TP SCH (12:29)
[2018-12-31] MEDS: KETOCONAZOLE 2 % SHAMPOO 120 ML BOTTLE TP SCH (12:29)
--- NOTE | 2018-12-31 13:03 | PN ---
Physical Exam: SUBJECTIVE: Patient seen and examined, had soriano removed yesterday due to pain. No nausea, vomiting or diarrhea noted. OBJECTIVE: Vital Signs Period Temp Pulse Resp BP Sys/Mejia Pulse Ox Last 24 Hr 97.8 F-98.3 F 75-97 18-20 104-124/55-67 96-99 Intake & Output 12/28/18 12/29/18 12/30/18 12/31/18 23:59 23:59 23:59 23:59 Intake Total 1000 Output Total 10 Balance -10 1000 Weight 300 lb GENERAL: sitting in bed in no acute distress Neck: soft, supple, no JVD Chest: limited by body habitus, no rales or wheezing Abdomen:soft, obese, mild LLQ tenderness, no suprapubic or CVA tenderness, pos bowel sounds Extremities: no edema Neuro: AAOx3, UE 2-3/5, LE 0/5, unchanged exam Laboratory Results - last 24 hr 12/30/18 12/30/18 12/30/18 11:56 14:00 22:05 WBC RBC Hgb Hct MCV MCH MCHC RDW Plt Count MPV Absolute Neuts (auto) Neutrophils % Neutrophils % (Manual) 94.9 H Band Neutrophils % 0.0 Lymphocytes % Lymphocytes % (Manual) 5.1 L Monocytes % Monocytes % (Manual) 0 L Eosinophils % Eosinophils % (Manual) 0.0 Basophils % Basophils % (Manual) 0.0 Myelocytes % (Man) 0 Promyelocytes % (Man) 0 Blast Cells % (Manual) 0 Nucleated RBC % Metamyelocytes 0 Hypochromia 0 Platelet Estimate Decreased Polychromasia 0 Poikilocytosis 0 Anisocytosis 1+ Microcytosis 1+ Macrocytosis 0 Sodium Potassium Chloride Carbon Dioxide Anion Gap BUN Creatinine Est GFR (CKD-EPI)AfAm Est GFR (CKD-EPI)NonAf POC Glucometer 120 Random Glucose Calcium Phosphorus Magnesium Total Bilirubin AST ALT Alkaline Phosphatase Total Protein Albumin TSH Urine Color Dk yellow Urine Appearance Turbid Urine pH 5.0 Ur Specific [place] 1.024 Urine Protein Trace Urine Glucose (UA) Negative Urine Ketones Trace H Urine Blood Negative Urine Nitrite Positive H Urine Bilirubin 1+ H Urine Urobilinogen 1.0 Ur Leukocyte Esterase 1+ H Urine WBC (Auto) 1 Urine RBC (Auto) 2 Urine Casts (Auto) 17 U Epithel Cells (Auto) 11.2 12/31/18 12/31/18 12/31/18 06:59 07:20 07:20 WBC 9.8 RBC 2.89 L Hgb 9.5 L Hct 26.5 L D MCV 91.8 MCH 33.0 MCHC 36.0 H RDW 12.9 Plt Count 126 L MPV 7.6 Absolute Neuts (auto) 7.3 Neutrophils % 73.9 Neutrophils % (Manual) Band Neutrophils % Lymphocytes % 16.9 D Lymphocytes % (Manual) Monocytes % 7.4 D Monocytes % (Manual) Eosinophils % 1.3 D Eosinophils % (Manual) Basophils % 0.5 Basophils % (Manual) Myelocytes % (Man) Promyelocytes % (Man) Blast Cells % (Manual) Nucleated RBC % 0 Metamyelocytes Hypochromia Platelet Estimate Polychromasia Poikilocytosis Anisocytosis Microcytosis Macrocytosis Sodium 136 Potassium 3.7 Chloride 99 Carbon Dioxide 25 Anion Gap 12 BUN 38.2 H Creatinine 4.5 H Est GFR (CKD-EPI)AfAm 14.38 Est GFR (CKD-EPI)NonAf 12.41 POC Glucometer 114 Random Glucose 114 H Calcium 8.0 L Phosphorus 4.7 Magnesium 1.6 L Total Bilirubin 0.3 AST 9 L ALT 14 Alkaline Phosphatase 41 L Total Protein 5.5 L Albumin 3.4 TSH 2.03 D Urine Color Urine Appearance Urine pH Ur Specific [place] Urine Protein Urine Glucose (UA) Urine Ketones Urine Blood Urine Nitrite Urine Bilirubin Urine Urobilinogen Ur Leukocyte Esterase Urine WBC (Auto) Urine RBC (Auto) Urine Casts (Auto) U Epithel Cells (Auto) 12/31/18 12:24 WBC RBC Hgb Hct MCV MCH MCHC RDW Plt Count MPV Absolute Neuts (auto) Neutrophils % Neutrophils % (Manual) Band Neutrophils % Lymphocytes % Lymphocytes % (Manual) Monocytes % Monocytes % (Manual) Eosinophils % Eosinophils % (Manual) Basophils % Basophils % (Manual) Myelocytes % (Man) Promyelocytes % (Man) Blast Cells % (Manual) Nucleated RBC % Metamyelocytes Hypochromia Platelet Estimate Polychromasia Poikilocytosis Anisocytosis Microcytosis Macrocytosis Sodium Potassium Chloride Carbon Dioxide Anion Gap BUN Creatinine Est GFR (CKD-EPI)AfAm Est GFR (CKD-EPI)NonAf POC Glucometer 133 Random Glucose Calcium Phosphorus Magnesium Total Bilirubin AST ALT Alkaline Phosphatase Total Protein Albumin TSH Urine Color Urine Appearance Urine pH Ur Specific [place] Urine Protein Urine Glucose (UA) Urine Ketones Urine Blood Urine Nitrite Urine Bilirubin Urine Urobilinogen Ur Leukocyte Esterase Urine WBC (Auto) Urine RBC (Auto) Urine Casts (Auto) U Epithel Cells (Auto) Active Medications Home Medications Medication Instructions Recorded Fluticasone Propionate [24 Hour 15.8 ml NS DAILY 12/15/18 Allergy Relief] Pantoprazole Sodium [Protonix] 40 mg PO DAILY 12/15/18 Albuterol Sulfate [Ventolin -] 2 mg IN QID 12/16/18 Alfuzosin HCl [Uroxatral] 10 mg PO DAILY 12/16/18 Ammonium Lactate Cream [Lac-Hydrin 1 applic TP DAILY 12/16/18 12% Cream -] Ascorbic Acid [Vitamin C] 500 mg PO DAILY 12/16/18 Aspirin [Aspirin EC] 81 mg PO DAILY 12/16/18 Carvedilol [Coreg -] 3.125 mg PO BID 12/16/18 Cod Liver Oil/Zinc Oxide [Desitin 28 gm TP DAILY 12/16/18 Diaper Rash 40% Paste] Cyclobenzaprine HCl [Amrix] 30 mg PO DAILY 12/16/18 Diclofenac Sodium [Voltaren] 100 gm TP TID 12/16/18 Fluticasone/Salmeterol [Advair 1 each IH BID 12/16/18 250-50 Diskus] Gabapentin [Neurontin] 300 mg PO BID 12/16/18 Ketoconazole 2% Shampoo [Nizoral 1 applic TP DAILY 12/16/18 2% Shampoo -] Levothyroxine [Synthroid -] 50 mcg PO DAILY 12/16/18 Loperamide HCl [Imodium -] 2 mg PO QID PRN 12/16/18 Meclizine HCl 25 mg PO DAILY 12/16/18 Metformin HCl [Glucophage] 1,000 mg PO BID 12/16/18 Metoclopramide HCl [Reglan -] 10 mg PO TID 12/16/18 Multivitamin [One-Daily 1 each PO DAILY 12/16/18 Multi-Vitamin] Niacin*ER* [Niaspan 1,000 mg PO DAILY 12/16/18 (Non-Formulary) -] Paroxetine HCl [Paxil] 40 mg PO DAILY 12/16/18 Pramipexole Dihydrochloride 1.5 mg PO TID 12/16/18 [Mirapex -] Ranolazine [Ranexa] 1,000 mg PO BID 12/16/18 Rosuvastatin Calcium [Crestor] 5 mg PO DAILY 12/16/18 Sennosides [Senokot] 8.6 mg PO DAILY 12/16/18 Silver Sulfadiazine 1% Top Cr 1 applic TP DAILY 12/16/18 [Silvadene -] Sitagliptin Phosphate [Januvia] 100 mg PO DAILY 12/16/18 Tamsulosin HCl [Flomax -] 0.4 mg PO DAILY 12/16/18 Furosemide [Lasix] 40 mg PO DAILY #30 tablet 12/19/18 Generic Name Dose Route Start Last Admin Trade Name Freq PRN Reason Stop Dose Admin Acetaminophen 650 mg 12/30/18 17:16 12/30/18 22:06 Tylenol - PO 650 mg Q6H PRN Administration HEADACHE Ascorbic Acid 500 mg 12/31/18 10:00 12/31/18 10:24 Vitamin C - PO 500 mg DAILY VIVIANE Administration Aspirin 81 mg 12/31/18 10:00 12/31/18 10:24 Ecotrin - PO 81 mg DAILY VIVIANE Administration Budesonide/Formoterol Fumarate 2 puff 12/30/18 22:00 12/31/18 10:25 Symbicort 80/4.5mcg - IH 2 puff BID VIVIANE Administration Carvedilol 3.125 mg 12/30/18 22:00 12/31/18 10:24 Coreg - PO 3.125 mg BID VIVIANE Administration Fluticasone Propionate 2 spray 12/31/18 10:00 12/31/18 12:23 Flonase - NS 2 sprays DAILY VIVIANE Administration Gabapentin 300 mg 12/30/18 22:00 12/31/18 10:24 Neurontin - PO 300 mg BID VIVIANE Administration Heparin Sodium (Porcine) 5,000 unit 12/30/18 22:00 12/31/18 07:00 Heparin - SQ 5,000 unit TID VIVIANE Administration Ceftriaxone Sodium 1 gm/ 50 mls @ 100 mls/hr 12/31/18 10:00 12/31/18 10:21 Dextrose IVPB 100 mls/hr DAILY VIVIANE Administration Protocol Sodium Chloride 1,000 mls @ 125 mls/hr 12/31/18 10:55 12/31/18 12:22 Normal Saline - IV 125 mls/hr ASDIR VIVIANE Administration Metronidazole 500 mg in 100 mls @ 100 mls/hr 12/31/18 18:00 Flagyl 500mg Premixed Ivpb - IVPB Q8H-IV VIVIANE Insulin Aspart 1 vial 12/30/18 22:00 12/31/18 12:26 Novolog Vial Sliding Scale - SQ Not Given ACHS [facility] Protocol Ketoconazole 1 applic 12/31/18 10:00 12/31/18 12:29 Nizoral 2% Shampoo - TP Not Given DAILY VIVIANE Lactic Acid 1 applic 12/31/18 10:00 12/31/18 12:28 Lac-Hydrin 12 TP 1 applic DAILY VIVIANE Administration Levothyroxine Sodium 50 mcg 12/31/18 07:00 12/31/18 07:01 Synthroid - PO 50 mcg DAILY@0700 VIVIANE Administration Lidocaine HCl 1 applic 12/31/18 12:45 Xylocaine 2% Jelly TP DAILY VIVIANE Meclizine HCl 25 mg 12/31/18 10:00 12/31/18 10:24 Antivert - PO 25 mg DAILY VIVIANE Administration Non-Formulary Medication 30 mg 12/31/18 10:00 Cyclobenzaprine Hcl [Amrix] PO DAILY VIVIANE Pantoprazole Sodium 40 mg 12/31/18 10:00 12/31/18 10:24 Protonix - PO 40 mg DAILY VIVIANE Administration Paroxetine HCl 40 mg 12/31/18 10:00 12/31/18 10:25 Paxil - PO 40 mg DAILY VIVIANE Administration Pramipexole Dihydrochloride 1.5 mg 12/30/18 22:00 12/31/18 07:01 Mirapex - PO 1.5 mg TID VIVIANE Administration Ranolazine 1,000 mg 12/30/18 22:00 12/31/18 10:24 Ranexa - PO 1,000 mg BID VIVIANE Administration Rosuvastatin Calcium 5 mg 12/31/18 10:00 12/31/18 10:24 Crestor - PO 5 mg DAILY VIVIANE Administration Silver Sulfadiazine 1 applic 12/31/18 10:00 12/31/18 12:29 Silvadene - TP Not Given DAILY VIVIANE Tamsulosin HCl 0.4 mg 12/30/18 22:00 12/30/18 22:15 Flomax - PO 0.4 mg HS VIVIANE Administration Zinc Oxide 1 applic 12/31/18 10:00 Desitin Diaper Rash Oint - TP DAILY [facility]IVIANE CT A/p results reviewed ASSESSMENT/PLAN: 68 yom with PMHx vertigo, NIDDM, depression, prostate ca, kidney ca, BPH, COPD, HTN, HLD, quadriparesis-cervical spine injury and morbid obesity, recently admitted with dehydration/JUANITA/Hyperkalemia/vertigo, admitted with nausea/ vomiting/?diarrhea, poor oral intake, JUANITA. -Suspected acute sigmoid diverticulitis -Diarrhea, ?overflow from chronic constipation, less likely C difficile -JUANITA, suspect hypovolumia+/- ATN, r/o obstruction given h/o neurogenic bladder and thickened bladder wall on CT -?Acute complicated cystitis vs chronic bladder wall thickening from intermittent obstruction -Leucocytosis, from above+/-hemoconcentration -NIDDM -C spine injury with quadriparesis -H/o prostate cancer -BPH -BPPV -H/o kidney cancer -COPD -HTN -HLD -Chronic LE edema Plan: Ceftriaxone/Flagyl day 2, blood cultures. Stool studies if recurrent symptoms. Normal amount of stool in colon, ?overflow diarrhea. Hold off on laxatives for now GI consult. Supportive treatment with zofran. patient declined soriano, agreable, [id number]. Renal input noted. Follow up urine studies. IVF, soriano, strict I/os, monitor renal function. Urine studies. Urine cx noted. Ua not clearly suggestive of infection. Monitor for now. Continue flomax/alfuzocin. Hold lasix. Hold metformin/sitagliptin. ISS, diabetic diet. Continue ASA/statin/ranexa/coreg/paxil/PPI/gabapentin/Pramipexole. DVTPPX heparin PT eval for ROM exercises. Dispo pending clinical improvement. Discussed with patient and nursing in detail, all questions answered. Visit type - Emergency Visit Emergency Visit: Yes ED Registration Date: 12/30/18 Care time: The patient presented to the Emergency Department on the above date and was hospitalized for further evaluation of their emergent condition. - New Patient This patient is new to me today: No - Critical Care Critical Care patient: No - Discharge Referral Referred to [facility] No
[2018-12-31] MEDS: LIDOCAINE HCL 2% JELLY (30 ML/TUBE) TP SCH (13:30)
[2018-12-31] MEDS: COD LIVER OIL/ZINC OXIDE PASTE 56 GM TUBE TP SCH (13:30)
[2018-12-31] MEDS: ACETAMINOPHEN 325 MG TABLET (FP) PO PRN (13:37)
--- NOTE | 2018-12-31 15:28 | CONS ---
GASTROINTESTINAL CONSULTATION DATE OF CONSULTATION: DATE OF DICTATION: 12/31/2018 HISTORY OF PRESENT ILLNESS: The patient is a 68-year-old man with a past medical history of vertigo, diabetes, depression, prostate cancer, kidney cancer, BPH, COPD, hypertension, hyperlipidemia, quadriparesis secondary to cervical spine injury, morbid obesity, who was recently admitted with acute kidney injury. He now presents back to the hospital with complaints of nausea, and vomiting, as well as diarrhea. He states he has noticed watery stools for the past couple of weeks and denies seeing any blood, melena or mucus. He denies abdominal pain. He is unclear if he has been started on any new medications. Denies sick contacts. He has been able to tolerate some p.o. intake; however, not as much as he feels he should be taking. His last colonoscopy was over 5 years ago, reported to be normal. He has not had an upper endoscopy. He does admit to some chills, but denies any fever. PAST MEDICAL AND SURGICAL HISTORY: As listed in the HPI with the addition of an implanted pain pump, nerve stimulator, right TKR, right hip replacement, and right elbow surgery. SOCIAL HISTORY: Does not drink or use drugs. He is an ex-smoker; quit smoking over 10 years ago. HOME MEDICATIONS: Reviewed. FAMILY HISTORY: Denies GI or gynecological malignancy. REVIEW OF SYSTEMS: As per the HPI. PHYSICAL EXAMINATION: Vital Signs: Temperature 98, pulse 87, respiratory rate 12, blood pressure 117/59, pulse oximetry 97% on room air. General: No acute distress. HEENT: Anicteric sclera. Cardiovascular: S1, S2. Regular rate and rhythm. Lungs: Bilaterally clear to auscultation. Abdomen: Soft. Obese. Nontender. Extremities: No edema. LABORATORIES: White blood cell count on admission 16, currently 9.8, hemoglobin 9.5 and hematocrit 26, was 11.2 and 32, MCV 91, platelet count 126. Chemistry: Sodium 136, potassium 3.7, BUN 38, creatinine 4.5, glucose 114, total bilirubin 0.3, AST 9, ALT 14, alkaline phosphatase 41. Urine: 1+ leukocyte esterase. He had an abdomen and pelvis CT scan without contrast which revealed a nodule in the right lower lobe measuring 2 mm, overdistended gallbladder without gross intraluminal stones or wall thickening, 8-mm, nonobstructing renal stone, right renal simple cyst, low adrenal attenuation nodule likely an adenoma slightly increased in size from previous exam, no small-bowel obstruction; there is thickening of the distal sigmoid colon wall down to the rectosigmoid junction, thickening of the urinary bladder wall likely due to underdistention, cystitis could not be excluded. IMPRESSION: Nausea, vomiting, diarrhea. Most likely secondary to an infectious etiology. The imaging findings on the noncontrast study reveal thickening of the left side of the colon, and underdistention of the bladder, as well as some distention of the gallbladder without any stones. RECOMMENDATIONS: Follow up stool cultures and blood cultures which are pending. Will check his stool for C difficile, ova and parasite, and leukocytes. He is currently on antibiotics which can be continued. Would recommend a full liquid diet and advance as tolerated to a low-residue, lactose-free diet. Also, an MRI/MRCP can be done for further evaluation of his biliary tree and questionable distention of the gallbladder. If his symptoms do not improve, he would benefit from a diagnostic colonoscopy with biopsy. For now, however, would treat him conservatively and follow up his stool studies to rule out an underlying infectious process. Antiemetics. Gentle hydration and PPI. DO BENJAMIN EDMONDSON/[id number]
[2018-12-31 20:17] LABS: RATIO URIN PROTEIN/URIN CREAT 4.3 MG/DL
[2018-12-31] MEDS ORDERED: PT OWN MED DRAWER 7, Y5N ONE (21:53)
[2018-12-31] MEDS: TAMSULOSIN HCL 0.4 MG CAP PO SCH (22:06)
[2019-01-01] MEDS: SODIUM CHLORIDE 1,000 ML IV SCH ×2 (02:36→12:16)
[2019-01-01] MEDS: PRAMIPEXOLE DIHYDROCHLORIDE 1.5 MG TABLET PO SCH ×3 (05:55→23:24)
[2019-01-01] MEDS: HEPARIN NA (PORCINE) 5,000 UNITS/ML 1ML VIAL SQ SCH ×3 (05:56→23:23)
[2019-01-01] MEDS: INSULIN SLIDING SCALE (NOVOLOG) 1 VIAL SQ SCH ×4 (06:09→23:25)
[2019-01-01] MEDS: LEVOTHYROXINE NA 50 MCG TABLET (FP) PO SCH (06:09)
[2019-01-01 07:59] LABS: BASO % 0.6 % (0-2.0); EOS % 4.1 % (0-4.5); HEMATOCRIT 29.1 % (35.4-49); HEMOGLOBIN 10.5 GM/dL (11.7-16.9); LYMPH % 17.3 % (8-40); MCH 32.8 pg (25.7-33.7); MEAN CELL VOLUME 91.2 fl (80-96); MONO % 6.7 % (3.8-10.2); NEUT % 71.3 % (42.8-82.8); PLATELET COUNT 130 K/MM3 (134-434); RBC 3.19 M/mm3 (4.00-5.60); RDW 13.3 % (11.9-15.9)
--- NOTE | 2019-01-01 08:12 | PN.GI ---
GI Progress Note Subjective: STILL WITH NAUSEA TODAY - DID NOT VOMIT , NO DIARRHEA , DENIES ABDOMINAL PAIN - Objective Vital Signs: Vital Signs Temperature 97.6 F 01/01/19 06:00 Pulse Rate 85 01/01/19 06:00 Respiratory Rate 20 01/01/19 06:00 Blood Pressure 121/73 01/01/19 06:00 O2 Sat by Pulse Oximetry (%) 97 12/31/18 21:00 Constitutional: Well Nourished, No Distress, Calm Eyes: Yes: WNL HENT: Yes: WNL Neck: Yes: WNL Cardiovascular: Yes: WNL, Regular Rate and Rhythm Respiratory: Yes: WNL, Regular, CTA Bilaterally Gastrointestinal Inspection: Yes: WNL ...Auscultate: Yes: Normoactive Bowel Sounds ...Percussion: Yes: Other (OBESE) Musculoskeletal: Yes: WNL Extremities: Yes: WNL Edema: No Problem List - Problems (1) JUANITA (acute kidney injury) Assessment/Plan: NAUSEA IS MULTIFACTORIAL CONTRIBUTING FACTORS INCLUDE JUANITA / UNDERLYING INFECTIOUS ETIOLOGY -C/W ZOFRAN WILL CHANGE TO ATC FOR SYMPTOM RELIEF - PPI - ABX FOR UTI - ONCE THE ACUTE PROCESS RESOLVES HE WOULD BENEFIT FROM AN ENDOSCOPIC EVALUATION IF HIS SYMPTOMS OF NAUSEA PERSIST ABD CT ( NON CONTRAST) WELL ULTRASOUND DO NOT REVEAL BILIARY ISSUE Code(s): N17.9 - ACUTE KIDNEY FAILURE, UNSPECIFIED (2) Diarrhea Code(s): R19.7 - DIARRHEA, UNSPECIFIED (3) Nausea & vomiting Code(s): R11.2 - NAUSEA WITH VOMITING, UNSPECIFIED
[2019-01-01 08:47] LABS: ALBUMIN 3.5 g/dl (3.4-5.0); BILIRUBIN,TOTAL 0.4 mg/dL (0.2-1); BLOOD UREA NITROGEN 39.6 mg/dL (7-18); CREATININE 5.1 mg/dL (0.55-1.3); MAGNESIUM 1.6 mg/dL (1.8-2.4); PHOSPHOROUS 5.3 mg/dL (2.5-4.9); POTASSIUM 3.7 mmol/L (3.5-5.1); URIC ACID 12.4 mg/dL (2.6-7.2)
[2019-01-01] MEDS ORDERED: RANOLAZINE E.R. 500 MG TABLET (FP) ONE ×2 (09:30→23:04)
[2019-01-01] MEDS ORDERED: DEXTROSE 5%-WATER - 50 ML IVPB ONE (09:31)
[2019-01-01] MEDS ORDERED: cefTRIAXone SODIUM 1 GM VIAL ONE (09:31)
--- NOTE | 2019-01-01 10:51 | PN ---
Progress Note (short form) - Note Progress Note: Renal follow up for JUANITA on CKD Pt seen and examined at the bedside awake and alert reports some Nausea but no emesis no abd pain, chest pain, fever or chills Vital Signs Temperature 97.6 F 01/01/19 06:00 Pulse Rate 85 01/01/19 06:00 Respiratory Rate 20 01/01/19 06:00 Blood Pressure 121/73 01/01/19 06:00 O2 Sat by Pulse Oximetry (%) 97 12/31/18 21:00 Intake & Output 12/29/18 12/30/18 12/31/18 01/01/19 23:59 23:59 23:59 23:59 Intake Total 2325 1075 Output Total 10 45 Balance -10 2280 1075 Weight 136.078 kg NAD awake and alert neck supple, no JVD RRR, no M/R CTA, no rales or wheeze soft NT/ND trace edema CBC, BMP 01/01/19 07:32 01/01/19 07:32 Current Medications Acetaminophen (Tylenol -) 650 mg PO Q6H PRN PRN Reason: HEADACHE Last Admin: 12/31/18 13:37 Dose: 650 mg Ascorbic Acid (Vitamin C -) 500 mg PO DAILY [facility] Last Admin: 12/31/18 10:24 Dose: 500 mg Aspirin (Ecotrin -) 81 mg PO DAILY [facility] Last Admin: 12/31/18 10:24 Dose: 81 mg Budesonide/Formoterol Fumarate (Symbicort 80/4.5mcg -) 2 puff IH BID [facility] Last Admin: 12/31/18 22:07 Dose: 2 puff Carvedilol (Coreg -) 3.125 mg PO BID [facility] Last Admin: 12/31/18 22:06 Dose: 3.125 mg Fluticasone Propionate (Flonase -) 2 spray NS DAILY [facility] Last Admin: 12/31/18 12:23 Dose: 2 sprays Gabapentin (Neurontin -) 300 mg PO BID [facility] Last Admin: 12/31/18 22:05 Dose: 300 mg Heparin Sodium (Porcine) (Heparin -) 5,000 unit SQ TID [facility] Last Admin: 01/01/19 05:56 Dose: 5,000 unit Ceftriaxone Sodium 1 gm/ (Dextrose) 50 mls @ 100 mls/hr IVPB DAILY [facility]; Protocol Last Admin: 12/31/18 10:21 Dose: 100 mls/hr Sodium Chloride (Normal Saline -) 1,000 mls @ 125 mls/hr IV ASDIR [facility] Last Admin: 01/01/19 02:36 Dose: 125 mls/hr Metronidazole (Flagyl 500mg Premixed Ivpb -) 500 mg in 100 mls @ 100 mls/hr IVPB Q8H-IV [facility]IVIANE Last Admin: 01/01/19 02:36 Dose: 100 mls/hr Insulin Aspart (Novolog Vial Sliding Scale -) 1 vial SQ ACHS [facility]; Protocol Last Admin: 01/01/19 06:09 Dose: Not Given Ketoconazole (Nizoral 2% Shampoo -) 1 applic TP DAILY [facility] Last Admin: 12/31/18 12:29 Dose: Not Given Lactic Acid (Lac-Hydrin 12) 1 applic TP DAILY [facility] Last Admin: 12/31/18 12:28 Dose: 1 applic Levothyroxine Sodium (Synthroid -) 50 mcg PO DAILY@0700 [facility] Last Admin: 01/01/19 06:09 Dose: 50 mcg Lidocaine HCl (Xylocaine 2% Jelly) 1 applic TP DAILY [facility] Last Admin: 12/31/18 13:30 Dose: 1 applic Magnesium Sulfate (Magnesium Sulfate) 1 gm IVPB ONCE ONE Stop: 01/01/19 10:48 Meclizine HCl (Antivert -) 25 mg PO DAILY [facility] Last Admin: 12/31/18 10:24 Dose: 25 mg Non-Formulary Medication (Cyclobenzaprine Hcl [Amrix]) 30 mg PO DAILY [facility] Pantoprazole Sodium (Protonix -) 40 mg PO DAILY [facility] Last Admin: 12/31/18 10:24 Dose: 40 mg Paroxetine HCl (Paxil -) 40 mg PO DAILY [facility] Last Admin: 12/31/18 10:25 Dose: 40 mg Pramipexole Dihydrochloride (Mirapex -) 1.5 mg PO TID [facility] Last Admin: 01/01/19 05:55 Dose: 1.5 mg Ranolazine (Ranexa -) 1,000 mg PO BID [facility] Last Admin: 12/31/18 22:06 Dose: 1,000 mg Rosuvastatin Calcium (Crestor -) 5 mg PO DAILY [facility] Last Admin: 12/31/18 10:24 Dose: 5 mg Silver Sulfadiazine (Silvadene -) 1 applic TP DAILY [facility] Last Admin: 12/31/18 12:29 Dose: Not Given Tamsulosin HCl (Flomax -) 0.4 mg PO HS [facility] Last Admin: 12/31/18 22:06 Dose: 0.4 mg Zinc Oxide (Desitin Diaper Rash Oint -) 1 applic TP DAILY [facility] Last Admin: 12/31/18 13:30 Dose: 1 applic 68 year old gentleman with history of 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 1. Acute kidney injury from volume depletion vs AIN 2. Nausea/Vomiting/Diarrhea 3. Anemia 4. Non-obstructing kidney stone 5. Diastolic HF 6. Hypomagnesemia Renal function w/o improvement thus far Urine output is poor Urine studies consistent with volume depletion and persevered tubular function no emergent indication for APPLICATIONS INTERN at the present time CT of Abd showed no signs of acute obstruction no further renal imaging needed at this time Continue NS at 125cc per hour keep MAP > 65 [place] placement for strict I and O no emergent indication for APPLICATIONS INTERN Dose all meds for CrCl < 15 Continue empiric antibiotics as per primary team supplement Mg Thank you Isma Hirsch DO
[2019-01-01] MEDS ORDERED: PT OWN MED DRAWER 7, Y5N ONE (11:08)
[2019-01-01] MEDS: CARVEDILOL 3.125 MG TABLET (FP) PO SCH ×2 (11:17→23:22)
[2019-01-01] MEDS: PARoxetine HCL 20 MG TABLET PO SCH (11:17)
[2019-01-01] MEDS: ASCORBIC ACID 500 MG TABLET (FP) PO SCH (11:17)
[2019-01-01] MEDS: MECLIZINE HCL 25 MG TABLET (FP) PO SCH (11:17)
[2019-01-01] MEDS: PANTOPRAZOLE 40 MG TABLET (FP) PO SCH (11:17)
[2019-01-01] MEDS: ROSUVASTATIN CA 5 MG TABLET (FP) PO SCH (11:17)
[2019-01-01] MEDS: RANOLAZINE E.R. 1,000 MG TABLET (FP) PO SCH ×2 (11:18→23:26)
[2019-01-01] MEDS: GABAPENTIN 300 MG CAPSULE (FP) PO SCH ×2 (11:18→23:25)
[2019-01-01] MEDS: ASPIRIN COATED 81 MG TABLET.EC PO SCH (11:19)
[2019-01-01] MEDS: CEFTRIAXONE 1 GM in DEXTROSE 5%-WATER - 50 ML IVPB SCH (11:19)
[2019-01-01] MEDS: COD LIVER OIL/ZINC OXIDE PASTE 56 GM TUBE TP SCH (11:20)
[2019-01-01] MEDS: BUDESONIDE/FORMETEROL FUMARATE 80/4.5 mcg INHALER IH SCH ×2 (11:20→23:28)
[2019-01-01] MEDS: AMMONIUM LACTATE 12% LOTION 225 GM BOTTLE TP SCH (11:21)
[2019-01-01] MEDS: SILVER SULFADIAZINE 1% TOP CREAM 400 GM JAR TP SCH (11:21)
[2019-01-01] MEDS: LIDOCAINE HCL 2% JELLY (30 ML/TUBE) TP SCH (11:21)
[2019-01-01] MEDS: KETOCONAZOLE 2 % SHAMPOO 120 ML BOTTLE TP SCH (11:22)
[2019-01-01] MEDS: FLUTICASONE PROP 0.05% 16 GM NASAL SPRAY NS SCH (11:22)
[2019-01-01] MEDS ORDERED: MAGNESIUM SULF 50% (8.12 MEQ/2 ML-1 GM VIAL) IVPB ONE (11:30)
--- NOTE | 2019-01-01 11:41 | EKG ---
Test Reason : Blood Pressure : / mmHG Vent. Rate : 106 BPM Atrial Rate : 106 BPM P-R Int : 160 ms QRS Dur : 100 ms QT Int : 372 ms P-R-T Axes : 044 255 056 degrees QTc Int : 494 ms POOR DATA QUALITY, INTERPRETATION MAY BE ADVERSELY AFFECTED SINUS TACHYCARDIA RIGHT SUPERIOR AXIS DEVIATION RIGHT VENTRICULAR HYPERTROPHY INFERIOR INFARCT , AGE UNDETERMINED ABNORMAL ECG WHEN COMPARED WITH ECG OF 15-DEC-2018 17:48, VENT. RATE HAS INCREASED BY 37 BPM INFERIOR INFARCT IS NOW PRESENT QT HAS LENGTHENED Confirmed by MAXIMO HARVEY, CRIS ([id number]) on 01/01/2019 11:41:17 AM Referred By: Confirmed By:CRIS MARSH MD
--- NOTE | 2019-01-01 14:35 | PN ---
Physical Exam: SUBJECTIVE: Patient seen and examined, no nausea, vomiting or diarrhea. No abdominal or urinary symptoms. Taking PO. OBJECTIVE: Vital Signs Period Temp Pulse Resp BP Sys/Mejia Pulse Ox Last 24 Hr 97.6 F-98.2 F 85-91 18-20 114-138/65-73 97 Intake & Output 12/29/18 12/30/18 12/31/18 01/01/19 23:59 23:59 23:59 23:59 Intake Total 2325 1525 Output Total 10 45 Balance -10 2280 1525 Weight 300 lb GENERAL: sitting in bed in no acute distress Neck: soft, supple, no JVD Chest: limited by body habitus, no rales or wheezing Abdomen:soft, obese, minimal LLQ tenderness, no suprapubic or CVA tenderness, pos bowel sounds Extremities: no edema Neuro: AAOx3, UE 2-3/5, LE 0/5, unchanged exam Laboratory Results - last 24 hr 12/31/18 12/31/18 12/31/18 16:40 18:00 18:00 WBC RBC Hgb Hct MCV MCH MCHC RDW Plt Count MPV Absolute Neuts (auto) Neutrophils % Lymphocytes % Monocytes % Eosinophils % Basophils % Nucleated RBC % Sodium Potassium Chloride Carbon Dioxide Anion Gap BUN Creatinine Est GFR (CKD-EPI)AfAm Est GFR (CKD-EPI)NonAf POC Glucometer 137 Random Glucose Uric Acid Calcium Phosphorus Magnesium Iron TIBC Iron Saturation Unsaturated IBC Ferritin Total Bilirubin AST ALT Alkaline Phosphatase Total Protein Albumin Urine Osmolality 299 L Ur Random Creatinine U Random Total Protein Ur Random Sodium 31 L Ur Random Potassium 22.0 L Ur Random Chloride 32 L Ur Random Urea Nitrogn Urine Creatinine Protein/Creatinin Ratio 12/31/18 12/31/18 12/31/18 18:00 18:00 18:00 WBC RBC Hgb Hct MCV MCH MCHC RDW Plt Count MPV Absolute Neuts (auto) Neutrophils % Lymphocytes % Monocytes % Eosinophils % Basophils % Nucleated RBC % Sodium Potassium Chloride Carbon Dioxide Anion Gap BUN Creatinine Est GFR (CKD-EPI)AfAm Est GFR (CKD-EPI)NonAf POC Glucometer Random Glucose Uric Acid Calcium Phosphorus Magnesium Iron TIBC Iron Saturation Unsaturated IBC Ferritin Total Bilirubin AST ALT Alkaline Phosphatase Total Protein Albumin Urine Osmolality Ur Random Creatinine 97.0 U Random Total Protein Ur Random Sodium 31 L Ur Random Potassium Ur Random Chloride Ur Random Urea Nitrogn 151 L Urine Creatinine Protein/Creatinin Ratio 12/31/18 12/31/18 01/01/19 21:30 22:00 05:54 WBC RBC Hgb Hct MCV MCH MCHC RDW Plt Count MPV Absolute Neuts (auto) Neutrophils % Lymphocytes % Monocytes % Eosinophils % Basophils % Nucleated RBC % Sodium Potassium Chloride Carbon Dioxide Anion Gap BUN Creatinine Est GFR (CKD-EPI)AfAm Est GFR (CKD-EPI)NonAf POC Glucometer 114 108 Random Glucose Uric Acid Calcium Phosphorus Magnesium Iron TIBC Iron Saturation Unsaturated IBC Ferritin Total Bilirubin AST ALT Alkaline Phosphatase Total Protein Albumin Urine Osmolality Ur Random Creatinine U Random Total Protein 413.3 H Ur Random Sodium Ur Random Potassium Ur Random Chloride Ur Random Urea Nitrogn Urine Creatinine 96.0 Protein/Creatinin Ratio 4.300 01/01/19 01/01/19 01/01/19 07:32 07:32 12:13 WBC 9.0 RBC 3.19 L Hgb 10.5 L Hct 29.1 L MCV 91.2 MCH 32.8 MCHC 36.0 H RDW 13.3 Plt Count 130 L MPV 7.0 L Absolute Neuts (auto) 6.4 Neutrophils % 71.3 Lymphocytes % 17.3 Monocytes % 6.7 Eosinophils % 4.1 D Basophils % 0.6 Nucleated RBC % 0 Sodium 137 Potassium 3.7 Chloride 101 Carbon Dioxide 25 Anion Gap 11 BUN 39.6 H Creatinine 5.1 H Est GFR (CKD-EPI)AfAm 12.36 Est GFR (CKD-EPI)NonAf 10.66 POC Glucometer 121 Random Glucose 130 H Uric Acid 12.4 H Calcium 8.0 L Phosphorus 5.3 H Magnesium 1.6 L Iron 92 TIBC 185 L Iron Saturation 49 H Unsaturated IBC 93 L Ferritin 168.1 Total Bilirubin 0.4 AST 12 L ALT 11 L Alkaline Phosphatase 50 Total Protein 6.0 L Albumin 3.5 Urine Osmolality Ur Random Creatinine U Random Total Protein Ur Random Sodium Ur Random Potassium Ur Random Chloride Ur Random Urea Nitrogn Urine Creatinine Protein/Creatinin Ratio Active Medications Generic Name Dose Route Start Last Admin Trade Name Freq PRN Reason Stop Dose Admin Acetaminophen 650 mg 12/30/18 17:16 12/31/18 13:37 Tylenol - PO 650 mg Q6H PRN Administration HEADACHE Ascorbic Acid 500 mg 12/31/18 10:00 01/01/19 11:17 Vitamin C - PO 500 mg DAILY VIVIANE Administration Aspirin 81 mg 12/31/18 10:00 01/01/19 11:19 Ecotrin - PO 81 mg DAILY VIVIANE Administration Budesonide/Formoterol Fumarate 2 puff 12/30/18 22:00 01/01/19 11:20 Symbicort 80/4.5mcg - IH 2 puff BID VIVIANE Administration Carvedilol 3.125 mg 12/30/18 22:00 01/01/19 11:17 Coreg - PO 3.125 mg BID VIVIANE Administration Fluticasone Propionate 2 spray 12/31/18 10:00 01/01/19 11:22 Flonase - NS 2 sprays DAILY VIVIANE Administration Gabapentin 300 mg 12/30/18 22:00 01/01/19 11:18 Neurontin - PO 300 mg BID VIVIANE Administration Heparin Sodium (Porcine) 5,000 unit 12/30/18 22:00 01/01/19 05:56 Heparin - SQ 5,000 unit TID VIVIANE Administration Ceftriaxone Sodium 1 gm/ 50 mls @ 100 mls/hr 12/31/18 10:00 01/01/19 11:19 Dextrose IVPB 100 mls/hr DAILY [facility]IV[facility]E Administration Protocol Sodium Chloride 1,000 mls @ 125 mls/hr 12/31/18 10:55 01/01/19 02:36 Normal Saline - IV 125 mls/hr ASDIR [facility]E Administration Metronidazole 500 mg in 100 mls @ 100 mls/hr 12/31/18 18:00 01/01/19 11:19 Flagyl 500mg Premixed Ivpb - IVPB 100 mls/hr Q8H-IV [facility]IVIANE Administration Insulin Aspart 1 vial 12/30/18 22:00 01/01/19 12:15 Novolog Vial Sliding Scale - SQ Not Given ACHS [facility] Protocol Ketoconazole 1 applic 12/31/18 10:00 01/01/19 11:22 Nizoral 2% Shampoo - TP Not Given DAILY [facility]IV[facility]E Lactic Acid 1 applic 12/31/18 10:00 01/01/19 11:21 Lac-Hydrin 12 TP 1 applic DAILY [facility] Administration Levothyroxine Sodium 50 mcg 12/31/18 07:00 01/01/19 06:09 Synthroid - PO 50 mcg DAILY@0700 [facility] Administration Lidocaine HCl 1 applic 12/31/18 12:45 01/01/19 11:21 Xylocaine 2% Jelly TP 1 applic DAILY [facility] Administration Meclizine HCl 25 mg 12/31/18 10:00 01/01/19 11:17 Antivert - PO 25 mg DAILY [facility] Administration Non-Formulary Medication 30 mg 12/31/18 10:00 Cyclobenzaprine Hcl [Amrix] PO DAILY [facility] Pantoprazole Sodium 40 mg 12/31/18 10:00 01/01/19 11:17 Protonix - PO 40 mg DAILY [facility] Administration Paroxetine HCl 40 mg 12/31/18 10:00 01/01/19 11:17 Paxil - PO 40 mg DAILY [facility] Administration Pramipexole Dihydrochloride 1.5 mg 12/30/18 22:00 01/01/19 05:55 Mirapex - PO 1.5 mg TID [facility] Administration Ranolazine 1,000 mg 12/30/18 22:00 01/01/19 11:18 Ranexa - PO 1,000 mg BID [facility] Administration Rosuvastatin Calcium 5 mg 12/31/18 10:00 01/01/19 11:17 Crestor - PO 5 mg DAILY [facility] Administration Silver Sulfadiazine 1 applic 12/31/18 10:00 01/01/19 11:21 Silvadene - TP Not Given DAILY [facility] Tamsulosin HCl 0.4 mg 12/30/18 22:00 12/31/18 22:06 Flomax - PO 0.4 mg HS [facility] Administration Zinc Oxide 1 applic 12/31/18 10:00 01/01/19 11:20 Desitin Diaper Rash Oint - TP 1 applic DAILY [facility] Administration Microbiology 12/30/18 14:40 Urine - Urine - Catheterized Urine Culture - Final Escherichia Coli 12/30/18 18:12 Blood - Peripheral Venous Blood Culture - Preliminary NO GROWTH OBTAINED AFTER 24 HOURS, INCUBATION TO CONTINUE FOR 4 DAYS. 12/30/18 18:12 Blood - Peripheral Venous Blood Culture - Preliminary NO GROWTH OBTAINED AFTER 24 HOURS, INCUBATION TO CONTINUE FOR 4 DAYS. ASSESSMENT/PLAN: 68 yom with PMHx vertigo, NIDDM, depression, prostate ca, kidney ca, BPH, COPD, HTN, HLD, quadriparesis-cervical spine injury and morbid obesity, recently admitted with dehydration/JUANITA/Hyperkalemia/vertigo, admitted with nausea/ vomiting/?diarrhea, poor oral intake, JUANITA. -Suspected acute sigmoid diverticulitis -Diarrhea, ?overflow from chronic constipation, less likely C difficile -JUANITA, suspect hypovolumia+/- ATN, r/o obstruction given h/o neurogenic bladder and thickened bladder wall on CT -?Acute complicated cystitis vs chronic bladder wall thickening from intermittent obstruction -Leucocytosis, from above+/-hemoconcentration -NIDDM -C spine injury with quadriparesis -H/o prostate cancer -BPH -BPPV -H/o kidney cancer -COPD -HTN -HLD -Chronic LE edema Plan: Ceftriaxone/Flagyl day 3, blood cultures neg so far. Stool studies if recurrent symptoms. Normal amount of stool in colon, ?overflow diarrhea. Hold off on laxatives for now GI consult noted. Unclear if pain pump MRI compatible. Hold off on MRI for now. Supportive treatment with zofran. Cr rising, renal input noted. continue IVF, strict I/os, volume status monitoring. hold lasix. CT A/p reviewed. Urine cx noted. Ua not clearly suggestive of infection. Monitor for now. Continue flomax/alfuzocin. Hold metformin/sitagliptin. ISS, diabetic diet. Continue ASA/statin/ranexa/coreg/paxil/PPI/gabapentin/Pramipexole. DVTPPX heparin PT eval for ROM exercises. Dispo pending clinical improvement. Discussed with patient and nursing in detail, all questions answered. Visit type - Emergency Visit Emergency Visit: Yes ED Registration Date: 12/30/18 Care time: The patient presented to the Emergency Department on the above date and was hospitalized for further evaluation of their emergent condition. - New Patient This patient is new to me today: No - Critical Care Critical Care patient: No - Discharge Referral Referred to [facility] Med [facility].C[facility] No
[2019-01-01] MEDS: ONDANSETRON 4 MG/2 ML VIAL IVPUSH SCH ×2 (18:04→23:27)
[2019-01-01] MEDS: TAMSULOSIN HCL 0.4 MG CAP PO SCH (23:23)
[2019-01-01] MEDS: ACETAMINOPHEN 325 MG TABLET (FP) PO PRN (23:28)
[2019-01-02] MEDS ORDERED: KETOROLAC TROMETHAMINE 10 MG TABLET PO ONE (02:09)
[2019-01-02] MEDS ORDERED: ONDANSETRON 4 MG/2 ML VIAL IVPUSH PRN ×2 (05:00→15:05)
[2019-01-02] MEDS: INSULIN SLIDING SCALE (NOVOLOG) 1 VIAL SQ SCH ×4 (06:58→21:42)
[2019-01-02] MEDS: HEPARIN NA (PORCINE) 5,000 UNITS/ML 1ML VIAL SQ SCH ×3 (06:59→21:42)
[2019-01-02] MEDS: LEVOTHYROXINE NA 50 MCG TABLET (FP) PO SCH (06:59)
[2019-01-02] MEDS: PRAMIPEXOLE DIHYDROCHLORIDE 1.5 MG TABLET PO SCH ×3 (07:00→21:41)
[2019-01-02] MEDS: ONDANSETRON 4 MG/2 ML VIAL IVPUSH SCH ×2 (07:02→14:26)
[2019-01-02 08:00] LABS: BASO % 0.6 % (0-2.0); EOS % 4.7 % (0-4.5); HEMATOCRIT 26.7 % (35.4-49); HEMOGLOBIN 9.4 GM/dL (11.7-16.9); LYMPH % 17.5 % (8-40); MCH 32.6 pg (25.7-33.7); MCHC 35.4 g/dl (32.0-35.9); MEAN CELL VOLUME 92.2 fl (80-96); MEAN PLT VOLUME 7.2 fl (7.5-11.1); MONO % 8.5 % (3.8-10.2); NEUT % 68.7 % (42.8-82.8); PLATELET COUNT 122 K/MM3 (134-434); RBC 2.89 M/mm3 (4.00-5.60); RDW 13.4 % (11.9-15.9); WHITE BLOOD COUNT 6.3 K/mm3 (4.0-10.0)
[2019-01-02 08:28] LABS: ALBUMIN 3.4 g/dl (3.4-5.0); BILIRUBIN,TOTAL 0.4 mg/dL (0.2-1); CALCIUM 8.1 mg/dL (8.5-10.1); CREATININE 3.7 mg/dL (0.55-1.3); MAGNESIUM 1.7 mg/dL (1.8-2.4); PHOSPHOROUS 3.3 mg/dL (2.5-4.9); POTASSIUM 3.5 mmol/L (3.5-5.1); TOT PROT 5.6 g/dl (6.4-8.2)
[2019-01-02] MEDS ORDERED: MAGNESIUM SULF 50% (8.12 MEQ/2 ML-1 GM VIAL) IVPB ONE ×2 (09:00→14:45)
[2019-01-02] MEDS ORDERED: RANOLAZINE E.R. 500 MG TABLET (FP) ONE ×2 (11:01→21:02)
[2019-01-02] MEDS ORDERED: cefTRIAXone SODIUM 1 GM VIAL ONE (11:01)
[2019-01-02] MEDS ORDERED: DEXTROSE 5%-WATER - 50 ML IVPB ONE (11:02)
[2019-01-02] MEDS: CEFTRIAXONE 1 GM in DEXTROSE 5%-WATER - 50 ML IVPB SCH (11:07)
[2019-01-02] MEDS: FLUTICASONE PROP 0.05% 16 GM NASAL SPRAY NS SCH (11:08)
[2019-01-02] MEDS: RANOLAZINE E.R. 1,000 MG TABLET (FP) PO SCH ×2 (11:08→21:41)
[2019-01-02] MEDS: PANTOPRAZOLE 40 MG TABLET (FP) PO SCH (11:08)
[2019-01-02] MEDS: ASPIRIN COATED 81 MG TABLET.EC PO SCH (11:09)
[2019-01-02] MEDS: CARVEDILOL 3.125 MG TABLET (FP) PO SCH ×2 (11:09→21:41)
[2019-01-02] MEDS: COD LIVER OIL/ZINC OXIDE PASTE 56 GM TUBE TP SCH (11:09)
[2019-01-02] MEDS: MECLIZINE HCL 25 MG TABLET (FP) PO SCH ×3 (11:09→21:41)
[2019-01-02] MEDS: AMMONIUM LACTATE 12% LOTION 225 GM BOTTLE TP SCH (11:10)
[2019-01-02] MEDS: GABAPENTIN 300 MG CAPSULE (FP) PO SCH ×2 (11:10→21:41)
[2019-01-02] MEDS: ASCORBIC ACID 500 MG TABLET (FP) PO SCH (11:10)
[2019-01-02] MEDS: BUDESONIDE/FORMETEROL FUMARATE 80/4.5 mcg INHALER IH SCH ×2 (11:11→21:43)
[2019-01-02] MEDS: ROSUVASTATIN CA 5 MG TABLET (FP) PO SCH (11:11)
[2019-01-02] MEDS: SILVER SULFADIAZINE 1% TOP CREAM 400 GM JAR TP SCH (11:11)
[2019-01-02] MEDS: PARoxetine HCL 20 MG TABLET PO SCH (11:11)
[2019-01-02] MEDS: SODIUM CHLORIDE 1,000 ML IV SCH (11:12)
[2019-01-02] MEDS: LIDOCAINE HCL 2% JELLY (30 ML/TUBE) TP SCH (11:12)
[2019-01-02] MEDS: KETOCONAZOLE 2 % SHAMPOO 120 ML BOTTLE TP SCH (11:12)
--- NOTE | 2019-01-02 13:31 | PN ---
Teaching Attending Note Name of Resident: Jorge Pelayo ATTENDING PHYSICIAN STATEMENT I saw and evaluated the patient. I reviewed the resident's note and discussed the case with the resident. I agree with the resident's findings and plan as documented with exceptions below. SUBJECTIVE: Patient seen and examined. Still reports dizziness. No nausea/vomiting/diarrhea inhouse. Tolerating diet well, no other complaints. OBJECTIVE: Vital Signs Period Temp Pulse Resp BP Sys/Mejia Pulse Ox Last 24 Hr 98.2 F-98.4 F 64-93 18-20 94-153/59-72 95 Intake & Output 12/30/18 12/31/18 01/01/19 01/02/19 23:59 23:59 23:59 23:59 Intake Total 2325 1955 240 Output Total 10 45 1900 600 Balance -10 2280 55 -360 Weight 300 lb GENERAL: sitting in bed in no acute distress Neck: soft, supple, no JVD Chest: limited by body habitus, no rales or wheezing Abdomen:soft, obese, minimal LLQ tenderness, no suprapubic or CVA tenderness, pos bowel sounds Extremities: no edema Neuro: AAOx3, UE 2-3/5, LE 0/5, unchanged exam Home Medications Medication Instructions Recorded Fluticasone Propionate [24 Hour 15.8 ml NS DAILY 12/15/18 Allergy Relief] Pantoprazole Sodium [Protonix] 40 mg PO DAILY 12/15/18 Albuterol Sulfate [Ventolin -] 2 mg IN QID 12/16/18 Alfuzosin HCl [Uroxatral] 10 mg PO DAILY 12/16/18 Ammonium Lactate Cream [Lac-Hydrin 1 applic TP DAILY 12/16/18 12% Cream -] Ascorbic Acid [Vitamin C] 500 mg PO DAILY 12/16/18 Aspirin [Aspirin EC] 81 mg PO DAILY 12/16/18 Carvedilol [Coreg -] 3.125 mg PO BID 12/16/18 Cod Liver Oil/Zinc Oxide [Desitin 28 gm TP DAILY 12/16/18 Diaper Rash 40% Paste] Cyclobenzaprine HCl [Amrix] 30 mg PO DAILY 12/16/18 Diclofenac Sodium [Voltaren] 100 gm TP TID 12/16/18 Fluticasone/Salmeterol [Advair 1 each IH BID 12/16/18 250-50 Diskus] Gabapentin [Neurontin] 300 mg PO BID 12/16/18 Ketoconazole 2% Shampoo [Nizoral 1 applic TP DAILY 12/16/18 2% Shampoo -] Levothyroxine [Synthroid -] 50 mcg PO DAILY 12/16/18 Loperamide HCl [Imodium -] 2 mg PO QID PRN 12/16/18 Meclizine HCl 25 mg PO DAILY 12/16/18 Metformin HCl [Glucophage] 1,000 mg PO BID 12/16/18 Metoclopramide HCl [Reglan -] 10 mg PO TID 12/16/18 Multivitamin [One-Daily 1 each PO DAILY 12/16/18 Multi-Vitamin] Niacin*ER* [Niaspan 1,000 mg PO DAILY 12/16/18 (Non-Formulary) -] Paroxetine HCl [Paxil] 40 mg PO DAILY 12/16/18 Pramipexole Dihydrochloride 1.5 mg PO TID 12/16/18 [Mirapex -] Ranolazine [Ranexa] 1,000 mg PO BID 12/16/18 Rosuvastatin Calcium [Crestor] 5 mg PO DAILY 12/16/18 Sennosides [Senokot] 8.6 mg PO DAILY 12/16/18 Silver Sulfadiazine 1% Top Cr 1 applic TP DAILY 12/16/18 [Silvadene -] Sitagliptin Phosphate [Januvia] 100 mg PO DAILY 12/16/18 Tamsulosin HCl [Flomax -] 0.4 mg PO DAILY 12/16/18 Furosemide [Lasix] 40 mg PO DAILY #30 tablet 12/19/18 Active Medications Acetaminophen (Tylenol -) 650 mg PO Q6H PRN PRN Reason: HEADACHE Last Admin: 01/01/19 23:28 Dose: 650 mg Ascorbic Acid (Vitamin C -) 500 mg PO DAILY [facility] Last Admin: 01/02/19 11:10 Dose: 500 mg Aspirin (Ecotrin -) 81 mg PO DAILY [facility] Last Admin: 01/02/19 11:09 Dose: 81 mg Budesonide/Formoterol Fumarate (Symbicort 80/4.5mcg -) 2 puff IH BID [facility] Last Admin: 01/02/19 11:11 Dose: 2 puff Carvedilol (Coreg -) 3.125 mg PO BID [facility] Last Admin: 01/02/19 11:09 Dose: 3.125 mg Fluticasone Propionate (Flonase -) 2 spray NS DAILY [facility] Last Admin: 01/02/19 11:08 Dose: 2 sprays Gabapentin (Neurontin -) 300 mg PO BID [facility] Last Admin: 01/02/19 11:10 Dose: 300 mg Heparin Sodium (Porcine) (Heparin -) 5,000 unit SQ TID VIVIANE Last Admin: 01/02/19 06:59 Dose: 5,000 unit Ceftriaxone Sodium 1 gm/ (Dextrose) 50 mls @ 100 mls/hr IVPB DAILY [facility]; Protocol Last Admin: 01/02/19 11:07 Dose: 100 mls/hr Sodium Chloride (Normal Saline -) 1,000 mls @ 125 mls/hr IV ASDIR [facility] Last Admin: 01/02/19 11:12 Dose: 125 mls/hr Metronidazole (Flagyl 500mg Premixed Ivpb -) 500 mg in 100 mls @ 100 mls/hr IVPB Q8H-IV [facility] Last Admin: 01/02/19 11:07 Dose: 100 mls/hr Insulin Aspart (Novolog Vial Sliding Scale -) 1 vial SQ ACHS [facility]; Protocol Last Admin: 01/02/19 11:22 Dose: 2 unit Ketoconazole (Nizoral 2% Shampoo -) 1 applic TP DAILY [facility] Last Admin: 01/02/19 11:12 Dose: 1 applic Lactic Acid (Lac-Hydrin 12) 1 applic TP DAILY [facility] Last Admin: 01/02/19 11:10 Dose: 1 applic Levothyroxine Sodium (Synthroid -) 50 mcg PO DAILY@0700 [facility] Last Admin: 01/02/19 06:59 Dose: 50 mcg Lidocaine HCl (Xylocaine 2% Jelly) 1 applic TP DAILY [facility] Last Admin: 01/02/19 11:12 Dose: 1 applic Meclizine HCl (Antivert -) 25 mg PO TID [facility] Non-Formulary Medication (Cyclobenzaprine Hcl [Amrix]) 30 mg PO DAILY [facility] Ondansetron HCl (Zofran Injection) 4 mg IVPUSH Q8H [facility]IVIANE Stop: 01/02/19 15:01 Last Admin: 01/02/19 07:02 Dose: 4 mg Ondansetron HCl (Zofran Injection) 4 mg IVPUSH Q4H PRN PRN Reason: NAUSEA AND/OR VOMITING Pantoprazole Sodium (Protonix -) 40 mg PO DAILY [facility] Last Admin: 01/02/19 11:08 Dose: 40 mg Paroxetine HCl (Paxil -) 40 mg PO DAILY [facility] Last Admin: 01/02/19 11:11 Dose: 40 mg Pramipexole Dihydrochloride (Mirapex -) 1.5 mg PO TID [facility] Last Admin: 01/02/19 07:00 Dose: 1.5 mg Ranolazine (Ranexa -) 1,000 mg PO BID [facility] Last Admin: 01/02/19 11:08 Dose: 1,000 mg Rosuvastatin Calcium (Crestor -) 5 mg PO DAILY [facility] Last Admin: 01/02/19 11:11 Dose: 5 mg Silver Sulfadiazine (Silvadene -) 1 applic TP DAILY [facility] Last Admin: 01/02/19 11:11 Dose: 1 applic Tamsulosin HCl (Flomax -) 0.4 mg PO HS [facility] Last Admin: 01/01/19 23:23 Dose: 0.4 mg Zinc Oxide (Desitin Diaper Rash Oint -) 1 applic TP DAILY [facility] Last Admin: 01/02/19 11:09 Dose: 1 applic Laboratory Results - last 24 hr 01/01/19 01/01/19 01/02/19 18:10 23:16 06:57 WBC RBC Hgb Hct MCV MCH MCHC RDW Plt Count MPV Absolute Neuts (auto) Neutrophils % Lymphocytes % Monocytes % Eosinophils % Basophils % Nucleated RBC % Sodium Potassium Chloride Carbon Dioxide Anion Gap BUN Creatinine Est GFR (CKD-EPI)AfAm Est GFR (CKD-EPI)NonAf POC Glucometer 129 114 134 Random Glucose Calcium Phosphorus Magnesium Total Bilirubin AST ALT Alkaline Phosphatase Total Protein Albumin 01/02/19 01/02/19 01/02/19 07:00 07:00 11:21 WBC 6.3 RBC 2.89 L Hgb 9.4 L Hct 26.7 L MCV 92.2 MCH 32.6 MCHC 35.4 RDW 13.4 Plt Count 122 L MPV 7.2 L Absolute Neuts (auto) 4.3 Neutrophils % 68.7 Lymphocytes % 17.5 Monocytes % 8.5 Eosinophils % 4.7 H Basophils % 0.6 Nucleated RBC % 0 Sodium 140 Potassium 3.5 Chloride 106 Carbon Dioxide 25 Anion Gap 9 BUN 34.0 H Creatinine 3.7 H Est GFR (CKD-EPI)AfAm 18.22 Est GFR (CKD-EPI)NonAf 15.72 POC Glucometer 154 Random Glucose 131 H Calcium 8.1 L Phosphorus 3.3 Magnesium 1.7 L Total Bilirubin 0.4 AST 11 L ALT 11 L Alkaline Phosphatase 46 Total Protein 5.6 L Albumin 3.4 Microbiology 12/30/18 18:12 Blood - Peripheral Venous Blood Culture - Preliminary NO GROWTH OBTAINED AFTER 48 HOURS, INCUBATION TO CONTINUE FOR 3 DAYS. 12/30/18 18:12 Blood - Peripheral Venous Blood Culture - Preliminary NO GROWTH OBTAINED AFTER 48 HOURS, INCUBATION TO CONTINUE FOR 3 DAYS. 12/30/18 14:40 Urine - Urine - Catheterized Urine Culture - Final Escherichia Coli ASSESSMENT AND PLAN: 68 yom with PMHx vertigo, NIDDM, depression, prostate ca, kidney ca, BPH, COPD, HTN, HLD, quadriparesis-cervical spine injury and morbid obesity, recently admitted with dehydration/JUANITA/Hyperkalemia/vertigo, admitted with nausea/ vomiting/?diarrhea, poor oral intake, JUANITA. -Suspected acute sigmoid diverticulitis -Diarrhea, ?overflow from chronic constipation, less likely C difficile -JUANITA, suspect hypovolumia+/- ATN, r/o obstruction given h/o neurogenic bladder and thickened bladder wall on CT -?Acute complicated cystitis vs chronic bladder wall thickening from intermittent obstruction -Leucocytosis, from above+/-hemoconcentration -NIDDM -C spine injury with quadriparesis -H/o prostate cancer -BPH -BPPV -H/o kidney cancer -COPD -HTN -HLD -Chronic LE edema Plan: Ceftriaxone/Flagyl day 4/5, blood cultures neg so far. Stool studies if recurrent symptoms. Normal amount of stool in colon, ?Overflow diarrhea. Hold off on laxatives for now GI consult noted. Unclear if pain pump MRI compatible. Hold off on MRI for now. Supportive treatment with Zofran. Renal function starting to improve, making urine. Continue IVF, avoid nephrotoxins. [place], with d/c in 24-48 hours if doing well. renal inputnoted. CT A/p reviewed. Urine cx noted. Ua not clearly suggestive of infection. Monitor for now. Continue flomax/alfuzocin. Hold metformin/sitagliptin. ISS, diabetic diet. Continue ASA/statin/ranexa/coreg/paxil/PPI/gabapentin/Pramipexole. DVTPPX heparin PT eval for ROM exercises. Dispo pending clinical improvement. Discussed with patient and nursing in detail, all questions answered.
[2019-01-02] MEDS ORDERED: POTASSIUM CHLORIDE TABS 20 MEQ TABLET.ER (FP) PO ONE (13:33)
--- NOTE | 2019-01-02 15:14 | PN ---
Progress Note (short form) - Note Progress Note: Renal follow up for JUANITA on CKD Pt seen and examined at the bedside awake and alert no acute complaints making urine Vital Signs Temperature 97.8 F 01/02/19 09:00 Pulse Rate 84 01/02/19 09:00 Respiratory Rate 20 01/02/19 09:00 Blood Pressure 127/75 01/02/19 09:00 O2 Sat by Pulse Oximetry (%) 95 01/02/19 09:00 Intake & Output 12/30/18 12/31/18 01/01/19 01/02/19 23:59 23:59 23:59 23:59 Intake Total 2325 1955 240 Output Total 10 45 1900 600 Balance -10 2280 55 -360 Weight 136.078 kg NAD awake and alert neck supple, no JVD RRR, no M/R CTA, no rales or wheeze soft NT/ND trace edema CBC, BMP 01/02/19 07:00 01/02/19 07:00 Current Medications Acetaminophen (Tylenol -) 650 mg PO Q6H PRN PRN Reason: HEADACHE Last Admin: 01/01/19 23:28 Dose: 650 mg Ascorbic Acid (Vitamin C -) 500 mg PO DAILY [facility] Last Admin: 01/02/19 11:10 Dose: 500 mg Aspirin (Ecotrin -) 81 mg PO DAILY [facility] Last Admin: 01/02/19 11:09 Dose: 81 mg Budesonide/Formoterol Fumarate (Symbicort 80/4.5mcg -) 2 puff IH BID [facility] Last Admin: 01/02/19 11:11 Dose: 2 puff Carvedilol (Coreg -) 3.125 mg PO BID [facility] Last Admin: 01/02/19 11:09 Dose: 3.125 mg Fluticasone Propionate (Flonase -) 2 spray NS DAILY [facility] Last Admin: 01/02/19 11:08 Dose: 2 sprays Gabapentin (Neurontin -) 300 mg PO BID [facility] Last Admin: 01/02/19 11:10 Dose: 300 mg Heparin Sodium (Porcine) (Heparin -) 5,000 unit SQ TID [facility] Last Admin: 01/02/19 14:26 Dose: 5,000 unit Ceftriaxone Sodium 1 gm/ (Dextrose) 50 mls @ 100 mls/hr IVPB DAILY [facility]; Protocol Last Admin: 01/02/19 11:07 Dose: 100 mls/hr Sodium Chloride (Normal Saline -) 1,000 mls @ 125 mls/hr IV ASDIR [facility] Last Admin: 01/02/19 11:12 Dose: 125 mls/hr Metronidazole (Flagyl 500mg Premixed Ivpb -) 500 mg in 100 mls @ 100 mls/hr IVPB Q8H-IV [facility] Last Admin: 01/02/19 11:07 Dose: 100 mls/hr Insulin Aspart (Novolog Vial Sliding Scale -) 1 vial SQ ACHS [facility]; Protocol Last Admin: 01/02/19 11:22 Dose: 2 unit Ketoconazole (Nizoral 2% Shampoo -) 1 applic TP DAILY [facility] Last Admin: 01/02/19 11:12 Dose: 1 applic Lactic Acid (Lac-Hydrin 12) 1 applic TP DAILY [facility] Last Admin: 01/02/19 11:10 Dose: 1 applic Levothyroxine Sodium (Synthroid -) 50 mcg PO DAILY@0700 [facility] Last Admin: 01/02/19 06:59 Dose: 50 mcg Lidocaine HCl (Xylocaine 2% Jelly) 1 applic TP DAILY [facility] Last Admin: 01/02/19 11:12 Dose: 1 applic Meclizine HCl (Antivert -) 25 mg PO TID [facility] Last Admin: 01/02/19 14:27 Dose: 25 mg Non-Formulary Medication (Cyclobenzaprine Hcl [Amrix]) 30 mg PO DAILY [facility] Ondansetron HCl (Zofran Injection) 4 mg IVPUSH Q4H PRN PRN Reason: NAUSEA AND/OR VOMITING Pantoprazole Sodium (Protonix -) 40 mg PO DAILY [facility] Last Admin: 01/02/19 11:08 Dose: 40 mg Paroxetine HCl (Paxil -) 40 mg PO DAILY [facility] Last Admin: 01/02/19 11:11 Dose: 40 mg Pramipexole Dihydrochloride (Mirapex -) 1.5 mg PO TID [facility] Last Admin: 01/02/19 14:27 Dose: 1.5 mg Ranolazine (Ranexa -) 1,000 mg PO BID [facility] Last Admin: 01/02/19 11:08 Dose: 1,000 mg Rosuvastatin Calcium (Crestor -) 5 mg PO DAILY [facility] Last Admin: 01/02/19 11:11 Dose: 5 mg Silver Sulfadiazine (Silvadene -) 1 applic TP DAILY [facility] Last Admin: 01/02/19 11:11 Dose: 1 applic Tamsulosin HCl (Flomax -) 0.4 mg PO HS [facility] Last Admin: 01/01/19 23:23 Dose: 0.4 mg Zinc Oxide (Desitin Diaper Rash Oint -) 1 applic TP DAILY [facility] Last Admin: 01/02/19 11:09 Dose: 1 applic 68 year old gentleman with history of 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 1. Acute kidney injury from volume depletion vs AIN 2. Nausea/Vomiting/Diarrhea 3. Anemia 4. Non-obstructing kidney stone 5. Diastolic HF 6. Hypomagnesemia Renal function now improving and pt is non-oliguric Urine studies consistent with volume depletion and persevered tubular function no emergent indication for OFFICE SPEC at the present time CT of Abd showed no signs of acute obstruction no further renal imaging needed at this time Continue NS at 125cc per hour keep MAP > 65 [place] can be discontinued in 24 hours no emergent indication for OFFICE SPEC Dose all meds for CrCl < 15 Continue empiric antibiotics as per primary team supplement Mg Thank you Isma Hirsch DO
--- NOTE | 2019-01-02 18:52 | PN ---
Physical Exam: SUBJECTIVE: Patient seen and examined no new complain feeling dizzy when staff cleaning him OBJECTIVE: Vital Signs Period Temp Pulse Resp BP Sys/Mejia Pulse Ox Last 24 Hr 97.8 F-98.4 F 64-93 18-120 114-153/63-75 95-95 GENERAL: Awake, alert, and fully oriented, in no acute distress. HEAD: Normal with no signs of trauma. LUNGS: Breath sounds equal, clear to auscultation bilaterally. No wheezes, and no crackles. No accessory muscle use. HEART: Regular rate and rhythm, normal S1 and S2 without murmur, rub or gallop. ABDOMEN: Obese Soft, nontender, not distended, normoactive bowel sounds, UPPER EXTREMITIES: 2+ pulses, warm, well-perfused. No cyanosis. No clubbing. No peripheral edema. LOWER EXTREMITIES: 2+ pulses, warm, well-perfused. No calf tenderness. +2 peripheral edema. surgery scar on right knee and left calf NEUROLOGICAL:no facial assymetry , uvula mid line , Normal speech. gait not observed . PSYCHIATRIC: Cooperative. Good eye contact. Appropriate mood and affect Laboratory Results - last 24 hr 01/01/19 01/02/19 01/02/19 23:16 06:57 07:00 WBC 6.3 RBC 2.89 L Hgb 9.4 L Hct 26.7 L MCV 92.2 MCH 32.6 MCHC 35.4 RDW 13.4 Plt Count 122 L MPV 7.2 L Absolute Neuts (auto) 4.3 Neutrophils % 68.7 Lymphocytes % 17.5 Monocytes % 8.5 Eosinophils % 4.7 H Basophils % 0.6 Nucleated RBC % 0 Sodium Potassium Chloride Carbon Dioxide Anion Gap BUN Creatinine Est GFR (CKD-EPI)AfAm Est GFR (CKD-EPI)NonAf POC Glucometer 114 134 Random Glucose Calcium Phosphorus Magnesium Total Bilirubin AST ALT Alkaline Phosphatase Total Protein Albumin 01/02/19 01/02/19 01/02/19 07:00 11:21 17:14 WBC RBC Hgb Hct MCV MCH MCHC RDW Plt Count MPV Absolute Neuts (auto) Neutrophils % Lymphocytes % Monocytes % Eosinophils % Basophils % Nucleated RBC % Sodium 140 Potassium 3.5 Chloride 106 Carbon Dioxide 25 Anion Gap 9 BUN 34.0 H Creatinine 3.7 H Est GFR (CKD-EPI)AfAm 18.22 Est GFR (CKD-EPI)NonAf 15.72 POC Glucometer 154 132 Random Glucose 131 H Calcium 8.1 L Phosphorus 3.3 Magnesium 1.7 L Total Bilirubin 0.4 AST 11 L ALT 11 L Alkaline Phosphatase 46 Total Protein 5.6 L Albumin 3.4 Active Medications Generic Name Dose Route Start Last Admin Trade Name Freq PRN Reason Stop Dose Admin Acetaminophen 650 mg 12/30/18 17:16 01/01/19 23:28 Tylenol - PO 650 mg Q6H PRN Administration HEADACHE Ascorbic Acid 500 mg 12/31/18 10:00 01/02/19 11:10 Vitamin C - PO 500 mg DAILY VIVIANE Administration Aspirin 81 mg 12/31/18 10:00 01/02/19 11:09 Ecotrin - PO 81 mg DAILY VIVIANE Administration Budesonide/Formoterol Fumarate 2 puff 12/30/18 22:00 01/02/19 11:11 Symbicort 80/4.5mcg - IH 2 puff BID VIVIANE Administration Carvedilol 3.125 mg 12/30/18 22:00 01/02/19 11:09 Coreg - PO 3.125 mg BID VIVIANE Administration Fluticasone Propionate 2 spray 12/31/18 10:00 01/02/19 11:08 Flonase - NS 2 sprays DAILY VIVIANE Administration Gabapentin 300 mg 12/30/18 22:00 01/02/19 11:10 Neurontin - PO 300 mg BID VIVIANE Administration Heparin Sodium (Porcine) 5,000 unit 12/30/18 22:00 01/02/19 14:26 Heparin - SQ 5,000 unit TID VIVIANE Administration Ceftriaxone Sodium 1 gm/ 50 mls @ 100 mls/hr 12/31/18 10:00 01/02/19 11:07 Dextrose IVPB 100 mls/hr DAILY VIVIANE Administration Protocol Sodium Chloride 1,000 mls @ 125 mls/hr 12/31/18 10:55 01/02/19 11:12 Normal Saline - IV 125 mls/hr ASDIR VIVIANE Administration Metronidazole 500 mg in 100 mls @ 100 mls/hr 12/31/18 18:00 01/02/19 11:07 Flagyl 500mg Premixed Ivpb - IVPB 100 mls/hr Q8H-IV VIVIANE Administration Insulin Aspart 1 vial 12/30/18 22:00 01/02/19 11:22 Novolog Vial Sliding Scale - SQ 2 unit ACHS VIVIANE Administration Protocol Ketoconazole 1 applic 12/31/18 10:00 01/02/19 11:12 Nizoral 2% Shampoo - TP 1 applic DAILY VIVIANE Administration Lactic Acid 1 applic 12/31/18 10:00 01/02/19 11:10 Lac-Hydrin 12 TP 1 applic DAILY VIVIANE Administration Levothyroxine Sodium 50 mcg 12/31/18 07:00 01/02/19 06:59 Synthroid - PO 50 mcg DAILY@0700 VIVIANE Administration Lidocaine HCl 1 applic 12/31/18 12:45 01/02/19 11:12 Xylocaine 2% Jelly TP 1 applic DAILY VIVIANE Administration Meclizine HCl 25 mg 01/02/19 14:00 01/02/19 14:27 Antivert - PO 25 mg TID VIVIANE Administration Non-Formulary Medication 30 mg 12/31/18 10:00 Cyclobenzaprine Hcl [Amrix] PO DAILY VIVIANE Ondansetron HCl 4 mg 01/02/19 15:05 Zofran Injection IVPUSH Q4H PRN NAUSEA AND/OR VOMITING Pantoprazole Sodium 40 mg 12/31/18 10:00 01/02/19 11:08 Protonix - PO 40 mg DAILY VIVIANE Administration Paroxetine HCl 40 mg 12/31/18 10:00 01/02/19 11:11 Paxil - PO 40 mg DAILY VIVIANE Administration Pramipexole Dihydrochloride 1.5 mg 12/30/18 22:00 01/02/19 14:27 Mirapex - PO 1.5 mg TID VIVIANE Administration Ranolazine 1,000 mg 12/30/18 22:00 01/02/19 11:08 Ranexa - PO 1,000 mg BID VIVIANE Administration Rosuvastatin Calcium 5 mg 12/31/18 10:00 01/02/19 11:11 Crestor - PO 5 mg DAILY VIVIANE Administration Silver Sulfadiazine 1 applic 12/31/18 10:00 01/02/19 11:11 Silvadene - TP 1 applic DAILY VIVIANE Administration Tamsulosin HCl 0.4 mg 12/30/18 22:00 01/01/19 23:23 Flomax - PO 0.4 mg HS VIVIANE Administration Zinc Oxide 1 applic 12/31/18 10:00 01/02/19 11:09 Desitin Diaper Rash Oint - TP 1 applic DAILY VIVIANE Administration CBC, BMP 01/02/19 07:00 01/02/19 07:00 ASSESSMENT/PLAN: 83 year old pleasant male with pmhx of HTN , HLD, Hypothyroidism , CAD S.P CABG , [facility] with N/V/Diarrhea , poor oral intake , JUANITA . # Acute sigmoid diverticulitis # Diarrhea likely over flow from chronic constipation # JUANITA likley from dehydration , pre renal # Acute cystitis and bladder wall thicking on Ct scan * regular diet * IV fluids NS @ 125 CC , monitor kidney function , avoid nephrotoxic agents * Pain control Morphine * ID cosulted * ceftriaxone /flagyl day 4 * coronado cx negative * CT A.P .c : 2 mm RLL nodule , 8 mm non obstructing left renal stone ,right renal simple cyst ,left adrenal nodule (suspicious for adenoma increase in size compare to last visit ), thickining of gall bladder and sigmoid colon * US negative for cholecystitis * Head CT negative * zofran for nasuea , EKG NSR with No QTC prolongation # BPpV # CAD S.P CABG # HTN # HLD # copd # Hypothyroidism # C spine injury with quardiplesia # H.O Kidney cancer # H.P Prostat cancer * cont ASA and statin , Metoprolol succ 25 daily and Synthroid 88 daily * meclizine 25 TID * cont flomax and alfuzocin * cont paxil and pramipexol #FEN * NS @ 125 * Monitor lytes * regular diet #Proph scds , # dispo : M/S # code status : Full code Visit type - Emergency Visit Emergency Visit: Yes ED Registration Date: 12/30/18 Care time: The patient presented to the Emergency Department on the above date and was hospitalized for further evaluation of their emergent condition. - New Patient This patient is new to me today: Yes Date on this admission: 01/02/19 - Critical Care Critical Care patient: No ATTENDING PHYSICIAN STATEMENT I saw and evaluated the patient. I reviewed the resident's note and discussed the case with the resident. I agree with the resident's findings and plan as documented. SUBJECTIVE: OBJECTIVE: ASSESSMENT AND PLAN:
[2019-01-02] MEDS ORDERED: PT OWN MED DRAWER 7, Y5N ONE (21:03)
[2019-01-02] MEDS: TAMSULOSIN HCL 0.4 MG CAP PO SCH (21:41)
[2019-01-03] MEDS: LEVOTHYROXINE NA 50 MCG TABLET (FP) PO SCH (06:26)
[2019-01-03] MEDS: HEPARIN NA (PORCINE) 5,000 UNITS/ML 1ML VIAL SQ SCH ×3 (06:26→23:09)
[2019-01-03] MEDS: MECLIZINE HCL 25 MG TABLET (FP) PO SCH ×3 (06:26→23:09)
[2019-01-03] MEDS: PRAMIPEXOLE DIHYDROCHLORIDE 1.5 MG TABLET PO SCH ×3 (06:26→23:10)
[2019-01-03] MEDS: INSULIN SLIDING SCALE (NOVOLOG) 1 VIAL SQ SCH ×4 (06:27→23:17)
[2019-01-03 08:02] LABS: BASO % 0.4 % (0-2.0); EOS % 4.9 % (0-4.5); HEMATOCRIT 26.9 % (35.4-49); HEMOGLOBIN 9.5 GM/dL (11.7-16.9); LYMPH % 20.6 % (8-40); MCH 32.5 pg (25.7-33.7); MCHC 35.5 g/dl (32.0-35.9); MEAN CELL VOLUME 91.7 fl (80-96); MONO % 9.2 % (3.8-10.2); NEUT % 64.9 % (42.8-82.8); PLATELET COUNT 119 K/MM3 (134-434); RBC 2.93 M/mm3 (4.00-5.60); RDW 13.1 % (11.9-15.9); WHITE BLOOD COUNT 5.3 K/mm3 (4.0-10.0)
[2019-01-03 08:26] LABS: ALBUMIN 3.3 g/dl (3.4-5.0); BILIRUBIN,TOTAL 0.3 mg/dL (0.2-1); BLOOD UREA NITROGEN 22.9 mg/dL (7-18); CALCIUM 8.3 mg/dL (8.5-10.1); CREATININE 2.1 mg/dL (0.55-1.3); MAGNESIUM 1.7 mg/dL (1.8-2.4); PHOSPHOROUS 2.3 mg/dL (2.5-4.9); POTASSIUM 3.7 mmol/L (3.5-5.1); TOT PROT 5.5 g/dl (6.4-8.2)
[2019-01-03] MEDS ORDERED: RANOLAZINE E.R. 500 MG TABLET (FP) ONE ×2 (10:00→23:00)
[2019-01-03] MEDS ORDERED: cefTRIAXone SODIUM 1 GM VIAL ONE (10:00)
[2019-01-03] MEDS ORDERED: DEXTROSE 5%-WATER - 50 ML IVPB ONE (10:01)
[2019-01-03] MEDS ORDERED: PT OWN MED DRAWER 7, Y5N ONE ×3 (10:02→15:03)
[2019-01-03] MEDS: ASPIRIN COATED 81 MG TABLET.EC PO SCH (10:06)
[2019-01-03] MEDS: PANTOPRAZOLE 40 MG TABLET (FP) PO SCH (10:07)
[2019-01-03] MEDS: ASCORBIC ACID 500 MG TABLET (FP) PO SCH (10:07)
[2019-01-03] MEDS: GABAPENTIN 300 MG CAPSULE (FP) PO SCH ×2 (10:08→23:09)
[2019-01-03] MEDS: PARoxetine HCL 20 MG TABLET PO SCH (10:08)
[2019-01-03] MEDS: RANOLAZINE E.R. 1,000 MG TABLET (FP) PO SCH ×2 (10:08→23:10)
[2019-01-03] MEDS: ROSUVASTATIN CA 5 MG TABLET (FP) PO SCH (10:08)
[2019-01-03] MEDS: CARVEDILOL 3.125 MG TABLET (FP) PO SCH (10:09)
[2019-01-03] MEDS: COD LIVER OIL/ZINC OXIDE PASTE 56 GM TUBE TP SCH (10:11)
[2019-01-03] MEDS: CEFTRIAXONE 1 GM in DEXTROSE 5%-WATER - 50 ML IVPB SCH (10:12)
[2019-01-03] MEDS: AMMONIUM LACTATE 12% LOTION 225 GM BOTTLE TP SCH (10:12)
[2019-01-03] MEDS: KETOCONAZOLE 2 % SHAMPOO 120 ML BOTTLE TP SCH (10:12)
[2019-01-03] MEDS: BUDESONIDE/FORMETEROL FUMARATE 80/4.5 mcg INHALER IH SCH ×2 (10:13→23:11)
[2019-01-03] MEDS: FLUTICASONE PROP 0.05% 16 GM NASAL SPRAY NS SCH (10:13)
[2019-01-03] MEDS: SODIUM CHLORIDE 1,000 ML IV SCH ×2 (11:00→23:34)
--- NOTE | 2019-01-03 11:08 | PN ---
Physical Exam: SUBJECTIVE: Patient seen and examined, dizziness resolved. Nausea improved. No vomiting or diarrhea, tolerating po well. OBJECTIVE: Vital Signs Period Temp Pulse Resp BP Sys/Mejia Pulse Ox Last 24 Hr 97.6 F-98.7 F 74-87 20-120 122-141/66-92 96 Intake & Output 12/31/18 01/01/19 01/02/19 01/03/19 23:59 23:59 23:59 23:59 Intake Total 2325 1222 571 4194 Output Total 45 1900 2050 1100 Balance 2280 55 -1285 200 GENERAL: sitting in bed in no acute distress Neck: soft, supple, no JVD CVS: S1S2 regular Chest: limited by body habitus, no rales or wheezing Abdomen:soft, obese, minimal LLQ tenderness, no suprapubic or CVA tenderness, pos bowel sounds Extremities: no edema Neuro: AAOx3, UE 2-3/5, LE 0/5, unchanged exam Laboratory Results - last 24 hr 01/02/19 01/02/19 01/02/19 11:21 17:14 21:35 WBC RBC Hgb Hct MCV MCH MCHC RDW Plt Count MPV Absolute Neuts (auto) Neutrophils % Lymphocytes % Monocytes % Eosinophils % Basophils % Nucleated RBC % Sodium Potassium Chloride Carbon Dioxide Anion Gap BUN Creatinine Est GFR (CKD-EPI)AfAm Est GFR (CKD-EPI)NonAf POC Glucometer 154 132 136 Random Glucose Calcium Phosphorus Magnesium Total Bilirubin AST ALT Alkaline Phosphatase Total Protein Albumin 01/03/19 01/03/19 01/03/19 06:23 07:00 07:00 WBC 5.3 RBC 2.93 L Hgb 9.5 L Hct 26.9 L MCV 91.7 MCH 32.5 MCHC 35.5 RDW 13.1 Plt Count 119 L MPV 7.0 L Absolute Neuts (auto) 3.4 Neutrophils % 64.9 Lymphocytes % 20.6 Monocytes % 9.2 Eosinophils % 4.9 H Basophils % 0.4 Nucleated RBC % 0 Sodium 144 Potassium 3.7 Chloride 110 H Carbon Dioxide 26 Anion Gap 8 BUN 22.9 H Creatinine 2.1 H Est GFR (CKD-EPI)AfAm 36.13 Est GFR (CKD-EPI)NonAf 31.18 POC Glucometer 114 Random Glucose 122 H Calcium 8.3 L Phosphorus 2.3 L Magnesium 1.7 L Total Bilirubin 0.3 AST 12 L ALT 12 L Alkaline Phosphatase 39 L Total Protein 5.5 L Albumin 3.3 L Active Medications Generic Name Dose Route Start Last Admin Trade Name Nannette PRN Reason Stop Dose Admin Acetaminophen 650 mg 12/30/18 17:16 01/01/19 23:28 Tylenol - PO 650 mg Q6H PRN Administration HEADACHE Ascorbic Acid 500 mg 12/31/18 10:00 01/03/19 10:07 Vitamin C - PO 500 mg DAILY VIVIANE Administration Aspirin 81 mg 12/31/18 10:00 01/03/19 10:06 Ecotrin - PO 81 mg DAILY VIVIANE Administration Budesonide/Formoterol Fumarate 2 puff 12/30/18 22:00 01/03/19 10:13 Symbicort 80/4.5mcg - IH 2 puff BID VIVIANE Administration Carvedilol 3.125 mg 12/30/18 22:00 01/03/19 10:09 Coreg - PO 3.125 mg BID VIVIANE Administration Fluticasone Propionate 2 spray 12/31/18 10:00 01/03/19 10:13 Flonase - NS 4 sprays DAILY VIVIANE Administration Gabapentin 300 mg 12/30/18 22:00 01/03/19 10:08 Neurontin - PO 300 mg BID VIVIANE Administration Heparin Sodium (Porcine) 5,000 unit 12/30/18 22:00 01/03/19 06:26 Heparin - SQ 5,000 unit TID VIVIANE Administration Ceftriaxone Sodium 1 gm/ 50 mls @ 100 mls/hr 12/31/18 10:00 01/03/19 10:12 Dextrose IVPB 100 mls/hr DAILY VIVIANE Administration Protocol Sodium Chloride 1,000 mls @ 125 mls/hr 12/31/18 10:55 01/02/19 11:12 Normal Saline - IV 125 mls/hr ASDIR VIVIANE Administration Metronidazole 500 mg in 100 mls @ 100 mls/hr 12/31/18 18:00 01/03/19 10:11 Flagyl 500mg Premixed Ivpb - IVPB 100 mls/hr Q8H-IV VIVIANE Administration Insulin Aspart 1 vial 12/30/18 22:00 01/03/19 06:27 Novolog Vial Sliding Scale - SQ Not Given ACHS VIVIANE Protocol Ketoconazole 1 applic 12/31/18 10:00 01/03/19 10:12 Nizoral 2% Shampoo - TP Not Given DAILY VIVIANE Lactic Acid 1 applic 12/31/18 10:00 01/03/19 10:12 Lac-Hydrin 12 TP 1 applic DAILY VIVIANE Administration Levothyroxine Sodium 50 mcg 12/31/18 07:00 01/03/19 06:26 Synthroid - PO 50 mcg DAILY@0700 VIVIANE Administration Lidocaine HCl 1 applic 12/31/18 12:45 01/02/19 11:12 Xylocaine 2% Jelly TP 1 applic DAILY VIVIANE Administration Meclizine HCl 25 mg 01/02/19 14:00 01/03/19 06:26 Antivert - PO 25 mg TID VIVIANE Administration Non-Formulary Medication 30 mg 12/31/18 10:00 Cyclobenzaprine Hcl [Amrix] PO DAILY VIVIANE Ondansetron HCl 4 mg 01/02/19 15:05 Zofran Injection IVPUSH Q4H PRN NAUSEA AND/OR VOMITING Pantoprazole Sodium 40 mg 12/31/18 10:00 01/03/19 10:07 Protonix - PO 40 mg DAILY VIVIANE Administration Paroxetine HCl 40 mg 12/31/18 10:00 01/03/19 10:08 Paxil - PO 40 mg DAILY VIVIANE Administration Pramipexole Dihydrochloride 1.5 mg 12/30/18 22:00 01/03/19 06:26 Mirapex - PO 1.5 mg TID VIVIANE Administration Ranolazine 1,000 mg 12/30/18 22:00 01/03/19 10:08 Ranexa - PO 1,000 mg BID VIVIANE Administration Rosuvastatin Calcium 5 mg 12/31/18 10:00 01/03/19 10:08 Crestor - PO 5 mg DAILY VIVIANE Administration Silver Sulfadiazine 1 applic 12/31/18 10:00 01/02/19 11:11 Silvadene - TP 1 applic DAILY VIVIANE Administration Tamsulosin HCl 0.4 mg 12/30/18 22:00 01/02/19 21:41 Flomax - PO 0.4 mg HS VIVIANE Administration Zinc Oxide 1 applic 12/31/18 10:00 01/03/19 10:11 Desitin Diaper Rash Oint - TP 1 applic DAILY VIVIANE Administration Microbiology 12/30/18 18:12 Blood - Peripheral Venous Blood Culture - Preliminary NO GROWTH OBTAINED AFTER 72 HOURS, INCUBATION TO CONTINUE FOR 2 DAYS. 12/30/18 18:12 Blood - Peripheral Venous Blood Culture - Preliminary NO GROWTH OBTAINED AFTER 72 HOURS, INCUBATION TO CONTINUE FOR 2 DAYS. 12/30/18 14:40 Urine - Urine - Catheterized Urine Culture - Final Escherichia Coli ASSESSMENT/PLAN: 68 yom with PMHx vertigo, NIDDM, depression, prostate ca, kidney ca, BPH, COPD, HTN, HLD, quadriparesis-cervical spine injury and morbid obesity, recently admitted with dehydration/JUANITA/Hyperkalemia/vertigo, admitted with nausea/ vomiting/?diarrhea, poor oral intake, JUANITA. -Suspected acute sigmoid diverticulitis -Diarrhea, ?overflow from chronic constipation, less likely C difficile -JUANITA, suspect hypovolumia+/- ATN, r/o obstruction given h/o neurogenic bladder and thickened bladder wall on CT -?Acute complicated cystitis vs chronic bladder wall thickening from intermittent obstruction -Leucocytosis, from above+/-hemoconcentration -NIDDM -C spine injury with quadriparesis -H/o prostate cancer -BPH -BPPV -H/o kidney cancer -COPD -HTN -HLD -Chronic LE edema Plan: Ceftriaxone/Flagyl day 5, blood cultures neg so far. Stool studies if recurrent symptoms. Transition to augmentin for total 10 days. Normal amount of stool in colon, ?Overflow diarrhea. Hold off on laxatives for now GI input noted. Unclear if pain pump MRI compatible. No biliary concerns currently, Hold off on MRI for now. Supportive treatment with Zofran, change to prn. . Renal function continues to improve, making urine. Continue IVF, avoid nephrotoxins. [place], with d/c in 24-48 hours if doing well. renal input noted. CT A/p reviewed. Urine cx noted. Ua not clearly suggestive of infection. Monitor for now. Continue flomax/alfuzocin. Hold metformin/sitagliptin. ISS, diabetic diet. Continue ASA/statin/ranexa/coreg/paxil/PPI/gabapentin/Pramipexole. DVTPPX heparin PT eval for ROM exercises. Dispo Recurrent admissions with concerns for dehydration, ?able to care for self with aide at home. Discussed with social work for alternative disposition arrangements. Will follow up. Discussed with patient and nursing in detail, all questions answered. Visit type - Emergency Visit Emergency Visit: Yes ED Registration Date: 12/30/18 Care time: The patient presented to the Emergency Department on the above date and was hospitalized for further evaluation of their emergent condition. - New Patient This patient is new to me today: No - Critical Care Critical Care patient: No - Discharge Referral [facility]erred to [facility] No
[2019-01-03] MEDS ORDERED: POTASSIUM PHOSPHATE 25 MM in DEXTROSE 5%-WATER - 500 ML IVPB ONE (11:25)
[2019-01-03] MEDS ORDERED: ONDANSETRON 4 MG/2 ML VIAL IVPUSH PRN (11:25)
[2019-01-03] MEDS ORDERED: MAGNESIUM SULF 50% (8.12 MEQ/2 ML-1 GM VIAL) IVPB ONE (11:26)
[2019-01-03] MEDS: SILVER SULFADIAZINE 1% TOP CREAM 400 GM JAR TP SCH (13:21)
[2019-01-03] MEDS: LIDOCAINE HCL 2% JELLY (30 ML/TUBE) TP SCH (13:56)
--- NOTE | 2019-01-03 16:07 | PN ---
Progress Note (short form) - Note Progress Note: Renal follow up for JUANITA on CKD Pt seen and examined at the bedside awake and alert no acute complaints no sob, cp, abd pain making urine Vital Signs Temperature 98.2 F 01/03/19 14:00 Pulse Rate 71 01/03/19 14:00 Respiratory Rate 18 01/03/19 14:00 Blood Pressure 103/53 L 01/03/19 14:00 O2 Sat by Pulse Oximetry (%) 96 01/02/19 21:00 Intake & Output 12/31/18 01/01/19 01/02/19 01/03/19 23:59 23:59 23:59 23:59 Intake Total 2325 8012 706 0787 Output Total 45 1900 2050 1800 Balance 2280 55 -1285 -500 NAD awake and alert neck supple, no JVD RRR, no M/R CTA, no rales or wheeze soft NT/ND trace edema CBC, BMP 01/03/19 07:00 01/03/19 07:00 Current Medications Acetaminophen (Tylenol -) 650 mg PO Q6H PRN PRN Reason: HEADACHE Last Admin: 01/01/19 23:28 Dose: 650 mg Amoxicillin/Clavulanate Potassium (Augmentin - 875mg Tablet) 1 tab PO BID@0800, 1730 [facility] Ascorbic Acid (Vitamin C -) 500 mg PO DAILY [facility] Last Admin: 01/03/19 10:07 Dose: 500 mg Aspirin (Ecotrin -) 81 mg PO DAILY [facility] Last Admin: 01/03/19 10:06 Dose: 81 mg Budesonide/Formoterol Fumarate (Symbicort 80/4.5mcg -) 2 puff IH BID [facility] Last Admin: 01/03/19 10:13 Dose: 2 puff Fluticasone Propionate (Flonase -) 2 spray NS DAILY [facility] Last Admin: 01/03/19 10:13 Dose: 4 sprays Gabapentin (Neurontin -) 300 mg PO BID [facility] Last Admin: 01/03/19 10:08 Dose: 300 mg Heparin Sodium (Porcine) (Heparin -) 5,000 unit SQ TID [facility] Last Admin: 01/03/19 13:22 Dose: 5,000 unit Ceftriaxone Sodium 1 gm/ (Dextrose) 50 mls @ 100 mls/hr IVPB DAILY [facility]; Protocol Last Admin: 01/03/19 10:12 Dose: 100 mls/hr Sodium Chloride (Normal Saline -) 1,000 mls @ 125 mls/hr IV ASDIR [facility] Last Admin: 01/02/19 11:12 Dose: 125 mls/hr Potassium Phosphate 25 mm/ (Dextrose) 508.3333 mls @ 62.5 mls/hr IVPB ONCE ONE Stop: 01/03/19 19:32 Last Admin: 01/03/19 13:22 Dose: 62.5 mls/hr Insulin Aspart (Novolog Vial Sliding Scale -) 1 vial SQ ACHS [facility]; Protocol Last Admin: 01/03/19 12:12 Dose: Not Given Ketoconazole (Nizoral 2% Shampoo -) 1 applic TP DAILY [facility] Last Admin: 01/03/19 10:12 Dose: Not Given Lactic Acid (Lac-Hydrin 12) 1 applic TP DAILY [facility] Last Admin: 01/03/19 10:12 Dose: 1 applic Levothyroxine Sodium (Synthroid -) 50 mcg PO DAILY@0700 [facility] Last Admin: 01/03/19 06:26 Dose: 50 mcg Lidocaine HCl (Xylocaine 2% Jelly) 1 applic TP DAILY [facility] Last Admin: 01/03/19 13:56 Dose: Not Given Meclizine HCl (Antivert -) 25 mg PO TID [facility] Last Admin: 01/03/19 13:22 Dose: 25 mg Non-Formulary Medication (Cyclobenzaprine Hcl [Amrix]) 30 mg PO DAILY [facility] Ondansetron HCl (Zofran Injection) 4 mg IVPUSH Q8H PRN PRN Reason: NAUSEA AND/OR VOMITING Pantoprazole Sodium (Protonix -) 40 mg PO DAILY [facility] Last Admin: 01/03/19 10:07 Dose: 40 mg Paroxetine HCl (Paxil -) 40 mg PO DAILY [facility] Last Admin: 01/03/19 10:08 Dose: 40 mg Pramipexole Dihydrochloride (Mirapex -) 1.5 mg PO TID [facility] Last Admin: 01/03/19 15:00 Dose: 1.5 mg Ranolazine (Ranexa -) 1,000 mg PO BID [facility] Last Admin: 01/03/19 10:08 Dose: 1,000 mg Rosuvastatin Calcium (Crestor -) 5 mg PO DAILY [facility] Last Admin: 01/03/19 10:08 Dose: 5 mg Tamsulosin HCl (Flomax -) 0.4 mg PO HS [facility] Last Admin: 01/02/19 21:41 Dose: 0.4 mg Zinc Oxide (Desitin Diaper Rash Oint -) 1 applic TP DAILY [facility] Last Admin: 01/03/19 10:11 Dose: 1 applic 68 year old gentleman with history of 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 1. Acute kidney injury from volume depletion vs AIN 2. Nausea/Vomiting/Diarrhea 3. Anemia 4. Non-obstructing kidney stone 5. Diastolic HF 6. Hypomagnesemia Renal function improving Urine studies consistent with volume depletion and persevered tubular function no emergent indication for [employer] at the present time CT of Abd showed no signs of acute obstruction no further renal imaging needed at this time Decrease rate of IVF to 84 cc per hour and possibly plan to d/c in AM keep MAP > 65 Grnade can be discontinued in 24 hours no emergent indication for [employer] Dose all meds for CrCl < 15 Continue empiric antibiotics as per primary team supplement Mg and Phos Please avoid giving NSAID's in patients with JUANITA/CKD (was given ketorolac yesterday) Thank you Isma Hirsch DO
--- NOTE | 2019-01-03 17:58 | PN.GI ---
GI Progress Note Subjective: No acute events No abdominal pain / diarrhea Believes that his last colonoscopy was 5 years ago, performed by Dr. Ding - Objective Vital Signs: Vital Signs Temperature 98.2 F 01/03/19 14:00 Pulse Rate 71 01/03/19 14:00 Respiratory Rate 18 01/03/19 14:00 Blood Pressure 103/53 L 01/03/19 14:00 O2 Sat by Pulse Oximetry (%) 96 01/02/19 21:00 Constitutional: Calm Eyes: No: Sclera Icterus Cardiovascular: Yes: Regular Rate and Rhythm Respiratory: Yes: Diminished (at bases bilaterally) Gastrointestinal Inspection: No: Distention ...Auscultate: Yes: Normoactive Bowel Sounds ...Palpate: Yes: Soft. No: Tenderness Edema: Yes Edema: LLE: 2+, RLE: 2+ Neurological: Yes: Alert Labs: CBC, BMP 01/03/19 07:00 01/03/19 07:00 Problem List - Problems (1) Diarrhea Assessment/Plan: No further N/V/D ? resolving self limited colitis Continue to monitor If persistent diarrhea, stool c. diff, culture, norovirus PCR Outpatient follow-up Code(s): R19.7 - DIARRHEA, UNSPECIFIED (2) Nausea & vomiting Code(s): R11.2 - NAUSEA WITH VOMITING, UNSPECIFIED
[2019-01-03] MEDS: AMOX TR/POT CLAV 875MG/125MG TABLETS (FP) PO SCH (18:30)
[2019-01-03] MEDS: TAMSULOSIN HCL 0.4 MG CAP PO SCH (23:11)
[2019-01-03] MEDS ORDERED: SODIUM CHLORIDE 1,000 ML IV SCH (23:45)
[2019-01-04] MEDS: LEVOTHYROXINE NA 50 MCG TABLET (FP) PO SCH (06:37)
[2019-01-04] MEDS: HEPARIN NA (PORCINE) 5,000 UNITS/ML 1ML VIAL SQ SCH ×3 (06:37→21:40)
[2019-01-04] MEDS: PRAMIPEXOLE DIHYDROCHLORIDE 1.5 MG TABLET PO SCH ×3 (06:37→21:40)
[2019-01-04] MEDS: MECLIZINE HCL 25 MG TABLET (FP) PO SCH ×3 (06:37→21:40)
[2019-01-04] MEDS: INSULIN SLIDING SCALE (NOVOLOG) 1 VIAL SQ SCH ×4 (06:38→21:44)
[2019-01-04] MEDS ORDERED: INSULIN (NOVOLOG) ASPART 100 UNITS/ML 10ML VIAL ONE (07:09)
--- NOTE | 2019-01-04 09:19 | PN.GI ---
GI Progress Note Subjective: Pt seen/examined at bedside, feeling better, denies abdominal pain, n/v. No further diarrhea per nursing staff Appetite improved. - Objective Vital Signs: Vital Signs Temperature 97.6 F 01/04/19 06:00 Pulse Rate 84 01/04/19 06:00 Respiratory Rate 18 01/04/19 06:00 Blood Pressure 142/88 01/04/19 06:00 O2 Sat by Pulse Oximetry (%) 96 01/03/19 21:00 Constitutional: Well Nourished, No Distress, Calm Cardiovascular: Yes: WNL, Regular Rate and Rhythm Respiratory: Yes: WNL, Regular, CTA Bilaterally ...Palpate: Yes: Other (Abd soft, nt, nd) Labs: CBC, BMP 01/03/19 07:00 01/03/19 07:00 Problem List - Problems (1) Diarrhea Assessment/Plan: 68yo male with diarrhea and episodes of nausea/vomiting. Appears to have resolved. US unremarkable. CT with possible thickening at sigmoid colon. No evidence of diverticulitis. Possibly self limiting gastroenteritis/colitis. Reported colonoscopy within [address] Ding (report not currently available). Being treated for cystitis/UTI. -Continue supportive measures, diet as tolerated -Stool studies if further loose stool -Recommend pt follow up with GI as outpatient to discuss elective colonoscopy unless change in clinical status in the interim and once acute issues resolved. Code(s): R19.7 - DIARRHEA, UNSPECIFIED
[2019-01-04] MEDS ORDERED: RANOLAZINE E.R. 500 MG TABLET (FP) ONE ×2 (09:41→21:22)
[2019-01-04] MEDS ORDERED: PT OWN MED DRAWER 7, Y5N ONE ×2 (09:42→21:22)
[2019-01-04] MEDS: PANTOPRAZOLE 40 MG TABLET (FP) PO SCH (09:49)
[2019-01-04] MEDS: PARoxetine HCL 20 MG TABLET PO SCH (09:49)
[2019-01-04] MEDS: RANOLAZINE E.R. 1,000 MG TABLET (FP) PO SCH ×2 (09:49→21:39)
[2019-01-04] MEDS: ASCORBIC ACID 500 MG TABLET (FP) PO SCH (09:49)
[2019-01-04] MEDS: GABAPENTIN 300 MG CAPSULE (FP) PO SCH ×2 (09:49→21:39)
[2019-01-04] MEDS: ASPIRIN COATED 81 MG TABLET.EC PO SCH (09:50)
[2019-01-04] MEDS: AMOX TR/POT CLAV 875MG/125MG TABLETS (FP) PO SCH (09:51)
[2019-01-04 10:11] LABS: ALBUMIN 3.1 g/dl (3.4-5.0); BILIRUBIN,TOTAL 0.3 mg/dL (0.2-1); BLOOD UREA NITROGEN 13.5 mg/dL (7-18); CALCIUM 8.3 mg/dL (8.5-10.1); CREATININE 1.4 mg/dL (0.55-1.3); MAGNESIUM 1.7 mg/dL (1.8-2.4); TOT PROT 5.4 g/dl (6.4-8.2)
[2019-01-04 10:16] LABS: BASO % 0.7 % (0-2.0); HEMATOCRIT 27.6 % (35.4-49); HEMOGLOBIN 9.7 GM/dL (11.7-16.9); LYMPH % 22.4 % (8-40); MCH 32.6 pg (25.7-33.7); MEAN CELL VOLUME 93.2 fl (80-96); MEAN PLT VOLUME 6.8 fl (7.5-11.1); MONO % 9.4 % (3.8-10.2); NEUT % 61.5 % (42.8-82.8); PLATELET COUNT 120 K/MM3 (134-434); RBC 2.96 M/mm3 (4.00-5.60); RDW 13.9 % (11.9-15.9); WHITE BLOOD COUNT 5.7 K/mm3 (4.0-10.0)
[2019-01-04] MEDS: BUDESONIDE/FORMETEROL FUMARATE 80/4.5 mcg INHALER IH SCH ×2 (10:34→21:41)
[2019-01-04] MEDS: FLUTICASONE PROP 0.05% 16 GM NASAL SPRAY NS SCH (10:34)
[2019-01-04] MEDS: AMMONIUM LACTATE 12% LOTION 225 GM BOTTLE TP SCH (10:35)
[2019-01-04] MEDS: ROSUVASTATIN CA 5 MG TABLET (FP) PO SCH (10:35)
[2019-01-04] MEDS: COD LIVER OIL/ZINC OXIDE PASTE 56 GM TUBE TP SCH (10:36)
[2019-01-04] MEDS: LIDOCAINE HCL 2% JELLY (30 ML/TUBE) TP SCH (10:36)
[2019-01-04] MEDS: KETOCONAZOLE 2 % SHAMPOO 120 ML BOTTLE TP SCH (10:37)
[2019-01-04] MEDS ORDERED: SODIUM CHLORIDE 1,000 ML IV SCH ×2 (11:19→17:00)
[2019-01-04] MEDS ORDERED: MAGNESIUM SULF 50% (8.12 MEQ/2 ML-1 GM VIAL) IVPB ONE (11:20)
--- NOTE | 2019-01-04 11:28 | PN ---
Physical Exam: SUBJECTIVE: Patient seen and examined, no nausea, vomiting, diarrhea or dizziness. Tolerating diet, soriano removed this AM. no complaints. OBJECTIVE: Vital Signs Period Temp Pulse Resp BP Sys/Mejia Pulse Ox Last 24 Hr 97.6 F-98.2 F 68-84 18-18 103-142/53-92 96 Intake & Output 01/01/19 01/02/19 01/03/19 01/04/19 23:59 23:59 23:59 23:59 Intake Total 2873 505 3461 1274 Output Total 1900 2050 2500 1000 Balance 55 -1285 540 274 GENERAL: sitting in bed in no acute distress Neck: soft, supple, no JVD CVS: S1S2 regular Chest: limited by body habitus, no rales or wheezing Abdomen:soft, obese, NT, no suprapubic or CVA tenderness, pos bowel sounds Extremities: no edema Neuro: AAOx3, UE 2-3/5, LE 0/5, unchanged exam Laboratory Results - last 24 hr 01/03/19 01/03/19 01/03/19 12:11 16:28 23:14 WBC RBC Hgb Hct MCV MCH MCHC RDW Plt Count MPV Absolute Neuts (auto) Neutrophils % Lymphocytes % Monocytes % Eosinophils % Basophils % Nucleated RBC % Sodium Potassium Chloride Carbon Dioxide Anion Gap BUN Creatinine Est GFR (CKD-EPI)AfAm Est GFR (CKD-EPI)NonAf POC Glucometer 149 126 128 Random Glucose Calcium Phosphorus Magnesium Total Bilirubin AST ALT Alkaline Phosphatase Total Protein Albumin 01/04/19 01/04/19 01/04/19 06:36 08:50 08:50 WBC 5.7 RBC 2.96 L Hgb 9.7 L Hct 27.6 L MCV 93.2 MCH 32.6 MCHC 35.0 RDW 13.9 Plt Count 120 L MPV 6.8 L Absolute Neuts (auto) 3.5 Neutrophils % 61.5 Lymphocytes % 22.4 Monocytes % 9.4 Eosinophils % 6.0 H Basophils % 0.7 Nucleated RBC % 0 Sodium 144 Potassium 4.0 Chloride 109 H Carbon Dioxide 27 Anion Gap 7 L BUN 13.5 Creatinine 1.4 H Est GFR (CKD-EPI)AfAm 58.99 Est GFR (CKD-EPI)NonAf 50.90 POC Glucometer 131 Random Glucose 128 H Calcium 8.3 L Phosphorus 3.0 Magnesium 1.7 L Total Bilirubin 0.3 AST 17 ALT 14 Alkaline Phosphatase 43 L Total Protein 5.4 L Albumin 3.1 L Active Medications Generic Name Dose Route Start Last Admin Trade Name Nannette PRN Reason Stop Dose Admin Acetaminophen 650 mg 12/30/18 17:16 01/01/19 23:28 Tylenol - PO 650 mg Q6H PRN Administration HEADACHE Amoxicillin/Clavulanate Potassium 1 tab 01/03/19 17:30 01/04/19 09:51 Augmentin - 875mg Tablet PO 1 tab BID@0800,1730 VIVIANE Administration Ascorbic Acid 500 mg 12/31/18 10:00 01/04/19 09:49 Vitamin C - PO 500 mg DAILY VIVIANE Administration Aspirin 81 mg 12/31/18 10:00 01/04/19 09:50 Ecotrin - PO 81 mg DAILY VIVIANE Administration Budesonide/Formoterol Fumarate 2 puff 12/30/18 22:00 01/04/19 10:34 Symbicort 80/4.5mcg - IH 2 puff BID VIVIANE Administration Fluticasone Propionate 2 spray 12/31/18 10:00 01/04/19 10:34 Flonase - NS 2 sprays DAILY VIVIANE Administration Gabapentin 300 mg 12/30/18 22:00 01/04/19 09:49 Neurontin - PO 300 mg BID VIVIANE Administration Heparin Sodium (Porcine) 5,000 unit 12/30/18 22:00 01/04/19 06:37 Heparin - SQ 5,000 unit TID VIVIANE Administration Insulin Aspart 1 vial 12/30/18 22:00 01/04/19 06:38 Novolog Vial Sliding Scale - SQ Not Given ACHS [facility] Protocol Ketoconazole 1 applic 12/31/18 10:00 01/04/19 10:37 Nizoral 2% Shampoo - TP Not Given DAILY VIVIANE Lactic Acid 1 applic 12/31/18 10:00 01/04/19 10:35 Lac-Hydrin 12 TP 1 applic DAILY VIVIANE Administration Levothyroxine Sodium 50 mcg 12/31/18 07:00 01/04/19 06:37 Synthroid - PO 50 mcg DAILY@0700 VIVIANE Administration Lidocaine HCl 1 applic 12/31/18 12:45 01/04/19 10:36 Xylocaine 2% Jelly TP Not Given DAILY [facility] Magnesium Sulfate 2 gm 01/04/19 11:20 Magnesium Sulfate IVPB 01/04/19 11:21 ONCE ONE Meclizine HCl 25 mg 01/02/19 14:00 01/04/19 06:37 Antivert - PO 25 mg TID VIVIANE Administration Non-Formulary Medication 30 mg 12/31/18 10:00 Cyclobenzaprine Hcl [Amrix] PO DAILY VIVIANE Ondansetron HCl 4 mg 01/03/19 11:25 Zofran Injection IVPUSH Q8H PRN NAUSEA AND/OR VOMITING Pantoprazole Sodium 40 mg 12/31/18 10:00 01/04/19 09:49 Protonix - PO 40 mg DAILY VIVIANE Administration Paroxetine HCl 40 mg 12/31/18 10:00 01/04/19 09:49 Paxil - PO 40 mg DAILY VIVIANE Administration Pramipexole Dihydrochloride 1.5 mg 12/30/18 22:00 01/04/19 06:37 Mirapex - PO 1.5 mg TID VIVIANE Administration Ranolazine 1,000 mg 12/30/18 22:00 01/04/19 09:49 Ranexa - PO 1,000 mg BID VIVIANE Administration Rosuvastatin Calcium 5 mg 12/31/18 10:00 01/04/19 10:35 Crestor - PO 5 mg DAILY VIVIANE Administration Tamsulosin HCl 0.4 mg 12/30/18 22:00 01/03/19 23:11 Flomax - PO 0.4 mg HS VIVIANE Administration Zinc Oxide 1 applic 12/31/18 10:00 01/04/19 10:36 Desitin Diaper Rash Oint - TP 1 applic DAILY VIVIANE Administration ASSESSMENT/PLAN: 68 yom with PMHx vertigo, NIDDM, depression, prostate ca, kidney ca, BPH, COPD, HTN, HLD, quadriparesis-cervical spine injury and morbid obesity, recently admitted with dehydration/JUANITA/Hyperkalemia/vertigo, admitted with nausea/ vomiting/?diarrhea, poor oral intake, JUANITA. -JUANITA, suspect hypovolumia from ?nausea/vomiting/diarrhea and poor oral intake and continuation of lasix -Suspected acute sigmoid diverticulitis -Diarrhea, ?overflow from chronic constipation, less likely C difficile -?Acute complicated cystitis vs chronic bladder wall thickening from intermittent obstruction -Leucocytosis, from above+/-hemoconcentration -Hypokalemia -NIDDM -C spine injury with quadriparesis -H/o prostate cancer -BPH -BPPV -H/o kidney cancer -COPD -HTN -HLD -Chronic LE edema Plan: Doing well, no concerning GI symptoms inhouse. GI input appreciated. Outpatient follow up renal function improved. Discussed with Dr Hirsch. Ok to resume lasix 40 mg daily on dc (on it for significant pedal edema). Soriano dced this AM. Monitor off IVF. Meclizine TID. Zofran prn. CT A/P ?sigmoid thickening. s/p 5 days of ceftriaxone/flagyl. Dc augmentin after today for total 1 week course. Urine cx noted. Ua not clearly suggestive of infection. Monitor for now. Continue flomax/alfuzocin. Hold metformin/sitagliptin. ISS, diabetic diet. Continue ASA/statin/ranexa/coreg/paxil/PPI/gabapentin/Pramipexole. DVTPPX heparin PT eval for ROM exercises. Dispo Recurrent admissions with concerns for dehydration, ?able to care for self with aide at home. Discussed with patient, not interested in detention placement currently. Patient has 24 hour aide, d/c home in 24 hours if arrangements made and no new concerns. Discussed with patient and nursing in detail, all questions answered. Visit type - Emergency Visit Emergency Visit: Yes ED Registration Date: 12/30/18 Care time: The patient presented to the Emergency Department on the above date and was hospitalized for further evaluation of their emergent condition. - New Patient This patient is new to me today: No - Critical Care Critical Care patient: No - Discharge Referral Referred to [facility] Med P.C.: No
--- NOTE | 2019-01-04 15:21 | DS ---
Physical Exam: SUBJECTIVE: Patient seen and examined, no nausea, vomiting, dizziness, diarrhea , tolerating diet well, soriano removed this Am. no complaints. OBJECTIVE: Vital Signs Period Temp Pulse Resp BP Sys/Mejia Pulse Ox Last 24 Hr 97.6 F-98.0 F 68-84 18-18 126-142/64-92 96 PHYSICAL EXAM GENERAL: sitting in bed in no acute distress Neck: soft, supple, no JVD CVS: S1S2 regular Chest: limited by body habitus, no rales or wheezing Abdomen:soft, obese, NT, no suprapubic or CVA tenderness, pos bowel sounds Extremities: no edema Neuro: AAOx3, UE 2-3/5, LE 0/5, unchanged exam LABS Laboratory Results - last 24 hr 01/03/19 01/03/19 01/04/19 16:28 23:14 06:36 WBC RBC Hgb Hct MCV MCH MCHC RDW Plt Count MPV Absolute Neuts (auto) Neutrophils % Lymphocytes % Monocytes % Eosinophils % Basophils % Nucleated RBC % Sodium Potassium Chloride Carbon Dioxide Anion Gap BUN Creatinine Est GFR (CKD-EPI)AfAm Est GFR (CKD-EPI)NonAf POC Glucometer 126 128 131 Random Glucose Calcium Phosphorus Magnesium Total Bilirubin AST ALT Alkaline Phosphatase Total Protein Albumin 01/04/19 01/04/19 08:50 08:50 WBC 5.7 RBC 2.96 L Hgb 9.7 L Hct 27.6 L MCV 93.2 MCH 32.6 MCHC 35.0 RDW 13.9 Plt Count 120 L MPV 6.8 L Absolute Neuts (auto) 3.5 Neutrophils % 61.5 Lymphocytes % 22.4 Monocytes % 9.4 Eosinophils % 6.0 H Basophils % 0.7 Nucleated RBC % 0 Sodium 144 Potassium 4.0 Chloride 109 H Carbon Dioxide 27 Anion Gap 7 L BUN 13.5 Creatinine 1.4 H Est GFR (CKD-EPI)AfAm 58.99 Est GFR (CKD-EPI)NonAf 50.90 POC Glucometer Random Glucose 128 H Calcium 8.3 L Phosphorus 3.0 Magnesium 1.7 L Total Bilirubin 0.3 AST 17 ALT 14 Alkaline Phosphatase 43 L Total Protein 5.4 L Albumin 3.1 L Microbiology 12/30/18 18:12 Blood - Peripheral Venous Blood Culture - Preliminary NO GROWTH OBTAINED AFTER 96 HOURS, INCUBATION TO CONTINUE FOR 1 DAYS. 12/30/18 18:12 Blood - Peripheral Venous Blood Culture - Preliminary NO GROWTH OBTAINED AFTER 96 HOURS, INCUBATION TO CONTINUE FOR 1 DAYS. 12/30/18 14:40 Urine - Urine - Catheterized Urine Culture - Final Escherichia Coli CT A/P; Comparison: Prior CT scan of the abdomen pelvis dated 03/20/2016 interval tiny juxtapleural nodule in the right lower lobe, laterally measuring 3 mm which is nonspecific. The heart is within normal limits in size. There is a trace of pericardial effusion versus pericardial thickening. Adequately distended stomach without wall thickening evaluation of the liver and spleen appear unremarkable. The gallbladder is over distended measuring 12.8 cm in sagittal length without gross intraluminal stones or wall thickening. The right adrenal gland appears unremarkable. Left adrenal gland low-attenuation nodule measuring 2.3 cm that statistically may represent an adrenal adenoma. However, it has slightly increased in size since the prior examination where it measured 2 cm. There is an approximately 8 mm nonobstructing stone in the left mid kidney. 2.3 cm right renal upper pole cyst and a larger exophytic lower pole cyst measuring 2.5 cm. There is no evidence of small bowel obstruction. Normal-appearing terminal ileum and the appendix. Normal amount of stool in the colon. There are a few diverticula in the transverse, descending and sigmoid colon without evidence of acute diverticulitis. There is thickening of the distal sigmoid colon wall down to the rectosigmoid junction. Diffuse thickening of the urinary bladder wall likely due to nondistention. Cannot rule out cystitis. No free air , free fluid or enlarged lymph nodes are identified. Patient is status post right hip replacement. Mild degenerative changes involving the left hip joint. Multilevel mild degenerative disc disease in the lumbar spine and moderate degenerative disc disease at L4-L5 level IMPRESSION: See discussion above. Tiny juxtapleural nodule in the right lower lobe measuring 2 mm which is nonspecific. Over distended gallbladder without gross intraluminal stones or wall thickening. 8 mm nonobstructing left mid renal stone. Right renal simple cysts, as described above. Left adrenal low- attenuation nodule likely an adrenal adenoma. However, it has slightly increased in size since the prior examination. There is no evidence of small bowel obstruction. Thickening of the distal sigmoid colon wall down to the rectosigmoid junction for which further evaluation is needed. Thickening of the urinary bladder wall likely due to nondistention. Cannot rule out cystitis. Correlate clinically. Abdominal US: Clinical information evaluate for cholecystitis Visualization is somewhat limited due to body habitus. No definite biliary calculus is seen. The gallbladder appears mildly overdistended without associated wall edema or pericholecystic fluid. There is no definite biliary tract dilatation. No obvious hepatic pathology is seen. The pancreas could not be adequately visualized due to bowel gas and body habitus. There is no right hydronephrosis. Impression: No sonographic evidence of cholelithiasis or acute cholecystitis. There is no definite biliary tract dilatation. HOSPITAL COURSE: Date of Admission:12/30/18 Date of Discharge: 01/04/19 Minutes to complete discharge: 40 Discharge Summary Reason For Visit: ACUTE KIDNEY INJURY UTI Current Active Problems JUANITA (acute kidney injury) (Acute) Diarrhea (Acute) Nausea & vomiting (Acute) Vertigo (Acute) Hospital Course: 68 yom with PMHx vertigo, NIDDM, depression, prostate ca, kidney ca, BPH, COPD, HTN, HLD, quadriparesis-cervical spine injury and morbid obesity, recently admitted with dehydration/JUANITA/Hyperkalemia/vertigo, admitted with nausea/ vomiting/?diarrhea, poor oral intake, JUANITA. He had CT A/p as above raising suspicionf for acute uncomplicated sigmoid diverticulitis. He was placed on ceftriaxone/flagyl and transitioned to augmentin to finish a 7 day course. He was afebrile with no noted vomiting or diarrhea inhouse. He was tolerating diet well. He was see by gastroenterology and recommended outpatient follow up for colonscopy and additional testing. he was also noted with JUANITA, creatinine peaked at 5.1. He was seen by nephrology , his lasix was held and was placed on aggressive hydration. His urine studies were consistent with volume depletion and preserved tubular function. His urine output improved and JUANITA resolved. He will be resumed on lasix 40 mg daily on discharge with close outpatient renal function and volume status monitoring, per renal recs. His metformin with be discontinued on discharged. Given recurrent admissions with hypovolumia and concerns for poor care at home, longterm placement option was addressed which patient declined currently. he will be discharged home with 24 hour aide and VNS in stable condition. Condition: Stable - Instructions Diet, Activity, Other Instructions: You were admitted with nausea, vomiting, diarrhea, and found with mild infection of your colon and finished 1 week course of antibiotics. You also were dehdyrated with abnormal kidney function that improved with holding your lasix and fluids. MEDICATIONS; Stop metformin and Diclofenac gel. Continue lasix 40 mg daily Continue other medications as before. INSTRUCTIONS: Weigh yourself daily and notify doctor if weight gain > 3 lbs in 2 days. Do not take any NSAIDs including Motrin, ibuprofen, Aleve, Naprosyn without discussion with your doctor Also you are advised to have your blood sugars checked before eating and at bedtime and maintain a diary. Notify your doctor if < 75 or persistently > 140 or any reading > 350 noted. FOLLOW UP: BMP, Mg in 1 week with your doctor With Dr. Bernstein in 1 week With lawn mower repairer Dr. Jackson in 2-3 weeks to discuss further testing including endoscopy and colonoscopy With Dry Man Dr. Hirsch in 1-2 weeks. Also if you notice recurrent diarrhea, vomiting, decreased urination or inability to eat, fevers, chills, belly pain or any new concerns, please call 911 or come to the ED. Referrals: Beto Bernstein MD [Primary Care Provider] - Omari Jackson DO [Staff Physician] - Isma Hirsch MD [Staff Physician] - Disposition: VNS/HOME HEALTH CARE - Home Medications Comprehensive Discharge Medication List: Ambulatory Orders Fluticasone Propionate [24 Hour Allergy Relief] 15.8 ml NS DAILY 12/15/18 Pantoprazole Sodium [Protonix] 40 mg PO DAILY 12/15/18 Albuterol Sulfate [Ventolin -] 2 mg IN QID 12/16/18 Alfuzosin HCl [Uroxatral] 10 mg PO DAILY 12/16/18 Ammonium Lactate Cream [Lac-Hydrin 12% Cream -] 1 applic TP DAILY 12/16/18 Ascorbic Acid [Vitamin C] 500 mg PO DAILY 12/16/18 Aspirin [Aspirin EC] 81 mg PO DAILY 12/16/18 Carvedilol [Coreg -] 3.125 mg PO BID 12/16/18 Cod Liver Oil/Zinc Oxide [Desitin Diaper Rash 40% Paste] 28 gm TP DAILY Cyclobenzaprine HCl [Amrix] 30 mg PO DAILY 12/16/18 Fluticasone/Salmeterol [Advair 250-50 Diskus] 1 each IH BID 12/16/18 Gabapentin [Neurontin] 300 mg PO BID 12/16/18 Ketoconazole 2% Shampoo [Nizoral 2% Shampoo -] 1 applic TP DAILY 12/16/18 Levothyroxine [Synthroid -] 50 mcg PO DAILY 12/16/18 Loperamide HCl [Imodium -] 2 mg PO QID PRN 12/16/18 Metoclopramide HCl [Reglan -] 10 mg PO TID 12/16/18 Multivitamin [One-Daily Multi-Vitamin] 1 each PO DAILY 12/16/18 Niacin*ER* [Niaspan (Non-Formulary) -] 1,000 mg PO DAILY 12/16/18 Paroxetine HCl [Paxil] 40 mg PO DAILY 12/16/18 Pramipexole Dihydrochloride [Mirapex -] 1.5 mg PO TID 12/16/18 Ranolazine [Ranexa] 1,000 mg PO BID 12/16/18 Rosuvastatin Calcium [Crestor] 5 mg PO DAILY 12/16/18 Sennosides [Senokot] 8.6 mg PO DAILY 12/16/18 Silver Sulfadiazine 1% Top Cr [Silvadene -] 1 applic TP DAILY 12/16/18 Sitagliptin Phosphate [Januvia] 100 mg PO DAILY 12/16/18 Tamsulosin HCl [Flomax -] 0.4 mg PO DAILY 12/16/18 Furosemide [Lasix] 40 mg PO DAILY #30 tablet 12/19/18 Meclizine HCl [Antivert -] 25 mg PO TID PRN tablet 01/04/19 This patient is new to me today: No Emergency Visit: Yes ED Registration Date: 12/30/18 Care time: The patient presented to the Emergency Department on the above date and was hospitalized for further evaluation of their emergent condition. Critical Care patient: No - Discharge Referral Referred to [facility] Med P.C.: No
--- NOTE | 2019-01-04 16:57 | PN ---
Progress Note (short form) - Note Progress Note: Renal follow up for JUANITA on CKD Pt seen and examined at the bedside awake and alert has no acute complaints Vital Signs Temperature 98.8 F 01/04/19 13:00 Pulse Rate 86 01/04/19 13:00 Respiratory Rate 18 01/04/19 13:00 Blood Pressure 150/77 01/04/19 13:00 O2 Sat by Pulse Oximetry (%) 96 01/03/19 21:00 Intake & Output 01/01/19 01/02/19 01/03/19 01/04/19 23:59 23:59 23:59 23:59 Intake Total 9800 786 1914 1274 Output Total 1900 2050 2500 1000 Balance 55 -1285 540 274 NAD awake and alert neck supple, no JVD RRR, no M/R CTA, no rales or wheeze soft NT/ND trace edema CBC, BMP 01/04/19 08:50 01/04/19 08:50 Current Medications Acetaminophen (Tylenol -) 650 mg PO Q6H PRN PRN Reason: HEADACHE Last Admin: 01/01/19 23:28 Dose: 650 mg Amoxicillin/Clavulanate Potassium (Augmentin - 875mg Tablet) 1 tab PO BID@0800, 1730 [facility] Stop: 01/04/19 17:31 Ascorbic Acid (Vitamin C -) 500 mg PO DAILY [facility] Last Admin: 01/04/19 09:49 Dose: 500 mg Aspirin (Ecotrin -) 81 mg PO DAILY [facility] Last Admin: 01/04/19 09:50 Dose: 81 mg Budesonide/Formoterol Fumarate (Symbicort 80/4.5mcg -) 2 puff IH BID [facility] Last Admin: 01/04/19 10:34 Dose: 2 puff Fluticasone Propionate (Flonase -) 2 spray NS DAILY [facility] Last Admin: 01/04/19 10:34 Dose: 2 sprays Gabapentin (Neurontin -) 300 mg PO BID [facility] Last Admin: 01/04/19 09:49 Dose: 300 mg Heparin Sodium (Porcine) (Heparin -) 5,000 unit SQ TID [facility] Last Admin: 01/04/19 13:24 Dose: 5,000 unit Sodium Chloride (Normal Saline -) 1,000 mls @ 42 mls/hr IV ASDIR [facility] Insulin Aspart (Novolog Vial Sliding Scale -) 1 vial SQ ACHS [facility]; Protocol Last Admin: 01/04/19 13:24 Dose: Not Given Ketoconazole (Nizoral 2% Shampoo -) 1 applic TP DAILY [facility] Last Admin: 01/04/19 10:37 Dose: Not Given Lactic Acid (Lac-Hydrin 12) 1 applic TP DAILY [facility] Last Admin: 01/04/19 10:35 Dose: 1 applic Levothyroxine Sodium (Synthroid -) 50 mcg PO DAILY@0700 [facility] Last Admin: 01/04/19 06:37 Dose: 50 mcg Lidocaine HCl (Xylocaine 2% Jelly) 1 applic TP DAILY [facility] Last Admin: 01/04/19 10:36 Dose: Not Given Meclizine HCl (Antivert -) 25 mg PO TID [facility] Last Admin: 01/04/19 13:25 Dose: 25 mg Non-Formulary Medication (Cyclobenzaprine Hcl [Amrix]) 30 mg PO DAILY [facility] Ondansetron HCl (Zofran Injection) 4 mg IVPUSH Q8H PRN PRN Reason: NAUSEA AND/OR VOMITING Pantoprazole Sodium (Protonix -) 40 mg PO DAILY [facility] Last Admin: 01/04/19 09:49 Dose: 40 mg Paroxetine HCl (Paxil -) 40 mg PO DAILY [facility] Last Admin: 01/04/19 09:49 Dose: 40 mg Pramipexole Dihydrochloride (Mirapex -) 1.5 mg PO TID [facility] Last Admin: 01/04/19 13:25 Dose: 1.5 mg Ranolazine (Ranexa -) 1,000 mg PO BID [facility] Last Admin: 01/04/19 09:49 Dose: 1,000 mg Rosuvastatin Calcium (Crestor -) 5 mg PO DAILY [facility] Last Admin: 01/04/19 10:35 Dose: 5 mg Tamsulosin HCl (Flomax -) 0.4 mg PO HS [facility] Last Admin: 01/03/19 23:11 Dose: 0.4 mg Zinc Oxide (Desitin Diaper Rash Oint -) 1 applic TP DAILY [facility] Last Admin: 01/04/19 10:36 Dose: 1 applic 68 year old gentleman with history of 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 1. Acute kidney injury from volume depletion vs AIN 2. Nausea/Vomiting/Diarrhea 3. Anemia 4. Non-obstructing kidney stone 5. Diastolic HF 6. 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
[2019-01-04] MEDS ORDERED: AMOX TR/POT CLAV 875MG/125MG TABLETS (FP) PO SCH (17:30)
[2019-01-04] MEDS: TAMSULOSIN HCL 0.4 MG CAP PO SCH (21:39)
[2019-01-05] MEDS: LEVOTHYROXINE NA 50 MCG TABLET (FP) PO SCH (06:44)
[2019-01-05] MEDS: HEPARIN NA (PORCINE) 5,000 UNITS/ML 1ML VIAL SQ SCH ×3 (06:44→22:42)
[2019-01-05] MEDS: PRAMIPEXOLE DIHYDROCHLORIDE 1.5 MG TABLET PO SCH ×3 (06:44→22:41)
[2019-01-05] MEDS: MECLIZINE HCL 25 MG TABLET (FP) PO SCH ×3 (06:44→22:42)
[2019-01-05] MEDS: INSULIN SLIDING SCALE (NOVOLOG) 1 VIAL SQ SCH ×4 (06:47→22:50)
[2019-01-05 10:14] LABS: BLOOD UREA NITROGEN 12.6 mg/dL (7-18); CALCIUM 8.5 mg/dL (8.5-10.1); MAGNESIUM 1.4 mg/dL (1.8-2.4); PHOSPHOROUS 2.3 mg/dL (2.5-4.9)
[2019-01-05] MEDS ORDERED: RANOLAZINE E.R. 500 MG TABLET (FP) ONE ×2 (10:46→21:34)
[2019-01-05] MEDS: GABAPENTIN 300 MG CAPSULE (FP) PO SCH ×2 (10:52→22:42)
[2019-01-05] MEDS: ASPIRIN COATED 81 MG TABLET.EC PO SCH (10:52)
[2019-01-05] MEDS: KETOCONAZOLE 2 % SHAMPOO 120 ML BOTTLE TP SCH (10:52)
[2019-01-05] MEDS: RANOLAZINE E.R. 1,000 MG TABLET (FP) PO SCH ×2 (10:52→22:41)
[2019-01-05] MEDS: PANTOPRAZOLE 40 MG TABLET (FP) PO SCH (10:52)
[2019-01-05] MEDS: ROSUVASTATIN CA 5 MG TABLET (FP) PO SCH (10:52)
[2019-01-05] MEDS: PARoxetine HCL 20 MG TABLET PO SCH (10:52)
[2019-01-05] MEDS: ASCORBIC ACID 500 MG TABLET (FP) PO SCH (10:52)
[2019-01-05] MEDS: BUDESONIDE/FORMETEROL FUMARATE 80/4.5 mcg INHALER IH SCH ×2 (10:53→22:43)
[2019-01-05] MEDS: FLUTICASONE PROP 0.05% 16 GM NASAL SPRAY NS SCH (10:53)
[2019-01-05] MEDS: LIDOCAINE HCL 2% JELLY (30 ML/TUBE) TP SCH (10:54)
[2019-01-05] MEDS: AMMONIUM LACTATE 12% LOTION 225 GM BOTTLE TP SCH (10:54)
[2019-01-05] MEDS: COD LIVER OIL/ZINC OXIDE PASTE 56 GM TUBE TP SCH (10:54)
[2019-01-05] MEDS ORDERED: PT OWN MED DRAWER 7, Y5N ONE ×2 (13:52→21:35)
--- NOTE | 2019-01-05 16:16 | PN ---
Progress Note (short form) - Note Progress Note: Renal follow up for JUANITA on CKD Pt seen and examined at the bedside awake and alert no acute complaints Vital Signs Temperature 98.2 F 01/05/19 14:00 Pulse Rate 67 01/05/19 14:00 Respiratory Rate 18 01/05/19 14:00 Blood Pressure 132/72 01/05/19 14:00 O2 Sat by Pulse Oximetry (%) 95 01/04/19 21:00 Intake & Output 01/02/19 01/03/19 01/04/19 01/05/19 23:59 23:59 23:59 23:59 Intake Total 765 3040 1274 Output Total 2050 2500 1000 50 Balance -1285 540 274 -50 NAD awake and alert neck supple, no JVD RRR, no M/R CTA, no rales or wheeze soft NT/ND trace edema CBC, BMP 01/04/19 08:50 01/05/19 08:31 Current Medications Acetaminophen (Tylenol -) 650 mg PO Q6H PRN PRN Reason: HEADACHE Last Admin: 01/01/19 23:28 Dose: 650 mg Ascorbic Acid (Vitamin C -) 500 mg PO DAILY REPLACED BY [facility] Last Admin: 01/05/19 10:52 Dose: 500 mg Aspirin (Ecotrin -) 81 mg PO DAILY REPLACED BY [facility] Last Admin: 01/05/19 10:52 Dose: 81 mg Budesonide/Formoterol Fumarate (Symbicort 80/4.5mcg -) 2 puff IH BID REPLACED BY [facility] Last Admin: 01/05/19 10:53 Dose: 2 puff Fluticasone Propionate (Flonase -) 2 spray NS DAILY REPLACED BY [facility] Last Admin: 01/05/19 10:53 Dose: 2 sprays Gabapentin (Neurontin -) 300 mg PO BID REPLACED BY [facility] Last Admin: 01/05/19 10:52 Dose: 300 mg Heparin Sodium (Porcine) (Heparin -) 5,000 unit SQ TID REPLACED BY [facility] Last Admin: 01/05/19 14:01 Dose: 5,000 unit Insulin Aspart (Novolog Vial Sliding Scale -) 1 vial SQ ACHS REPLACED BY [facility]; Protocol Last Admin: 01/05/19 11:40 Dose: Not Given Ketoconazole (Nizoral 2% Shampoo -) 1 applic TP DAILY REPLACED BY [facility] Last Admin: 01/05/19 10:52 Dose: Not Given Lactic Acid (Lac-Hydrin 12) 1 applic TP DAILY REPLACED BY [facility] Last Admin: 01/05/19 10:54 Dose: 1 applic Levothyroxine Sodium (Synthroid -) 50 mcg PO DAILY@0700 REPLACED BY [facility] Last Admin: 01/05/19 06:44 Dose: 50 mcg Lidocaine HCl (Xylocaine 2% Jelly) 1 applic TP DAILY REPLACED BY [facility] Last Admin: 01/05/19 10:54 Dose: Not Given Magnesium Chloride (Slow-Mag -) 128 mg PO DAILY REPLACED BY [facility] Magnesium Sulfate (Magnesium Sulfate) 2 gm IVPB Q1H REPLACED BY [facility] Stop: 01/05/19 17:16 Meclizine HCl (Antivert -) 25 mg PO TID REPLACED BY [facility] Last Admin: 01/05/19 14:01 Dose: 25 mg Non-Formulary Medication (Cyclobenzaprine Hcl [Amrix]) 30 mg PO DAILY REPLACED BY [facility] Ondansetron HCl (Zofran Injection) 4 mg IVPUSH Q8H PRN PRN Reason: NAUSEA AND/OR VOMITING Pantoprazole Sodium (Protonix -) 40 mg PO DAILY REPLACED BY [facility] Last Admin: 01/05/19 10:52 Dose: 40 mg Paroxetine HCl (Paxil -) 40 mg PO DAILY REPLACED BY [facility] Last Admin: 01/05/19 10:52 Dose: 40 mg Pramipexole Dihydrochloride (Mirapex -) 1.5 mg PO TID REPLACED BY [facility] Last Admin: 01/05/19 14:01 Dose: 1.5 mg Ranolazine (Ranexa -) 1,000 mg PO BID REPLACED BY [facility] Last Admin: 01/05/19 10:52 Dose: 1,000 mg Rosuvastatin Calcium (Crestor -) 5 mg PO DAILY REPLACED BY [facility] Last Admin: 01/05/19 10:52 Dose: 5 mg Tamsulosin HCl (Flomax -) 0.4 mg PO HS REPLACED BY [facility] Last Admin: 01/04/19 21:39 Dose: 0.4 mg Zinc Oxide (Desitin Diaper Rash Oint -) 1 applic TP DAILY REPLACED BY [facility] Last Admin: 01/05/19 10:54 Dose: 1 applic 68 year old gentleman with history of 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 1. Acute kidney injury from volume depletion vs AIN 2. Nausea/Vomiting/Diarrhea 3. Anemia 4. Non-obstructing kidney stone 5. Diastolic HF 6. Hypomagnesemia Renal function improved and stable Urine studies consistent with volume depletion and persevered tubular function CT of Abd showed no signs of acute obstruction no further renal imaging needed at this time keep MAP > 65 Give Mg sulfate 2g IV x 2 and start oral Slo-Mg daily tomorrow Thank you Isma Hirsch DO
[2019-01-05] MEDS: MAGNESIUM SULF 50% (8.12 MEQ/2 ML-1 GM VIAL) IVPB SCH ×2 (16:34→17:27)
[2019-01-05 22:01] VITALS: PULSE 66
[2019-01-05] MEDS: TAMSULOSIN HCL 0.4 MG CAP PO SCH (22:42)
[2019-01-06] MEDS: LEVOTHYROXINE NA 50 MCG TABLET (FP) PO SCH (06:34)
[2019-01-06] MEDS: PRAMIPEXOLE DIHYDROCHLORIDE 1.5 MG TABLET PO SCH (06:34)
[2019-01-06] MEDS: HEPARIN NA (PORCINE) 5,000 UNITS/ML 1ML VIAL SQ SCH (06:34)
[2019-01-06] MEDS: MECLIZINE HCL 25 MG TABLET (FP) PO SCH (06:34)
[2019-01-06] MEDS: INSULIN SLIDING SCALE (NOVOLOG) 1 VIAL SQ SCH (06:38)
[2019-01-06 08:02] VITALS: BP 113/67; TEMP 97.6
[2019-01-06] MEDS ORDERED: RANOLAZINE E.R. 500 MG TABLET (FP) ONE (08:50)
[2019-01-06] MEDS ORDERED: PT OWN MED DRAWER 7, Y5N ONE (08:50)
[2019-01-06] MEDS: ASCORBIC ACID 500 MG TABLET (FP) PO SCH (09:10)
[2019-01-06] MEDS: ASPIRIN COATED 81 MG TABLET.EC PO SCH (09:10)
[2019-01-06] MEDS: PARoxetine HCL 20 MG TABLET PO SCH (09:10)
[2019-01-06] MEDS: ROSUVASTATIN CA 5 MG TABLET (FP) PO SCH (09:10)
[2019-01-06] MEDS: GABAPENTIN 300 MG CAPSULE (FP) PO SCH (09:10)
[2019-01-06] MEDS: PANTOPRAZOLE 40 MG TABLET (FP) PO SCH (09:11)
[2019-01-06] MEDS: LIDOCAINE HCL 2% JELLY (30 ML/TUBE) TP SCH (09:11)
[2019-01-06] MEDS: RANOLAZINE E.R. 1,000 MG TABLET (FP) PO SCH (09:12)
[2019-01-06] MEDS: BUDESONIDE/FORMETEROL FUMARATE 80/4.5 mcg INHALER IH SCH (09:13)
[2019-01-06] MEDS: FLUTICASONE PROP 0.05% 16 GM NASAL SPRAY NS SCH (09:13)
[2019-01-06] MEDS: AMMONIUM LACTATE 12% LOTION 225 GM BOTTLE TP SCH (09:14)
[2019-01-06] MEDS: COD LIVER OIL/ZINC OXIDE PASTE 56 GM TUBE TP SCH (09:14)
[2019-01-06] MEDS: KETOCONAZOLE 2 % SHAMPOO 120 ML BOTTLE TP SCH (09:20)
[2019-01-06] MEDS ORDERED: MAGNESIUM CL 64 MG TABLET.SA PO SCH (10:00)
== END 2019-01-06 11:26 | disposition home health service (06) | DRG 682 ==
LOC: JER 11:12 → JERBED 16:45 → J5S 19:13
PROVIDERS: ADMIT Hospitalist; ATTEND Internal Medicine
DX: N17.9 Acute kidney failure, unspecified (principal); G82.50 Quadriplegia, unspecified; I13.0 Hypertensive heart and chronic kidney disease with heart failure and stage 1 through stage 4 chronic kidney disease, or unspecified chronic kidney disease; I50.30 Unspecified diastolic (congestive) heart failure; K57.92 Diverticulitis of intestine, part unspecified, without perforation or abscess without bleeding; E11.9 Type 2 diabetes mellitus without complications; J44.9 Chronic obstructive pulmonary disease, unspecified; I10 Essential (primary) hypertension; E78.5 Hyperlipidemia, unspecified; R11.2 Nausea with vomiting, unspecified; R19.7 Diarrhea, unspecified; D64.9 Anemia, unspecified; N18.9 Chronic kidney disease, unspecified; E83.42 Hypomagnesemia; N20.0 Calculus of kidney; R42 Dizziness and giddiness; D72.829 Elevated white blood cell count, unspecified; E87.6 Hypokalemia; N40.0 Benign prostatic hyperplasia without lower urinary tract symptoms; E66.01 Morbid (severe) obesity due to excess calories; Z68.38 Body mass index [BMI] 38.0-38.9, adult; E83.39 Other disorders of phosphorus metabolism; E03.9 Hypothyroidism, unspecified; E86.0 Dehydration; K59.00 Constipation, unspecified; I25.10 Atherosclerotic heart disease of native coronary artery without angina pectoris; Z95.1 Presence of aortocoronary bypass graft
CPT/HCPCS: 36415; 70450-TC; 71045-TC-FY; 74176-TC; 76705-TC; 80048; 80053; 81003; 82436; 82565; 82570; 82728; 82962; 83540; 83550; 83735; 83935; 84100; 84133; 84156; 84300; 84443; 84484; 84540; 84550; 85025; 87040; 87086; 87186; 87205; 93005; 93010; 97161-GP; 99283-25; J0131; J1644; J7030